=== PATIENT | female | born 1960 | race Caucasian/White ===

== ENCOUNTER → 2017-10-25 12:42 | Outpatient (CLI) | payer OTHER, SELFPAY ==
[2017-10-25 13:22] LABS: Alanine Aminotransferase 27 IU/L (9-52); Albumin 3.6 g/dL (3.5-5.0); Albumin Globulin Ratio 1.4 (1.0-2.8); Alkaline Phosphatase 69 U/L (38-126); Aspartate Aminotransferase 23 IU/L (14-36); BUN Creatinine Ratio 14.3 (6-22); Bilirubin Total 0.6 mg/dL (0.2-1.3); Blood Urea Nitrogen 10 mg/dL (7-17); Calcium 8.5 mg/dL (8.4-10.2); Carbon Dioxide 31 mmol/L (22-32); Chloride 104 mmol/L (98-107); Cholesterol 140 mg/dL (140-199); Estimated Glomerular Filt Rate > 60.0 mL/min (>60); Globulin 2.5 g/dL (1.7-4.1); Glucose 86 mg/dL (70-100); HDL Cholesterol 51 mg/dL (40-60); HEMOLYSIS 16 (0-50); LDL Cholesterol Calculated 71 mg/dL (<100); Potassium 4.1 mmol/L (3.4-5.1); Sodium 135 mmol/L (137-145); Total Protein 6.1 g/dL (6.3-8.2); Triglycerides 89 mg/dL (35-150)
[2017-10-25 13:44] LABS: Add Manual Diff / Slide Review NO; Basophils Percent Auto 0.4 % (0-2); Eosinophils Percent Auto 0.7 % (2-4); Hematocrit 40.2 % (36-46); Hemoglobin 13.5 g/dL (12.0-16.0); Lymphocytes Percent Auto 16.7 % (25-40); Mean Corpuscular HGB Conc 33.6 % (30-36); Mean Corpuscular Hemoglobin 29.6 PG (26-34); Mean Corpuscular Volume 88.2 fL (80-100); Monocytes Percent Auto 7.7 % (3-14); Neutrophils Absolute Auto 7100 /uL (3000-5900); Neutrophils Percent Auto 74.5 % (50-75); Platelet Count 326 X10^3/uL (150-400); Red Blood Cell Count 4.56 X10^6/uL (4.0-5.2); Red Cell Distribution Width 13.6 % (11.6-14.8); White Blood Cell Count 9.5 X10^3/uL (4.5-11.0)
[2017-10-25 14:36] LABS: Thyroid Stimulating Hormone 1.32 uIU/mL (0.47-4.68)
[2017-10-25 16:01] LABS: Vitamin D 25 Hydroxy (D3) 63.8 ng/mL (30.0-100.0)
== END ==
PROVIDERS: Family Provider Family Medicine; PCP Family Medicine; Visit Provider Family Medicine
DX: Z00.00 Encounter for general adult medical examination without abnormal findings (principal); I11.0 Hypertensive heart disease with heart failure; E55.9 Vitamin D deficiency, unspecified
CPT/HCPCS: 36415; 80053; 80061; 82306; 84443; 85025

== ENCOUNTER → 2017-11-08 07:44 | Outpatient (CLI) | payer OTHER, SELFPAY ==
--- NOTE | 2017-11-08 | DI.US.S_ITS ---
PROCEDURE: US PELVIC COMPLETE INDICATIONS: POSTMENOPAUSAL BLEEDING TECHNIQUE: Real-time scanning was performed of the pelvic organs, with image documentation. Additional endovaginal scanning was necessary due to incomplete visualization of the adnexal and endometrial structures by transabdominal scanning. COMPARISON: None. FINDINGS: Transabdominal scanning: Limited scanning through the kidneys shows no hydronephrosis. No pathologic free abdominal or pelvic fluid. Simple cyst involves the left kidney measuring 5.2 cm in greatest diameter. Endovaginal scanning: Uterus: Uterus is normal in size at 7.3 x 3.9 x 5.1 cm. The endometrium measures 7.8 mm in combined thickness. Ovaries: Right ovary is normal measuring 1.4 x 1.1 x 2.3 cm and the left ovary is not visualized on this exam. IMPRESSION: #1. Abnormally thickened endometrial complex in this postmenopausal female with history of bleeding. Endometrial carcinoma cannot be excluded. Endometrial biopsy recommended. #2. Left ovary could not be identified on this exam. Dictated by: Royce Hays [facility] Interpreted: Adriano Grullon MD on 11/08/2017 at 8:44 Approved by: Adriano Grullon M.D. on 11/08/2017 at 19:02
== END ==
PROVIDERS: PCP Family Medicine; Visit Provider Nurse Practitioner Family
DX: N95.0 Postmenopausal bleeding (principal)
CPT/HCPCS: 76856

== ENCOUNTER → 2017-11-15 13:06 | Outpatient (CLI) | payer OTHER, SELFPAY | PROVIDERS: PCP Family Medicine; Visit Provider Family Medicine | DX: M85.852 Other specified disorders of bone density and structure, left thigh (principal); Z78.0 Asymptomatic menopausal state; Z82.62 Family history of osteoporosis | CPT/HCPCS: 77080 ==

== ENCOUNTER → 2018-10-04 15:07 | Outpatient (CLI) | payer OTHER, SELFPAY ==
--- NOTE | 2018-10-04 15:12 | DI.RAD.S_ITS ---
PROCEDURE: XR SHOULDER LT MIN 2V INDICATIONS: LEFT SHOULDER PAIN X 6 MONTHS, CANNOT ABDUCT L ARM GREATER 90 degrees TECHNIQUE: 3 views of the shoulder were acquired. COMPARISON: None. FINDINGS: Bones: No fractures or dislocations. No suspicious bony lesions. Visualized ribs appear intact. Soft tissues: No suspicious soft tissue calcifications. IMPRESSION: No radiographic abnormalities. If clinical symptoms persist or clinical suspicion for internal derangement is high, MRI is suggested for further evaluation. Dictated by: Christophe Moeller M.D. on 10/04/2018 at 17:34 Approved by: Christophe Moeller M.D. on 10/04/2018 at 17:37
== END ==
PROVIDERS: Visit Provider Student in an Organized Health Care Education/Training Program
DX: M25.512 Pain in left shoulder (principal)
CPT/HCPCS: 73030

== ENCOUNTER → 2018-10-31 11:03 | Outpatient (CLI) | payer OTHER, SELFPAY ==
--- NOTE | 2018-10-31 | DI.MRI.S_ITS ---
PROCEDURE: MR SHOULDER LT W CON INDICATIONS: shoulder pain TECHNIQUE: After the administration of 12 mL of dilute intra-articular Gadolinium contrast, oblique coronal T1 and T2 spin echo with fat saturation, oblique sagittal T1 spin echo with and without fat saturation, oblique sagittal T2 fast spin echo with fat saturation, axial T1 spin echo with fat saturation through the shoulder. COMPARISON: [facility], CR, XR SHOULDER LT MIN 2V, 10/04/2018, 15:21. FINDINGS: Image quality: Diagnostic. Rotator cuff: No full-thickness or high-grade partial-thickness tear of the rotator cuff is evident. There is mild subscapularis tendinopathy without significant tear. Slight focal thickening and increased signal at the junction between the supraspinatus and infraspinatus tendons is present, suggesting focal tendinopathy without significant tear. The teres minor tendon is intact. There is no significant atrophy of the rotator cuff muscles. Bones and bursae: No acute fracture, dislocation, or suspicious osseous lesion is identified. No significant degenerative changes of the glenohumeral joint are present. There may be mild degenerative changes of the acromioclavicular joint. There is mild downsloping of the lateral acromion. There is adequate distention of the glenohumeral joint with the injected contrast. However, much of the contrast is noted to decompress along the subcoracoid recess and subscapularis muscle. This contrast material is seen within the anterior subacromial subdeltoid bursa. However, no definite full-thickness tear of the rotator cuff is appreciated. Capsule and soft tissues: There is a small to moderate-sized posterior labral tear identified that extends from the 12 o'clock position to the 4 o'clock position. No detached liver fragments a large para labral cysts are evident. The long head of the biceps tendon is normally positioned within the bicipital groove and appears to be otherwise intact. The superior, middle, and inferior glenohumeral ligaments are intact. IMPRESSION: 1. Mild tendinopathy of the rotator cuff without significant tearing. 2. Small moderate-sized posterior labral tear. 3. Mild degenerative changes of the acromioclavicular joint. Mild downsloping of the lateral acromion may be resulting in subacromial impingement and clinical correlation is recommended. 4. Fluid within the subacromial subdeltoid bursa is felt to be iatrogenic given and no obvious full-thickness rotator cuff tear is evident. Another alternative could be on the basis of adhesive capsulitis with contrast extravasating through the needle tract. Please correlate clinically. Dictated by: Kevin Martel M.D. on 10/31/2018 at 14:48 Approved by: Kevin Martel M.D. on 10/31/2018 at 15:04
--- NOTE | 2018-10-31 | DI.RAD.S_ITS ---
PROCEDURE: FL SHOULDER INJECTION MR/CT LT INDICATIONS: Shoulder pain. TECHNIQUE: The indications, alternatives, benefits, risks, and complications of the procedure were explained to the patient. Written informed consent was obtained and placed in the chart. The shoulder was examined fluoroscopically and a site for needle placement chosen for entry into the left glenohumeral joint from an anterior approach. The skin was prepped and draped in a sterile fashion, and 1% lidocaine infiltrated from skin down to joint capsule. A spinal needle was inserted into the glenohumeral joint, and a small amount of iodinated contrast media injected to confirm intra-articular placement of the needle tip. This was followed by approximately 15 mL dilute solution of a gadolinium containing MR contrast agent. The needle was removed and a dressing was applied. The patient was given postprocedural instructions and sent to the MR suite for MR imaging. FINDINGS: A single fluoroscopic spot image demonstrates intra-articular location of injected iodinated contrast. IMPRESSION: Successful fluoroscopically guided administration of dilute Gadolinium solution into the left shoulder joint for MR arthrogram. Dictated by: Adriano Grullon M.D. on 10/31/2018 at 13:22 Approved by: Adriano Grullon M.D. on 10/31/2018 at 13:24
== END ==
PROVIDERS: Visit Provider Student in an Organized Health Care Education/Training Program
DX: M25.511 Pain in right shoulder (principal); S43.431A Superior glenoid labrum lesion of right shoulder, initial encounter
CPT/HCPCS: 23350; 73222; 77002

== ENCOUNTER → 2018-12-03 13:28 | Outpatient (CLI) | payer OTHER, SELFPAY ==
--- NOTE | 2018-12-03 | DI.MG.S_ITS ---
BILATERAL DIGITAL SCREENING MAMMOGRAM 3D/2D WITH CAD: 12/03/2018 CLINICAL: Routine screening. Comparison is made to exams dated: 12/02/2016 mammogram, 09/18/2015 mammogram, 01/23/2014 mammogram, 04/29/2009 mammogram, and 04/05/2005 mammogram - [facility]. The tissue of both breasts is predominantly fatty. There is suboptimal visualization of the posterior breast tissue particullary on the left. The patient has limited range of motion of the left shoulder. A left lateral medial projection was obtain in place of the left MLO. The patient also has a tremor. No significant motion artifact. Current study was also evaluated with a Computer Aided Detection (CAD) system. No significant masses, calcifications, or other findings are seen in either breast. There has been no significant interval change. IMPRESSION: NEGATIVE Evaluation of the posterior left breast tissue is suboptimal due to limited range of motion of the left arm. There is no mammographic evidence of malignancy. A 1 year screening mammogram is recommended. This exam was interpreted at Station ID: [id number]. NOTE: For mammograms, a report in lay terms will be sent to the patient. Approximately 15% of breast malignancies will not be visualized mammographically. In the management of a palpable breast mass, a negative mammogram must not discourage biopsy of a clinically suspicious lesion. Electronically Signed By: Ernie Brandon M.D. slc/:12/03/2018 14:38:30 copy to: Jean Claude Avila letter sent: Normal Exam ACR BI-RADS Category 1: Negative [id number]
== END ==
PROVIDERS: PCP Student in an Organized Health Care Education/Training Program; Visit Provider Student in an Organized Health Care Education/Training Program
DX: Z12.31 Encounter for screening mammogram for malignant neoplasm of breast (principal)
CPT/HCPCS: 77063; 77067

== ENCOUNTER 2019-05-20 13:45 | Outpatient (RCR) | payer OTHER, SELFPAY ==
--- NOTE | 2018-12-20 16:46 | PT.OIE ---
Current Diagnoses Adhesive capsulitis of left shoulder (12/20/18) Impingement syndrome of left shoulder (12/20/18) Visit Care Team Role Provider Type Katiana Elaine MD Primary Care Provider Physician Specialty: Family Practice Address: [facility], [address], [place], [address] Email: [email or web address] Bimal Poon PA-C Attending Provider Non-Staff Specialty: Medical Address: [address] [place] [address], [address], [place], [address] Email: Physical Therapy Initial Evaluation PT-OP-A Visit Information Start: 12/20/18 13:28 Freq: Status: Active Protocol: Document 12/20/18 14:22 MB (Rec: 12/20/18 15:05 MB [id number]) Out-Patient Physical Therapy Visit Information Visit Information Visit Type Initial Evaluation Visit Note Initial assessment, pt with left shoulder pain, reports of frozen shoulder and possible adhesive capsulitis per dx note. 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 She is worried about being put in pain with movement. Visit Start Time 14:22 Visit Stop Time 15:15 Total Visit Minutes 53 Visit Number 03/27 Number of CLIENT ASSOCIATE Visits 0 PT-OP-B Current Condition Start: 12/20/18 13:28 Freq: Status: Active Protocol: Document 12/20/18 14:22 MB (Rec: 12/20/18 15:05 MB [id number]) Current Condition History of Current Condition Onset Date 10 months History of Current Condition Pt states that she went to rake, move pots and pull weeds in 02/27 and she went to bed at night and had increased left shoulder pain. 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 She has had gradually worsening ROM. Patient can only sleep in one position on her back or in her recliner, leaning to the right. With her [place]'s Disease, she needs 10-11 hours of sleep. 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 Left shoulder MRI 10/31/18: small mod-sized posterior labral tear, mild degenerative changes AC joint, down sloping lateral acromion, fluid within subacrominal subdeltoid bursa Prior Treatments and Tests Injection, 5 days of oral corticosteroids Future Testing and Treatments Planned Follow-up with orthopedist 01/18/19 Treatment Goals Patient/Caregiver Goals To decrease pain Prior Functional Status Baseline Function- ADL's Needs Assist Baseline Function- Other Pt needs asst to wash under her arms and with donning her bra. She was able to try it today but had pain. Personal Factors Other Personal Factors That May Effect HD with chorea, imbalance and Therapy/Recovery difficultly performing motor tasks occ PT-OP-C Subjective Start: 12/20/18 13:28 Freq: Status: Active Protocol: Document 12/20/18 14:22 MB (Rec: 12/20/18 15:05 MB [id number]) OP-PT Subjective Patient Comments Patient Comments 10 month onset of left shoulder pain and decreasing ROM. She reports frozen shoulder, fear of pain with starting movement with PT. She wonders if gentle manual work may be part of PT. She has trouble performing ADLs like showering. She is afraid of showering because of pain. She is only showering every 7-8 days but normal washes every 4 -5 days. She is right handed. Patient Reported Progress Worse PT-OP-K Range of Motion Start: 12/20/18 13:28 Freq: Status: Active Protocol: Document 12/20/18 14:22 MB (Rec: 12/20/18 15:28 MB [id number]) Cervical Spine Range of Motion Cervical Spine Active Testing Position Standing Flexion 40 Extension 40 Rotation Left 45 Rotation Right 70 Comments Unable to coordinate SB d/t chorea Shoulder Goniometric Range of Motion Shoulder ROM Limitations Comments R shoulder, elbow and wrist normal. Active IR behind back to T6. L shoulder flexion 55 deg, abduction 40 deg increased pain greater than 7/10. No tolerance to active IR in standing. Passive ER and IR to 0 in 30 deg abduction Elbow/Forearm Range of Motion Elbow/Forearm ROM Limitations Comments R elbow and wrist WNLs. Left elbow and hand are functional but not full-range tested d/t pt's fear of pain. PT-OP-M Strength Start: 12/20/18 13:28 Freq: Status: Active Protocol: Document 12/20/18 14:22 MB (Rec: 12/20/18 16:46 MB [id number]) Shoulder Strength Shoulder Manual Muscle Testing Left Comments Standing all deferred d/t pain with minimal shoulder motion Right Flexion 5 Normal Abduction (C5) 5 Normal External Rotation 4 Good Internal Rotation 4 Good Comments Standing Elbow/Forearm Strength Elbow and Forearm Manual Muscle Testing Left Comments Deferred d/t fear of pain Right Flexion (C6) 5 Normal Extension (C7) 5 Normal Pronation 5 Normal Supination 5 Normal Wrist Strength Wrist Manual Muscle Testing Left Comments Deferred d/t fear of pain Right Flexion (C7) 5 Normal Extension (C6) 5 Normal PT-OP-T Assessment and Plan Start: 12/20/18 13:28 Freq: Status: Active Protocol: Document 12/20/18 14:22 MB (Rec: 12/20/18 16:46 MB [id number]) Physical Therapy Assessment Rehab Potential Rehabilitation Potential Fair Evaluation Complexity Number of Personal Factors/Comorbidities 1-2 Number of Body Systems Impaired 1-2 Impairments Impairments Activity Tolerance,Balance, Coordination,Functional Activities,Functional Mobility ,Pain,Posture,ROM,Soft Tissue Mobility,Strength Goals 5 Sugar Presser Goal (LTG) Pt will perform progressive HEP with I by 02/20/19. LTG Duration 8 weeks 4 Impairment Pain Fci Goal (LTG) Pt will report a 70% improvement in left shoulder pain by 02/20/19. LTG Duration 8 weeks 3 Impairment Decreased ADL I Sugar Presser Goal (LTG) Pt will be able to don her bra with I by 02/20/19. LTG Duration 8 weeks 2 Impairment Decreased ROM Sugar Presser Goal (LTG) Pt will present with improved AROM left shoulder to at least 150 deg flexion and abduction and IR to T10 level by . LTG Duration 8 weeks 1 Impairment QuickDASH score reflecting 67. 5% impairment Fci Goal (LTG) Pt will present with QuickDASH score reflecting no more than 35% functional impairment by 02/20/19. LTG Duration 8 weeks Assessment Summary Assessment Pt is a 58 y/o female presenting with reports of left frozen shoulder progressing over 10 months. MRI indicates possible adhesive capsulitis among other findings. Pt presents with HD and chorea and this inhibits some ROM and postural assessment and may be a barrier to PT. Pt will benefit from PT for ROM, flexibility, strengthening and manual therapy. Anticipate slow recovery given fear of pain, decreased range, course of problem and other co- morbidities. Physical Therapy Plan Frequency and Duration Frequency of Treatment 2x/Week Duration of Treatment 8 weeks Plan of Care Start Date 12/20/18 Plan of Care End Date 02/20/19 Therapeutic Interventions Therapeutic Interventions Coordination Training,Home Exercise Program,Joint Mobilizations,Manual Therapy, Neuromuscular Re-education, Patient/Caregiver Education, Self-Care/Home Management,Soft Tissue Mobilization,Taping, Therapeutic Activities, Therapeutic Exercises Modalities Cold Pack/Ice Massage,Electric Stimulation,Hot Packs, Ultrasound Next Visit Focus/Plan Next Note Type Treatment Note Next Visit Plan Consider assessing hook lying position with neck and head support, scapular retraction, consider progression to PNF, cane AAROM and Felicerain
--- NOTE | 2018-12-24 15:18 | PT.OTN ---
Current Diagnoses Adhesive capsulitis of left shoulder (12/24/18) Impingement syndrome of left shoulder (12/24/18) Physical Therapy Treatment Note PT-OP-A Visit Information Start: 12/20/18 13:28 Freq: Status: Active Protocol: Document 12/24/18 14:31 MB (Rec: 12/24/18 15:12 MB [id number]) Out-Patient Physical Therapy Visit Information Visit Information Visit Type Treatment Note Visit Note Initiate Counterstrain this date Visit Start Time 14:31 Visit Stop Time 15:09 Total Visit Minutes 38 Visit Number 04/27 PT-OP-B Current Condition Start: 12/20/18 13:28 Freq: Status: Active Protocol: Document 12/20/18 14:22 MB (Rec: 12/20/18 15:05 MB [id number]) Current Condition History of Current Condition Onset Date 10 months History of Current Condition Pt states that she went to rake, move pots and pull weeds in 02/27 and she went to bed at night and had increased left shoulder pain. 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 She has had gradually worsening ROM. Patient can only sleep in one position on her back or in her recliner, leaning to the right. With her [place]'s Disease, she needs 10-11 hours of sleep. 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 Left shoulder MRI 10/31/18: small mod-sized posterior labral tear, mild degenerative changes AC joint, down sloping lateral acromion, fluid within subacrominal subdeltoid bursa Prior Treatments and Tests Injection, 5 days of oral corticosteroids Future Testing and Treatments Planned Follow-up with orthopedist 01/18/19 Treatment Goals Patient/Caregiver Goals To decrease pain Prior Functional Status Baseline Function- ADL's Needs Assist Baseline Function- Other Pt needs asst to wash under her arms and with donning her bra. She was able to try it today but had pain. Personal Factors Other Personal Factors That May Effect HD with chorea, imbalance and Therapy/Recovery difficultly performing motor tasks occ PT-OP-C Subjective Start: 12/20/18 13:28 Freq: Status: Active Protocol: Document 12/24/18 14:31 MB (Rec: 12/24/18 15:12 MB [id number]) OP-PT Subjective Patient Comments Patient Comments Pt states that she finished her steroids and is not as worried about pain. PT and pt talk about proper sleeping position with cervical and UE support. PT-OP-K Range of Motion Start: 12/20/18 13:28 Freq: Status: Active Protocol: Document 12/20/18 14:22 MB (Rec: 12/20/18 15:28 MB [id number]) Cervical Spine Range of Motion Cervical Spine Active Testing Position Standing Flexion 40 Extension 40 Rotation Left 45 Rotation Right 70 Comments Unable to coordinate SB d/t chorea Shoulder Goniometric Range of Motion Shoulder ROM Limitations Comments R shoulder, elbow and wrist normal. Active IR behind back to T6. L shoulder flexion 55 deg, abduction 40 deg increased pain greater than 7/10. No tolerance to active IR in standing. Passive ER and IR to 0 in 30 deg abduction Elbow/Forearm Range of Motion Elbow/Forearm ROM Limitations Comments R elbow and wrist WNLs. Left elbow and hand are functional but not full-range tested d/t pt's fear of pain. PT-OP-M Strength Start: 12/20/18 13:28 Freq: Status: Active Protocol: Document 12/20/18 14:22 MB (Rec: 12/20/18 16:46 MB [id number]) Shoulder Strength Shoulder Manual Muscle Testing Left Comments Standing all deferred d/t pain with minimal shoulder motion Right Flexion 5 Normal Abduction (C5) 5 Normal External Rotation 4 Good Internal Rotation 4 Good Comments Standing Elbow/Forearm Strength Elbow and Forearm Manual Muscle Testing Left Comments Deferred d/t fear of pain Right Flexion (C6) 5 Normal Extension (C7) 5 Normal Pronation 5 Normal Supination 5 Normal Wrist Strength Wrist Manual Muscle Testing Left Comments Deferred d/t fear of pain Right Flexion (C7) 5 Normal Extension (C6) 5 Normal PT-OP-Q Treatments Start: 12/20/18 13:28 Freq: Status: Active Protocol: Document 12/24/18 14:31 MB (Rec: 12/24/18 15:12 MB [id number]) Manual Therapy Treatment Other Other Manual Treatments Pt agrees to Counterstrain to assess and treat fascial tension: treated stacks thoracic LV spinal extension and ALL. Suboccipital release, grade II right first rib mobs PT-OP-T Assessment and Plan Start: 12/20/18 13:28 Freq: Status: Active Protocol: Document 12/24/18 14:31 MB (Rec: 12/24/18 15:12 MB [id number]) Physical Therapy Plan Frequency and Duration Frequency of Treatment 2x/Week Duration of Treatment 8 weeks Plan of Care Start Date 12/20/18 Plan of Care End Date 02/20/19 Next Visit Focus/Plan Next Note Type Treatment Note Next Visit Plan Consider assessing hook lying position with neck and head support, scapular retraction, consider progression to PNF, cane AAROM. Ongoing assessment of first rib.
--- NOTE | 2018-12-27 15:20 | PT.OTN ---
Current Diagnoses Adhesive capsulitis of left shoulder (12/27/18) Impingement syndrome of left shoulder (12/27/18) Physical Therapy Treatment Note PT-OP-A Visit Information Start: 12/20/18 13:28 Freq: Status: Active Protocol: Document 12/27/18 14:35 MB (Rec: 12/27/18 15:00 MB [id number]) Out-Patient Physical Therapy Visit Information Visit Information Visit Type Treatment Note Visit Note Initiate Counterstrain this date Visit Start Time 14:35 Visit Stop Time 15:15 Total Visit Minutes 40 Visit Number 3 PT-OP-B Current Condition Start: 12/20/18 13:28 Freq: Status: Active Protocol: Document 12/20/18 14:22 MB (Rec: 12/20/18 15:05 MB [id number]) Current Condition History of Current Condition Onset Date 10 months History of Current Condition Pt states that she went to rake, move pots and pull weeds in 02/27 and she went to bed at night and had increased left shoulder pain. 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 She has had gradually worsening ROM. Patient can only sleep in one position on her back or in her recliner, leaning to the right. With her [place]'s Disease, she needs 10-11 hours of sleep. 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 Left shoulder MRI 10/31/18: small mod-sized posterior labral tear, mild degenerative changes AC joint, down sloping lateral acromion, fluid within subacrominal subdeltoid bursa Prior Treatments and Tests Injection, 5 days of oral corticosteroids Future Testing and Treatments Planned Follow-up with orthopedist 01/18/19 Treatment Goals Patient/Caregiver Goals To decrease pain Prior Functional Status Baseline Function- ADL's Needs Assist Baseline Function- Other Pt needs asst to wash under her arms and with donning her bra. She was able to try it today but had pain. Personal Factors Other Personal Factors That May Effect HD with chorea, imbalance and Therapy/Recovery difficultly performing motor tasks occ PT-OP-C Subjective Start: 12/20/18 13:28 Freq: Status: Active Protocol: Document 12/27/18 14:35 MB (Rec: 12/27/18 14:57 MB [id number]) OP-PT Subjective Patient Comments Patient Comments Pt states that she was encouraged that she could relax during Counterstrain treatment. She falls asleep around 2 a.m. d/t circadian rhythm disorder from HD. PT-OP-K Range of Motion Start: 12/20/18 13:28 Freq: Status: Active Protocol: Document 12/20/18 14:22 MB (Rec: 12/20/18 15:28 MB [id number]) Cervical Spine Range of Motion Cervical Spine Active Testing Position Standing Flexion 40 Extension 40 Rotation Left 45 Rotation Right 70 Comments Unable to coordinate SB d/t chorea Shoulder Goniometric Range of Motion Shoulder ROM Limitations Comments R shoulder, elbow and wrist normal. Active IR behind back to T6. L shoulder flexion 55 deg, abduction 40 deg increased pain greater than 7/10. No tolerance to active IR in standing. Passive ER and IR to 0 in 30 deg abduction Elbow/Forearm Range of Motion Elbow/Forearm ROM Limitations Comments R elbow and wrist WNLs. Left elbow and hand are functional but not full-range tested d/t pt's fear of pain. PT-OP-M Strength Start: 12/20/18 13:28 Freq: Status: Active Protocol: Document 12/20/18 14:22 MB (Rec: 12/20/18 16:46 MB [id number]) Shoulder Strength Shoulder Manual Muscle Testing Left Comments Standing all deferred d/t pain with minimal shoulder motion Right Flexion 5 Normal Abduction (C5) 5 Normal External Rotation 4 Good Internal Rotation 4 Good Comments Standing Elbow/Forearm Strength Elbow and Forearm Manual Muscle Testing Left Comments Deferred d/t fear of pain Right Flexion (C6) 5 Normal Extension (C7) 5 Normal Pronation 5 Normal Supination 5 Normal Wrist Strength Wrist Manual Muscle Testing Left Comments Deferred d/t fear of pain Right Flexion (C7) 5 Normal Extension (C6) 5 Normal PT-OP-Q Treatments Start: 12/20/18 13:28 Freq: Status: Active Protocol: Document 12/27/18 14:35 MB (Rec: 12/27/18 14:57 MB [id number]) Therapeutic Exercises Supine Exercises Thoracic lift Comments Added to HEP, performed 5 reps AAROM cane flexion Comments Added to HEP, performed 5 reps Diaphragnatic breathing Comments Added to HEP, performed 5 reps Manual Therapy Treatment Other Other Manual Treatments Suboccipital release PT-OP-T Assessment and Plan Start: 12/20/18 13:28 Freq: Status: Active Protocol: Document 12/27/18 14:35 MB (Rec: 12/27/18 14:57 MB [id number]) Physical Therapy Assessment Rehab Potential Rehabilitation Potential Fair Evaluation Complexity Number of Personal Factors/Comorbidities 1-2 Number of Body Systems Impaired 1-2 Impairments Impairments Activity Tolerance,Balance, Coordination,Functional Activities,Functional Mobility ,Pain,Posture,ROM,Soft Tissue Mobility,Strength Goals 5 Nursing Home Goal (LTG) Pt will perform progressive HEP with I by 02/20/19. LTG Duration 8 weeks 4 Impairment Pain Nursing Home Goal (LTG) Pt will report a 70% improvement in left shoulder pain by 02/20/19. LTG Duration 8 weeks 3 Impairment Decreased ADL I Ship'S Officer Goal (LTG) Pt will be able to don her bra with I by 02/20/19. LTG Duration 8 weeks 2 Impairment Decreased ROM Ship'S Officer Goal (LTG) Pt will present with improved AROM left shoulder to at least 150 deg flexion and abduction and IR to T10 level by . LTG Duration 8 weeks 1 Impairment QuickDASH score reflecting 67. 5% impairment Ship'S Officer Goal (LTG) Pt will present with QuickDASH score reflecting no more than 35% functional impairment by 02/20/19. LTG Duration 8 weeks Assessment Summary Assessment Initiated supine HEP this date . Progress to scapular retraction in sitting and standing. Consider progressing AAROM with cane. Physical Therapy Plan Frequency and Duration Frequency of Treatment 2x/Week Duration of Treatment 8 weeks Plan of Care Start Date 12/20/18 Plan of Care End Date 02/20/19 Therapeutic Interventions Therapeutic Interventions Coordination Training,Home Exercise Program,Joint Mobilizations,Manual Therapy, Neuromuscular Re-education, Patient/Caregiver Education, Self-Care/Home Management,Soft Tissue Mobilization,Taping, Therapeutic Activities, Therapeutic Exercises Modalities Cold Pack/Ice Massage,Electric Stimulation,Hot Packs, Ultrasound Next Visit Focus/Plan Next Note Type Treatment Note Next Visit Plan Consider progression to PNF, cane AAROM. Ongoing assessment of first rib.
--- NOTE | 2018-12-31 15:17 | PT.OTN ---
Current Diagnoses Adhesive capsulitis of left shoulder (12/31/18) Impingement syndrome of left shoulder (12/31/18) Physical Therapy Treatment Note PT-OP-A Visit Information Start: 12/20/18 13:28 Freq: Status: Active Protocol: Document 12/31/18 14:31 MB (Rec: 12/31/18 15:17 MB [id number]) Out-Patient Physical Therapy Visit Information Visit Information Visit Type Treatment Note Visit Note Initiate Counterstrain this date Visit Start Time 14:31 Visit Stop Time 15:15 Total Visit Minutes 44 Visit Number 06/25 PT-OP-B Current Condition Start: 12/20/18 13:28 Freq: Status: Active Protocol: Document 12/20/18 14:22 MB (Rec: 12/20/18 15:05 MB [id number]) Current Condition History of Current Condition Onset Date 10 months History of Current Condition Pt states that she went to rake, move pots and pull weeds in 02/27 and she went to bed at night and had increased left shoulder pain. 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 She has had gradually worsening ROM. Patient can only sleep in one position on her back or in her recliner, leaning to the right. With her [place]'s Disease, she needs 10-11 hours of sleep. 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 Left shoulder MRI 10/31/18: small mod-sized posterior labral tear, mild degenerative changes AC joint, down sloping lateral acromion, fluid within subacrominal subdeltoid bursa Prior Treatments and Tests Injection, 5 days of oral corticosteroids Future Testing and Treatments Planned Follow-up with orthopedist 01/18/19 Treatment Goals Patient/Caregiver Goals To decrease pain Prior Functional Status Baseline Function- ADL's Needs Assist Baseline Function- Other Pt needs asst to wash under her arms and with donning her bra. She was able to try it today but had pain. Personal Factors Other Personal Factors That May Effect HD with chorea, imbalance and Therapy/Recovery difficultly performing motor tasks occ PT-OP-C Subjective Start: 12/20/18 13:28 Freq: Status: Active Protocol: Document 12/31/18 14:31 MB (Rec: 12/31/18 15:17 MB [id number]) OP-PT Subjective Patient Comments Patient Comments Pt states that she is pain- free with exercises and that she realized she is a stomach sleeper. PT-OP-K Range of Motion Start: 12/20/18 13:28 Freq: Status: Active Protocol: Document 12/20/18 14:22 MB (Rec: 12/20/18 15:28 MB [id number]) Cervical Spine Range of Motion Cervical Spine Active Testing Position Standing Flexion 40 Extension 40 Rotation Left 45 Rotation Right 70 Comments Unable to coordinate SB d/t chorea Shoulder Goniometric Range of Motion Shoulder ROM Limitations Comments R shoulder, elbow and wrist normal. Active IR behind back to T6. L shoulder flexion 55 deg, abduction 40 deg increased pain greater than 7/10. No tolerance to active IR in standing. Passive ER and IR to 0 in 30 deg abduction Elbow/Forearm Range of Motion Elbow/Forearm ROM Limitations Comments R elbow and wrist WNLs. Left elbow and hand are functional but not full-range tested d/t pt's fear of pain. PT-OP-M Strength Start: 12/20/18 13:28 Freq: Status: Active Protocol: Document 12/20/18 14:22 MB (Rec: 12/20/18 16:46 MB [id number]) Shoulder Strength Shoulder Manual Muscle Testing Left Comments Standing all deferred d/t pain with minimal shoulder motion Right Flexion 5 Normal Abduction (C5) 5 Normal External Rotation 4 Good Internal Rotation 4 Good Comments Standing Elbow/Forearm Strength Elbow and Forearm Manual Muscle Testing Left Comments Deferred d/t fear of pain Right Flexion (C6) 5 Normal Extension (C7) 5 Normal Pronation 5 Normal Supination 5 Normal Wrist Strength Wrist Manual Muscle Testing Left Comments Deferred d/t fear of pain Right Flexion (C7) 5 Normal Extension (C6) 5 Normal PT-OP-Q Treatments Start: 12/20/18 13:28 Freq: Status: Active Protocol: Document 12/31/18 14:31 MB (Rec: 12/31/18 15:17 MB [id number]) Therapeutic Exercises Supine Exercises AAROM cane abduction Comments Added to HEP, 6 slow reps with breaks, cues AAROM cane flexion Comments Performed 5 reps Diaphragnatic breathing Comments Performed reps throughout other exercises Manual Therapy Treatment Other Other Manual Treatments Right first rib isometric PT-OP-T Assessment and Plan Start: 12/20/18 13:28 Freq: Status: Active Protocol: Document 12/31/18 14:31 MB (Rec: 12/31/18 15:17 MB [id number]) Physical Therapy Assessment Rehab Potential Rehabilitation Potential Fair Evaluation Complexity Number of Personal Factors/Comorbidities 1-2 Number of Body Systems Impaired 1-2 Impairments Impairments Activity Tolerance,Balance, Coordination,Functional Activities,Functional Mobility ,Pain,Posture,ROM,Soft Tissue Mobility,Strength Goals 5 [facility] Goal (LTG) Pt will perform progressive HEP with I by 02/20/19. LTG Duration 8 weeks 4 Impairment Pain Plating Foreman Goal (LTG) Pt will report a 70% improvement in left shoulder pain by 02/20/19. LTG Duration 8 weeks 3 Impairment Decreased ADL I Plating Foreman Goal (LTG) Pt will be able to don her bra with I by 02/20/19. LTG Duration 8 weeks 2 Impairment Decreased ROM Plating Foreman Goal (LTG) Pt will present with improved AROM left shoulder to at least 150 deg flexion and abduction and IR to T10 level by . LTG Duration 8 weeks 1 Impairment QuickDASH score reflecting 67. 5% impairment Plating Foreman Goal (LTG) Pt will present with QuickDASH score reflecting no more than 35% functional impairment by 02/20/19. LTG Duration 8 weeks Assessment Summary Assessment Pt has trouble with shoulder abduction with cane, but does tolerate it. Abduction to about 30 deg AAROM this date. Physical Therapy Plan Frequency and Duration Frequency of Treatment 2x/Week Duration of Treatment 8 weeks Plan of Care Start Date 12/20/18 Plan of Care End Date 02/20/19 Therapeutic Interventions Therapeutic Interventions Coordination Training,Home Exercise Program,Joint Mobilizations,Manual Therapy, Neuromuscular Re-education, Patient/Caregiver Education, Self-Care/Home Management,Soft Tissue Mobilization,Taping, Therapeutic Activities, Therapeutic Exercises Modalities Cold Pack/Ice Massage,Electric Stimulation,Hot Packs, Ultrasound Next Visit Focus/Plan Next Note Type Treatment Note Next Visit Plan Consider progression to PNF, cane AAROM. Ongoing assessment of first rib, consider working on thoracic spine.
--- NOTE | 2019-01-03 15:45 | PT.OTN ---
Current Diagnoses Adhesive capsulitis of left shoulder (01/03/19) Impingement syndrome of left shoulder (01/03/19) Physical Therapy Treatment Note PT-OP-A Visit Information Start: 12/20/18 13:28 Freq: Status: Active Protocol: Document 01/03/19 14:30 MB (Rec: 01/03/19 15:44 MB [id number]) Out-Patient Physical Therapy Visit Information Visit Information Visit Type Treatment Note Visit Start Time 14:30 Visit Stop Time 15:30 Total Visit Minutes 60 Visit Number 07/25 PT-OP-B Current Condition Start: 12/20/18 13:28 Freq: Status: Active Protocol: Document 12/20/18 14:22 MB (Rec: 12/20/18 15:05 MB [id number]) Current Condition History of Current Condition Onset Date 10 months History of Current Condition Pt states that she went to rake, move pots and pull weeds in 02/27 and she went to bed at night and had increased left shoulder pain. 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 She has had gradually worsening ROM. Patient can only sleep in one position on her back or in her recliner, leaning to the right. With her [place]'s Disease, she needs 10-11 hours of sleep. 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 Left shoulder MRI 10/31/18: small mod-sized posterior labral tear, mild degenerative changes AC joint, down sloping lateral acromion, fluid within subacrominal subdeltoid bursa Prior Treatments and Tests Injection, 5 days of oral corticosteroids Future Testing and Treatments Planned Follow-up with orthopedist 01/18/19 Treatment Goals Patient/Caregiver Goals To decrease pain Prior Functional Status Baseline Function- ADL's Needs Assist Baseline Function- Other Pt needs asst to wash under her arms and with donning her bra. She was able to try it today but had pain. Personal Factors Other Personal Factors That May Effect HD with chorea, imbalance and Therapy/Recovery difficultly performing motor tasks occ PT-OP-C Subjective Start: 12/20/18 13:28 Freq: Status: Active Protocol: Document 01/03/19 14:30 MB (Rec: 01/03/19 15:44 MB [id number]) OP-PT Subjective Patient Comments Patient Comments Pt states that the pain is less with cane abduction. PT-OP-K Range of Motion Start: 12/20/18 13:28 Freq: Status: Active Protocol: Document 12/20/18 14:22 MB (Rec: 12/20/18 15:28 MB [id number]) Cervical Spine Range of Motion Cervical Spine Active Testing Position Standing Flexion 40 Extension 40 Rotation Left 45 Rotation Right 70 Comments Unable to coordinate SB d/t chorea Shoulder Goniometric Range of Motion Shoulder ROM Limitations Comments R shoulder, elbow and wrist normal. Active IR behind back to T6. L shoulder flexion 55 deg, abduction 40 deg increased pain greater than 7/10. No tolerance to active IR in standing. Passive ER and IR to 0 in 30 deg abduction Elbow/Forearm Range of Motion Elbow/Forearm ROM Limitations Comments R elbow and wrist WNLs. Left elbow and hand are functional but not full-range tested d/t pt's fear of pain. PT-OP-M Strength Start: 12/20/18 13:28 Freq: Status: Active Protocol: Document 12/20/18 14:22 MB (Rec: 12/20/18 16:46 MB [id number]) Shoulder Strength Shoulder Manual Muscle Testing Left Comments Standing all deferred d/t pain with minimal shoulder motion Right Flexion 5 Normal Abduction (C5) 5 Normal External Rotation 4 Good Internal Rotation 4 Good Comments Standing Elbow/Forearm Strength Elbow and Forearm Manual Muscle Testing Left Comments Deferred d/t fear of pain Right Flexion (C6) 5 Normal Extension (C7) 5 Normal Pronation 5 Normal Supination 5 Normal Wrist Strength Wrist Manual Muscle Testing Left Comments Deferred d/t fear of pain Right Flexion (C7) 5 Normal Extension (C6) 5 Normal PT-OP-Q Treatments Start: 12/20/18 13:28 Freq: Status: Active Protocol: Document 01/03/19 14:30 MB (Rec: 01/03/19 15:44 MB [id number]) Therapeutic Exercises Supine Exercises AAROM shoulder ER Comments Reviewed many times, added to HEP AAROM cane abduction Comments Added to HEP, 6 slow reps with breaks, cues Thoracic lift Comments Added to HEP, performed 5 reps AAROM cane flexion Comments Performed 5 reps Diaphragnatic breathing Comments Performed reps throughout other exercises PT-OP-T Assessment and Plan Start: 12/20/18 13:28 Freq: Status: Active Protocol: Document 01/03/19 14:30 MB (Rec: 01/03/19 15:44 MB [id number]) Physical Therapy Assessment Rehab Potential Rehabilitation Potential Fair Evaluation Complexity Number of Personal Factors/Comorbidities 1-2 Number of Body Systems Impaired 1-2 Impairments Impairments Activity Tolerance,Balance, Coordination,Functional Activities,Functional Mobility ,Pain,Posture,ROM,Soft Tissue Mobility,Strength Goals 5 Dry Goods Inspector Goal (LTG) Pt will perform progressive HEP with I by 02/20/19. LTG Duration 8 weeks 4 Impairment Pain Dry Goods Inspector Goal (LTG) Pt will report a 70% improvement in left shoulder pain by 02/20/19. LTG Duration 8 weeks 3 Impairment Decreased ADL I Dry Goods Inspector Goal (LTG) Pt will be able to don her bra with I by 02/20/19. LTG Duration 8 weeks 2 Impairment Decreased ROM Dry Goods Inspector Goal (LTG) Pt will present with improved AROM left shoulder to at least 150 deg flexion and abduction and IR to T10 level by . LTG Duration 8 weeks 1 Impairment QuickDASH score reflecting 67. 5% impairment Dry Goods Inspector Goal (LTG) Pt will present with QuickDASH score reflecting no more than 35% functional impairment by 02/20/19. LTG Duration 8 weeks Assessment Summary Assessment Progressed shoulder ER with cane this date. Increased time for exercise education and practice given pt's cognitive challenges and need for repetition and editing HEP handouts. PT gets pt's sister to review with her when she comes to pick pt up and she videos pt performing ER and abduction exercises. Her range is better. Physical Therapy Plan Frequency and Duration Frequency of Treatment 2x/Week Duration of Treatment 8 weeks Plan of Care Start Date 12/20/18 Plan of Care End Date 02/20/19 Therapeutic Interventions Therapeutic Interventions Coordination Training,Home Exercise Program,Joint Mobilizations,Manual Therapy, Neuromuscular Re-education, Patient/Caregiver Education, Self-Care/Home Management,Soft Tissue Mobilization,Taping, Therapeutic Activities, Therapeutic Exercises Modalities Cold Pack/Ice Massage,Electric Stimulation,Hot Packs, Ultrasound Next Visit Focus/Plan Next Note Type Treatment Note Next Visit Plan Consider progression to PNF, cane AAROM. Ongoing assessment of first rib, consider working on thoracic spine.
--- NOTE | 2019-01-07 10:34 | PT.OTN ---
Current Diagnoses Adhesive capsulitis of left shoulder (01/07/19) Impingement syndrome of left shoulder (01/07/19) Physical Therapy Treatment Note PT-OP-A Visit Information Start: 12/20/18 13:28 Freq: Status: Active Protocol: Document 01/07/19 09:48 MB (Rec: 01/07/19 10:34 MB [id number]) Out-Patient Physical Therapy Visit Information Visit Information Visit Type Treatment Note Visit Start Time 09:48 Visit Stop Time 10:30 Total Visit Minutes 43 Visit Number 08/25 PT-OP-B Current Condition Start: 12/20/18 13:28 Freq: Status: Active Protocol: Document 12/20/18 14:22 MB (Rec: 12/20/18 15:05 MB [id number]) Current Condition History of Current Condition Onset Date 10 months History of Current Condition Pt states that she went to rake, move pots and pull weeds in 02/27 and she went to bed at night and had increased left shoulder pain. 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 She has had gradually worsening ROM. Patient can only sleep in one position on her back or in her recliner, leaning to the right. With her [place]'s Disease, she needs 10-11 hours of sleep. 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 Left shoulder MRI 10/31/18: small mod-sized posterior labral tear, mild degenerative changes AC joint, down sloping lateral acromion, fluid within subacrominal subdeltoid bursa Prior Treatments and Tests Injection, 5 days of oral corticosteroids Future Testing and Treatments Planned Follow-up with orthopedist 01/18/19 Treatment Goals Patient/Caregiver Goals To decrease pain Prior Functional Status Baseline Function- ADL's Needs Assist Baseline Function- Other Pt needs asst to wash under her arms and with donning her bra. She was able to try it today but had pain. Personal Factors Other Personal Factors That May Effect HD with chorea, imbalance and Therapy/Recovery difficultly performing motor tasks occ PT-OP-C Subjective Start: 12/20/18 13:28 Freq: Status: Active Protocol: Document 01/07/19 09:48 MB (Rec: 01/07/19 10:34 MB [id number]) OP-PT Subjective Patient Comments Patient Comments Pt states that she is glad to be able to go over exercises today. She fell asleep on her left shoulder and it is pretty enough sore today. PT-OP-K Range of Motion Start: 12/20/18 13:28 Freq: Status: Active Protocol: Document 12/20/18 14:22 MB (Rec: 12/20/18 15:28 MB [id number]) Cervical Spine Range of Motion Cervical Spine Active Testing Position Standing Flexion 40 Extension 40 Rotation Left 45 Rotation Right 70 Comments Unable to coordinate SB d/t chorea Shoulder Goniometric Range of Motion Shoulder ROM Limitations Comments R shoulder, elbow and wrist normal. Active IR behind back to T6. L shoulder flexion 55 deg, abduction 40 deg increased pain greater than 7/10. No tolerance to active IR in standing. Passive ER and IR to 0 in 30 deg abduction Elbow/Forearm Range of Motion Elbow/Forearm ROM Limitations Comments R elbow and wrist WNLs. Left elbow and hand are functional but not full-range tested d/t pt's fear of pain. PT-OP-M Strength Start: 12/20/18 13:28 Freq: Status: Active Protocol: Document 12/20/18 14:22 MB (Rec: 12/20/18 16:46 MB [id number]) Shoulder Strength Shoulder Manual Muscle Testing Left Comments Standing all deferred d/t pain with minimal shoulder motion Right Flexion 5 Normal Abduction (C5) 5 Normal External Rotation 4 Good Internal Rotation 4 Good Comments Standing Elbow/Forearm Strength Elbow and Forearm Manual Muscle Testing Left Comments Deferred d/t fear of pain Right Flexion (C6) 5 Normal Extension (C7) 5 Normal Pronation 5 Normal Supination 5 Normal Wrist Strength Wrist Manual Muscle Testing Left Comments Deferred d/t fear of pain Right Flexion (C7) 5 Normal Extension (C6) 5 Normal PT-OP-Q Treatments Start: 12/20/18 13:28 Freq: Status: Active Protocol: Document 01/07/19 09:48 MB (Rec: 01/07/19 10:34 MB [id number]) Therapeutic Exercises Supine Exercises AAROM shoulder ER Comments Reviewed many times, added to HEP AAROM cane abduction Comments 10 slow reps with breaks, cues Diaphragnatic breathing Comments Performed reps throughout other exercises Neuro Re-Education Treatment Movement Re-Education Movement Re-education Activities PNF left shoulder with PT manual asst to improve movement patterns and scapulohumeral facilitation PT-OP-T Assessment and Plan Start: 12/20/18 13:28 Freq: Status: Active Protocol: Document 01/07/19 09:48 MB (Rec: 01/07/19 10:34 MB [id number]) Physical Therapy Assessment Rehab Potential Rehabilitation Potential Fair Evaluation Complexity Number of Personal Factors/Comorbidities 1-2 Number of Body Systems Impaired 1-2 Impairments Impairments Activity Tolerance,Balance, Coordination,Functional Activities,Functional Mobility ,Pain,Posture,ROM,Soft Tissue Mobility,Strength Goals 5 Alf Goal (LTG) Pt will perform progressive HEP with I by 02/20/19. LTG Duration 8 weeks 4 Impairment Pain Vat Tender Goal (LTG) Pt will report a 70% improvement in left shoulder pain by 02/20/19. LTG Duration 8 weeks 3 Impairment Decreased ADL I Vat Tender Goal (LTG) Pt will be able to don her bra with I by 02/20/19. LTG Duration 8 weeks 2 Impairment Decreased ROM Vat Tender Goal (LTG) Pt will present with improved AROM left shoulder to at least 150 deg flexion and abduction and IR to T10 level by . LTG Duration 8 weeks 1 Impairment QuickDASH score reflecting 67. 5% impairment Alf Goal (LTG) Pt will present with QuickDASH score reflecting no more than 35% functional impairment by 02/20/19. LTG Duration 8 weeks Assessment Summary Assessment Pt con't to require increased cueing and practice for exercises, likely related to HD per patient. Initiated PNF this date. Physical Therapy Plan Frequency and Duration Frequency of Treatment 2x/Week Duration of Treatment 8 weeks Plan of Care Start Date 12/20/18 Plan of Care End Date 02/20/19 Therapeutic Interventions Therapeutic Interventions Coordination Training,Home Exercise Program,Joint Mobilizations,Manual Therapy, Neuromuscular Re-education, Patient/Caregiver Education, Self-Care/Home Management,Soft Tissue Mobilization,Taping, Therapeutic Activities, Therapeutic Exercises Modalities Cold Pack/Ice Massage,Electric Stimulation,Hot Packs, Ultrasound Next Visit Focus/Plan Next Note Type Treatment Note Next Visit Plan Consider ongoing PNF, jeremy WRAY. Ongoing assessment of first rib, consider working on thoracic spine.
--- NOTE | 2019-01-09 15:25 | PT.OTN ---
Current Diagnoses Adhesive capsulitis of left shoulder (01/09/19) Impingement syndrome of left shoulder (01/09/19) Physical Therapy Treatment Note PT-OP-A Visit Information Start: 12/20/18 13:28 Freq: Status: Active Protocol: Document 01/09/19 14:33 MB (Rec: 01/09/19 15:20 MB [id number]) Out-Patient Physical Therapy Visit Information Visit Information Visit Type Treatment Note Visit Start Time 14:33 Visit Stop Time 15:15 Total Visit Minutes 42 Visit Number 09/24 PT-OP-B Current Condition Start: 12/20/18 13:28 Freq: Status: Active Protocol: Document 12/20/18 14:22 MB (Rec: 12/20/18 15:05 MB [id number]) Current Condition History of Current Condition Onset Date 10 months History of Current Condition Pt states that she went to rake, move pots and pull weeds in 02/27 and she went to bed at night and had increased left shoulder pain. 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 She has had gradually worsening ROM. Patient can only sleep in one position on her back or in her recliner, leaning to the right. With her [place]'s Disease, she needs 10-11 hours of sleep. 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 Left shoulder MRI 10/31/18: small mod-sized posterior labral tear, mild degenerative changes AC joint, down sloping lateral acromion, fluid within subacrominal subdeltoid bursa Prior Treatments and Tests Injection, 5 days of oral corticosteroids Future Testing and Treatments Planned Follow-up with orthopedist 01/18/19 Treatment Goals Patient/Caregiver Goals To decrease pain Prior Functional Status Baseline Function- ADL's Needs Assist Baseline Function- Other Pt needs asst to wash under her arms and with donning her bra. She was able to try it today but had pain. 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 She states that she got over the pain from having slept on it. PT-OP-K Range of Motion Start: 12/20/18 13:28 Freq: Status: Active Protocol: Document 12/20/18 14:22 MB (Rec: 12/20/18 15:28 MB [id number]) Cervical Spine Range of Motion Cervical Spine Active Testing Position Standing Flexion 40 Extension 40 Rotation Left 45 Rotation Right 70 Comments Unable to coordinate SB d/t chorea Shoulder Goniometric Range of Motion Shoulder ROM Limitations Comments R shoulder, elbow and wrist normal. Active IR behind back to T6. L shoulder flexion 55 deg, abduction 40 deg increased pain greater than 7/10. No tolerance to active IR in standing. Passive ER and IR to 0 in 30 deg abduction Elbow/Forearm Range of Motion Elbow/Forearm ROM Limitations Comments R elbow and wrist WNLs. Left elbow and hand are functional but not full-range tested d/t pt's fear of pain. PT-OP-M Strength Start: 12/20/18 13:28 Freq: Status: Active Protocol: Document 12/20/18 14:22 MB (Rec: 12/20/18 16:46 MB [id number]) Shoulder Strength Shoulder Manual Muscle Testing Left Comments Standing all deferred d/t pain with minimal shoulder motion Right Flexion 5 Normal Abduction (C5) 5 Normal External Rotation 4 Good Internal Rotation 4 Good Comments Standing Elbow/Forearm Strength Elbow and Forearm Manual Muscle Testing Left Comments Deferred d/t fear of pain Right Flexion (C6) 5 Normal Extension (C7) 5 Normal Pronation 5 Normal Supination 5 Normal Wrist Strength Wrist Manual Muscle Testing Left Comments Deferred d/t fear of pain Right Flexion (C7) 5 Normal Extension (C6) 5 Normal PT-OP-Q Treatments Start: 12/20/18 13:28 Freq: Status: Active Protocol: Document 01/09/19 14:33 MB (Rec: 01/09/19 15:25 MB [id number]) Therapeutic Exercises Supine Exercises Pect stretch pool noodle Comments Pect stretch over pool noodle, added to HEP AAROM shoulder ER Comments Reviewed many times AAROM cane abduction Comments 10 slow reps with breaks, cues AAROM cane flexion Comments Performed 5 reps, performed flat and over pool noodle PT-OP-T Assessment and Plan Start: 12/20/18 13:28 Freq: Status: Active Protocol: Document 01/09/19 14:33 MB (Rec: 01/09/19 15:20 MB [id number]) Physical Therapy Assessment Rehab Potential Rehabilitation Potential Fair Evaluation Complexity Number of Personal Factors/Comorbidities 1-2 Number of Body Systems Impaired 1-2 Impairments Impairments Activity Tolerance,Balance, Coordination,Functional Activities,Functional Mobility ,Pain,Posture,ROM,Soft Tissue Mobility,Strength Goals 5 Intermediate Goal (LTG) Pt will perform progressive HEP with I by 02/20/19. LTG Duration 8 weeks 4 Impairment Pain Soap Boiler Goal (LTG) Pt will report a 70% improvement in left shoulder pain by 02/20/19. LTG Duration 8 weeks 3 Impairment Decreased ADL I Soap Boiler Goal (LTG) Pt will be able to don her bra with I by 02/20/19. LTG Duration 8 weeks 2 Impairment Decreased ROM Intermediate Goal (LTG) Pt will present with improved AROM left shoulder to at least 150 deg flexion and abduction and IR to T10 level by . LTG Duration 8 weeks 1 Impairment QuickDASH score reflecting 67. 5% impairment Soap Boiler Goal (LTG) Pt will present with QuickDASH score reflecting no more than 35% functional impairment by 02/20/19. LTG Duration 8 weeks Assessment Summary Assessment Pt con't to require increased cueing and practice for exercises, likely related to HD per patient. Con't progression, PNF. Physical Therapy Plan Frequency and Duration Frequency of Treatment 2x/Week Duration of Treatment 8 weeks Plan of Care Start Date 12/20/18 Plan of Care End Date 02/20/19 Therapeutic Interventions Therapeutic Interventions Coordination Training,Home Exercise Program,Joint Mobilizations,Manual Therapy, Neuromuscular Re-education, Patient/Caregiver Education, Self-Care/Home Management,Soft Tissue Mobilization,Taping, Therapeutic Activities, Therapeutic Exercises Modalities Cold Pack/Ice Massage,Electric Stimulation,Hot Packs, Ultrasound Next Visit Focus/Plan Next Note Type Treatment Note Next Visit Plan Consider ongoing PNF, ongoing assessment of first rib, consider working on thoracic spine.
--- NOTE | 2019-01-14 14:30 | PT.OTN ---
Current Diagnoses Adhesive capsulitis of left shoulder (01/14/19) Impingement syndrome of left shoulder (01/14/19) Physical Therapy Treatment Note PT-OP-A Visit Information Start: 12/20/18 13:28 Freq: Status: Active Protocol: Document 01/14/19 13:49 MB (Rec: 01/14/19 14:00 MB [id number]) Out-Patient Physical Therapy Visit Information Visit Information Visit Type Treatment Note Visit Start Time 13:49 Visit Stop Time 14:30 Total Visit Minutes 41 Visit Number 10/25 PT-OP-B Current Condition Start: 12/20/18 13:28 Freq: Status: Active Protocol: Document 12/20/18 14:22 MB (Rec: 12/20/18 15:05 MB [id number]) Current Condition History of Current Condition Onset Date 10 months History of Current Condition Pt states that she went to rake, move pots and pull weeds in 02/27 and she went to bed at night and had increased left shoulder pain. 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 She has had gradually worsening ROM. Patient can only sleep in one position on her back or in her recliner, leaning to the right. With her [place]'s Disease, she needs 10-11 hours of sleep. 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 Left shoulder MRI 10/31/18: small mod-sized posterior labral tear, mild degenerative changes AC joint, down sloping lateral acromion, fluid within subacrominal subdeltoid bursa Prior Treatments and Tests Injection, 5 days of oral corticosteroids Future Testing and Treatments Planned Follow-up with orthopedist 01/18/19 Treatment Goals Patient/Caregiver Goals To decrease pain Prior Functional Status Baseline Function- ADL's Needs Assist Baseline Function- Other Pt needs asst to wash under her arms and with donning her bra. She was able to try it today but had pain. 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 Her friend helped her with donning her bra and jacket. Her pool jennifer is on the way. PT-OP-K Range of Motion Start: 12/20/18 13:28 Freq: Status: Active Protocol: Document 12/20/18 14:22 MB (Rec: 12/20/18 15:28 MB [id number]) Cervical Spine Range of Motion Cervical Spine Active Testing Position Standing Flexion 40 Extension 40 Rotation Left 45 Rotation Right 70 Comments Unable to coordinate SB d/t chorea Shoulder Goniometric Range of Motion Shoulder ROM Limitations Comments R shoulder, elbow and wrist normal. Active IR behind back to T6. L shoulder flexion 55 deg, abduction 40 deg increased pain greater than 7/10. No tolerance to active IR in standing. Passive ER and IR to 0 in 30 deg abduction Elbow/Forearm Range of Motion Elbow/Forearm ROM Limitations Comments R elbow and wrist WNLs. Left elbow and hand are functional but not full-range tested d/t pt's fear of pain. PT-OP-M Strength Start: 12/20/18 13:28 Freq: Status: Active Protocol: Document 12/20/18 14:22 MB (Rec: 12/20/18 16:46 MB [id number]) Shoulder Strength Shoulder Manual Muscle Testing Left Comments Standing all deferred d/t pain with minimal shoulder motion Right Flexion 5 Normal Abduction (C5) 5 Normal External Rotation 4 Good Internal Rotation 4 Good Comments Standing Elbow/Forearm Strength Elbow and Forearm Manual Muscle Testing Left Comments Deferred d/t fear of pain Right Flexion (C6) 5 Normal Extension (C7) 5 Normal Pronation 5 Normal Supination 5 Normal Wrist Strength Wrist Manual Muscle Testing Left Comments Deferred d/t fear of pain Right Flexion (C7) 5 Normal Extension (C6) 5 Normal PT-OP-Q Treatments Start: 12/20/18 13:28 Freq: Status: Active Protocol: Document 01/14/19 13:49 MB (Rec: 01/14/19 14:28 MB [id number]) Manual Therapy Treatment Manual Techniques Sidelying PNF and abduction MWM, STM Body Position Sidelying Comments Pt in right side lying. PT assists with PROM and then AAROM abduction, MWM with PT providing STM infra, subscap, serratus, lats PT-OP-T Assessment and Plan Start: 12/20/18 13:28 Freq: Status: Active Protocol: Document 01/14/19 13:49 MB (Rec: 01/14/19 14:00 MB [id number]) Physical Therapy Assessment Goals 5 Family Centered Specialist Goal (LTG) Pt will perform progressive HEP with I by 02/20/19. LTG Duration 8 weeks 4 Impairment Pain Chcf Goal (LTG) Pt will report a 70% improvement in left shoulder pain by 02/20/19. LTG Duration 8 weeks 3 Impairment Decreased ADL I Chcf Goal (LTG) Pt will be able to don her bra with I by 02/20/19. LTG Duration 8 weeks 2 Impairment Decreased ROM Chcf Goal (LTG) Pt will present with improved AROM left shoulder to at least 150 deg flexion and abduction and IR to T10 level by . LTG Duration 8 weeks 1 Impairment QuickDASH score reflecting 67. 5% impairment Chcf Goal (LTG) Pt will present with QuickDASH score reflecting no more than 35% functional impairment by 02/20/19. LTG Duration 8 weeks Assessment Summary Assessment Manual work left shoulder today tolerated well initially , monitor response. Physical Therapy Plan Frequency and Duration Frequency of Treatment 2x/Week Duration of Treatment 8 weeks Plan of Care Start Date 12/20/18 Plan of Care End Date 02/20/19 Therapeutic Interventions Therapeutic Interventions Coordination Training,Home Exercise Program,Joint Mobilizations,Manual Therapy, Neuromuscular Re-education, Patient/Caregiver Education, Self-Care/Home Management,Soft Tissue Mobilization,Taping, Therapeutic Activities, Therapeutic Exercises Modalities Cold Pack/Ice Massage,Electric Stimulation,Hot Packs, Ultrasound Next Visit Focus/Plan Next Note Type Treatment Note Next Visit Plan Consider ongoing PNF, ongoing assessment of first rib, consider working on thoracic spine.
--- NOTE | 2019-01-17 15:10 | PT.OTN ---
Current Diagnoses Adhesive capsulitis of left shoulder (01/17/19) Impingement syndrome of left shoulder (01/17/19) Physical Therapy Treatment Note PT-OP-A Visit Information Start: 12/20/18 13:28 Freq: Status: Active Protocol: Document 01/17/19 14:30 MB (Rec: 01/17/19 15:08 MB [id number]) Out-Patient Physical Therapy Visit Information Visit Information Visit Type Treatment Note Visit Start Time 14:30 Visit Stop Time 15:08 Total Visit Minutes 38 Visit Number 11/25 PT-OP-B Current Condition Start: 12/20/18 13:28 Freq: Status: Active Protocol: Document 12/20/18 14:22 MB (Rec: 12/20/18 15:05 MB [id number]) Current Condition History of Current Condition Onset Date 10 months History of Current Condition Pt states that she went to rake, move pots and pull weeds in 02/27 and she went to bed at night and had increased left shoulder pain. 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 She has had gradually worsening ROM. Patient can only sleep in one position on her back or in her recliner, leaning to the right. With her [place]'s Disease, she needs 10-11 hours of sleep. 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 Left shoulder MRI 10/31/18: small mod-sized posterior labral tear, mild degenerative changes AC joint, down sloping lateral acromion, fluid within subacrominal subdeltoid bursa Prior Treatments and Tests Injection, 5 days of oral corticosteroids Future Testing and Treatments Planned Follow-up with orthopedist 01/18/19 Treatment Goals Patient/Caregiver Goals To decrease pain Prior Functional Status Baseline Function- ADL's Needs Assist Baseline Function- Other Pt needs asst to wash under her arms and with donning her bra. She was able to try it today but had pain. Personal Factors Other Personal Factors That May Effect HD with chorea, imbalance and Therapy/Recovery difficultly performing motor tasks occ PT-OP-C Subjective Start: 12/20/18 13:28 Freq: Status: Active Protocol: Document 01/17/19 14:30 MB (Rec: 01/17/19 15:10 MB [id number]) OP-PT Subjective Patient Comments Patient Comments Pt is excited to be able to tolerate manual work this date and last treatment date. Reaching to the right across her body with left hand ( horizontal add) is better. PT-OP-K Range of Motion Start: 12/20/18 13:28 Freq: Status: Active Protocol: Document 12/20/18 14:22 MB (Rec: 12/20/18 15:28 MB [id number]) Cervical Spine Range of Motion Cervical Spine Active Testing Position Standing Flexion 40 Extension 40 Rotation Left 45 Rotation Right 70 Comments Unable to coordinate SB d/t chorea Shoulder Goniometric Range of Motion Shoulder ROM Limitations Comments R shoulder, elbow and wrist normal. Active IR behind back to T6. L shoulder flexion 55 deg, abduction 40 deg increased pain greater than 7/10. No tolerance to active IR in standing. Passive ER and IR to 0 in 30 deg abduction Elbow/Forearm Range of Motion Elbow/Forearm ROM Limitations Comments R elbow and wrist WNLs. Left elbow and hand are functional but not full-range tested d/t pt's fear of pain. PT-OP-M Strength Start: 12/20/18 13:28 Freq: Status: Active Protocol: Document 12/20/18 14:22 MB (Rec: 12/20/18 16:46 MB [id number]) Shoulder Strength Shoulder Manual Muscle Testing Left Comments Standing all deferred d/t pain with minimal shoulder motion Right Flexion 5 Normal Abduction (C5) 5 Normal External Rotation 4 Good Internal Rotation 4 Good Comments Standing Elbow/Forearm Strength Elbow and Forearm Manual Muscle Testing Left Comments Deferred d/t fear of pain Right Flexion (C6) 5 Normal Extension (C7) 5 Normal Pronation 5 Normal Supination 5 Normal Wrist Strength Wrist Manual Muscle Testing Left Comments Deferred d/t fear of pain Right Flexion (C7) 5 Normal Extension (C6) 5 Normal PT-OP-Q Treatments Start: 12/20/18 13:28 Freq: Status: Active Protocol: Document 01/17/19 14:30 MB (Rec: 01/17/19 15:08 MB [id number]) Manual Therapy Treatment Manual Techniques [place] Protocol left shoulder Comments Left shoulder [place] Protocol: pt with most difficulty with abduction movements PT-OP-T Assessment and Plan Start: 12/20/18 13:28 Freq: Status: Active Protocol: Document 01/17/19 14:30 MB (Rec: 01/17/19 15:08 MB [id number]) Physical Therapy Assessment Goals 5 Snf Goal (LTG) Pt will perform progressive HEP with I by 02/20/19. LTG Duration 8 weeks 4 Impairment Pain Snf Goal (LTG) Pt will report a 70% improvement in left shoulder pain by 02/20/19. LTG Duration 8 weeks 3 Impairment Decreased ADL I Snf Goal (LTG) Pt will be able to don her bra with I by 02/20/19. LTG Duration 8 weeks 2 Impairment Decreased ROM Mortgage Loan Computation Clerk Goal (LTG) Pt will present with improved AROM left shoulder to at least 150 deg flexion and abduction and IR to T10 level by . LTG Duration 8 weeks 1 Impairment QuickDASH score reflecting 67. 5% impairment Mortgage Loan Computation Clerk Goal (LTG) Pt will present with QuickDASH score reflecting no more than 35% functional impairment by 02/20/19. LTG Duration 8 weeks Assessment Summary Assessment [place] Protocol initiated this date. Monitor response. Physical Therapy Plan Frequency and Duration Frequency of Treatment 2x/Week Duration of Treatment 8 weeks Plan of Care Start Date 12/20/18 Plan of Care End Date 02/20/19 Therapeutic Interventions Therapeutic Interventions Coordination Training,Home Exercise Program,Joint Mobilizations,Manual Therapy, Neuromuscular Re-education, Patient/Caregiver Education, Self-Care/Home Management,Soft Tissue Mobilization,Taping, Therapeutic Activities, Therapeutic Exercises Modalities Cold Pack/Ice Massage,Electric Stimulation,Hot Packs, Ultrasound Next Visit Focus/Plan Next Note Type Treatment Note Next Visit Plan Consider ongoing PNF, ongoing assessment of first rib, consider working on thoracic spine.
--- NOTE | 2019-01-21 14:30 | PT.OTN ---
Current Diagnoses Adhesive capsulitis of left shoulder (01/21/19) Impingement syndrome of left shoulder (01/21/19) Physical Therapy Treatment Note PT-OP-A Visit Information Start: 12/20/18 13:28 Freq: Status: Active Protocol: Document 01/21/19 13:49 MB (Rec: 01/21/19 14:30 MB [id number]) Out-Patient Physical Therapy Visit Information Visit Information Visit Type Treatment Note Visit Start Time 13:49 Visit Stop Time 14:30 Total Visit Minutes 41 Visit Number 12/25 PT-OP-B Current Condition Start: 12/20/18 13:28 Freq: Status: Active Protocol: Document 12/20/18 14:22 MB (Rec: 12/20/18 15:05 MB [id number]) Current Condition History of Current Condition Onset Date 10 months History of Current Condition Pt states that she went to rake, move pots and pull weeds in 02/27 and she went to bed at night and had increased left shoulder pain. 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 She has had gradually worsening ROM. Patient can only sleep in one position on her back or in her recliner, leaning to the right. With her [place]'s Disease, she needs 10-11 hours of sleep. 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 Left shoulder MRI 10/31/18: small mod-sized posterior labral tear, mild degenerative changes AC joint, down sloping lateral acromion, fluid within subacrominal subdeltoid bursa Prior Treatments and Tests Injection, 5 days of oral corticosteroids Future Testing and Treatments Planned Follow-up with orthopedist 01/18/19 Treatment Goals Patient/Caregiver Goals To decrease pain Prior Functional Status Baseline Function- ADL's Needs Assist Baseline Function- Other Pt needs asst to wash under her arms and with donning her bra. She was able to try it today but had pain. Personal Factors Other Personal Factors That May Effect HD with chorea, imbalance and Therapy/Recovery difficultly performing motor tasks occ PT-OP-C Subjective Start: 12/20/18 13:28 Freq: Status: Active Protocol: Document 01/21/19 13:49 MB (Rec: 01/21/19 14:30 MB [id number]) OP-PT Subjective Patient Comments Patient Comments Pt states that she felt more movement in her left shoulder in the shower yesterday after [place] treatment last PT date. Her sister notices that she is moving better. PT-OP-K Range of Motion Start: 12/20/18 13:28 Freq: Status: Active Protocol: Document 12/20/18 14:22 MB (Rec: 12/20/18 15:28 MB [id number]) Cervical Spine Range of Motion Cervical Spine Active Testing Position Standing Flexion 40 Extension 40 Rotation Left 45 Rotation Right 70 Comments Unable to coordinate SB d/t chorea Shoulder Goniometric Range of Motion Shoulder ROM Limitations Comments R shoulder, elbow and wrist normal. Active IR behind back to T6. L shoulder flexion 55 deg, abduction 40 deg increased pain greater than 7/10. No tolerance to active IR in standing. Passive ER and IR to 0 in 30 deg abduction Elbow/Forearm Range of Motion Elbow/Forearm ROM Limitations Comments R elbow and wrist WNLs. Left elbow and hand are functional but not full-range tested d/t pt's fear of pain. PT-OP-M Strength Start: 12/20/18 13:28 Freq: Status: Active Protocol: Document 12/20/18 14:22 MB (Rec: 12/20/18 16:46 MB [id number]) Shoulder Strength Shoulder Manual Muscle Testing Left Comments Standing all deferred d/t pain with minimal shoulder motion Right Flexion 5 Normal Abduction (C5) 5 Normal External Rotation 4 Good Internal Rotation 4 Good Comments Standing Elbow/Forearm Strength Elbow and Forearm Manual Muscle Testing Left Comments Deferred d/t fear of pain Right Flexion (C6) 5 Normal Extension (C7) 5 Normal Pronation 5 Normal Supination 5 Normal Wrist Strength Wrist Manual Muscle Testing Left Comments Deferred d/t fear of pain Right Flexion (C7) 5 Normal Extension (C6) 5 Normal PT-OP-Q Treatments Start: 12/20/18 13:28 Freq: Status: Active Protocol: Document 01/21/19 13:49 MB (Rec: 01/21/19 14:30 MB [id number]) Therapeutic Exercises Supine Exercises AAROM shoulder ER Comments Performed over pool noodle AAROM cane abduction Comments Performed over pool noodle, pt has increased confusion over noodle AAROM cane flexion Comments Performed over pool noodle this date, asst to get on noodle Standing Exercises Racquet ball massage Comments Intrascapular muscles PT-OP-T Assessment and Plan Start: 12/20/18 13:28 Freq: Status: Active Protocol: Document 01/21/19 13:49 MB (Rec: 01/21/19 14:30 MB [id number]) Physical Therapy Assessment Goals 5 Chimney Builder Helper Goal (LTG) Pt will perform progressive HEP with I by 03/25/18. 01/21/19 Pt is performing HEP at home, some trouble remembering and so lots of practice with PT LTG Duration 8 weeks 4 Impairment Pain Chimney Builder Helper Goal (LTG) Pt will report a 70% improvement in left shoulder pain by 03/25/18. 01/21/19: Pt reports 10% improvement in overall left shoulder pain since starting PT. LTG Duration 8 weeks 3 Impairment Decreased ADL I Alf Goal (LTG) Pt will be able to don her bra with I by 03/25/18. 01/21/19: Pt occ needs help donning her bra but it has improved. LTG Duration 8 weeks 2 Impairment Decreased ROM Alf Goal (LTG) Pt will present with improved AROM left shoulder to at least 150 deg flexion and abduction and IR to T10 level by . 01/21/19: L shoulder AROM: abduction 64 deg; flexion: 85 deg; IR: L5. LTG Duration 8 weeks 1 Impairment QuickDASH score reflecting 67. 5% impairment Alf Goal (LTG) Pt will present with QuickDASH score reflecting no more than 25% functional impairment by 03/25/18. 01/21/19: QuickDASH scale score has improved to reflect 45% impairment LTG Duration 8 weeks Assessment Summary Assessment Pt is progressing towards all PT goals. [place] Protocol was helpful. She will benefit from ongoing PT to further progress range and function. HD affects pt's learning and this decreases speed of HEP progression. Pt is very participatory with PT. Physical Therapy Plan Frequency and Duration Frequency of Treatment 2x/Week Duration of Treatment 8 weeks Plan of Care Start Date 01/21/19 Plan of Care End Date 03/25/19 Therapeutic Interventions Therapeutic Interventions Coordination Training,Home Exercise Program,Joint Mobilizations,Manual Therapy, Neuromuscular Re-education, Patient/Caregiver Education, Self-Care/Home Management,Soft Tissue Mobilization,Taping, Therapeutic Activities, Therapeutic Exercises Modalities Cold Pack/Ice Massage,Electric Stimulation,Hot Packs, Ultrasound Next Visit Focus/Plan Next Note Type Treatment Note Next Visit Plan Consider ongoing PNF, ongoing assessment of first rib, consider working on thoracic spine. For HEP, progress strengthening, consider racquet ball massage.
--- NOTE | 2019-01-21 14:31 | PT.OPPOC ---
Current Diagnoses Adhesive capsulitis of left shoulder (01/21/19) Impingement syndrome of left shoulder (01/21/19) Visit Care Team Role Provider Type Katiana Elaine MD Primary Care Provider Physician Specialty: Family Practice Address: [facility] [address] [facility], [address], [place], [address] Email: [email or web address] Bimal Poon PA-C Attending Provider Non-Staff Specialty: Medical Address: [address] [place] [address], [address], [place], [address] Email: Plan Of Care PT-OP-T Assessment and Plan Start: 12/20/18 13:28 Freq: Status: Active Protocol: Document 01/21/19 13:49 MB (Rec: 01/21/19 14:30 MB [id number]) Physical Therapy Assessment Goals 5 Senior Care Goal (LTG) Pt will perform progressive HEP with I by 03/25/18. 01/21/19 Pt is performing HEP at home, some trouble remembering and so lots of practice with PT LTG Duration 8 weeks 4 Impairment Pain Senior Care Goal (LTG) Pt will report a 70% improvement in left shoulder pain by 03/25/18. 01/21/19: Pt reports 10% improvement in overall left shoulder pain since starting PT. LTG Duration 8 weeks 3 Impairment Decreased ADL I Senior Care Goal (LTG) Pt will be able to don her bra with I by 03/25/18. 01/21/19: Pt occ needs help donning her bra but it has improved. LTG Duration 8 weeks 2 Impairment Decreased ROM Tripper Goal (LTG) Pt will present with improved AROM left shoulder to at least 150 deg flexion and abduction and IR to T10 level by . 01/21/19: L shoulder AROM: abduction 64 deg; flexion: 85 deg; IR: L5. LTG Duration 8 weeks 1 Impairment QuickDASH score reflecting 67. 5% impairment Tripper Goal (LTG) Pt will present with QuickDASH score reflecting no more than 25% functional impairment by 03/25/18. 01/21/19: QuickDASH scale score has improved to reflect 45% impairment LTG Duration 8 weeks Assessment Summary Assessment Pt is progressing towards all PT goals. [place] Protocol was helpful. She will benefit from ongoing PT to further progress range and function. HD affects pt's learning and this decreases speed of HEP progression. Pt is very participatory with PT. Physical Therapy Plan Frequency and Duration Frequency of Treatment 2x/Week Duration of Treatment 8 weeks Plan of Care Start Date 01/21/19 Plan of Care End Date 03/25/19 Therapeutic Interventions Therapeutic Interventions Coordination Training,Home Exercise Program,Joint Mobilizations,Manual Therapy, Neuromuscular Re-education, Patient/Caregiver Education, Self-Care/Home Management,Soft Tissue Mobilization,Taping, Therapeutic Activities, Therapeutic Exercises Modalities Cold Pack/Ice Massage,Electric Stimulation,Hot Packs, Ultrasound Next Visit Focus/Plan Next Note Type Treatment Note Next Visit Plan Consider ongoing PNF, ongoing assessment of first rib, consider working on thoracic spine. For HEP, progress strengthening, consider racquet ball massage. Plan of Care Dates Plan of Care Start Date 01/21/19 Plan of Care End Date 03/25/19
--- NOTE | 2019-01-21 15:12 | PT.OPPOC ---
Current Diagnoses Adhesive capsulitis of left shoulder (01/21/19) Impingement syndrome of left shoulder (01/21/19) Visit Care Team Role Provider Type Katiana Elaine MD Primary Care Provider Physician Specialty: Family Practice Address: [facility] [address] [facility], [address], [place], [address] Email: [email or web address] Bimal Poon PA-C Attending Provider Non-Staff Specialty: Medical Address: [address] [place] [address], [address], [address] Email: Plan Of Care PT-OP-T Assessment and Plan Start: 12/20/18 13:28 Freq: Status: Active Protocol: Document 01/21/19 13:49 MB (Rec: 01/21/19 14:30 MB [id number]) Physical Therapy Assessment Goals 5 Nursing Home Goal (LTG) Pt will perform progressive HEP with I by 03/25/19. 01/21/19 Pt is performing HEP at home, some trouble remembering and so lots of practice with PT LTG Duration 8 weeks 4 Impairment Pain Nursing Home Goal (LTG) Pt will report a 70% improvement in left shoulder pain by 03/25/19. 01/21/19: Pt reports 10% improvement in overall left shoulder pain since starting PT. LTG Duration 8 weeks 3 Impairment Decreased ADL I Nursing Home Goal (LTG) Pt will be able to don her bra with I by 03/25/19. 01/21/19: Pt occ needs help donning her bra but it has improved. LTG Duration 8 weeks 2 Impairment Decreased ROM Police Cadet Goal (LTG) Pt will present with improved AROM left shoulder to at least 150 deg flexion and abduction and IR to T10 level by . 01/21/19: L shoulder AROM: abduction 64 deg; flexion: 85 deg; IR: L5. LTG Duration 8 weeks 1 Impairment QuickDASH score reflecting 67. 5% impairment Police Cadet Goal (LTG) Pt will present with QuickDASH score reflecting no more than 25% functional impairment by 03/25/19. 01/21/19: QuickDASH scale score has improved to reflect 45% impairment LTG Duration 8 weeks Assessment Summary Assessment Pt is progressing towards all PT goals. [place] Protocol was helpful. She will benefit from ongoing PT to further progress range and function. HD affects pt's learning and this decreases speed of HEP progression. Pt is very participatory with PT. Physical Therapy Plan Frequency and Duration Frequency of Treatment 2x/Week Duration of Treatment 8 weeks Plan of Care Start Date 01/21/19 Plan of Care End Date 03/25/19 Therapeutic Interventions Therapeutic Interventions Coordination Training,Home Exercise Program,Joint Mobilizations,Manual Therapy, Neuromuscular Re-education, Patient/Caregiver Education, Self-Care/Home Management,Soft Tissue Mobilization,Taping, Therapeutic Activities, Therapeutic Exercises Modalities Cold Pack/Ice Massage,Electric Stimulation,Hot Packs, Ultrasound Next Visit Focus/Plan Next Note Type Treatment Note Next Visit Plan Consider ongoing PNF, ongoing assessment of first rib, consider working on thoracic spine. For HEP, progress strengthening, consider racquet ball massage. Plan of Care Dates Plan of Care Start Date 01/21/19 Plan of Care End Date 03/25/19
--- NOTE | 2019-01-24 14:33 | PT.OTN ---
Current Diagnoses Adhesive capsulitis of left shoulder (01/24/19) Impingement syndrome of left shoulder (01/24/19) Physical Therapy Treatment Note PT-OP-A Visit Information Start: 12/20/18 13:28 Freq: Status: Active Protocol: Document 01/24/19 13:45 MB (Rec: 01/24/19 14:33 MB [id number]) Out-Patient Physical Therapy Visit Information Visit Information Visit Type Treatment Note Visit Start Time 13:45 Visit Stop Time 14:30 Total Visit Minutes 40 Visit Number 01/25 PT-OP-B Current Condition Start: 12/20/18 13:28 Freq: Status: Active Protocol: Document 12/20/18 14:22 MB (Rec: 12/20/18 15:05 MB [id number]) Current Condition History of Current Condition Onset Date 10 months History of Current Condition Pt states that she went to rake, move pots and pull weeds in 02/27 and she went to bed at night and had increased left shoulder pain. 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 She has had gradually worsening ROM. Patient can only sleep in one position on her back or in her recliner, leaning to the right. With her [place]'s Disease, she needs 10-11 hours of sleep. 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 Left shoulder MRI 10/31/18: small mod-sized posterior labral tear, mild degenerative changes AC joint, down sloping lateral acromion, fluid within subacrominal subdeltoid bursa Prior Treatments and Tests Injection, 5 days of oral corticosteroids Future Testing and Treatments Planned Follow-up with orthopedist 01/18/19 Treatment Goals Patient/Caregiver Goals To decrease pain Prior Functional Status Baseline Function- ADL's Needs Assist Baseline Function- Other Pt needs asst to wash under her arms and with donning her bra. She was able to try it today but had pain. Personal Factors Other Personal Factors That May Effect HD with chorea, imbalance and Therapy/Recovery difficultly performing motor tasks occ PT-OP-C Subjective Start: 12/20/18 13:28 Freq: Status: Active Protocol: Document 01/24/19 13:45 MB (Rec: 01/24/19 14:33 MB [id number]) OP-PT Subjective Patient Comments Patient Comments Pt states that she went back to the orthopedic doctor and he is happy with her progress. She was prescribed another course of oral prednisone to help with the breaking up of things while she is receiving PT. PT-OP-K Range of Motion Start: 12/20/18 13:28 Freq: Status: Active Protocol: Document 12/20/18 14:22 MB (Rec: 12/20/18 15:28 MB [id number]) Cervical Spine Range of Motion Cervical Spine Active Testing Position Standing Flexion 40 Extension 40 Rotation Left 45 Rotation Right 70 Comments Unable to coordinate SB d/t chorea Shoulder Goniometric Range of Motion Shoulder ROM Limitations Comments R shoulder, elbow and wrist normal. Active IR behind back to T6. L shoulder flexion 55 deg, abduction 40 deg increased pain greater than 7/10. No tolerance to active IR in standing. Passive ER and IR to 0 in 30 deg abduction Elbow/Forearm Range of Motion Elbow/Forearm ROM Limitations Comments R elbow and wrist WNLs. Left elbow and hand are functional but not full-range tested d/t pt's fear of pain. PT-OP-M Strength Start: 12/20/18 13:28 Freq: Status: Active Protocol: Document 12/20/18 14:22 MB (Rec: 12/20/18 16:46 MB [id number]) Shoulder Strength Shoulder Manual Muscle Testing Left Comments Standing all deferred d/t pain with minimal shoulder motion Right Flexion 5 Normal Abduction (C5) 5 Normal External Rotation 4 Good Internal Rotation 4 Good Comments Standing Elbow/Forearm Strength Elbow and Forearm Manual Muscle Testing Left Comments Deferred d/t fear of pain Right Flexion (C6) 5 Normal Extension (C7) 5 Normal Pronation 5 Normal Supination 5 Normal Wrist Strength Wrist Manual Muscle Testing Left Comments Deferred d/t fear of pain Right Flexion (C7) 5 Normal Extension (C6) 5 Normal PT-OP-Q Treatments Start: 12/20/18 13:28 Freq: Status: Active Protocol: Document 01/24/19 13:45 MB (Rec: 01/24/19 14:33 MB [id number]) Manual Therapy Treatment Manual Techniques Chilo Protocol left shoulder Comments Left shoulder Chilo Protocol: pt with most difficulty with abduction movements. AP mobs left shoulder ER in supine, grade III and resisted isometric PT-OP-T Assessment and Plan Start: 12/20/18 13:28 Freq: Status: Active Protocol: Document 01/24/19 13:45 MB (Rec: 01/24/19 14:33 MB [id number]) Physical Therapy Assessment Goals 5 Cut Out And Marking Machine Operator Goal (LTG) Pt will perform progressive HEP with I by 03/25/19. 01/21/19 Pt is performing HEP at home, some trouble remembering and so lots of practice with PT LTG Duration 8 weeks 4 Impairment Pain Shelter Goal (LTG) Pt will report a 70% improvement in left shoulder pain by 03/25/19. 01/21/19: Pt reports 10% improvement in overall left shoulder pain since starting PT. LTG Duration 8 weeks 3 Impairment Decreased ADL I Cut Out And Marking Machine Operator Goal (LTG) Pt will be able to don her bra with I by 03/25/19. 01/21/19: Pt occ needs help donning her bra but it has improved. LTG Duration 8 weeks 2 Impairment Decreased ROM Shelter Goal (LTG) Pt will present with improved AROM left shoulder to at least 150 deg flexion and abduction and IR to T10 level by . 01/21/19: L shoulder AROM: abduction 64 deg; flexion: 85 deg; IR: L5. LTG Duration 8 weeks 1 Impairment QuickDASH score reflecting 67. 5% impairment Shelter Goal (LTG) Pt will present with QuickDASH score reflecting no more than 25% functional impairment by 03/25/19. 01/21/19: QuickDASH scale score has improved to reflect 45% impairment LTG Duration 8 weeks Assessment Summary Assessment Pt states that she donned her own bra and shirt today before PT. Her functional motion is improving. Con't PT per POC. Physical Therapy Plan Frequency and Duration Frequency of Treatment 2x/Week Duration of Treatment 8 weeks Plan of Care Start Date 01/21/19 Plan of Care End Date 03/25/19 Therapeutic Interventions Therapeutic Interventions Coordination Training,Home Exercise Program,Joint Mobilizations,Manual Therapy, Neuromuscular Re-education, Patient/Caregiver Education, Self-Care/Home Management,Soft Tissue Mobilization,Taping, Therapeutic Activities, Therapeutic Exercises Modalities Cold Pack/Ice Massage,Electric Stimulation,Hot Packs, Ultrasound Next Visit Focus/Plan Next Note Type Treatment Note Next Visit Plan Consider ongoing PNF, ongoing assessment of first rib, consider working on thoracic spine. For HEP, progress strengthening, consider racquet ball massage.
--- NOTE | 2019-01-28 14:34 | PT.OTN ---
Current Diagnoses Adhesive capsulitis of left shoulder (01/28/19) Impingement syndrome of left shoulder (01/28/19) Physical Therapy Treatment Note PT-OP-A Visit Information Start: 12/20/18 13:28 Freq: Status: Active Protocol: Document 01/28/19 13:52 MB (Rec: 01/28/19 14:34 MB [id number]) Out-Patient Physical Therapy Visit Information Visit Information Visit Type Treatment Note Visit Start Time 13:52 Visit Stop Time 14:30 Total Visit Minutes 38 Visit Number 02/24 PT-OP-B Current Condition Start: 12/20/18 13:28 Freq: Status: Active Protocol: Document 12/20/18 14:22 MB (Rec: 12/20/18 15:05 MB [id number]) Current Condition History of Current Condition Onset Date 10 months History of Current Condition Pt states that she went to rake, move pots and pull weeds in 02/27 and she went to bed at night and had increased left shoulder pain. 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 She has had gradually worsening ROM. Patient can only sleep in one position on her back or in her recliner, leaning to the right. With her [place] Disease, she needs 10-11 hours of sleep. 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 Left shoulder MRI 10/31/18: small mod-sized posterior labral tear, mild degenerative changes AC joint, down sloping lateral acromion, fluid within subacrominal subdeltoid bursa Prior Treatments and Tests Injection, 5 days of oral corticosteroids Future Testing and Treatments Planned Follow-up with orthopedist 01/18/19 Treatment Goals Patient/Caregiver Goals To decrease pain Prior Functional Status Baseline Function- ADL's Needs Assist Baseline Function- Other Pt needs asst to wash under her arms and with donning her bra. She was able to try it today but had pain. Personal Factors Other Personal Factors That May Effect HD with chorea, imbalance and Therapy/Recovery difficultly performing motor tasks occ PT-OP-C Subjective Start: 12/20/18 13:28 Freq: Status: Active Protocol: Document 01/28/19 13:52 MB (Rec: 01/28/19 14:34 MB [id number]) OP-PT Subjective Patient Comments Patient Comments Pt was sore after treatment but did fine. She saw CARLOS Flores at last orthopedic appointment and this is who she will see in a month. She started steroid pack prescribed by orthopedist. She started this morning ( prednisone). PT-OP-K Range of Motion Start: 12/20/18 13:28 Freq: Status: Active Protocol: Document 12/20/18 14:22 MB (Rec: 12/20/18 15:28 MB [id number]) Cervical Spine Range of Motion Cervical Spine Active Testing Position Standing Flexion 40 Extension 40 Rotation Left 45 Rotation Right 70 Comments Unable to coordinate SB d/t chorea Shoulder Goniometric Range of Motion Shoulder ROM Limitations Comments R shoulder, elbow and wrist normal. Active IR behind back to T6. L shoulder flexion 55 deg, abduction 40 deg increased pain greater than 7/10. No tolerance to active IR in standing. Passive ER and IR to 0 in 30 deg abduction Elbow/Forearm Range of Motion Elbow/Forearm ROM Limitations Comments R elbow and wrist WNLs. Left elbow and hand are functional but not full-range tested d/t pt's fear of pain. PT-OP-M Strength Start: 12/20/18 13:28 Freq: Status: Active Protocol: Document 12/20/18 14:22 MB (Rec: 12/20/18 16:46 MB [id number]) Shoulder Strength Shoulder Manual Muscle Testing Left Comments Standing all deferred d/t pain with minimal shoulder motion Right Flexion 5 Normal Abduction (C5) 5 Normal External Rotation 4 Good Internal Rotation 4 Good Comments Standing Elbow/Forearm Strength Elbow and Forearm Manual Muscle Testing Left Comments Deferred d/t fear of pain Right Flexion (C6) 5 Normal Extension (C7) 5 Normal Pronation 5 Normal Supination 5 Normal Wrist Strength Wrist Manual Muscle Testing Left Comments Deferred d/t fear of pain Right Flexion (C7) 5 Normal Extension (C6) 5 Normal PT-OP-Q Treatments Start: 12/20/18 13:28 Freq: Status: Active Protocol: Document 01/28/19 13:52 MB (Rec: 01/28/19 14:34 MB [id number]) Therapeutic Exercises Sitting Exercises Shoulder flexion over therapy ball with side to side motion Comments Performed with pt sitting on mat, red ball, not added to HEP until get ball Standing Exercises Scapular retraction and chink tuck against wall Comments Performed against the wall PT-OP-T Assessment and Plan Start: 12/20/18 13:28 Freq: Status: Active Protocol: Document 01/28/19 13:52 MB (Rec: 01/28/19 14:34 MB [id number]) Physical Therapy Assessment Goals 5 Admittance Attendant Goal (LTG) Pt will perform progressive HEP with I by 03/25/19. 01/21/19 Pt is performing HEP at home, some trouble remembering and so lots of practice with PT LTG Duration 8 weeks 4 Impairment Pain Mcfp Goal (LTG) Pt will report a 70% improvement in left shoulder pain by 03/25/19. 01/21/19: Pt reports 10% improvement in overall left shoulder pain since starting PT. LTG Duration 8 weeks 3 Impairment Decreased ADL I Mcfp Goal (LTG) Pt will be able to don her bra with I by 03/25/19. 01/21/19: Pt occ needs help donning her bra but it has improved. LTG Duration 8 weeks 2 Impairment Decreased ROM Admittance Attendant Goal (LTG) Pt will present with improved AROM left shoulder to at least 150 deg flexion and abduction and IR to T10 level by . 01/21/19: L shoulder AROM: abduction 64 deg; flexion: 85 deg; IR: L5. LTG Duration 8 weeks 1 Impairment QuickDASH score reflecting 67. 5% impairment Mcfp Goal (LTG) Pt will present with QuickDASH score reflecting no more than 25% functional impairment by 03/25/19. 01/21/19: QuickDASH scale score has improved to reflect 45% impairment LTG Duration 8 weeks Assessment Summary Assessment Initiated stretching forward over therapy ball this date to improve left shoulder and thoracic mobility. She does not have a ball at home. Added flexion over the table, consider adding abduction. Increased time for exercises performance, training and ed d /t HD changes/cognition. Pt is very pleasant and agreeable, verbalizes understanding of written handouts. Physical Therapy Plan Frequency and Duration Frequency of Treatment 2x/Week Duration of Treatment 8 weeks Plan of Care Start Date 01/21/19 Plan of Care End Date 03/25/19 Therapeutic Interventions Therapeutic Interventions Coordination Training,Home Exercise Program,Joint Mobilizations,Manual Therapy, Neuromuscular Re-education, Patient/Caregiver Education, Self-Care/Home Management,Soft Tissue Mobilization,Taping, Therapeutic Activities, Therapeutic Exercises Modalities Cold Pack/Ice Massage,Electric Stimulation,Hot Packs, Ultrasound Next Visit Focus/Plan Next Note Type Treatment Note Next Visit Plan Consider ongoing PNF, ongoing assessment of first rib, consider working on thoracic spine. For HEP, progress strengthening, consider racquet ball massage.
--- NOTE | 2019-01-31 14:32 | PT.OTN ---
Current Diagnoses Adhesive capsulitis of left shoulder (01/31/19) Impingement syndrome of left shoulder (01/31/19) Physical Therapy Treatment Note PT-OP-A Visit Information Start: 12/20/18 13:28 Freq: Status: Active Protocol: Document 01/31/19 13:48 MB (Rec: 01/31/19 14:31 MB [id number]) Out-Patient Physical Therapy Visit Information Visit Information Visit Type Treatment Note Visit Start Time 13:48 Visit Stop Time 14:28 Total Visit Minutes 40 Visit Number 1315 PT-OP-B Current Condition Start: 12/20/18 13:28 Freq: Status: Active Protocol: Document 12/20/18 14:22 MB (Rec: 12/20/18 15:05 MB [id number]) Current Condition History of Current Condition Onset Date 10 months History of Current Condition Pt states that she went to rake, move pots and pull weeds in 02/27 and she went to bed at night and had increased left shoulder pain. 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 She has had gradually worsening ROM. Patient can only sleep in one position on her back or in her recliner, leaning to the right. With her [place]'s Disease, she needs 10-11 hours of sleep. 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 Left shoulder MRI 10/31/18: small mod-sized posterior labral tear, mild degenerative changes AC joint, down sloping lateral acromion, fluid within subacrominal subdeltoid bursa Prior Treatments and Tests Injection, 5 days of oral corticosteroids Future Testing and Treatments Planned Follow-up with orthopedist 01/18/19 Treatment Goals Patient/Caregiver Goals To decrease pain Prior Functional Status Baseline Function- ADL's Needs Assist Baseline Function- Other Pt needs asst to wash under her arms and with donning her bra. She was able to try it today but had pain. Personal Factors Other Personal Factors That May Effect HD with chorea, imbalance and Therapy/Recovery difficultly performing motor tasks occ PT-OP-C Subjective Start: 12/20/18 13:28 Freq: Status: Active Protocol: Document 01/31/19 13:48 MB (Rec: 01/31/19 14:31 MB [id number]) OP-PT Subjective Patient Comments Patient Comments Pt states that she had trouble sleeping last night. The holidays are rough after having lost an adult child and this time of year is troublesome for her. PT-OP-K Range of Motion Start: 12/20/18 13:28 Freq: Status: Active Protocol: Document 12/20/18 14:22 MB (Rec: 12/20/18 15:28 MB [id number]) Cervical Spine Range of Motion Cervical Spine Active Testing Position Standing Flexion 40 Extension 40 Rotation Left 45 Rotation Right 70 Comments Unable to coordinate SB d/t chorea Shoulder Goniometric Range of Motion Shoulder ROM Limitations Comments R shoulder, elbow and wrist normal. Active IR behind back to T6. L shoulder flexion 55 deg, abduction 40 deg increased pain greater than 7/10. No tolerance to active IR in standing. Passive ER and IR to 0 in 30 deg abduction Elbow/Forearm Range of Motion Elbow/Forearm ROM Limitations Comments R elbow and wrist WNLs. Left elbow and hand are functional but not full-range tested d/t pt's fear of pain. PT-OP-M Strength Start: 12/20/18 13:28 Freq: Status: Active Protocol: Document 12/20/18 14:22 MB (Rec: 12/20/18 16:46 MB [id number]) Shoulder Strength Shoulder Manual Muscle Testing Left Comments Standing all deferred d/t pain with minimal shoulder motion Right Flexion 5 Normal Abduction (C5) 5 Normal External Rotation 4 Good Internal Rotation 4 Good Comments Standing Elbow/Forearm Strength Elbow and Forearm Manual Muscle Testing Left Comments Deferred d/t fear of pain Right Flexion (C6) 5 Normal Extension (C7) 5 Normal Pronation 5 Normal Supination 5 Normal Wrist Strength Wrist Manual Muscle Testing Left Comments Deferred d/t fear of pain Right Flexion (C7) 5 Normal Extension (C6) 5 Normal PT-OP-Q Treatments Start: 12/20/18 13:28 Freq: Status: Active Protocol: Document 01/31/19 13:48 MB (Rec: 01/31/19 14:31 MB [id number]) Therapeutic Exercises Sitting Exercises Sitting shoulder flexion and abduction over table Comments Progressed over the table today and added to HEP Standing Exercises Towel IR stretch Comments Performed today and added to HEP Scapular retraction and chink tuck against wall Comments Performed this date Neuro Re-Education Treatment Balance Activities PNF pattern 2 and ER and IR left shoulder Comments PNF to promote scapulohumeral co-contraction, resisted isometrics in ER and IR PT-OP-T Assessment and Plan Start: 12/20/18 13:28 Freq: Status: Active Protocol: Document 01/31/19 13:48 MB (Rec: 01/31/19 14:31 MB [id number]) Physical Therapy Assessment Goals 5 Swatch Paster Goal (LTG) Pt will perform progressive HEP with I by 03/25/19. 01/21/19 Pt is performing HEP at home, some trouble remembering and so lots of practice with PT LTG Duration 8 weeks 4 Impairment Pain Swatch Paster Goal (LTG) Pt will report a 70% improvement in left shoulder pain by 03/25/19. 01/21/19: Pt reports 10% improvement in overall left shoulder pain since starting PT. LTG Duration 8 weeks 3 Impairment Decreased ADL I Senior Care Goal (LTG) Pt will be able to don her bra with I by 03/25/19. 01/21/19: Pt occ needs help donning her bra but it has improved. LTG Duration 8 weeks 2 Impairment Decreased ROM Swatch Paster Goal (LTG) Pt will present with improved AROM left shoulder to at least 150 deg flexion and abduction and IR to T10 level by . 01/21/19: L shoulder AROM: abduction 64 deg; flexion: 85 deg; IR: L5. LTG Duration 8 weeks 1 Impairment QuickDASH score reflecting 67. 5% impairment Swatch Paster Goal (LTG) Pt will present with QuickDASH score reflecting no more than 25% functional impairment by 03/25/19. 01/21/19: QuickDASH scale score has improved to reflect 45% impairment LTG Duration 8 weeks Assessment Summary Assessment Progressed shoulder ROM exercises over the table and IR in standing this date. Con' t increased practice and ed with exercises d/t some cognitive changes with HD. Con 't manual, ROM, start strengthening when able. Physical Therapy Plan Frequency and Duration Frequency of Treatment 2x/Week Duration of Treatment 8 weeks Plan of Care Start Date 01/21/19 Plan of Care End Date 03/25/19 Therapeutic Interventions Therapeutic Interventions Coordination Training,Home Exercise Program,Joint Mobilizations,Manual Therapy, Neuromuscular Re-education, Patient/Caregiver Education, Self-Care/Home Management,Soft Tissue Mobilization,Taping, Therapeutic Activities, Therapeutic Exercises Modalities Cold Pack/Ice Massage,Electric Stimulation,Hot Packs, Ultrasound Next Visit Focus/Plan Next Note Type Treatment Note Next Visit Plan Consider ongoing PNF, ongoing assessment of first rib, consider working on thoracic spine. For HEP, progress strengthening, consider racquet ball massage.
--- NOTE | 2019-02-04 14:31 | PT.OTN ---
Current Diagnoses Adhesive capsulitis of left shoulder (02/04/19) Impingement syndrome of left shoulder (02/04/19) Physical Therapy Treatment Note PT-OP-A Visit Information Start: 12/20/18 13:28 Freq: Status: Active Protocol: Document 02/04/19 13:45 MB (Rec: 02/04/19 14:30 MB [id number]) Out-Patient Physical Therapy Visit Information Visit Information Visit Type Treatment Note Visit Start Time 13:45 Visit Stop Time 14:25 Total Visit Minutes 40 Visit Number 14/15 PT-OP-B Current Condition Start: 12/20/18 13:28 Freq: Status: Active Protocol: Document 12/20/18 14:22 MB (Rec: 12/20/18 15:05 MB [id number]) Current Condition History of Current Condition Onset Date 10 months History of Current Condition Pt states that she went to rake, move pots and pull weeds in 02/27 and she went to bed at night and had increased left shoulder pain. 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 She has had gradually worsening ROM. Patient can only sleep in one position on her back or in her recliner, leaning to the right. 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 Left shoulder MRI 10/31/18: small mod-sized posterior labral tear, mild degenerative changes AC joint, down sloping lateral acromion, fluid within subacrominal subdeltoid bursa Prior Treatments and Tests Injection, 5 days of oral corticosteroids Future Testing and Treatments Planned Follow-up with orthopedist 01/18/19 Treatment Goals Patient/Caregiver Goals To decrease pain Prior Functional Status Baseline Function- ADL's Needs Assist Baseline Function- Other Pt needs asst to wash under her arms and with donning her bra. She was able to try it today but had pain. Personal Factors Other Personal Factors That May Effect HD with chorea, imbalance and Therapy/Recovery difficultly performing motor tasks occ PT-OP-C Subjective Start: 12/20/18 13:28 Freq: Status: Active Protocol: Document 02/04/19 13:45 MB (Rec: 02/04/19 14:30 MB [id number]) OP-PT Subjective Patient Comments Patient Comments Pt states that she is feeling more rested today. Folding a pile of heavy towels is going better. PT-OP-K Range of Motion Start: 12/20/18 13:28 Freq: Status: Active Protocol: Document 12/20/18 14:22 MB (Rec: 12/20/18 15:28 MB [id number]) Cervical Spine Range of Motion Cervical Spine Active Testing Position Standing Flexion 40 Extension 40 Rotation Left 45 Rotation Right 70 Comments Unable to coordinate SB d/t chorea Shoulder Goniometric Range of Motion Shoulder ROM Limitations Comments R shoulder, elbow and wrist normal. Active IR behind back to T6. L shoulder flexion 55 deg, abduction 40 deg increased pain greater than 7/10. No tolerance to active IR in standing. Passive ER and IR to 0 in 30 deg abduction Elbow/Forearm Range of Motion Elbow/Forearm ROM Limitations Comments R elbow and wrist WNLs. Left elbow and hand are functional but not full-range tested d/t pt's fear of pain. PT-OP-M Strength Start: 12/20/18 13:28 Freq: Status: Active Protocol: Document 12/20/18 14:22 MB (Rec: 12/20/18 16:46 MB [id number]) Shoulder Strength Shoulder Manual Muscle Testing Left Comments Standing all deferred d/t pain with minimal shoulder motion Right Flexion 5 Normal Abduction (C5) 5 Normal External Rotation 4 Good Internal Rotation 4 Good Comments Standing Elbow/Forearm Strength Elbow and Forearm Manual Muscle Testing Left Comments Deferred d/t fear of pain Right Flexion (C6) 5 Normal Extension (C7) 5 Normal Pronation 5 Normal Supination 5 Normal Wrist Strength Wrist Manual Muscle Testing Left Comments Deferred d/t fear of pain Right Flexion (C7) 5 Normal Extension (C6) 5 Normal PT-OP-Q Treatments Start: 12/20/18 13:28 Freq: Status: Active Protocol: Document 02/04/19 13:45 MB (Rec: 02/04/19 14:30 MB [id number]) Therapeutic Exercises Supine Exercises AAROM shoulder ER Comments Initiated this date over pool noodle AAROM cane abduction Comments Initiated this date over pool noodle AAROM cane flexion Comments Performed over pool noodle and pt to add ER and abdution with it to HEP Sitting Exercises Sitting shoulder flexion and abduction over table Comments Performed again this date Standing Exercises Towel IR stretch Comments Performed again this date Neuro Re-Education Treatment Balance Activities PNF pattern 2 and ER and IR left shoulder Comments PNF to promote scapulohumeral co-contraction, resisted isometrics in ER and IR PT-OP-T Assessment and Plan Start: 12/20/18 13:28 Freq: Status: Active Protocol: Document 02/04/19 13:45 MB (Rec: 02/04/19 14:30 MB [id number]) Physical Therapy Assessment Goals 5 [employer] Goal (LTG) Pt will perform progressive HEP with I by 03/25/19. 01/21/19 Pt is performing HEP at home, some trouble remembering and so lots of practice with PT LTG Duration 8 weeks 4 Impairment Pain [facility] Goal (LTG) Pt will report a 70% improvement in left shoulder pain by 03/25/19. 01/21/19: Pt reports 10% improvement in overall left shoulder pain since starting PT. LTG Duration 8 weeks 3 Impairment Decreased ADL I [employer] Goal (LTG) Pt will be able to don her bra with I by 03/25/19. 01/21/19: Pt occ needs help donning her bra but it has improved. LTG Duration 8 weeks 2 Impairment Decreased ROM [facility] Goal (LTG) Pt will present with improved AROM left shoulder to at least 150 deg flexion and abduction and IR to T10 level by . 01/21/19: L shoulder AROM: abduction 64 deg; flexion: 85 deg; IR: L5. LTG Duration 8 weeks 1 Impairment QuickDASH score reflecting 67. 5% impairment [employer] Goal (LTG) Pt will present with QuickDASH score reflecting no more than 25% functional impairment by 03/25/19. 01/21/19: QuickDASH scale score has improved to reflect 45% impairment LTG Duration 8 weeks Assessment Summary Assessment Consider adding wall push-ups and posterior capsule stretch in future treatments as pt may respond better to WB exercises given chorea. Con't increased practice and ed with exercises d/t some cognitive changes with HD. Con't manual, ROM, start strengthening when able. Physical Therapy Plan Frequency and Duration Frequency of Treatment 2x/Week Duration of Treatment 8 weeks Plan of Care Start Date 01/21/19 Plan of Care End Date 03/25/19 Therapeutic Interventions Therapeutic Interventions Coordination Training,Home Exercise Program,Joint Mobilizations,Manual Therapy, Neuromuscular Re-education, Patient/Caregiver Education, Self-Care/Home Management,Soft Tissue Mobilization,Taping, Therapeutic Activities, Therapeutic Exercises Modalities Cold Pack/Ice Massage,Electric Stimulation,Hot Packs, Ultrasound Next Visit Focus/Plan Next Note Type Treatment Note Next Visit Plan Consider ongoing PNF, ongoing assessment of first rib, consider working on thoracic spine. For HEP, progress strengthening, consider racquet ball massage.
--- NOTE | 2019-02-06 15:16 | PT.OTN ---
Current Diagnoses Adhesive capsulitis of left shoulder (02/06/19) Impingement syndrome of left shoulder (02/06/19) Physical Therapy Treatment Note PT-OP-A Visit Information Start: 12/20/18 13:28 Freq: Status: Active Protocol: Document 02/06/19 14:31 MB (Rec: 02/06/19 15:16 MB [id number]) Out-Patient Physical Therapy Visit Information Visit Information Visit Type Treatment Note Visit Note On second approval now Visit Start Time 14:31 Visit Stop Time 15:26 Total Visit Minutes 40 Visit Number 03/27 PT-OP-B Current Condition Start: 12/20/18 13:28 Freq: Status: Active Protocol: Document 12/20/18 14:22 MB (Rec: 12/20/18 15:05 MB [id number]) Current Condition History of Current Condition Onset Date 10 months History of Current Condition Pt states that she went to rake, move pots and pull weeds in 02/27 and she went to bed at night and had increased left shoulder pain. 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 She has had gradually worsening ROM. Patient can only sleep in one position on her back or in her recliner, leaning to the right. 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 Left shoulder MRI 10/31/18: small mod-sized posterior labral tear, mild degenerative changes AC joint, down sloping lateral acromion, fluid within subacrominal subdeltoid bursa Prior Treatments and Tests Injection, 5 days of oral corticosteroids Future Testing and Treatments Planned Follow-up with orthopedist 01/18/19 Treatment Goals Patient/Caregiver Goals To decrease pain Prior Functional Status Baseline Function- ADL's Needs Assist Baseline Function- Other Pt needs asst to wash under her arms and with donning her bra. She was able to try it today but had pain. Personal Factors Other Personal Factors That May Effect HD with chorea, imbalance and Therapy/Recovery difficultly performing motor tasks occ PT-OP-C Subjective Start: 12/20/18 13:28 Freq: Status: Active Protocol: Document 02/06/19 14:31 MB (Rec: 02/06/19 15:16 MB [id number]) OP-PT Subjective Patient Comments Patient Comments Pt states that she can feel her shoulder but it is not unbearable. PT-OP-K Range of Motion Start: 12/20/18 13:28 Freq: Status: Active Protocol: Document 12/20/18 14:22 MB (Rec: 12/20/18 15:28 MB [id number]) Cervical Spine Range of Motion Cervical Spine Active Testing Position Standing Flexion 40 Extension 40 Rotation Left 45 Rotation Right 70 Comments Unable to coordinate SB d/t chorea Shoulder Goniometric Range of Motion Shoulder ROM Limitations Comments R shoulder, elbow and wrist normal. Active IR behind back to T6. L shoulder flexion 55 deg, abduction 40 deg increased pain greater than 7/10. No tolerance to active IR in standing. Passive ER and IR to 0 in 30 deg abduction Elbow/Forearm Range of Motion Elbow/Forearm ROM Limitations Comments R elbow and wrist WNLs. Left elbow and hand are functional but not full-range tested d/t pt's fear of pain. PT-OP-M Strength Start: 12/20/18 13:28 Freq: Status: Active Protocol: Document 12/20/18 14:22 MB (Rec: 12/20/18 16:46 MB [id number]) Shoulder Strength Shoulder Manual Muscle Testing Left Comments Standing all deferred d/t pain with minimal shoulder motion Right Flexion 5 Normal Abduction (C5) 5 Normal External Rotation 4 Good Internal Rotation 4 Good Comments Standing Elbow/Forearm Strength Elbow and Forearm Manual Muscle Testing Left Comments Deferred d/t fear of pain Right Flexion (C6) 5 Normal Extension (C7) 5 Normal Pronation 5 Normal Supination 5 Normal Wrist Strength Wrist Manual Muscle Testing Left Comments Deferred d/t fear of pain Right Flexion (C7) 5 Normal Extension (C6) 5 Normal PT-OP-Q Treatments Start: 12/20/18 13:28 Freq: Status: Active Protocol: Document 02/06/19 14:31 MB (Rec: 02/06/19 15:16 MB [id number]) Neuro Re-Education Treatment Balance Activities PNF pattern 2 and ER and IR left shoulder Comments PNF to promote scapulohumeral co-contraction, resisted isometrics in ER and IR. Also performed flexion and extension this date, resisted isometric posterior capsule stretch and AP ER mobs with resisted isometric after PT-OP-T Assessment and Plan Start: 12/20/18 13:28 Freq: Status: Active Protocol: Document 02/06/19 14:31 MB (Rec: 02/06/19 15:16 MB [id number]) Physical Therapy Assessment Goals 5 [facility] Goal (LTG) Pt will perform progressive HEP with I by 03/25/19. 01/21/19 Pt is performing HEP at home, some trouble remembering and so lots of practice with PT LTG Duration 8 weeks 4 Impairment Pain [facility] Goal (LTG) Pt will report a 70% improvement in left shoulder pain by 03/25/19. 01/21/19: Pt reports 10% improvement in overall left shoulder pain since starting PT. LTG Duration 8 weeks 3 Impairment Decreased ADL I [facility] Goal (LTG) Pt will be able to don her bra with I by 03/25/19. 01/21/19: Pt occ needs help donning her bra but it has improved. LTG Duration 8 weeks 2 Impairment Decreased ROM [employer] As[employer]er Goal (LTG) Pt will present with improved AROM left shoulder to at least 150 deg flexion and abduction and IR to T10 level by . 01/21/19: L shoulder AROM: abduction 64 deg; flexion: 85 deg; IR: L5. LTG Duration 8 weeks 1 Impairment QuickDASH score reflecting 67. 5% impairment [facility] Goal (LTG) Pt will present with QuickDASH score reflecting no more than 25% functional impairment by 03/25/19. 01/21/19: QuickDASH scale score has improved to reflect 45% impairment LTG Duration 8 weeks Assessment Summary Assessment Wall push up caused increased left upper traps tension this date. Reassess in future dates with goal to increase strengthening. Pt has trouble with PNF tactile and VCs but she does improve with repetition as far as range and neuromuscular re-ed. Physical Therapy Plan Frequency and Duration Frequency of Treatment 2x/Week Duration of Treatment 8 weeks Plan of Care Start Date 01/21/19 Plan of Care End Date 03/25/19 Therapeutic Interventions Therapeutic Interventions Coordination Training,Home Exercise Program,Joint Mobilizations,Manual Therapy, Neuromuscular Re-education, Patient/Caregiver Education, Self-Care/Home Management,Soft Tissue Mobilization,Taping, Therapeutic Activities, Therapeutic Exercises Modalities Cold Pack/Ice Massage,Electric Stimulation,Hot Packs, Ultrasound Next Visit Focus/Plan Next Note Type Treatment Note Next Visit Plan Consider ongoing PNF, ongoing assessment of first rib, consider working on thoracic spine. For HEP, progress strengthening, consider racquet ball massage.
--- NOTE | 2019-02-11 14:31 | PT.OTN ---
Current Diagnoses Adhesive capsulitis of left shoulder (02/11/19) Impingement syndrome of left shoulder (02/11/19) Physical Therapy Treatment Note PT-OP-A Visit Information Start: 12/20/18 13:28 Freq: Status: Active Protocol: Document 02/11/19 13:47 MB (Rec: 02/11/19 14:30 MB [id number]) Out-Patient Physical Therapy Visit Information Visit Information Visit Type Treatment Note Visit Note On second approval now Visit Start Time 13:47 Visit Stop Time 14:27 Total Visit Minutes 40 Visit Number 04/27 PT-OP-B Current Condition Start: 12/20/18 13:28 Freq: Status: Active Protocol: Document 12/20/18 14:22 MB (Rec: 12/20/18 15:05 MB [id number]) Current Condition History of Current Condition Onset Date 10 months History of Current Condition Pt states that she went to rake, move pots and pull weeds in 02/27 and she went to bed at night and had increased left shoulder pain. 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 She has had gradually worsening ROM. Patient can only sleep in one position on her back or in her recliner, leaning to the right. 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 Left shoulder MRI 10/31/18: small mod-sized posterior labral tear, mild degenerative changes AC joint, down sloping lateral acromion, fluid within subacrominal subdeltoid bursa Prior Treatments and Tests Injection, 5 days of oral corticosteroids Future Testing and Treatments Planned Follow-up with orthopedist 01/18/19 Treatment Goals Patient/Caregiver Goals To decrease pain Prior Functional Status Baseline Function- ADL's Needs Assist Baseline Function- Other Pt needs asst to wash under her arms and with donning her bra. She was able to try it today but had pain. Personal Factors Other Personal Factors That May Effect HD with chorea, imbalance and Therapy/Recovery difficultly performing motor tasks occ PT-OP-C Subjective Start: 12/20/18 13:28 Freq: Status: Active Protocol: Document 02/11/19 13:47 MB (Rec: 02/11/19 14:31 MB [id number]) OP-PT Subjective Patient Comments Patient Comments Pt states that she is doing pretty good. PT-OP-K Range of Motion Start: 12/20/18 13:28 Freq: Status: Active Protocol: Document 12/20/18 14:22 MB (Rec: 12/20/18 15:28 MB [id number]) Cervical Spine Range of Motion Cervical Spine Active Testing Position Standing Flexion 40 Extension 40 Rotation Left 45 Rotation Right 70 Comments Unable to coordinate SB d/t chorea Shoulder Goniometric Range of Motion Shoulder ROM Limitations Comments R shoulder, elbow and wrist normal. Active IR behind back to T6. L shoulder flexion 55 deg, abduction 40 deg increased pain greater than 7/10. No tolerance to active IR in standing. Passive ER and IR to 0 in 30 deg abduction Elbow/Forearm Range of Motion Elbow/Forearm ROM Limitations Comments R elbow and wrist WNLs. Left elbow and hand are functional but not full-range tested d/t pt's fear of pain. PT-OP-M Strength Start: 12/20/18 13:28 Freq: Status: Active Protocol: Document 12/20/18 14:22 MB (Rec: 12/20/18 16:46 MB [id number]) Shoulder Strength Shoulder Manual Muscle Testing Left Comments Standing all deferred d/t pain with minimal shoulder motion Right Flexion 5 Normal Abduction (C5) 5 Normal External Rotation 4 Good Internal Rotation 4 Good Comments Standing Elbow/Forearm Strength Elbow and Forearm Manual Muscle Testing Left Comments Deferred d/t fear of pain Right Flexion (C6) 5 Normal Extension (C7) 5 Normal Pronation 5 Normal Supination 5 Normal Wrist Strength Wrist Manual Muscle Testing Left Comments Deferred d/t fear of pain Right Flexion (C7) 5 Normal Extension (C6) 5 Normal PT-OP-Q Treatments Start: 12/20/18 13:28 Freq: Status: Active Protocol: Document 02/11/19 13:47 MB (Rec: 02/11/19 14:30 MB [id number]) Therapeutic Exercises Standing Exercises ER isometric side steps Comments Used level 1 band, much practice Neuro Re-Education Treatment Balance Activities PNF pattern 2 and ER and IR left shoulder Comments PNF to promote scapulohumeral co-contraction, resisted isometrics in ER and IR. Also performed flexion and extension this date, resisted isometric posterior capsule stretch and AP ER mobs with resisted isometric after PT-OP-T Assessment and Plan Start: 12/20/18 13:28 Freq: Status: Active Protocol: Document 02/11/19 13:47 MB (Rec: 02/11/19 14:30 MB [id number]) Physical Therapy Assessment Goals 5 [facility] Goal (LTG) Pt will perform progressive HEP with I by 03/25/19. 01/21/19 Pt is performing HEP at home, some trouble remembering and so lots of practice with PT LTG Duration 8 weeks 4 Impairment Pain [facility] Goal (LTG) Pt will report a 70% improvement in left shoulder pain by 03/25/19. 01/21/19: Pt reports 10% improvement in overall left shoulder pain since starting PT. LTG Duration 8 weeks 3 Impairment Decreased ADL I [employer] Goal (LTG) Pt will be able to don her bra with I by 03/25/19. 01/21/19: Pt occ needs help donning her bra but it has improved. LTG Duration 8 weeks 2 Impairment Decreased ROM [employer] Goal (LTG) Pt will present with improved AROM left shoulder to at least 150 deg flexion and abduction and IR to T10 level by . 01/21/19: L shoulder AROM: abduction 64 deg; flexion: 85 deg; IR: L5. LTG Duration 8 weeks 1 Impairment QuickDASH score reflecting 67. 5% impairment [facility] Goal (LTG) Pt will present with QuickDASH score reflecting no more than 25% functional impairment by 03/25/19. 01/21/19: QuickDASH scale score has improved to reflect 45% impairment LTG Duration 8 weeks Assessment Summary Assessment Initiated strengthening this date and this required a lot of cues d/t chorea and cognitive presentation. Pt is very participatory and practices multiple times. Physical Therapy Plan Frequency and Duration Frequency of Treatment 2x/Week Duration of Treatment 8 weeks Plan of Care Start Date 01/21/19 Plan of Care End Date 03/25/19 Therapeutic Interventions Therapeutic Interventions Coordination Training,Home Exercise Program,Joint Mobilizations,Manual Therapy, Neuromuscular Re-education, Patient/Caregiver Education, Self-Care/Home Management,Soft Tissue Mobilization,Taping, Therapeutic Activities, Therapeutic Exercises Modalities Cold Pack/Ice Massage,Electric Stimulation,Hot Packs, Ultrasound Next Visit Focus/Plan Next Note Type Treatment Note Next Visit Plan Consider ongoing PNF, ongoing assessment of first rib, consider working on thoracic spine. For HEP, progress strengthening, consider racquet ball massage.
--- NOTE | 2019-02-14 14:28 | PT.OTN ---
Current Diagnoses Adhesive capsulitis of left shoulder (02/14/19) Impingement syndrome of left shoulder (02/14/19) Physical Therapy Treatment Note PT-OP-A Visit Information Start: 12/20/18 13:28 Freq: Status: Active Protocol: Document 02/14/19 13:46 MB (Rec: 02/14/19 13:59 MB [id number]) Out-Patient Physical Therapy Visit Information Visit Information Visit Type Treatment Note Visit Note On second approval now Visit Start Time 13:46 Visit Stop Time 14:26 Total Visit Minutes 40 Visit Number 3 PT-OP-B Current Condition Start: 12/20/18 13:28 Freq: Status: Active Protocol: Document 12/20/18 14:22 MB (Rec: 12/20/18 15:05 MB [id number]) Current Condition History of Current Condition Onset Date 10 months History of Current Condition Pt states that she went to rake, move pots and pull weeds in 02/27 and she went to bed at night and had increased left shoulder pain. 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 She has had gradually worsening ROM. Patient can only sleep in one position on her back or in her recliner, leaning to the right. 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 Left shoulder MRI 10/31/18: small mod-sized posterior labral tear, mild degenerative changes AC joint, down sloping lateral acromion, fluid within subacrominal subdeltoid bursa Prior Treatments and Tests Injection, 5 days of oral corticosteroids Future Testing and Treatments Planned Follow-up with orthopedist 01/18/19 Treatment Goals Patient/Caregiver Goals To decrease pain Prior Functional Status Baseline Function- ADL's Needs Assist Baseline Function- Other Pt needs asst to wash under her arms and with donning her bra. She was able to try it today but had pain. Personal Factors Other Personal Factors That May Effect HD with chorea, imbalance and Therapy/Recovery difficultly performing motor tasks occ PT-OP-C Subjective Start: 12/20/18 13:28 Freq: Status: Active Protocol: Document 02/14/19 13:46 MB (Rec: 02/14/19 14:01 MB [id number]) OP-PT Subjective Patient Comments Patient Comments Pt states that using her left arm is going better with kitchen and bath tasks. Washing under her left arm pit is going better. That has improved a lot over the last week. She can also reach under her right arm pit with her left hand. PT-OP-K Range of Motion Start: 12/20/18 13:28 Freq: Status: Active Protocol: Document 12/20/18 14:22 MB (Rec: 12/20/18 15:28 MB [id number]) Cervical Spine Range of Motion Cervical Spine Active Testing Position Standing Flexion 40 Extension 40 Rotation Left 45 Rotation Right 70 Comments Unable to coordinate SB d/t chorea Shoulder Goniometric Range of Motion Shoulder ROM Limitations Comments R shoulder, elbow and wrist normal. Active IR behind back to T6. L shoulder flexion 55 deg, abduction 40 deg increased pain greater than 7/10. No tolerance to active IR in standing. Passive ER and IR to 0 in 30 deg abduction Elbow/Forearm Range of Motion Elbow/Forearm ROM Limitations Comments R elbow and wrist WNLs. Left elbow and hand are functional but not full-range tested d/t pt's fear of pain. PT-OP-M Strength Start: 12/20/18 13:28 Freq: Status: Active Protocol: Document 12/20/18 14:22 MB (Rec: 12/20/18 16:46 MB [id number]) Shoulder Strength Shoulder Manual Muscle Testing Left Comments Standing all deferred d/t pain with minimal shoulder motion Right Flexion 5 Normal Abduction (C5) 5 Normal External Rotation 4 Good Internal Rotation 4 Good Comments Standing Elbow/Forearm Strength Elbow and Forearm Manual Muscle Testing Left Comments Deferred d/t fear of pain Right Flexion (C6) 5 Normal Extension (C7) 5 Normal Pronation 5 Normal Supination 5 Normal Wrist Strength Wrist Manual Muscle Testing Left Comments Deferred d/t fear of pain Right Flexion (C7) 5 Normal Extension (C6) 5 Normal PT-OP-Q Treatments Start: 12/20/18 13:28 Freq: Status: Active Protocol: Document 02/14/19 13:46 MB (Rec: 02/14/19 13:59 MB [id number]) Manual Therapy Treatment Other Other Manual Treatments AP mobs left shoulder ER, posterior capsule stretch with resisted isometric, 3 sets of both these. Also MWM left infraspinatus with PT holding trigger point and pt perform AAROM ER & IR Neuro Re-Education Treatment Balance Activities PNF pattern 2 and ER and IR left shoulder Comments PNF to promote scapulohumeral co-contraction, resisted isometrics in ER and IR, PNF pattern 2 PT-OP-T Assessment and Plan Start: 12/20/18 13:28 Freq: Status: Active Protocol: Document 02/14/19 13:46 MB (Rec: 02/14/19 13:59 MB [id number]) Physical Therapy Assessment Goals 5 Senior Care Goal (LTG) Pt will perform progressive HEP with I by 03/25/19. 01/21/19 Pt is performing HEP at home, some trouble remembering and so lots of practice with PT LTG Duration 8 weeks 4 Impairment Pain Senior Care Goal (LTG) Pt will report a 70% improvement in left shoulder pain by 03/25/19. 01/21/19: Pt reports 10% improvement in overall left shoulder pain since starting PT. LTG Duration 8 weeks 3 Impairment Decreased ADL I Dance Artist Goal (LTG) Pt will be able to don her bra with I by 03/25/19. 01/21/19: Pt occ needs help donning her bra but it has improved. LTG Duration 8 weeks 2 Impairment Decreased ROM Dance Artist Goal (LTG) Pt will present with improved AROM left shoulder to at least 150 deg flexion and abduction and IR to T10 level by . 01/21/19: L shoulder AROM: abduction 64 deg; flexion: 85 deg; IR: L5. LTG Duration 8 weeks 1 Impairment QuickDASH score reflecting 67. 5% impairment Dance Artist Goal (LTG) Pt will present with QuickDASH score reflecting no more than 25% functional impairment by 03/25/19. 01/21/19: QuickDASH scale score has improved to reflect 45% impairment LTG Duration 8 weeks Assessment Summary Assessment Manual work this date to improve left shoulder ROM. Consider progressing shoulder IR and scapular retraction next treatment date with band, isometrics with stepping. Physical Therapy Plan Frequency and Duration Frequency of Treatment 2x/Week Duration of Treatment 8 weeks Plan of Care Start Date 01/21/19 Plan of Care End Date 03/25/19 Therapeutic Interventions Therapeutic Interventions Coordination Training,Home Exercise Program,Joint Mobilizations,Manual Therapy, Neuromuscular Re-education, Patient/Caregiver Education, Self-Care/Home Management,Soft Tissue Mobilization,Taping, Therapeutic Activities, Therapeutic Exercises Modalities Cold Pack/Ice Massage,Electric Stimulation,Hot Packs, Ultrasound Next Visit Focus/Plan Next Note Type Treatment Note Next Visit Plan Consider ongoing PNF, ongoing assessment of first rib, consider working on thoracic spine. For HEP, progress strengthening, consider racquet ball massage.
--- NOTE | 2019-02-18 14:29 | PT.OTN ---
Current Diagnoses Adhesive capsulitis of left shoulder (02/18/19) Impingement syndrome of left shoulder (02/18/19) Physical Therapy Treatment Note PT-OP-A Visit Information Start: 12/20/18 13:28 Freq: Status: Active Protocol: Document 02/18/19 13:47 MB (Rec: 02/18/19 14:29 MB [id number]) Out-Patient Physical Therapy Visit Information Visit Information Visit Type Treatment Note Visit Note On second approval now Visit Start Time 13:47 Visit Stop Time 14:27 Total Visit Minutes 40 Visit Number 4 PT-OP-B Current Condition Start: 12/20/18 13:28 Freq: Status: Active Protocol: Document 12/20/18 14:22 MB (Rec: 12/20/18 15:05 MB [id number]) Current Condition History of Current Condition Onset Date 10 months History of Current Condition Pt states that she went to rake, move pots and pull weeds in 02/27 and she went to bed at night and had increased left shoulder pain. 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 She has had gradually worsening ROM. Patient can only sleep in one position on her back or in her recliner, leaning to the right. 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 Left shoulder MRI 10/31/18: small mod-sized posterior labral tear, mild degenerative changes AC joint, down sloping lateral acromion, fluid within subacrominal subdeltoid bursa Prior Treatments and Tests Injection, 5 days of oral corticosteroids Future Testing and Treatments Planned Follow-up with orthopedist 01/18/19 Treatment Goals Patient/Caregiver Goals To decrease pain Prior Functional Status Baseline Function- ADL's Needs Assist Baseline Function- Other Pt needs asst to wash under her arms and with donning her bra. She was able to try it today but had pain. Personal Factors Other Personal Factors That May Effect HD with chorea, imbalance and Therapy/Recovery difficultly performing motor tasks occ PT-OP-C Subjective Start: 12/20/18 13:28 Freq: Status: Active Protocol: Document 02/18/19 13:47 MB (Rec: 02/18/19 14:29 MB [id number]) OP-PT Subjective Patient Comments Patient Comments Pt states that she is doing a lot better with getting out and getting herself ready for leaving the house. PT-OP-K Range of Motion Start: 12/20/18 13:28 Freq: Status: Active Protocol: Document 12/20/18 14:22 MB (Rec: 12/20/18 15:28 MB [id number]) Cervical Spine Range of Motion Cervical Spine Active Testing Position Standing Flexion 40 Extension 40 Rotation Left 45 Rotation Right 70 Comments Unable to coordinate SB d/t chorea Shoulder Goniometric Range of Motion Shoulder ROM Limitations Comments R shoulder, elbow and wrist normal. Active IR behind back to T6. L shoulder flexion 55 deg, abduction 40 deg increased pain greater than 7/10. No tolerance to active IR in standing. Passive ER and IR to 0 in 30 deg abduction Elbow/Forearm Range of Motion Elbow/Forearm ROM Limitations Comments R elbow and wrist WNLs. Left elbow and hand are functional but not full-range tested d/t pt's fear of pain. PT-OP-M Strength Start: 12/20/18 13:28 Freq: Status: Active Protocol: Document 12/20/18 14:22 MB (Rec: 12/20/18 16:46 MB [id number]) Shoulder Strength Shoulder Manual Muscle Testing Left Comments Standing all deferred d/t pain with minimal shoulder motion Right Flexion 5 Normal Abduction (C5) 5 Normal External Rotation 4 Good Internal Rotation 4 Good Comments Standing Elbow/Forearm Strength Elbow and Forearm Manual Muscle Testing Left Comments Deferred d/t fear of pain Right Flexion (C6) 5 Normal Extension (C7) 5 Normal Pronation 5 Normal Supination 5 Normal Wrist Strength Wrist Manual Muscle Testing Left Comments Deferred d/t fear of pain Right Flexion (C7) 5 Normal Extension (C6) 5 Normal PT-OP-Q Treatments Start: 12/20/18 13:28 Freq: Status: Active Protocol: Document 02/18/19 13:47 MB (Rec: 02/18/19 14:29 MB [id number]) Therapeutic Exercises Supine Exercises AAROM shoulder ER Comments Performed today AAROM cane abduction Comments Performed today AAROM cane flexion Comments Performed today Standing Exercises Standing ER and scap retracion arms straight level 1 band Comments Added active motion for strengthening today, added to HEP, 5 reps x2 PT-OP-T Assessment and Plan Start: 12/20/18 13:28 Freq: Status: Active Protocol: Document 02/18/19 13:47 MB (Rec: 02/18/19 14:29 MB [id number]) Physical Therapy Assessment Goals 5 Senior Living Goal (LTG) Pt will perform progressive HEP with I by 03/25/19. 01/21/19 Pt is performing HEP at home, some trouble remembering and so lots of practice with PT LTG Duration 8 weeks 4 Impairment Pain Senior Living Goal (LTG) Pt will report a 70% improvement in left shoulder pain by 03/25/19. 01/21/19: Pt reports 10% improvement in overall left shoulder pain since starting PT. LTG Duration 8 weeks 3 Impairment Decreased ADL I Senior Living Goal (LTG) Pt will be able to don her bra with I by 03/25/19. 01/21/19: Pt occ needs help donning her bra but it has improved. LTG Duration 8 weeks 2 Impairment Decreased ROM Senior Living Goal (LTG) Pt will present with improved AROM left shoulder to at least 150 deg flexion and abduction and IR to T10 level by . 01/21/19: L shoulder AROM: abduction 64 deg; flexion: 85 deg; IR: L5. LTG Duration 8 weeks 1 Impairment QuickDASH score reflecting 67. 5% impairment Senior Living Goal (LTG) Pt will present with QuickDASH score reflecting no more than 25% functional impairment by 03/25/19. 01/21/19: QuickDASH scale score has improved to reflect 45% impairment LTG Duration 8 weeks Assessment Summary Assessment Progressed shoulder ER and scapular strengthening this date. Pt performs well, increased time and reps d/c cognitive changes. Physical Therapy Plan Frequency and Duration Frequency of Treatment 2x/Week Duration of Treatment 8 weeks Plan of Care Start Date 01/21/19 Plan of Care End Date 03/25/19 Therapeutic Interventions Therapeutic Interventions Coordination Training,Home Exercise Program,Joint Mobilizations,Manual Therapy, Neuromuscular Re-education, Patient/Caregiver Education, Self-Care/Home Management,Soft Tissue Mobilization,Taping, Therapeutic Activities, Therapeutic Exercises Modalities Cold Pack/Ice Massage,Electric Stimulation,Hot Packs, Ultrasound Next Visit Focus/Plan Next Note Type Treatment Note Next Visit Plan Consider ongoing PNF, ongoing assessment of first rib, consider working on thoracic spine. For HEP, progress strengthening, consider racquet ball massage.
--- NOTE | 2019-02-21 14:32 | PT.OTN ---
Current Diagnoses Adhesive capsulitis of left shoulder (02/21/19) Impingement syndrome of left shoulder (02/21/19) Physical Therapy Treatment Note PT-OP-A Visit Information Start: 12/20/18 13:28 Freq: Status: Active Protocol: Document 02/21/19 13:45 MB (Rec: 02/21/19 14:32 MB [id number]) Out-Patient Physical Therapy Visit Information Visit Information Visit Type Treatment Note Visit Note On second approval now Visit Start Time 13:45 Visit Stop Time 14:25 Total Visit Minutes 40 Visit Number 07/25 PT-OP-B Current Condition Start: 12/20/18 13:28 Freq: Status: Active Protocol: Document 12/20/18 14:22 MB (Rec: 12/20/18 15:05 MB [id number]) Current Condition History of Current Condition Onset Date 10 months History of Current Condition Pt states that she went to rake, move pots and pull weeds in 02/27 and she went to bed at night and had increased left shoulder pain. 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 She has had gradually worsening ROM. Patient can only sleep in one position on her back or in her recliner, leaning to the right. 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 Left shoulder MRI 10/31/18: small mod-sized posterior labral tear, mild degenerative changes AC joint, down sloping lateral acromion, fluid within subacrominal subdeltoid bursa Prior Treatments and Tests Injection, 5 days of oral corticosteroids Future Testing and Treatments Planned Follow-up with orthopedist 01/18/19 Treatment Goals Patient/Caregiver Goals To decrease pain Prior Functional Status Baseline Function- ADL's Needs Assist Baseline Function- Other Pt needs asst to wash under her arms and with donning her bra. She was able to try it today but had pain. Personal Factors Other Personal Factors That May Effect HD with chorea, imbalance and Therapy/Recovery difficultly performing motor tasks occ PT-OP-C Subjective Start: 12/20/18 13:28 Freq: Status: Active Protocol: Document 02/21/19 13:45 MB (Rec: 02/21/19 14:32 MB [id number]) OP-PT Subjective Patient Comments Patient Comments Pt states that she moved a ceramic pot in stages in her house. Pt is going to follow- up with surgeon tomorrow. PT-OP-K Range of Motion Start: 12/20/18 13:28 Freq: Status: Active Protocol: Document 12/20/18 14:22 MB (Rec: 12/20/18 15:28 MB [id number]) Cervical Spine Range of Motion Cervical Spine Active Testing Position Standing Flexion 40 Extension 40 Rotation Left 45 Rotation Right 70 Comments Unable to coordinate SB d/t chorea Shoulder Goniometric Range of Motion Shoulder ROM Limitations Comments R shoulder, elbow and wrist normal. Active IR behind back to T6. L shoulder flexion 55 deg, abduction 40 deg increased pain greater than 7/10. No tolerance to active IR in standing. Passive ER and IR to 0 in 30 deg abduction Elbow/Forearm Range of Motion Elbow/Forearm ROM Limitations Comments R elbow and wrist WNLs. Left elbow and hand are functional but not full-range tested d/t pt's fear of pain. PT-OP-M Strength Start: 12/20/18 13:28 Freq: Status: Active Protocol: Document 12/20/18 14:22 MB (Rec: 12/20/18 16:46 MB [id number]) Shoulder Strength Shoulder Manual Muscle Testing Left Comments Standing all deferred d/t pain with minimal shoulder motion Right Flexion 5 Normal Abduction (C5) 5 Normal External Rotation 4 Good Internal Rotation 4 Good Comments Standing Elbow/Forearm Strength Elbow and Forearm Manual Muscle Testing Left Comments Deferred d/t fear of pain Right Flexion (C6) 5 Normal Extension (C7) 5 Normal Pronation 5 Normal Supination 5 Normal Wrist Strength Wrist Manual Muscle Testing Left Comments Deferred d/t fear of pain Right Flexion (C7) 5 Normal Extension (C6) 5 Normal PT-OP-Q Treatments Start: 12/20/18 13:28 Freq: Status: Active Protocol: Document 02/21/19 13:45 MB (Rec: 02/21/19 14:32 MB [id number]) Manual Therapy Treatment Other Other Manual Treatments AP mobs left shoulder ER, posterior capsule stretch with resisted isometric, 3 sets of both these. Also MWM left infraspinatus with PT holding trigger point and pt perform AAROM ER & IR Neuro Re-Education Treatment Balance Activities PNF pattern 2 and ER and IR left shoulder Comments PNF to promote scapulohumeral co-contraction, resisted isometrics in ER and IR, PNF pattern 2 PT-OP-T Assessment and Plan Start: 12/20/18 13:28 Freq: Status: Active Protocol: Document 02/21/19 13:45 MB (Rec: 02/21/19 14:32 MB [id number]) Physical Therapy Assessment Goals 5 Snf Goal (LTG) Pt will perform progressive HEP with I by 03/25/19. 01/21/19 Pt is performing HEP at home, some trouble remembering and so lots of practice with PT LTG Duration 8 weeks 4 Impairment Pain Snf Goal (LTG) Pt will report a 70% improvement in left shoulder pain by 03/25/19. 01/21/19: Pt reports 10% improvement in overall left shoulder pain since starting PT. LTG Duration 8 weeks 3 Impairment Decreased ADL I Processor Helper Goal (LTG) Pt will be able to don her bra with I by 03/25/19. 01/21/19: Pt occ needs help donning her bra but it has improved. LTG Duration 8 weeks 2 Impairment Decreased ROM Processor Helper Goal (LTG) Pt will present with improved AROM left shoulder to at least 150 deg flexion and abduction and IR to T10 level by . 01/21/19: L shoulder AROM: abduction 64 deg; flexion: 85 deg; IR: L5. LTG Duration 8 weeks 1 Impairment QuickDASH score reflecting 67. 5% impairment Snf Goal (LTG) Pt will present with QuickDASH score reflecting no more than 25% functional impairment by 03/25/19. 01/21/19: QuickDASH scale score has improved to reflect 45% impairment LTG Duration 8 weeks Assessment Summary Assessment Performed manual and PNF work this date and pt's active and passive abduction and flexion are much better today. Physical Therapy Plan Frequency and Duration Frequency of Treatment 2x/Week Duration of Treatment 8 weeks Plan of Care Start Date 01/21/19 Plan of Care End Date 03/25/19 Therapeutic Interventions Therapeutic Interventions Coordination Training,Home Exercise Program,Joint Mobilizations,Manual Therapy, Neuromuscular Re-education, Patient/Caregiver Education, Self-Care/Home Management,Soft Tissue Mobilization,Taping, Therapeutic Activities, Therapeutic Exercises Modalities Cold Pack/Ice Massage,Electric Stimulation,Hot Packs, Ultrasound Next Visit Focus/Plan Next Note Type Treatment Note Next Visit Plan Consider ongoing PNF, ongoing assessment of first rib, consider working on thoracic spine. For HEP, progress strengthening, consider racquet ball massage.
--- NOTE | 2019-02-25 14:35 | PT.OTN ---
Current Diagnoses Adhesive capsulitis of left shoulder (02/25/19) Impingement syndrome of left shoulder (02/25/19) Physical Therapy Treatment Note PT-OP-A Visit Information Start: 12/20/18 13:28 Freq: Status: Active Protocol: Document 02/25/19 13:57 MB (Rec: 02/25/19 14:35 MB [id number]) Out-Patient Physical Therapy Visit Information Visit Information Visit Type Treatment Note Visit Note On second approval now Visit Start Time 13:57 Visit Stop Time 14:35 Total Visit Minutes 38 Visit Number 08/25 PT-OP-B Current Condition Start: 12/20/18 13:28 Freq: Status: Active Protocol: Document 12/20/18 14:22 MB (Rec: 12/20/18 15:05 MB [id number]) Current Condition History of Current Condition Onset Date 10 months History of Current Condition Pt states that she went to rake, move pots and pull weeds in 02/27 and she went to bed at night and had increased left shoulder pain. 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 She has had gradually worsening ROM. Patient can only sleep in one position on her back or in her recliner, leaning to the right. 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 Left shoulder MRI 10/31/18: small mod-sized posterior labral tear, mild degenerative changes AC joint, down sloping lateral acromion, fluid within subacrominal subdeltoid bursa Prior Treatments and Tests Injection, 5 days of oral corticosteroids Future Testing and Treatments Planned Follow-up with orthopedist 01/18/19 Treatment Goals Patient/Caregiver Goals To decrease pain Prior Functional Status Baseline Function- ADL's Needs Assist Baseline Function- Other Pt needs asst to wash under her arms and with donning her bra. She was able to try it today but had pain. Personal Factors Other Personal Factors That May Effect HD with chorea, imbalance and Therapy/Recovery difficultly performing motor tasks occ PT-OP-C Subjective Start: 12/20/18 13:28 Freq: Status: Active Protocol: Document 02/25/19 13:57 MB (Rec: 02/25/19 14:35 MB [id number]) OP-PT Subjective Patient Comments Patient Comments Pt states that orthopedist states that she is making excellent process and to con't with PT. PT-OP-K Range of Motion Start: 12/20/18 13:28 Freq: Status: Active Protocol: Document 12/20/18 14:22 MB (Rec: 12/20/18 15:28 MB [id number]) Cervical Spine Range of Motion Cervical Spine Active Testing Position Standing Flexion 40 Extension 40 Rotation Left 45 Rotation Right 70 Comments Unable to coordinate SB d/t chorea Shoulder Goniometric Range of Motion Shoulder ROM Limitations Comments R shoulder, elbow and wrist normal. Active IR behind back to T6. L shoulder flexion 55 deg, abduction 40 deg increased pain greater than 7/10. No tolerance to active IR in standing. Passive ER and IR to 0 in 30 deg abduction Elbow/Forearm Range of Motion Elbow/Forearm ROM Limitations Comments R elbow and wrist WNLs. Left elbow and hand are functional but not full-range tested d/t pt's fear of pain. PT-OP-M Strength Start: 12/20/18 13:28 Freq: Status: Active Protocol: Document 12/20/18 14:22 MB (Rec: 12/20/18 16:46 MB [id number]) Shoulder Strength Shoulder Manual Muscle Testing Left Comments Standing all deferred d/t pain with minimal shoulder motion Right Flexion 5 Normal Abduction (C5) 5 Normal External Rotation 4 Good Internal Rotation 4 Good Comments Standing Elbow/Forearm Strength Elbow and Forearm Manual Muscle Testing Left Comments Deferred d/t fear of pain Right Flexion (C6) 5 Normal Extension (C7) 5 Normal Pronation 5 Normal Supination 5 Normal Wrist Strength Wrist Manual Muscle Testing Left Comments Deferred d/t fear of pain Right Flexion (C7) 5 Normal Extension (C6) 5 Normal PT-OP-Q Treatments Start: 12/20/18 13:28 Freq: Status: Active Protocol: Document 02/25/19 13:57 MB (Rec: 02/25/19 14:35 MB [id number]) Manual Therapy Treatment Other Other Manual Treatments MWM left infraspinatus and pect with pt performing AAROM ER/IR and PT providing trigger point pressure, 1st rib isometric mob Neuro Re-Education Treatment Balance Activities PNF pattern 2 and ER and IR left shoulder Comments PNF to promote scapulohumeral co-contraction, resisted isometrics in ER and IR, PNF pattern 2 PT-OP-T Assessment and Plan Start: 12/20/18 13:28 Freq: Status: Active Protocol: Document 02/25/19 13:57 MB (Rec: 02/25/19 14:35 MB [id number]) Physical Therapy Assessment Goals 5 Mineral Technologist Goal (LTG) Pt will perform progressive HEP with I by 03/25/19. 01/21/19 Pt is performing HEP at home, some trouble remembering and so lots of practice with PT LTG Duration 8 weeks 4 Impairment Pain Residential Goal (LTG) Pt will report a 70% improvement in left shoulder pain by 03/25/19. 01/21/19: Pt reports 10% improvement in overall left shoulder pain since starting PT. LTG Duration 8 weeks 3 Impairment Decreased ADL I Mineral Technologist Goal (LTG) Pt will be able to don her bra with I by 03/25/19. 01/21/19: Pt occ needs help donning her bra but it has improved. LTG Duration 8 weeks 2 Impairment Decreased ROM Mineral Technologist Goal (LTG) Pt will present with improved AROM left shoulder to at least 150 deg flexion and abduction and IR to T10 level by . 01/21/19: L shoulder AROM: abduction 64 deg; flexion: 85 deg; IR: L5. LTG Duration 8 weeks 1 Impairment QuickDASH score reflecting 67. 5% impairment Residential Goal (LTG) Pt will present with QuickDASH score reflecting no more than 25% functional impairment by 03/25/19. 01/21/19: QuickDASH scale score has improved to reflect 45% impairment LTG Duration 8 weeks Assessment Summary Assessment Added posterior capsule stretch to HEP to perform at night before bed. Progressed manual work and pt's active left shoulder abduction is much improved. Physical Therapy Plan Frequency and Duration Frequency of Treatment 2x/Week Duration of Treatment 8 weeks Plan of Care Start Date 01/21/19 Plan of Care End Date 03/25/19 Therapeutic Interventions Therapeutic Interventions Coordination Training,Home Exercise Program,Joint Mobilizations,Manual Therapy, Neuromuscular Re-education, Patient/Caregiver Education, Self-Care/Home Management,Soft Tissue Mobilization,Taping, Therapeutic Activities, Therapeutic Exercises Modalities Cold Pack/Ice Massage,Electric Stimulation,Hot Packs, Ultrasound Next Visit Focus/Plan Next Note Type Treatment Note Next Visit Plan Consider ongoing PNF, ongoing assessment of first rib, consider working on thoracic spine. For HEP, progress strengthening, consider racquet ball massage.
--- NOTE | 2019-02-28 14:30 | PT.OTN ---
Current Diagnoses Adhesive capsulitis of left shoulder (02/28/19) Impingement syndrome of left shoulder (02/28/19) Physical Therapy Treatment Note PT-OP-A Visit Information Start: 12/20/18 13:28 Freq: Status: Active Protocol: Document 02/28/19 13:48 MB (Rec: 02/28/19 14:29 MB [id number]) Out-Patient Physical Therapy Visit Information Visit Information Visit Type Treatment Note Visit Note On second approval now Visit Start Time 13:48 Visit Stop Time 14:28 Total Visit Minutes 40 Visit Number 09/24 PT-OP-B Current Condition Start: 12/20/18 13:28 Freq: Status: Active Protocol: Document 12/20/18 14:22 MB (Rec: 12/20/18 15:05 MB [id number]) Current Condition History of Current Condition Onset Date 10 months History of Current Condition Pt states that she went to rake, move pots and pull weeds in 02/27 and she went to bed at night and had increased left shoulder pain. 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 She has had gradually worsening ROM. Patient can only sleep in one position on her back or in her recliner, leaning to the right. 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 Left shoulder MRI 10/31/18: small mod-sized posterior labral tear, mild degenerative changes AC joint, down sloping lateral acromion, fluid within subacrominal subdeltoid bursa Prior Treatments and Tests Injection, 5 days of oral corticosteroids Future Testing and Treatments Planned Follow-up with orthopedist 01/18/19 Treatment Goals Patient/Caregiver Goals To decrease pain Prior Functional Status Baseline Function- ADL's Needs Assist Baseline Function- Other Pt needs asst to wash under her arms and with donning her bra. She was able to try it today but had pain. Personal Factors Other Personal Factors That May Effect HD with chorea, imbalance and Therapy/Recovery difficultly performing motor tasks occ PT-OP-C Subjective Start: 12/20/18 13:28 Freq: Status: Active Protocol: Document 02/28/19 13:48 MB (Rec: 02/28/19 14:29 MB [id number]) OP-PT Subjective Patient Comments Patient Comments Pt states that she likes the new posterior capsule stretch. Showering is getting easier all the time. PT-OP-K Range of Motion Start: 12/20/18 13:28 Freq: Status: Active Protocol: Document 12/20/18 14:22 MB (Rec: 12/20/18 15:28 MB [id number]) Cervical Spine Range of Motion Cervical Spine Active Testing Position Standing Flexion 40 Extension 40 Rotation Left 45 Rotation Right 70 Comments Unable to coordinate SB d/t chorea Shoulder Goniometric Range of Motion Shoulder ROM Limitations Comments R shoulder, elbow and wrist normal. Active IR behind back to T6. L shoulder flexion 55 deg, abduction 40 deg increased pain greater than 7/10. No tolerance to active IR in standing. Passive ER and IR to 0 in 30 deg abduction Elbow/Forearm Range of Motion Elbow/Forearm ROM Limitations Comments R elbow and wrist WNLs. Left elbow and hand are functional but not full-range tested d/t pt's fear of pain. PT-OP-M Strength Start: 12/20/18 13:28 Freq: Status: Active Protocol: Document 12/20/18 14:22 MB (Rec: 12/20/18 16:46 MB [id number]) Shoulder Strength Shoulder Manual Muscle Testing Left Comments Standing all deferred d/t pain with minimal shoulder motion Right Flexion 5 Normal Abduction (C5) 5 Normal External Rotation 4 Good Internal Rotation 4 Good Comments Standing Elbow/Forearm Strength Elbow and Forearm Manual Muscle Testing Left Comments Deferred d/t fear of pain Right Flexion (C6) 5 Normal Extension (C7) 5 Normal Pronation 5 Normal Supination 5 Normal Wrist Strength Wrist Manual Muscle Testing Left Comments Deferred d/t fear of pain Right Flexion (C7) 5 Normal Extension (C6) 5 Normal PT-OP-Q Treatments Start: 12/20/18 13:28 Freq: Status: Active Protocol: Document 02/28/19 13:48 MB (Rec: 02/28/19 14:29 MB [id number]) Therapeutic Exercises Supine Exercises Posterior capsule stretch Comments Performed over pool noodle this date AROM PNF 2 over pool noodle Comments Performed with cues 10 reps and added to HEP Pool noodle exercises AROM this date: flexion, abduction, ER, pect stretch, abduction, thoracic lift Comments Pt has been performing some with cane at home, changed to AROM PT-OP-T Assessment and Plan Start: 12/20/18 13:28 Freq: Status: Active Protocol: Document 02/28/19 13:48 MB (Rec: 02/28/19 14:29 MB [id number]) Physical Therapy Assessment Goals 5 Care Home Goal (LTG) Pt will perform progressive HEP with I by 03/25/19. 01/21/19 Pt is performing HEP at home, some trouble remembering and so lots of practice with PT LTG Duration 8 weeks 4 Impairment Pain Vending Machine Collector Goal (LTG) Pt will report a 70% improvement in left shoulder pain by 03/25/19. 01/21/19: Pt reports 10% improvement in overall left shoulder pain since starting PT. LTG Duration 8 weeks 3 Impairment Decreased ADL I Vending Machine Collector Goal (LTG) Pt will be able to don her bra with I by 03/25/19. 01/21/19: Pt occ needs help donning her bra but it has improved. LTG Duration 8 weeks 2 Impairment Decreased ROM Care Home Goal (LTG) Pt will present with improved AROM left shoulder to at least 150 deg flexion and abduction and IR to T10 level by . 01/21/19: L shoulder AROM: abduction 64 deg; flexion: 85 deg; IR: L5. LTG Duration 8 weeks 1 Impairment QuickDASH score reflecting 67. 5% impairment Vending Machine Collector Goal (LTG) Pt will present with QuickDASH score reflecting no more than 25% functional impairment by 03/25/19. 01/21/19: QuickDASH scale score has improved to reflect 45% impairment LTG Duration 8 weeks Assessment Summary Assessment Transitioned some of AAROM exercises with cane over pool noodle to AROM exercises today . Muscle control is difficult with ROM deficits and chorea. Added PNF D2 AROM over pool noodle today. Consider adding resistance to this and shoulder ER over pool noodle in the future. Physical Therapy Plan Frequency and Duration Frequency of Treatment 2x/Week Duration of Treatment 8 weeks Plan of Care Start Date 01/21/19 Plan of Care End Date 03/25/19 Therapeutic Interventions Therapeutic Interventions Coordination Training,Home Exercise Program,Joint Mobilizations,Manual Therapy, Neuromuscular Re-education, Patient/Caregiver Education, Self-Care/Home Management,Soft Tissue Mobilization,Taping, Therapeutic Activities, Therapeutic Exercises Modalities Cold Pack/Ice Massage,Electric Stimulation,Hot Packs, Ultrasound Next Visit Focus/Plan Next Note Type Treatment Note Next Visit Plan Consider ongoing PNF, ongoing assessment of first rib, consider working on thoracic spine. For HEP, progress strengthening, consider racquet ball massage.
--- NOTE | 2019-03-04 14:28 | PT.OTN ---
Current Diagnoses Adhesive capsulitis of left shoulder (03/04/19) Impingement syndrome of left shoulder (03/04/19) Physical Therapy Treatment Note PT-OP-A Visit Information Start: 12/20/18 13:28 Freq: Status: Active Protocol: Document 03/04/19 13:42 MB (Rec: 03/04/19 14:28 MB [id number]) Out-Patient Physical Therapy Visit Information Visit Information Visit Type Treatment Note Visit Note On second approval now Visit Start Time 13:42 Visit Stop Time 14:22 Total Visit Minutes 40 Visit Number 10/25 PT-OP-B Current Condition Start: 12/20/18 13:28 Freq: Status: Active Protocol: Document 12/20/18 14:22 MB (Rec: 12/20/18 15:05 MB [id number]) Current Condition History of Current Condition Onset Date 10 months History of Current Condition Pt states that she went to rake, move pots and pull weeds in 02/27 and she went to bed at night and had increased left shoulder pain. 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 She has had gradually worsening ROM. Patient can only sleep in one position on her back or in her recliner, leaning to the right. 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 Left shoulder MRI 10/31/18: small mod-sized posterior labral tear, mild degenerative changes AC joint, down sloping lateral acromion, fluid within subacrominal subdeltoid bursa Prior Treatments and Tests Injection, 5 days of oral corticosteroids Future Testing and Treatments Planned Follow-up with orthopedist 01/18/19 Treatment Goals Patient/Caregiver Goals To decrease pain Prior Functional Status Baseline Function- ADL's Needs Assist Baseline Function- Other Pt needs asst to wash under her arms and with donning her bra. She was able to try it today but had pain. Personal Factors Other Personal Factors That May Effect HD with chorea, imbalance and Therapy/Recovery difficultly performing motor tasks occ PT-OP-C Subjective Start: 12/20/18 13:28 Freq: Status: Active Protocol: Document 03/04/19 13:42 MB (Rec: 03/04/19 14:28 MB [id number]) OP-PT Subjective Patient Comments Patient Comments Pt states that she has been a little sore with performing active ROM over pull noodle. PT-OP-K Range of Motion Start: 12/20/18 13:28 Freq: Status: Active Protocol: Document 12/20/18 14:22 MB (Rec: 12/20/18 15:28 MB [id number]) Cervical Spine Range of Motion Cervical Spine Active Testing Position Standing Flexion 40 Extension 40 Rotation Left 45 Rotation Right 70 Comments Unable to coordinate SB d/t chorea Shoulder Goniometric Range of Motion Shoulder ROM Limitations Comments R shoulder, elbow and wrist normal. Active IR behind back to T6. L shoulder flexion 55 deg, abduction 40 deg increased pain greater than 7/10. No tolerance to active IR in standing. Passive ER and IR to 0 in 30 deg abduction Elbow/Forearm Range of Motion Elbow/Forearm ROM Limitations Comments R elbow and wrist WNLs. Left elbow and hand are functional but not full-range tested d/t pt's fear of pain. PT-OP-M Strength Start: 12/20/18 13:28 Freq: Status: Active Protocol: Document 12/20/18 14:22 MB (Rec: 12/20/18 16:46 MB [id number]) Shoulder Strength Shoulder Manual Muscle Testing Left Comments Standing all deferred d/t pain with minimal shoulder motion Right Flexion 5 Normal Abduction (C5) 5 Normal External Rotation 4 Good Internal Rotation 4 Good Comments Standing Elbow/Forearm Strength Elbow and Forearm Manual Muscle Testing Left Comments Deferred d/t fear of pain Right Flexion (C6) 5 Normal Extension (C7) 5 Normal Pronation 5 Normal Supination 5 Normal Wrist Strength Wrist Manual Muscle Testing Left Comments Deferred d/t fear of pain Right Flexion (C7) 5 Normal Extension (C6) 5 Normal PT-OP-Q Treatments Start: 12/20/18 13:28 Freq: Status: Active Protocol: Document 03/04/19 13:42 MB (Rec: 03/04/19 14:28 MB [id number]) Therapeutic Exercises Supine Exercises Shoulder abduction and ER with hands under head Comments 10 reps and added to HEP, over pool noodle Posterior capsule stretch Comments Performed over pool noodle this date AROM PNF 2 over pool noodle Comments Performed with cues 10 reps Pool noodle exercises AROM this date: flexion, abduction, ER, pect stretch, abduction, thoracic lift Comments 5 reps all today AROM; used cane ER as well Neuro Re-Education Treatment Balance Activities PNF pattern 2 and ER and IR left shoulder Comments Neuro re-ed with manual asst, pt supine (not balance) PNF to promote scapulohumeral co- contraction, resisted isometrics in ER and IR, PNF pattern 2 PT-OP-T Assessment and Plan Start: 12/20/18 13:28 Freq: Status: Active Protocol: Document 03/04/19 13:42 MB (Rec: 03/04/19 14:28 MB [id number]) Physical Therapy Assessment Goals 5 Meter Setter Goal (LTG) Pt will perform progressive HEP with I by 03/25/19. 01/21/19 Pt is performing HEP at home, some trouble remembering and so lots of practice with PT LTG Duration 8 weeks 4 Impairment Pain Mcfp Goal (LTG) Pt will report a 70% improvement in left shoulder pain by 03/25/19. 01/21/19: Pt reports 10% improvement in overall left shoulder pain since starting PT. LTG Duration 8 weeks 3 Impairment Decreased ADL I Mcfp Goal (LTG) Pt will be able to don her bra with I by 03/25/19. 01/21/19: Pt occ needs help donning her bra but it has improved. LTG Duration 8 weeks 2 Impairment Decreased ROM Mcfp Goal (LTG) Pt will present with improved AROM left shoulder to at least 150 deg flexion and abduction and IR to T10 level by . 01/21/19: L shoulder AROM: abduction 64 deg; flexion: 85 deg; IR: L5. LTG Duration 8 weeks 1 Impairment QuickDASH score reflecting 67. 5% impairment Mcfp Goal (LTG) Pt will present with QuickDASH score reflecting no more than 25% functional impairment by 03/25/19. 01/21/19: QuickDASH scale score has improved to reflect 45% impairment LTG Duration 8 weeks Assessment Summary Assessment AROM standing left shoulder flexion to 120 deg, abduction to 75 deg, IR behind back L2 and shoulder ER improved this date. Con't to progress exercises. Shoulder ER with hands behind head over pool noodle this date and add to HEP. Physical Therapy Plan Frequency and Duration Frequency of Treatment 2x/Week Duration of Treatment 8 weeks Plan of Care Start Date 01/21/19 Plan of Care End Date 03/25/19 Therapeutic Interventions Therapeutic Interventions Coordination Training,Home Exercise Program,Joint Mobilizations,Manual Therapy, Neuromuscular Re-education, Patient/Caregiver Education, Self-Care/Home Management,Soft Tissue Mobilization,Taping, Therapeutic Activities, Therapeutic Exercises Modalities Cold Pack/Ice Massage,Electric Stimulation,Hot Packs, Ultrasound Next Visit Focus/Plan Next Note Type Treatment Note Next Visit Plan Consider ongoing PNF, ongoing assessment of first rib, consider working on thoracic spine. For HEP, progress strengthening, consider racquet ball massage.
--- NOTE | 2019-03-12 14:12 | PT.OTN ---
Current Diagnoses Adhesive capsulitis of left shoulder (03/12/19) Impingement syndrome of left shoulder (03/12/19) Physical Therapy Treatment Note PT-OP-A Visit Information Start: 12/20/18 13:28 Freq: Status: Active Protocol: Document 03/12/19 13:32 MB (Rec: 03/12/19 14:12 MB [id number]) Out-Patient Physical Therapy Visit Information Visit Information Visit Type Treatment Note Visit Note On second approval now Visit Start Time 13:32 Visit Stop Time 14:12 Total Visit Minutes 40 Visit Number 11/25 PT-OP-B Current Condition Start: 12/20/18 13:28 Freq: Status: Active Protocol: Document 12/20/18 14:22 MB (Rec: 12/20/18 15:05 MB [id number]) Current Condition History of Current Condition Onset Date 10 months History of Current Condition Pt states that she went to rake, move pots and pull weeds in 02/27 and she went to bed at night and had increased left shoulder pain. 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 She has had gradually worsening ROM. Patient can only sleep in one position on her back or in her recliner, leaning to the right. With her [place]'s Disease, she needs 10-11 hours of sleep. 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 Left shoulder MRI 10/31/18: small mod-sized posterior labral tear, mild degenerative changes AC joint, down sloping lateral acromion, fluid within subacrominal subdeltoid bursa Prior Treatments and Tests Injection, 5 days of oral corticosteroids Future Testing and Treatments Planned Follow-up with orthopedist 01/18/19 Treatment Goals Patient/Caregiver Goals To decrease pain Prior Functional Status Baseline Function- ADL's Needs Assist Baseline Function- Other Pt needs asst to wash under her arms and with donning her bra. She was able to try it today but had pain. Personal Factors Other Personal Factors That May Effect HD with chorea, imbalance and Therapy/Recovery difficultly performing motor tasks occ PT-OP-C Subjective Start: 12/20/18 13:28 Freq: Status: Active Protocol: Document 03/12/19 13:32 MB (Rec: 03/12/19 14:12 MB [id number]) OP-PT Subjective Patient Comments Patient Comments Pt states that she is doing okay. She would like to get back to walking but her whole posture and back are a problem . PT-OP-K Range of Motion Start: 12/20/18 13:28 Freq: Status: Active Protocol: Document 12/20/18 14:22 MB (Rec: 12/20/18 15:28 MB [id number]) Cervical Spine Range of Motion Cervical Spine Active Testing Position Standing Flexion 40 Extension 40 Rotation Left 45 Rotation Right 70 Comments Unable to coordinate SB d/t chorea Shoulder Goniometric Range of Motion Shoulder ROM Limitations Comments R shoulder, elbow and wrist normal. Active IR behind back to T6. L shoulder flexion 55 deg, abduction 40 deg increased pain greater than 7/10. No tolerance to active IR in standing. Passive ER and IR to 0 in 30 deg abduction Elbow/Forearm Range of Motion Elbow/Forearm ROM Limitations Comments R elbow and wrist WNLs. Left elbow and hand are functional but not full-range tested d/t pt's fear of pain. PT-OP-M Strength Start: 12/20/18 13:28 Freq: Status: Active Protocol: Document 12/20/18 14:22 MB (Rec: 12/20/18 16:46 MB [id number]) Shoulder Strength Shoulder Manual Muscle Testing Left Comments Standing all deferred d/t pain with minimal shoulder motion Right Flexion 5 Normal Abduction (C5) 5 Normal External Rotation 4 Good Internal Rotation 4 Good Comments Standing Elbow/Forearm Strength Elbow and Forearm Manual Muscle Testing Left Comments Deferred d/t fear of pain Right Flexion (C6) 5 Normal Extension (C7) 5 Normal Pronation 5 Normal Supination 5 Normal Wrist Strength Wrist Manual Muscle Testing Left Comments Deferred d/t fear of pain Right Flexion (C7) 5 Normal Extension (C6) 5 Normal PT-OP-Q Treatments Start: 12/20/18 13:28 Freq: Status: Active Protocol: Document 03/12/19 13:32 MB (Rec: 03/12/19 14:12 MB [id number]) Therapeutic Exercises Supine Exercises Abdominal drawing in, spine flat on pool noodle and progress to perform with all exercises Comments Performed this date, 3 reps and hold 10 sec; added with other exercises. Shoulder abduction and ER with hands under head Comments 5 reps performed today, on pool noodle and added abdominal drawing in/tilt Posterior capsule stretch Comments Performed over pool noodle with abdominal drawing in, 2 reps 30 sec AROM PNF 2 over pool noodle Comments Performed this date and added core-cues for hand turning Pool noodle exercises AROM this date: flexion, abduction, ER, pect stretch, abduction, thoracic lift Comments Performed flexion this date with abdominal drawing in-10 reps Pect stretch pool noodle Comments 30 sec hold with core engaged PT-OP-T Assessment and Plan Start: 12/20/18 13:28 Freq: Status: Active Protocol: Document 03/12/19 13:32 MB (Rec: 03/12/19 14:12 MB [id number]) Physical Therapy Assessment Goals 5 [facility] Goal (LTG) Pt will perform progressive HEP with I by 03/25/19. 01/21/19 Pt is performing HEP at home, some trouble remembering and so lots of practice with PT LTG Duration 8 weeks 4 Impairment Pain [facility] Goal (LTG) Pt will report a 70% improvement in left shoulder pain by 03/25/19. 01/21/19: Pt reports 10% improvement in overall left shoulder pain since starting PT. LTG Duration 8 weeks 3 Impairment Decreased ADL I [facility] Goal (LTG) Pt will be able to don her bra with I by 03/25/19. 01/21/19: Pt occ needs help donning her bra but it has improved. LTG Duration 8 weeks 2 Impairment Decreased ROM Clinician Oncology Goal (LTG) Pt will present with improved AROM left shoulder to at least 150 deg flexion and abduction and IR to T10 level by . 01/21/19: L shoulder AROM: abduction 64 deg; flexion: 85 deg; IR: L5. LTG Duration 8 weeks 1 Impairment QuickDASH score reflecting 67. 5% impairment Clinician Oncology Goal (LTG) Pt will present with QuickDASH score reflecting no more than 25% functional impairment by 03/25/19. 01/21/19: QuickDASH scale score has improved to reflect 45% impairment LTG Duration 8 weeks Assessment Summary Assessment Active left shoulder IR behind back this date improved with standing motion. Will con't to introduce core exercises to help support posture and shoulder. Initiating abdominal drawing in today made exercises more complex and pt to work on this. Physical Therapy Plan Frequency and Duration Frequency of Treatment 2x/Week Duration of Treatment 8 weeks Plan of Care Start Date 01/21/19 Plan of Care End Date 03/25/19 Therapeutic Interventions Therapeutic Interventions Coordination Training,Home Exercise Program,Joint Mobilizations,Manual Therapy, Neuromuscular Re-education, Patient/Caregiver Education, Self-Care/Home Management,Soft Tissue Mobilization,Taping, Therapeutic Activities, Therapeutic Exercises Modalities Cold Pack/Ice Massage,Electric Stimulation,Hot Packs, Ultrasound Next Visit Focus/Plan Next Note Type Treatment Note Next Visit Plan Progress core exercises to help support posture and shoulder. Consider ongoing PNF and add resistance with band, standing pect stretch and shoulder ER over table.
--- NOTE | 2019-03-14 14:30 | PT.OTN ---
Current Diagnoses Adhesive capsulitis of left shoulder (03/14/19) Impingement syndrome of left shoulder (03/14/19) Physical Therapy Treatment Note PT-OP-A Visit Information Start: 12/20/18 13:28 Freq: Status: Active Protocol: Document 03/14/19 13:49 MB (Rec: 03/14/19 14:29 MB [id number]) Out-Patient Physical Therapy Visit Information Visit Information Visit Type Treatment Note Visit Note On second approval now Visit Start Time 13:49 Visit Stop Time 14:29 Total Visit Minutes 40 Visit Number 12/25 PT-OP-B Current Condition Start: 12/20/18 13:28 Freq: Status: Active Protocol: Document 12/20/18 14:22 MB (Rec: 12/20/18 15:05 MB [id number]) Current Condition History of Current Condition Onset Date 10 months History of Current Condition Pt states that she went to rake, move pots and pull weeds in 02/27 and she went to bed at night and had increased left shoulder pain. 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 She has had gradually worsening ROM. Patient can only sleep in one position on her back or in her recliner, leaning to the right. With her [place]'s Disease, she needs 10-11 hours of sleep. 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 Left shoulder MRI 10/31/18: small mod-sized posterior labral tear, mild degenerative changes AC joint, down sloping lateral acromion, fluid within subacrominal subdeltoid bursa Prior Treatments and Tests Injection, 5 days of oral corticosteroids Future Testing and Treatments Planned Follow-up with orthopedist 01/18/19 Treatment Goals Patient/Caregiver Goals To decrease pain Prior Functional Status Baseline Function- ADL's Needs Assist Baseline Function- Other Pt needs asst to wash under her arms and with donning her bra. She was able to try it today but had pain. Personal Factors Other Personal Factors That May Effect HD with chorea, imbalance and Therapy/Recovery difficultly performing motor tasks occ PT-OP-C Subjective Start: 12/20/18 13:28 Freq: Status: Active Protocol: Document 03/14/19 13:49 MB (Rec: 03/14/19 14:29 MB [id number]) OP-PT Subjective Patient Comments Patient Comments Pt states that she is doing her core exercises. PT-OP-K Range of Motion Start: 12/20/18 13:28 Freq: Status: Active Protocol: Document 12/20/18 14:22 MB (Rec: 12/20/18 15:28 MB [id number]) Cervical Spine Range of Motion Cervical Spine Active Testing Position Standing Flexion 40 Extension 40 Rotation Left 45 Rotation Right 70 Comments Unable to coordinate SB d/t chorea Shoulder Goniometric Range of Motion Shoulder ROM Limitations Comments R shoulder, elbow and wrist normal. Active IR behind back to T6. L shoulder flexion 55 deg, abduction 40 deg increased pain greater than 7/10. No tolerance to active IR in standing. Passive ER and IR to 0 in 30 deg abduction Elbow/Forearm Range of Motion Elbow/Forearm ROM Limitations Comments R elbow and wrist WNLs. Left elbow and hand are functional but not full-range tested d/t pt's fear of pain. PT-OP-M Strength Start: 12/20/18 13:28 Freq: Status: Active Protocol: Document 12/20/18 14:22 MB (Rec: 12/20/18 16:46 MB [id number]) Shoulder Strength Shoulder Manual Muscle Testing Left Comments Standing all deferred d/t pain with minimal shoulder motion Right Flexion 5 Normal Abduction (C5) 5 Normal External Rotation 4 Good Internal Rotation 4 Good Comments Standing Elbow/Forearm Strength Elbow and Forearm Manual Muscle Testing Left Comments Deferred d/t fear of pain Right Flexion (C6) 5 Normal Extension (C7) 5 Normal Pronation 5 Normal Supination 5 Normal Wrist Strength Wrist Manual Muscle Testing Left Comments Deferred d/t fear of pain Right Flexion (C7) 5 Normal Extension (C6) 5 Normal PT-OP-Q Treatments Start: 12/20/18 13:28 Freq: Status: Active Protocol: Document 03/14/19 13:49 MB (Rec: 03/14/19 14:29 MB [id number]) Therapeutic Exercises Standing Exercises Wall crawl abduction in shower Comments Performed 3 times and added to HEP Balloon and ball toss with left overhead or both hands overhead Comments Performed 7 minutes Gentle thoracic moving over ball against wall in standing Comments Performed today with small kid 's ball Scapular retraction and chink tuck against wall Comments Performed today with abdominal drawing in PT-OP-T Assessment and Plan Start: 12/20/18 13:28 Freq: Status: Active Protocol: Document 03/14/19 13:49 MB (Rec: 03/14/19 14:29 MB [id number]) Physical Therapy Assessment Goals 5 Shelter Goal (LTG) Pt will perform progressive HEP with I by 03/25/19. 01/21/19 Pt is performing HEP at home, some trouble remembering and so lots of practice with PT LTG Duration 8 weeks 4 Impairment Pain Shelter Goal (LTG) Pt will report a 70% improvement in left shoulder pain by 03/25/19. 01/21/19: Pt reports 10% improvement in overall left shoulder pain since starting PT. LTG Duration 8 weeks 3 Impairment Decreased ADL I Shelter Goal (LTG) Pt will be able to don her bra with I by 03/25/19. 01/21/19: Pt occ needs help donning her bra but it has improved. LTG Duration 8 weeks 2 Impairment Decreased ROM Shelter Goal (LTG) Pt will present with improved AROM left shoulder to at least 150 deg flexion and abduction and IR to T10 level by . 01/21/19: L shoulder AROM: abduction 64 deg; flexion: 85 deg; IR: L5. LTG Duration 8 weeks 1 Impairment QuickDASH score reflecting 67. 5% impairment Origination Specialist Goal (LTG) Pt will present with QuickDASH score reflecting no more than 25% functional impairment by 03/25/19. 01/21/19: QuickDASH scale score has improved to reflect 45% impairment LTG Duration 8 weeks Assessment Summary Assessment Pt is able to perform active ball and balloon exercises today in corner and does not lose balance but does use stepping strategy. Progressed wall crawl. Anticipate pillow case slide forward, mini push- ups, shoulder ER over table, pect stretch. Physical Therapy Plan Frequency and Duration Frequency of Treatment 2x/Week Duration of Treatment 8 weeks Plan of Care Start Date 01/21/19 Plan of Care End Date 03/25/19 Therapeutic Interventions Therapeutic Interventions Coordination Training,Home Exercise Program,Joint Mobilizations,Manual Therapy, Neuromuscular Re-education, Patient/Caregiver Education, Self-Care/Home Management,Soft Tissue Mobilization,Taping, Therapeutic Activities, Therapeutic Exercises Modalities Cold Pack/Ice Massage,Electric Stimulation,Hot Packs, Ultrasound Next Visit Focus/Plan Next Note Type Treatment Note Next Visit Plan Progress core exercises to help support posture and shoulder. Consider ongoing PNF and add resistance with band, standing pect stretch and shoulder ER over table.
--- NOTE | 2019-03-18 14:30 | PT.OTN ---
Current Diagnoses Adhesive capsulitis of left shoulder (03/18/19) Impingement syndrome of left shoulder (03/18/19) Physical Therapy Treatment Note PT-OP-A Visit Information Start: 12/20/18 13:28 Freq: Status: Active Protocol: Document 03/18/19 13:46 MB (Rec: 03/18/19 14:29 MB [id number]) Out-Patient Physical Therapy Visit Information Visit Information Visit Type Treatment Note Visit Note On second approval now Visit Start Time 13:46 Visit Stop Time 14:26 Total Visit Minutes 40 Visit Number 01/25 PT-OP-B Current Condition Start: 12/20/18 13:28 Freq: Status: Active Protocol: Document 12/20/18 14:22 MB (Rec: 12/20/18 15:05 MB [id number]) Current Condition History of Current Condition Onset Date 10 months History of Current Condition Pt states that she went to rake, move pots and pull weeds in 02/27 and she went to bed at night and had increased left shoulder pain. 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 She has had gradually worsening ROM. Patient can only sleep in one position on her back or in her recliner, leaning to the right. With her [place]'s Disease, she needs 10-11 hours of sleep. 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 Left shoulder MRI 10/31/18: small mod-sized posterior labral tear, mild degenerative changes AC joint, down sloping lateral acromion, fluid within subacrominal subdeltoid bursa Prior Treatments and Tests Injection, 5 days of oral corticosteroids Future Testing and Treatments Planned Follow-up with orthopedist 01/18/19 Treatment Goals Patient/Caregiver Goals To decrease pain Prior Functional Status Baseline Function- ADL's Needs Assist Baseline Function- Other Pt needs asst to wash under her arms and with donning her bra. She was able to try it today but had pain. Personal Factors Other Personal Factors That May Effect HD with chorea, imbalance and Therapy/Recovery difficultly performing motor tasks occ PT-OP-C Subjective Start: 12/20/18 13:28 Freq: Status: Active Protocol: Document 03/18/19 13:46 MB (Rec: 03/18/19 14:29 MB [id number]) OP-PT Subjective Patient Comments Patient Comments Pt states that she was sore the day after therapy. PT-OP-K Range of Motion Start: 12/20/18 13:28 Freq: Status: Active Protocol: Document 12/20/18 14:22 MB (Rec: 12/20/18 15:28 MB [id number]) Cervical Spine Range of Motion Cervical Spine Active Testing Position Standing Flexion 40 Extension 40 Rotation Left 45 Rotation Right 70 Comments Unable to coordinate SB d/t chorea Shoulder Goniometric Range of Motion Shoulder ROM Limitations Comments R shoulder, elbow and wrist normal. Active IR behind back to T6. L shoulder flexion 55 deg, abduction 40 deg increased pain greater than 7/10. No tolerance to active IR in standing. Passive ER and IR to 0 in 30 deg abduction Elbow/Forearm Range of Motion Elbow/Forearm ROM Limitations Comments R elbow and wrist WNLs. Left elbow and hand are functional but not full-range tested d/t pt's fear of pain. PT-OP-M Strength Start: 12/20/18 13:28 Freq: Status: Active Protocol: Document 12/20/18 14:22 MB (Rec: 12/20/18 16:46 MB [id number]) Shoulder Strength Shoulder Manual Muscle Testing Left Comments Standing all deferred d/t pain with minimal shoulder motion Right Flexion 5 Normal Abduction (C5) 5 Normal External Rotation 4 Good Internal Rotation 4 Good Comments Standing Elbow/Forearm Strength Elbow and Forearm Manual Muscle Testing Left Comments Deferred d/t fear of pain Right Flexion (C6) 5 Normal Extension (C7) 5 Normal Pronation 5 Normal Supination 5 Normal Wrist Strength Wrist Manual Muscle Testing Left Comments Deferred d/t fear of pain Right Flexion (C7) 5 Normal Extension (C6) 5 Normal PT-OP-Q Treatments Start: 12/20/18 13:28 Freq: Status: Active Protocol: Document 03/18/19 13:46 MB (Rec: 03/18/19 14:29 MB [id number]) Cardio Equipment Upper Body Ergometer (UBE) Other 5' forward and back, slowly Therapeutic Exercises Standing Exercises Wall crawl abduction in shower Comments Performed today x1 rep Manual Therapy Treatment Joint Mobilizations Left shoulder ER AP mobs grade III-IV and resisted isometrics ER and IR Comments Performed today as well as resisted isometrics/ mobilization with resistance extension and flexion, all performed with pt supine PT-OP-T Assessment and Plan Start: 12/20/18 13:28 Freq: Status: Active Protocol: Document 03/18/19 13:46 MB (Rec: 03/18/19 14:29 MB [id number]) Physical Therapy Assessment Goals 5 Relay Associate Goal (LTG) Pt will perform progressive HEP with I by 03/25/19. 01/21/19 Pt is performing HEP at home, some trouble remembering and so lots of practice with PT LTG Duration 8 weeks 4 Impairment Pain Custodial Goal (LTG) Pt will report a 70% improvement in left shoulder pain by 03/25/19. 01/21/19: Pt reports 10% improvement in overall left shoulder pain since starting PT. LTG Duration 8 weeks 3 Impairment Decreased ADL I Custodial Goal (LTG) Pt will be able to don her bra with I by 03/25/19. 01/21/19: Pt occ needs help donning her bra but it has improved. LTG Duration 8 weeks 2 Impairment Decreased ROM Custodial Goal (LTG) Pt will present with improved AROM left shoulder to at least 150 deg flexion and abduction and IR to T10 level by . 01/21/19: L shoulder AROM: abduction 64 deg; flexion: 85 deg; IR: L5. LTG Duration 8 weeks 1 Impairment QuickDASH score reflecting 67. 5% impairment Relay Associate Goal (LTG) Pt will present with QuickDASH score reflecting no more than 25% functional impairment by 03/25/19. 01/21/19: QuickDASH scale score has improved to reflect 45% impairment LTG Duration 8 weeks Assessment Summary Assessment Progressed arm bike this date. Pt moves slowly. Ongoing manual mobs today to improve range. Progress note next treatment date. Pt presents with some mild vertigo when lying down today. This does not inhibit mobs in supine but may be a problem in the future. Physical Therapy Plan Frequency and Duration Frequency of Treatment 2x/Week Duration of Treatment 8 weeks Plan of Care Start Date 01/21/19 Plan of Care End Date 03/25/19 Therapeutic Interventions Therapeutic Interventions Coordination Training,Home Exercise Program,Joint Mobilizations,Manual Therapy, Neuromuscular Re-education, Patient/Caregiver Education, Self-Care/Home Management,Soft Tissue Mobilization,Taping, Therapeutic Activities, Therapeutic Exercises Modalities Cold Pack/Ice Massage,Electric Stimulation,Hot Packs, Ultrasound Next Visit Focus/Plan Next Note Type Progress Note Next Visit Plan Progress core exercises to help support posture and shoulder. Consider ongoing PNF and add resistance with band, standing pect stretch and shoulder ER over table.
--- NOTE | 2019-03-22 13:38 | PT.OTN ---
Current Diagnoses Adhesive capsulitis of left shoulder (03/22/19) Impingement syndrome of left shoulder (03/22/19) Physical Therapy Treatment Note PT-OP-A Visit Information Start: 12/20/18 13:28 Freq: Status: Active Protocol: Document 03/22/19 12:58 MB (Rec: 03/22/19 13:11 MB [id number]) Out-Patient Physical Therapy Visit Information Visit Information Visit Type Treatment Note Visit Note On second approval now Visit Start Time 12:58 Visit Stop Time 13:38 Total Visit Minutes 40 Visit Number 02/24 PT-OP-B Current Condition Start: 12/20/18 13:28 Freq: Status: Active Protocol: Document 12/20/18 14:22 MB (Rec: 12/20/18 15:05 MB [id number]) Current Condition History of Current Condition Onset Date 10 months History of Current Condition Pt states that she went to rake, move pots and pull weeds in 02/27 and she went to bed at night and had increased left shoulder pain. 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 She has had gradually worsening ROM. Patient can only sleep in one position on her back or in her recliner, leaning to the right. With her [place]'s Disease, she needs 10-11 hours of sleep. 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 Left shoulder MRI 10/31/18: small mod-sized posterior labral tear, mild degenerative changes AC joint, down sloping lateral acromion, fluid within subacrominal subdeltoid bursa Prior Treatments and Tests Injection, 5 days of oral corticosteroids Future Testing and Treatments Planned Follow-up with orthopedist 01/18/19 Treatment Goals Patient/Caregiver Goals To decrease pain Prior Functional Status Baseline Function- ADL's Needs Assist Baseline Function- Other Pt needs asst to wash under her arms and with donning her bra. She was able to try it today but had pain. Personal Factors Other Personal Factors That May Effect HD with chorea, imbalance and Therapy/Recovery difficultly performing motor tasks occ PT-OP-C Subjective Start: 12/20/18 13:28 Freq: Status: Active Protocol: Document 03/22/19 12:58 MB (Rec: 03/22/19 13:11 MB [id number]) OP-PT Subjective Patient Comments Patient Comments Pt reports that she is doing okay. She is thinking about her core doing the day. She is performing abdominal drawing in a lot. PT-OP-K Range of Motion Start: 12/20/18 13:28 Freq: Status: Active Protocol: Document 12/20/18 14:22 MB (Rec: 12/20/18 15:28 MB [id number]) Cervical Spine Range of Motion Cervical Spine Active Testing Position Standing Flexion 40 Extension 40 Rotation Left 45 Rotation Right 70 Comments Unable to coordinate SB d/t chorea Shoulder Goniometric Range of Motion Shoulder ROM Limitations Comments R shoulder, elbow and wrist normal. Active IR behind back to T6. L shoulder flexion 55 deg, abduction 40 deg increased pain greater than 7/10. No tolerance to active IR in standing. Passive ER and IR to 0 in 30 deg abduction Elbow/Forearm Range of Motion Elbow/Forearm ROM Limitations Comments R elbow and wrist WNLs. Left elbow and hand are functional but not full-range tested d/t pt's fear of pain. PT-OP-M Strength Start: 12/20/18 13:28 Freq: Status: Active Protocol: Document 12/20/18 14:22 MB (Rec: 12/20/18 16:46 MB [id number]) Shoulder Strength Shoulder Manual Muscle Testing Left Comments Standing all deferred d/t pain with minimal shoulder motion Right Flexion 5 Normal Abduction (C5) 5 Normal External Rotation 4 Good Internal Rotation 4 Good Comments Standing Elbow/Forearm Strength Elbow and Forearm Manual Muscle Testing Left Comments Deferred d/t fear of pain Right Flexion (C6) 5 Normal Extension (C7) 5 Normal Pronation 5 Normal Supination 5 Normal Wrist Strength Wrist Manual Muscle Testing Left Comments Deferred d/t fear of pain Right Flexion (C7) 5 Normal Extension (C6) 5 Normal PT-OP-Q Treatments Start: 12/20/18 13:28 Freq: Status: Active Protocol: Document 03/22/19 12:58 MB (Rec: 03/22/19 13:11 MB [id number]) Cardio Equipment Upper Body Ergometer (UBE) Duration (Minutes) 5 Other 2.5' forward and back, slowly Therapeutic Exercises Supine Exercises Shoulder ER hands behind head on pool noodle Comments New today over pool noodle Posterior capsule stretch over pool noodle Comments Performed today over pool noodle Pool noodle exercises AROM this date: flexion, abduction, ER, pect stretch, abduction, thoracic lift Comments Performed with abdominal drawing in this date, re-ed ER with cane Standing Exercises Protraction and retraction with pool noodle fencing Comments Left hand today, chorea affects some protracion/ retraction Balloon and ball toss with left overhead or both hands overhead Comments Performed today ball only, left hand toss and overhead PT-OP-T Assessment and Plan Start: 12/20/18 13:28 Freq: Status: Active Protocol: Document 03/22/19 12:58 MB (Rec: 03/22/19 13:11 MB [id number]) Physical Therapy Assessment Goals 5 Pad Extractor Tender Goal (LTG) Pt will perform progressive HEP with I by 03/25/19. 01/21/19 Pt is performing HEP at home, some trouble remembering and so lots of practice with PT LTG Duration 8 weeks 4 Impairment Pain Pad Extractor Tender Goal (LTG) Pt will report a 70% improvement in left shoulder pain by 03/25/19. 01/21/19: Pt reports 10% improvement in overall left shoulder pain since starting PT. LTG Duration 8 weeks 3 Impairment Decreased ADL I Usp Goal (LTG) Pt will be able to don her bra with I by 03/25/19. 01/21/19: Pt occ needs help donning her bra but it has improved. LTG Duration 8 weeks 2 Impairment Decreased ROM Pad Extractor Tender Goal (LTG) Pt will present with improved AROM left shoulder to at least 150 deg flexion and abduction and IR to T10 level by . 01/21/19: L shoulder AROM: abduction 64 deg; flexion: 85 deg; IR: L5. LTG Duration 8 weeks 1 Impairment QuickDASH score reflecting 67. 5% impairment Pad Extractor Tender Goal (LTG) Pt will present with QuickDASH score reflecting no more than 25% functional impairment by 03/25/19. 01/21/19: QuickDASH scale score has improved to reflect 45% impairment LTG Duration 8 weeks Assessment Summary Assessment Progressed exercises this date including protraction actively with fencing. Con't to progress. Physical Therapy Plan Frequency and Duration Frequency of Treatment 2x/Week Duration of Treatment 8 weeks Plan of Care Start Date 01/21/19 Plan of Care End Date 03/25/19 Therapeutic Interventions Therapeutic Interventions Coordination Training,Home Exercise Program,Joint Mobilizations,Manual Therapy, Neuromuscular Re-education, Patient/Caregiver Education, Self-Care/Home Management,Soft Tissue Mobilization,Taping, Therapeutic Activities, Therapeutic Exercises Modalities Cold Pack/Ice Massage,Electric Stimulation,Hot Packs, Ultrasound Next Visit Focus/Plan Next Note Type Progress Note Next Visit Plan Progress core exercises to help support posture and shoulder. Consider ongoing PNF and add resistance with band, standing pect stretch and shoulder ER over table.
--- NOTE | 2019-03-25 14:32 | PT.OTN ---
Current Diagnoses Adhesive capsulitis of left shoulder (03/25/19) Impingement syndrome of left shoulder (03/25/19) Physical Therapy Treatment Note PT-OP-A Visit Information Start: 12/20/18 13:28 Freq: Status: Active Protocol: Document 03/25/19 13:48 MB (Rec: 03/25/19 14:32 MB [id number]) Out-Patient Physical Therapy Visit Information Visit Information Visit Type Treatment Note Visit Note On second approval now Visit Start Time 13:48 Visit Stop Time 14:28 Total Visit Minutes 40 Visit Number 13 PT-OP-B Current Condition Start: 12/20/18 13:28 Freq: Status: Active Protocol: Document 12/20/18 14:22 MB (Rec: 12/20/18 15:05 MB [id number]) Current Condition History of Current Condition Onset Date 10 months History of Current Condition Pt states that she went to rake, move pots and pull weeds in 02/27 and she went to bed at night and had increased left shoulder pain. 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 She has had gradually worsening ROM. Patient can only sleep in one position on her back or in her recliner, leaning to the right. With her [place]'s Disease, she needs 10-11 hours of sleep. 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 Left shoulder MRI 10/31/18: small mod-sized posterior labral tear, mild degenerative changes AC joint, down sloping lateral acromion, fluid within subacrominal subdeltoid bursa Prior Treatments and Tests Injection, 5 days of oral corticosteroids Future Testing and Treatments Planned Follow-up with orthopedist 01/18/19 Treatment Goals Patient/Caregiver Goals To decrease pain Prior Functional Status Baseline Function- ADL's Needs Assist Baseline Function- Other Pt needs asst to wash under her arms and with donning her bra. She was able to try it today but had pain. Personal Factors Other Personal Factors That May Effect HD with chorea, imbalance and Therapy/Recovery difficultly performing motor tasks occ PT-OP-C Subjective Start: 12/20/18 13:28 Freq: Status: Active Protocol: Document 03/25/19 13:48 MB (Rec: 03/25/19 14:32 MB [id number]) OP-PT Subjective Patient Comments Patient Comments Pt states that she feels she is making progress with therapy. Dressing and bathing are going much better. She was able to get out to scientologist and Bible study. She can put her coat on without help and don her bra. She does not have pain with these. PT-OP-K Range of Motion Start: 12/20/18 13:28 Freq: Status: Active Protocol: Document 12/20/18 14:22 MB (Rec: 12/20/18 15:28 MB [id number]) Cervical Spine Range of Motion Cervical Spine Active Testing Position Standing Flexion 40 Extension 40 Rotation Left 45 Rotation Right 70 Comments Unable to coordinate SB d/t chorea Shoulder Goniometric Range of Motion Shoulder ROM Limitations Comments R shoulder, elbow and wrist normal. Active IR behind back to T6. L shoulder flexion 55 deg, abduction 40 deg increased pain greater than 7/10. No tolerance to active IR in standing. Passive ER and IR to 0 in 30 deg abduction Elbow/Forearm Range of Motion Elbow/Forearm ROM Limitations Comments R elbow and wrist WNLs. Left elbow and hand are functional but not full-range tested d/t pt's fear of pain. PT-OP-M Strength Start: 12/20/18 13:28 Freq: Status: Active Protocol: Document 12/20/18 14:22 MB (Rec: 12/20/18 16:46 MB [id number]) Shoulder Strength Shoulder Manual Muscle Testing Left Comments Standing all deferred d/t pain with minimal shoulder motion Right Flexion 5 Normal Abduction (C5) 5 Normal External Rotation 4 Good Internal Rotation 4 Good Comments Standing Elbow/Forearm Strength Elbow and Forearm Manual Muscle Testing Left Comments Deferred d/t fear of pain Right Flexion (C6) 5 Normal Extension (C7) 5 Normal Pronation 5 Normal Supination 5 Normal Wrist Strength Wrist Manual Muscle Testing Left Comments Deferred d/t fear of pain Right Flexion (C7) 5 Normal Extension (C6) 5 Normal PT-OP-Q Treatments Start: 12/20/18 13:28 Freq: Status: Active Protocol: Document 03/25/19 13:48 MB (Rec: 03/25/19 14:32 MB [id number]) Therapeutic Exercises Sitting Exercises Sitting shoulder flexion and abduction over table Comments Performed today Other Exercises Reassessment review of HEP Comments PT and pt review all handouts of exercises, talk about revisions PT-OP-T Assessment and Plan Start: 12/20/18 13:28 Freq: Status: Active Protocol: Document 03/25/19 13:48 MB (Rec: 03/25/19 14:32 MB [id number]) Physical Therapy Assessment Goals 6 Penitentiary Goal (LTG) Pt will be able to transfer heavy pots to prepare for gardening by 05/24/2019. LTG Duration 8 weeks 5 Penitentiary Goal (LTG) Pt will perform progressive HEP with I to increase left shoulder ROM and strength by . 03/25/2019: Pt is performing HEP at home, some trouble remembering and lots of repetition with PT for training LTG Duration 8 weeks 4 Impairment Pain Plant Puller Goal (LTG) Pt will report a 70% improvement in left shoulder pain to improve functional use by 05/24/2019. 03/25/2019: Pt reports 25% improvement in overall left shoulder pain since starting PT. LTG Duration 8 weeks 3 Impairment Decreased ADL I Penitentiary Goal (LTG) Pt will be able to don her bra with I by 03/25/19. 03/25/2019: Pt is able to don her bra I LTG Duration 8 weeks 2 Impairment Decreased ROM Plant Puller Goal (LTG) Pt will present with improved AROM left shoulder to at least 150 deg flexion and abduction and IR to T8 level to increase functional movement by 05/24/2019. 05/24/2019: L shoulder AROM: abduction 95 deg; flexion 110 deg; IR T10 deg. LTG Duration 8 weeks 1 Impairment QuickDASH score reflecting 67. 5% impairment Penitentiary Goal (LTG) Pt will present with QuickDASH score reflecting no more than 25% functional impairment by 05/24/2019. 03/25/2019: QuickDASH scale score has improved to reflect 35% impairment LTG Duration 8 weeks Assessment Summary Assessment Pt has progressed towards all PT goals since starting PT. These include ROM, decreased pain, QuickDASH functional score, performance of HEP. She is able to don her bra. She would like to be able to poultry picking machine tender pots to prepare for gardening in the spring. She reports occ dizziness with getting up that might affect getting down and up from exercises and so PT will assess this as needed. Pt will benefit from ongoing PT to improve ROM, strength, function and to decrease pain. Physical Therapy Plan Frequency and Duration Frequency of Treatment 2x/Week Duration of Treatment 8 weeks Plan of Care Start Date 03/25/19 Plan of Care End Date 05/24/19 Therapeutic Interventions Therapeutic Interventions Balance Training,Canalithic Repositioning,Coordination Training,Home Exercise Program ,Joint Mobilizations,Manual Therapy,Neuromuscular Re- education,Patient/Caregiver Education,Self-Care/Home Management,Soft Tissue Mobilization,Taping, Therapeutic Activities, Therapeutic Exercises Modalities Cold Pack/Ice Massage,Electric Stimulation,Hot Packs, Ultrasound Other Therapeutic Interventions Cold laser as appropriate Next Visit Focus/Plan Next Note Type Treatment Note Next Visit Plan Progress core exercises to help support posture and shoulder. Consider ongoing PNF and add resistance with band, standing pect stretch and shoulder ER over table.
--- NOTE | 2019-03-25 14:33 | PT.OPPOC ---
Physical, Occupational & Speech Therapy At [facility] Current Diagnoses Adhesive capsulitis of left shoulder (03/25/19) Impingement syndrome of left shoulder (03/25/19) Visit Care Team Role Provider Type Katiana Elaine MD Primary Care Provider Physician Specialty: Family Practice Address: [address] [place] [address], [address], [place], [address] Email: [email or web address] Poon PA-C Attending Provider Non-Staff Specialty: Medical Address: [address] [place] [address], [address], [place], [address] Email: Plan Of Care PT-OP-T Assessment and Plan Start: 12/20/18 13:28 Freq: Status: Active Protocol: Document 03/25/19 13:48 MB (Rec: 03/25/19 14:32 MB [id number]) Physical Therapy Assessment Goals 6 Coupon And Bond Collection Clerk Goal (LTG) Pt will be able to transfer heavy pots to prepare for gardening by 05/24/2019. LTG Duration 8 weeks 5 Coupon And Bond Collection Clerk Goal (LTG) Pt will perform progressive HEP with I to increase left shoulder ROM and strength by . 03/25/2019: Pt is performing HEP at home, some trouble remembering and lots of repetition with PT for training LTG Duration 8 weeks 4 Impairment Pain Custodial Goal (LTG) Pt will report a 70% improvement in left shoulder pain to improve functional use by 05/24/2019. 03/25/2019: Pt reports 25% improvement in overall left shoulder pain since starting PT. LTG Duration 8 weeks 3 Impairment Decreased ADL I Custodial Goal (LTG) Pt will be able to don her bra with I by 03/25/19. 03/25/2019: Pt is able to don her bra I LTG Duration 8 weeks 2 Impairment Decreased ROM Custodial Goal (LTG) Pt will present with improved AROM left shoulder to at least 150 deg flexion and abduction and IR to T8 level to increase functional movement by 05/24/2019. 05/24/2019: L shoulder AROM: abduction 95 deg; flexion 110 deg; IR T10 deg. LTG Duration 8 weeks 1 Impairment QuickDASH score reflecting 67. 5% impairment Coupon And Bond Collection Clerk Goal (LTG) Pt will present with QuickDASH score reflecting no more than 25% functional impairment by 05/24/2019. 03/25/2019: QuickDASH scale score has improved to reflect 35% impairment LTG Duration 8 weeks Assessment Summary Assessment Pt has progressed towards all PT goals since starting PT. These include ROM, decreased pain, QuickDASH functional score, performance of HEP. She is able to don her bra. She would like to be able to grape picker pots to prepare for gardening in the spring. She reports occ dizziness with getting up that might affect getting down and up from exercises and so PT will assess this as needed. Pt will benefit from ongoing PT to improve ROM, strength, function and to decrease pain. Physical Therapy Plan Frequency and Duration Frequency of Treatment 2x/Week Duration of Treatment 8 weeks Plan of Care Start Date 03/25/19 Plan of Care End Date 05/24/19 Therapeutic Interventions Therapeutic Interventions Balance Training,Canalithic Repositioning,Coordination Training,Home Exercise Program ,Joint Mobilizations,Manual Therapy,Neuromuscular Re- education,Patient/Caregiver Education,Self-Care/Home Management,Soft Tissue Mobilization,Taping, Therapeutic Activities, Therapeutic Exercises Modalities Cold Pack/Ice Massage,Electric Stimulation,Hot Packs, Ultrasound Other Therapeutic Interventions Cold laser as appropriate Next Visit Focus/Plan Next Note Type Treatment Note Next Visit Plan Progress core exercises to help support posture and shoulder. Consider ongoing PNF and add resistance with band, standing pect stretch and shoulder ER over table. Plan of Care Dates Plan of Care Start Date 03/25/19 Plan of Care End Date 05/24/19 Electronically Signed by: Larissa Villalba, PT 03/25/19 [id number] Please Sign and Return: I have reviewed this Plan of Care and certify that the skilled therapy services above are required to meet the patient?s needs. Physician Signature Date Printed Name and Credentials Clinical Instructor Signature Printed Name and Credentials
--- NOTE | 2019-03-29 09:35 | PT-OP ANOTE ---
Cancellation in setting of implement weather
--- NOTE | 2019-04-01 14:30 | PT.OTN ---
Current Diagnoses Adhesive capsulitis of left shoulder (04/01/19) Impingement syndrome of left shoulder (04/01/19) Physical Therapy Treatment Note PT-OP-A Visit Information Start: 12/20/18 13:28 Freq: Status: Active Protocol: Document 04/01/19 13:44 MB (Rec: 04/01/19 14:29 MB [id number]) Out-Patient Physical Therapy Visit Information Visit Information Visit Type Treatment Note Visit Note On second approval now Visit Start Time 13:44 Visit Stop Time 14:24 Total Visit Minutes 40 Visit Number 14/15 PT-OP-B Current Condition Start: 12/20/18 13:28 Freq: Status: Active Protocol: Document 12/20/18 14:22 MB (Rec: 12/20/18 15:05 MB [id number]) Current Condition History of Current Condition Onset Date 10 months History of Current Condition Pt states that she went to rake, move pots and pull weeds in 02/27 and she went to bed at night and had increased left shoulder pain. 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 She has had gradually worsening ROM. Patient can only sleep in one position on her back or in her recliner, leaning to the right. With her [place]'s Disease, she needs 10-11 hours of sleep. 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 Left shoulder MRI 10/31/18: small mod-sized posterior labral tear, mild degenerative changes AC joint, down sloping lateral acromion, fluid within subacrominal subdeltoid bursa Prior Treatments and Tests Injection, 5 days of oral corticosteroids Future Testing and Treatments Planned Follow-up with orthopedist 01/18/19 Treatment Goals Patient/Caregiver Goals To decrease pain Prior Functional Status Baseline Function- ADL's Needs Assist Baseline Function- Other Pt needs asst to wash under her arms and with donning her bra. She was able to try it today but had pain. Personal Factors Other Personal Factors That May Effect HD with chorea, imbalance and Therapy/Recovery difficultly performing motor tasks occ PT-OP-C Subjective Start: 12/20/18 13:28 Freq: Status: Active Protocol: Document 04/01/19 13:44 MB (Rec: 04/01/19 14:29 MB [id number]) OP-PT Subjective Patient Comments Patient Comments Pt con't to state that she had dizziness that is better managed with using nasal spray and allergy pill. PT-OP-K Range of Motion Start: 12/20/18 13:28 Freq: Status: Active Protocol: Document 12/20/18 14:22 MB (Rec: 12/20/18 15:28 MB [id number]) Cervical Spine Range of Motion Cervical Spine Active Testing Position Standing Flexion 40 Extension 40 Rotation Left 45 Rotation Right 70 Comments Unable to coordinate SB d/t chorea Shoulder Goniometric Range of Motion Shoulder ROM Limitations Comments R shoulder, elbow and wrist normal. Active IR behind back to T6. L shoulder flexion 55 deg, abduction 40 deg increased pain greater than 7/10. No tolerance to active IR in standing. Passive ER and IR to 0 in 30 deg abduction Elbow/Forearm Range of Motion Elbow/Forearm ROM Limitations Comments R elbow and wrist WNLs. Left elbow and hand are functional but not full-range tested d/t pt's fear of pain. PT-OP-M Strength Start: 12/20/18 13:28 Freq: Status: Active Protocol: Document 12/20/18 14:22 MB (Rec: 12/20/18 16:46 MB [id number]) Shoulder Strength Shoulder Manual Muscle Testing Left Comments Standing all deferred d/t pain with minimal shoulder motion Right Flexion 5 Normal Abduction (C5) 5 Normal External Rotation 4 Good Internal Rotation 4 Good Comments Standing Elbow/Forearm Strength Elbow and Forearm Manual Muscle Testing Left Comments Deferred d/t fear of pain Right Flexion (C6) 5 Normal Extension (C7) 5 Normal Pronation 5 Normal Supination 5 Normal Wrist Strength Wrist Manual Muscle Testing Left Comments Deferred d/t fear of pain Right Flexion (C7) 5 Normal Extension (C6) 5 Normal PT-OP-Q Treatments Start: 12/20/18 13:28 Freq: Status: Active Protocol: Document 04/01/19 13:44 MB (Rec: 04/01/19 14:29 MB [id number]) Cardio Equipment Upper Body Ergometer (UBE) Duration (Minutes) 6 Other 3' forward and 3' backwards Therapeutic Activity Therapeutic Activity Bed mobility and positional vertigo testing Comments Cues and asst for bed mobility : mod A rolling to the right and left for horizontal testing and min A for Mildred- Hallpike, pt requires mod A to move from supine to sitting. BP cuff does not read to check orthostatics PT-OP-T Assessment and Plan Start: 12/20/18 13:28 Freq: Status: Active Protocol: Document 04/01/19 13:44 MB (Rec: 04/01/19 14:29 MB [id number]) Physical Therapy Assessment Goals 6 Foreclosure Specialist Goal (LTG) Pt will be able to transfer heavy pots to prepare for gardening by 05/24/2019. LTG Duration 8 weeks 5 Foreclosure Specialist Goal (LTG) Pt will perform progressive HEP with I to increase left shoulder ROM and strength by . 03/25/2019: Pt is performing HEP at home, some trouble remembering and lots of repetition with PT for training LTG Duration 8 weeks 4 Impairment Pain Foreclosure Specialist Goal (LTG) Pt will report a 70% improvement in left shoulder pain to improve functional use by 05/24/2019. 03/25/2019: Pt reports 25% improvement in overall left shoulder pain since starting PT. LTG Duration 8 weeks 3 Impairment Decreased ADL I Foreclosure Specialist Goal (LTG) Pt will be able to don her bra with I by 03/25/19. 03/25/2019: Pt is able to don her bra I LTG Duration 8 weeks 2 Impairment Decreased ROM Foreclosure Specialist Goal (LTG) Pt will present with improved AROM left shoulder to at least 150 deg flexion and abduction and IR to T8 level to increase functional movement by 05/24/2019. 05/24/2019: L shoulder AROM: abduction 95 deg; flexion 110 deg; IR T10 deg. LTG Duration 8 weeks 1 Impairment QuickDASH score reflecting 67. 5% impairment Foreclosure Specialist Goal (LTG) Pt will present with QuickDASH score reflecting no more than 25% functional impairment by 05/24/2019. 03/25/2019: QuickDASH scale score has improved to reflect 35% impairment LTG Duration 8 weeks Assessment Summary Assessment Pt presents with instantaneous left ageotropic nystagums with left log roll and mild dizziness with right log roll test but not bad enough symptoms to treat today. PT cannot get reading on BP cuff. PT will con't to monitor dizziness reports and re-check for BPPV if needed. Will con' t PT for shoulder next treatment date. Other than arm bike today, pt performs AROM left shoulder in standing. Physical Therapy Plan Frequency and Duration Frequency of Treatment 2x/Week Duration of Treatment 8 weeks Plan of Care Start Date 03/25/19 Plan of Care End Date 05/24/19 Therapeutic Interventions Therapeutic Interventions Balance Training,Canalithic Repositioning,Coordination Training,Home Exercise Program ,Joint Mobilizations,Manual Therapy,Neuromuscular Re- education,Patient/Caregiver Education,Self-Care/Home Management,Soft Tissue Mobilization,Taping, Therapeutic Activities, Therapeutic Exercises Modalities Cold Pack/Ice Massage,Electric Stimulation,Hot Packs, Ultrasound Other Therapeutic Interventions Cold laser as appropriate Next Visit Focus/Plan Next Note Type Treatment Note Next Visit Plan Progress core exercises to help support posture and shoulder. Consider ongoing PNF and add resistance with band, standing pect stretch and shoulder ER over table.
--- NOTE | 2019-04-04 14:31 | PT.OTN ---
Current Diagnoses Benign paroxysmal vertigo, unspecified ear (04/04/19) Adhesive capsulitis of left shoulder (04/04/19) Impingement syndrome of left shoulder (04/04/19) Physical Therapy Treatment Note PT-OP-A Visit Information Start: 12/20/18 13:28 Freq: Status: Active Protocol: Document 04/04/19 13:45 MB (Rec: 04/04/19 14:31 MB [id number]) Out-Patient Physical Therapy Visit Information Visit Information Visit Type Treatment Note Visit Note On second approval now Visit Start Time 13:45 Visit Stop Time 14:25 Total Visit Minutes 40 Visit Number Per chart, one more visit on this auth PT-OP-B Current Condition Start: 12/20/18 13:28 Freq: Status: Active Protocol: Document 12/20/18 14:22 MB (Rec: 12/20/18 15:05 MB [id number]) Current Condition History of Current Condition Onset Date 10 months History of Current Condition Pt states that she went to rake, move pots and pull weeds in 02/27 and she went to bed at night and had increased left shoulder pain. 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 She has had gradually worsening ROM. Patient can only sleep in one position on her back or in her recliner, leaning to the right. With her [place]'s Disease, she needs 10-11 hours of sleep. 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 Left shoulder MRI 10/31/18: small mod-sized posterior labral tear, mild degenerative changes AC joint, down sloping lateral acromion, fluid within subacrominal subdeltoid bursa Prior Treatments and Tests Injection, 5 days of oral corticosteroids Future Testing and Treatments Planned Follow-up with orthopedist 01/18/19 Treatment Goals Patient/Caregiver Goals To decrease pain Prior Functional Status Baseline Function- ADL's Needs Assist Baseline Function- Other Pt needs asst to wash under her arms and with donning her bra. She was able to try it today but had pain. 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 She cannot describe dizziness well. PT-OP-K Range of Motion Start: 12/20/18 13:28 Freq: Status: Active Protocol: Document 12/20/18 14:22 MB (Rec: 12/20/18 15:28 MB [id number]) Cervical Spine Range of Motion Cervical Spine Active Testing Position Standing Flexion 40 Extension 40 Rotation Left 45 Rotation Right 70 Comments Unable to coordinate SB d/t chorea Shoulder Goniometric Range of Motion Shoulder ROM Limitations Comments R shoulder, elbow and wrist normal. Active IR behind back to T6. L shoulder flexion 55 deg, abduction 40 deg increased pain greater than 7/10. No tolerance to active IR in standing. Passive ER and IR to 0 in 30 deg abduction Elbow/Forearm Range of Motion Elbow/Forearm ROM Limitations Comments R elbow and wrist WNLs. Left elbow and hand are functional but not full-range tested d/t pt's fear of pain. PT-OP-M Strength Start: 12/20/18 13:28 Freq: Status: Active Protocol: Document 12/20/18 14:22 MB (Rec: 12/20/18 16:46 MB [id number]) Shoulder Strength Shoulder Manual Muscle Testing Left Comments Standing all deferred d/t pain with minimal shoulder motion Right Flexion 5 Normal Abduction (C5) 5 Normal External Rotation 4 Good Internal Rotation 4 Good Comments Standing Elbow/Forearm Strength Elbow and Forearm Manual Muscle Testing Left Comments Deferred d/t fear of pain Right Flexion (C6) 5 Normal Extension (C7) 5 Normal Pronation 5 Normal Supination 5 Normal Wrist Strength Wrist Manual Muscle Testing Left Comments Deferred d/t fear of pain Right Flexion (C7) 5 Normal Extension (C6) 5 Normal PT-OP-Q Treatments Start: 12/20/18 13:28 Freq: Status: Active Protocol: Document 04/04/19 13:45 MB (Rec: 04/04/19 14:31 MB [id number]) Cardio Equipment Upper Body Ergometer (UBE) Duration (Minutes) 6 Other 3' forward and 3' backwards Therapeutic Exercises Standing Exercises Pect stretch in doorway and scapular retraction Reps/Minutes 30', lots of practice, cues Comments MWM with pt sliding hands up and down the doorway while stretching PT-OP-T Assessment and Plan Start: 12/20/18 13:28 Freq: Status: Active Protocol: Document 04/04/19 13:45 MB (Rec: 04/04/19 14:31 MB [id number]) Physical Therapy Assessment Goals 6 Mcfp Goal (LTG) Pt will be able to transfer heavy pots to prepare for gardening by 05/24/2019. LTG Duration 8 weeks 5 Mcfp Goal (LTG) Pt will perform progressive HEP with I to increase left shoulder ROM and strength by . 03/25/2019: Pt is performing HEP at home, some trouble remembering and lots of repetition with PT for training LTG Duration 8 weeks 4 Impairment Pain Chemical Sales Representative Goal (LTG) Pt will report a 70% improvement in left shoulder pain to improve functional use by 05/24/2019. 03/25/2019: Pt reports 25% improvement in overall left shoulder pain since starting PT. LTG Duration 8 weeks 3 Impairment Decreased ADL I Mcfp Goal (LTG) Pt will be able to don her bra with I by 03/25/19. 03/25/2019: Pt is able to don her bra I LTG Duration 8 weeks 2 Impairment Decreased ROM Mcfp Goal (LTG) Pt will present with improved AROM left shoulder to at least 150 deg flexion and abduction and IR to T8 level to increase functional movement by 05/24/2019. 05/24/2019: L shoulder AROM: abduction 95 deg; flexion 110 deg; IR T10 deg. LTG Duration 8 weeks 1 Impairment QuickDASH score reflecting 67. 5% impairment Chemical Sales Representative Goal (LTG) Pt will present with QuickDASH score reflecting no more than 25% functional impairment by 05/24/2019. 03/25/2019: QuickDASH scale score has improved to reflect 35% impairment LTG Duration 8 weeks Assessment Summary Assessment Progressed postural and flexibility exercises this date with pect stretch in the doorway. Pt is very conscientous about getting exercises performed properly and requires a lot of practice d/t chorea and some cognitive challenges with PD. Con't with UE flexibility, strengthening, neuromuscular re-ed to improve functional I. Physical Therapy Plan Frequency and Duration Frequency of Treatment 2x/Week Duration of Treatment 8 weeks Plan of Care Start Date 03/25/19 Plan of Care End Date 05/24/19 Therapeutic Interventions Therapeutic Interventions Balance Training,Canalithic Repositioning,Coordination Training,Home Exercise Program ,Joint Mobilizations,Manual Therapy,Neuromuscular Re- education,Patient/Caregiver Education,Self-Care/Home Management,Soft Tissue Mobilization,Taping, Therapeutic Activities, Therapeutic Exercises Modalities Cold Pack/Ice Massage,Electric Stimulation,Hot Packs, Ultrasound Other Therapeutic Interventions Cold laser as appropriate Next Visit Focus/Plan Next Note Type Treatment Note Next Visit Plan Progress core exercises to help support posture and shoulder. Consider ongoing PNF and add resistance with band
--- NOTE | 2019-04-12 14:28 | PT.OTN ---
Current Diagnoses Benign paroxysmal vertigo, unspecified ear (04/12/19) Adhesive capsulitis of left shoulder (04/12/19) Impingement syndrome of left shoulder (04/12/19) Physical Therapy Treatment Note PT-OP-A Visit Information Start: 12/20/18 13:28 Freq: Status: Active Protocol: Document 04/12/19 13:47 MB (Rec: 04/12/19 14:28 MB [id number]) Out-Patient Physical Therapy Visit Information Visit Information Visit Type Treatment Note Visit Start Time 13:47 Visit Stop Time 14:28 Total Visit Minutes 41 Visit Number 03/27 PT-OP-B Current Condition Start: 12/20/18 13:28 Freq: Status: Active Protocol: Document 12/20/18 14:22 MB (Rec: 12/20/18 15:05 MB [id number]) Current Condition History of Current Condition Onset Date 10 months History of Current Condition Pt states that she went to rake, move pots and pull weeds in 02/27 and she went to bed at night and had increased left shoulder pain. 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 She has had gradually worsening ROM. Patient can only sleep in one position on her back or in her recliner, leaning to the right. With her [place]'s Disease, she needs 10-11 hours of sleep. 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 Left shoulder MRI 10/31/18: small mod-sized posterior labral tear, mild degenerative changes AC joint, down sloping lateral acromion, fluid within subacrominal subdeltoid bursa Prior Treatments and Tests Injection, 5 days of oral corticosteroids Future Testing and Treatments Planned Follow-up with orthopedist 01/18/19 Treatment Goals Patient/Caregiver Goals To decrease pain Prior Functional Status Baseline Function- ADL's Needs Assist Baseline Function- Other Pt needs asst to wash under her arms and with donning her bra. She was able to try it today but had pain. Personal Factors Other Personal Factors That May Effect HD with chorea, imbalance and Therapy/Recovery difficultly performing motor tasks occ PT-OP-C Subjective Start: 12/20/18 13:28 Freq: Status: Active Protocol: Document 04/12/19 13:47 MB (Rec: 04/12/19 14:28 MB [id number]) OP-PT Subjective Patient Comments Patient Comments Pt states that she can definitely feel the door stretch. She is feeling like sleeping is more normal. She is tossing and turning. She is not as restricted to a sleep position. She can take heavy towels out of the laundry. Pt states that shower is getting a little easier and this includes reaching up. PT-OP-K Range of Motion Start: 12/20/18 13:28 Freq: Status: Active Protocol: Document 12/20/18 14:22 MB (Rec: 12/20/18 15:28 MB [id number]) Cervical Spine Range of Motion Cervical Spine Active Testing Position Standing Flexion 40 Extension 40 Rotation Left 45 Rotation Right 70 Comments Unable to coordinate SB d/t chorea Shoulder Goniometric Range of Motion Shoulder ROM Limitations Comments R shoulder, elbow and wrist normal. Active IR behind back to T6. L shoulder flexion 55 deg, abduction 40 deg increased pain greater than 7/10. No tolerance to active IR in standing. Passive ER and IR to 0 in 30 deg abduction Elbow/Forearm Range of Motion Elbow/Forearm ROM Limitations Comments R elbow and wrist WNLs. Left elbow and hand are functional but not full-range tested d/t pt's fear of pain. PT-OP-M Strength Start: 12/20/18 13:28 Freq: Status: Active Protocol: Document 12/20/18 14:22 MB (Rec: 12/20/18 16:46 MB [id number]) Shoulder Strength Shoulder Manual Muscle Testing Left Comments Standing all deferred d/t pain with minimal shoulder motion Right Flexion 5 Normal Abduction (C5) 5 Normal External Rotation 4 Good Internal Rotation 4 Good Comments Standing Elbow/Forearm Strength Elbow and Forearm Manual Muscle Testing Left Comments Deferred d/t fear of pain Right Flexion (C6) 5 Normal Extension (C7) 5 Normal Pronation 5 Normal Supination 5 Normal Wrist Strength Wrist Manual Muscle Testing Left Comments Deferred d/t fear of pain Right Flexion (C7) 5 Normal Extension (C6) 5 Normal PT-OP-Q Treatments Start: 12/20/18 13:28 Freq: Status: Active Protocol: Document 04/12/19 13:47 MB (Rec: 04/12/19 14:28 MB [id number]) Cardio Equipment Upper Body Ergometer (UBE) Duration (Minutes) 8 Other 4' forward and 4' backwards Manual Therapy Treatment Soft Tissue Mobilization Prone mobilization, thoracic, ribs, scapula and GH join Comments PA thoracic mobs grade II-III, B scapular mobs, rib mobs greatest on the left; grade III PA GH mobs. Joint Mobilizations Left shoulder ER AP mobs grade III-IV and resisted isometrics ER and IR Comments Performed today after prone mobs PT-OP-T Assessment and Plan Start: 12/20/18 13:28 Freq: Status: Active Protocol: Document 04/12/19 13:47 MB (Rec: 04/12/19 14:28 MB [id number]) Physical Therapy Assessment Goals 6 Senior Living Goal (LTG) Pt will be able to transfer heavy pots to prepare for gardening by 05/24/2019. LTG Duration 8 weeks 5 Senior Living Goal (LTG) Pt will perform progressive HEP with I to increase left shoulder ROM and strength by . 03/25/2019: Pt is performing HEP at home, some trouble remembering and lots of repetition with PT for training LTG Duration 8 weeks 4 Impairment Pain Senior Living Goal (LTG) Pt will report a 70% improvement in left shoulder pain to improve functional use by 05/24/2019. 03/25/2019: Pt reports 25% improvement in overall left shoulder pain since starting PT. LTG Duration 8 weeks 3 Impairment Decreased ADL I Senior Living Goal (LTG) Pt will be able to don her bra with I by 03/25/19. 03/25/2019: Pt is able to don her bra I LTG Duration 8 weeks 2 Impairment Decreased ROM Senior Living Goal (LTG) Pt will present with improved AROM left shoulder to at least 150 deg flexion and abduction and IR to T8 level to increase functional movement by 05/24/2019. 05/24/2019: L shoulder AROM: abduction 95 deg; flexion 110 deg; IR T10 deg. LTG Duration 8 weeks 1 Impairment QuickDASH score reflecting 67. 5% impairment Senior Living Goal (LTG) Pt will present with QuickDASH score reflecting no more than 25% functional impairment by 05/24/2019. 03/25/2019: QuickDASH scale score has improved to reflect 35% impairment LTG Duration 8 weeks Assessment Summary Assessment AROM left shoulder today with pt standing: flexion 125 deg; abduction 100 deg; left IR behind back to bra line and is 2 below right thumb with right IR. Con't manual work and progressive exercises, strengthening. Physical Therapy Plan Frequency and Duration Frequency of Treatment 2x/Week Duration of Treatment 8 weeks Plan of Care Start Date 03/25/19 Plan of Care End Date 05/24/19 Therapeutic Interventions Therapeutic Interventions Balance Training,Canalithic Repositioning,Coordination Training,Home Exercise Program ,Joint Mobilizations,Manual Therapy,Neuromuscular Re- education,Patient/Caregiver Education,Self-Care/Home Management,Soft Tissue Mobilization,Taping, Therapeutic Activities, Therapeutic Exercises Modalities Cold Pack/Ice Massage,Electric Stimulation,Hot Packs, Ultrasound Other Therapeutic Interventions Cold laser as appropriate Next Visit Focus/Plan Next Note Type Treatment Note Next Visit Plan Progress core exercises to help support posture and shoulder. Consider ongoing PNF and add resistance with band
--- NOTE | 2019-04-15 14:32 | PT.OTN ---
Current Diagnoses Benign paroxysmal vertigo, unspecified ear (04/15/19) Adhesive capsulitis of left shoulder (04/15/19) Impingement syndrome of left shoulder (04/15/19) Physical Therapy Treatment Note PT-OP-A Visit Information Start: 12/20/18 13:28 Freq: Status: Active Protocol: Document 04/15/19 13:47 MB (Rec: 04/15/19 14:31 MB [id number]) Out-Patient Physical Therapy Visit Information Visit Information Visit Type Treatment Note Visit Start Time 13:47 Visit Stop Time 14:29 Total Visit Minutes 42 Visit Number 04/27 PT-OP-B Current Condition Start: 12/20/18 13:28 Freq: Status: Active Protocol: Document 12/20/18 14:22 MB (Rec: 12/20/18 15:05 MB [id number]) Current Condition History of Current Condition Onset Date 10 months History of Current Condition Pt states that she went to rake, move pots and pull weeds in 02/27 and she went to bed at night and had increased left shoulder pain. 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 She has had gradually worsening ROM. Patient can only sleep in one position on her back or in her recliner, leaning to the right. With her [place]'s Disease, she needs 10-11 hours of sleep. 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 Left shoulder MRI 10/31/18: small mod-sized posterior labral tear, mild degenerative changes AC joint, down sloping lateral acromion, fluid within subacrominal subdeltoid bursa Prior Treatments and Tests Injection, 5 days of oral corticosteroids Future Testing and Treatments Planned Follow-up with orthopedist 01/18/19 Treatment Goals Patient/Caregiver Goals To decrease pain Prior Functional Status Baseline Function- ADL's Needs Assist Baseline Function- Other Pt needs asst to wash under her arms and with donning her bra. She was able to try it today but had pain. Personal Factors Other Personal Factors That May Effect HD with chorea, imbalance and Therapy/Recovery difficultly performing motor tasks occ PT-OP-C Subjective Start: 12/20/18 13:28 Freq: Status: Active Protocol: Document 04/15/19 13:47 MB (Rec: 04/15/19 14:31 MB [id number]) OP-PT Subjective Patient Comments Patient Comments Pt states that her left arm was a little sore after using the arm bike and mobilizations last treatment date. She states that her range con't to get better. PT-OP-K Range of Motion Start: 12/20/18 13:28 Freq: Status: Active Protocol: Document 12/20/18 14:22 MB (Rec: 12/20/18 15:28 MB [id number]) Cervical Spine Range of Motion Cervical Spine Active Testing Position Standing Flexion 40 Extension 40 Rotation Left 45 Rotation Right 70 Comments Unable to coordinate SB d/t chorea Shoulder Goniometric Range of Motion Shoulder ROM Limitations Comments R shoulder, elbow and wrist normal. Active IR behind back to T6. L shoulder flexion 55 deg, abduction 40 deg increased pain greater than 7/10. No tolerance to active IR in standing. Passive ER and IR to 0 in 30 deg abduction Elbow/Forearm Range of Motion Elbow/Forearm ROM Limitations Comments R elbow and wrist WNLs. Left elbow and hand are functional but not full-range tested d/t pt's fear of pain. PT-OP-M Strength Start: 12/20/18 13:28 Freq: Status: Active Protocol: Document 12/20/18 14:22 MB (Rec: 12/20/18 16:46 MB [id number]) Shoulder Strength Shoulder Manual Muscle Testing Left Comments Standing all deferred d/t pain with minimal shoulder motion Right Flexion 5 Normal Abduction (C5) 5 Normal External Rotation 4 Good Internal Rotation 4 Good Comments Standing Elbow/Forearm Strength Elbow and Forearm Manual Muscle Testing Left Comments Deferred d/t fear of pain Right Flexion (C6) 5 Normal Extension (C7) 5 Normal Pronation 5 Normal Supination 5 Normal Wrist Strength Wrist Manual Muscle Testing Left Comments Deferred d/t fear of pain Right Flexion (C7) 5 Normal Extension (C6) 5 Normal PT-OP-Q Treatments Start: 12/20/18 13:28 Freq: Status: Active Protocol: Document 04/15/19 13:47 MB (Rec: 04/15/19 14:31 MB [id number]) Cardio Equipment Upper Body Ergometer (UBE) Duration (Minutes) 8 Other 4' forward and 4' backwards Therapeutic Exercises Supine Exercises Pool noodle shoulder ER and PNF2 with level 1 band Comments Initiated today, extensive practice PT-OP-T Assessment and Plan Start: 12/20/18 13:28 Freq: Status: Active Protocol: Document 04/15/19 13:47 MB (Rec: 04/15/19 14:31 MB [id number]) Physical Therapy Assessment Goals 6 [facility] Goal (LTG) Pt will be able to transfer heavy pots to prepare for gardening by 05/24/2019. LTG Duration 8 weeks 5 [facility] Goal (LTG) Pt will perform progressive HEP with I to increase left shoulder ROM and strength by . 03/25/2019: Pt is performing HEP at home, some trouble remembering and lots of repetition with PT for training LTG Duration 8 weeks 4 Impairment Pain [facility] Goal (LTG) Pt will report a 70% improvement in left shoulder pain to improve functional use by 05/24/2019. 03/25/2019: Pt reports 25% improvement in overall left shoulder pain since starting PT. LTG Duration 8 weeks 3 Impairment Decreased ADL I [employer] Supervisor Goal (LTG) Pt will be able to don her bra with I by 03/25/19. 03/25/2019: Pt is able to don her bra I LTG Duration 8 weeks 2 Impairment Decreased ROM [employer] Supervisor Goal (LTG) Pt will present with improved AROM left shoulder to at least 150 deg flexion and abduction and IR to T8 level to increase functional movement by 05/24/2019. 05/24/2019: L shoulder AROM: abduction 95 deg; flexion 110 deg; IR T10 deg. LTG Duration 8 weeks 1 Impairment QuickDASH score reflecting 67. 5% impairment [employer] Supervisor Goal (LTG) Pt will present with QuickDASH score reflecting no more than 25% functional impairment by 05/24/2019. 03/25/2019: QuickDASH scale score has improved to reflect 35% impairment LTG Duration 8 weeks Assessment Summary Assessment Extensive time educating new exercises today for strengthening. Con't progression. Physical Therapy Plan Frequency and Duration Frequency of Treatment 2x/Week Duration of Treatment 8 weeks Plan of Care Start Date 03/25/19 Plan of Care End Date 05/24/19 Therapeutic Interventions Therapeutic Interventions Balance Training,Canalithic Repositioning,Coordination Training,Home Exercise Program ,Joint Mobilizations,Manual Therapy,Neuromuscular Re- education,Patient/Caregiver Education,Self-Care/Home Management,Soft Tissue Mobilization,Taping, Therapeutic Activities, Therapeutic Exercises Modalities Cold Pack/Ice Massage,Electric Stimulation,Hot Packs, Ultrasound Other Therapeutic Interventions Cold laser as appropriate Next Visit Focus/Plan Next Note Type Treatment Note Next Visit Plan Progress core and other strengthening exercises. Pt would like to get back to brisk walking with arm swing and may like to have PT observe this to assess balance .
--- NOTE | 2019-04-22 14:32 | PT.OTN ---
Current Diagnoses Benign paroxysmal vertigo, unspecified ear (04/22/19) Adhesive capsulitis of left shoulder (04/22/19) Impingement syndrome of left shoulder (04/22/19) Physical Therapy Treatment Note PT-OP-A Visit Information Start: 12/20/18 13:28 Freq: Status: Active Protocol: Document 04/22/19 13:48 MB (Rec: 04/22/19 14:32 MB [id number]) Out-Patient Physical Therapy Visit Information Visit Information Visit Type Treatment Note Visit Start Time 13:48 Visit Stop Time 14:29 Total Visit Minutes 41 Visit Number 05/25 PT-OP-B Current Condition Start: 12/20/18 13:28 Freq: Status: Active Protocol: Document 12/20/18 14:22 MB (Rec: 12/20/18 15:05 MB [id number]) Current Condition History of Current Condition Onset Date 10 months History of Current Condition Pt states that she went to rake, move pots and pull weeds in 02/27 and she went to bed at night and had increased left shoulder pain. 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 She has had gradually worsening ROM. Patient can only sleep in one position on her back or in her recliner, leaning to the right. With her [place]'s Disease, she needs 10-11 hours of sleep. 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 Left shoulder MRI 10/31/18: small mod-sized posterior labral tear, mild degenerative changes AC joint, down sloping lateral acromion, fluid within subacrominal subdeltoid bursa Prior Treatments and Tests Injection, 5 days of oral corticosteroids Future Testing and Treatments Planned Follow-up with orthopedist 01/18/19 Treatment Goals Patient/Caregiver Goals To decrease pain Prior Functional Status Baseline Function- ADL's Needs Assist Baseline Function- Other Pt needs asst to wash under her arms and with donning her bra. She was able to try it today but had pain. Personal Factors Other Personal Factors That May Effect HD with chorea, imbalance and Therapy/Recovery difficultly performing motor tasks occ PT-OP-C Subjective Start: 12/20/18 13:28 Freq: Status: Active Protocol: Document 04/22/19 13:48 MB (Rec: 04/22/19 14:32 MB [id number]) OP-PT Subjective Patient Comments Patient Comments Pt states that her left arm is getting better little by little. PT-OP-K Range of Motion Start: 12/20/18 13:28 Freq: Status: Active Protocol: Document 12/20/18 14:22 MB (Rec: 12/20/18 15:28 MB [id number]) Cervical Spine Range of Motion Cervical Spine Active Testing Position Standing Flexion 40 Extension 40 Rotation Left 45 Rotation Right 70 Comments Unable to coordinate SB d/t chorea Shoulder Goniometric Range of Motion Shoulder ROM Limitations Comments R shoulder, elbow and wrist normal. Active IR behind back to T6. L shoulder flexion 55 deg, abduction 40 deg increased pain greater than 7/10. No tolerance to active IR in standing. Passive ER and IR to 0 in 30 deg abduction Elbow/Forearm Range of Motion Elbow/Forearm ROM Limitations Comments R elbow and wrist WNLs. Left elbow and hand are functional but not full-range tested d/t pt's fear of pain. PT-OP-M Strength Start: 12/20/18 13:28 Freq: Status: Active Protocol: Document 12/20/18 14:22 MB (Rec: 12/20/18 16:46 MB [id number]) Shoulder Strength Shoulder Manual Muscle Testing Left Comments Standing all deferred d/t pain with minimal shoulder motion Right Flexion 5 Normal Abduction (C5) 5 Normal External Rotation 4 Good Internal Rotation 4 Good Comments Standing Elbow/Forearm Strength Elbow and Forearm Manual Muscle Testing Left Comments Deferred d/t fear of pain Right Flexion (C6) 5 Normal Extension (C7) 5 Normal Pronation 5 Normal Supination 5 Normal Wrist Strength Wrist Manual Muscle Testing Left Comments Deferred d/t fear of pain Right Flexion (C7) 5 Normal Extension (C6) 5 Normal PT-OP-Q Treatments Start: 12/20/18 13:28 Freq: Status: Active Protocol: Document 04/22/19 13:48 MB (Rec: 04/22/19 14:32 MB [id number]) Cardio Equipment Upper Body Ergometer (UBE) Duration (Minutes) 6 Other 3' forward and 3' back Manual Therapy Treatment Joint Mobilizations [place] Protocol Comments Left shoulder [place] mobs-- scapular, GH grade III-IV; AP mobs and reciprocal inhibition , pt matching PT pressure for moving into IR and ER PT-OP-T Assessment and Plan Start: 12/20/18 13:28 Freq: Status: Active Protocol: Document 04/22/19 13:48 MB (Rec: 04/22/19 14:32 MB [id number]) Physical Therapy Assessment Goals 6 Guillotine Operator Goal (LTG) Pt will be able to transfer heavy pots to prepare for gardening by 05/24/2019. LTG Duration 8 weeks 5 Guillotine Operator Goal (LTG) Pt will perform progressive HEP with I to increase left shoulder ROM and strength by . 03/25/2019: Pt is performing HEP at home, some trouble remembering and lots of repetition with PT for training LTG Duration 8 weeks 4 Impairment Pain Guillotine Operator Goal (LTG) Pt will report a 70% improvement in left shoulder pain to improve functional use by 05/24/2019. 03/25/2019: Pt reports 25% improvement in overall left shoulder pain since starting PT. LTG Duration 8 weeks 3 Impairment Decreased ADL I Guillotine Operator Goal (LTG) Pt will be able to don her bra with I by 03/25/19. 03/25/2019: Pt is able to don her bra I LTG Duration 8 weeks 2 Impairment Decreased ROM Guillotine Operator Goal (LTG) Pt will present with improved AROM left shoulder to at least 150 deg flexion and abduction and IR to T8 level to increase functional movement by 05/24/2019. 05/24/2019: L shoulder AROM: abduction 95 deg; flexion 110 deg; IR T10 deg. LTG Duration 8 weeks 1 Impairment QuickDASH score reflecting 67. 5% impairment Guillotine Operator Goal (LTG) Pt will present with QuickDASH score reflecting no more than 25% functional impairment by 05/24/2019. 03/25/2019: QuickDASH scale score has improved to reflect 35% impairment LTG Duration 8 weeks Assessment Summary Assessment Pt con't to present with improved abduction and flexion and IR after manual work. Con 't progression. Physical Therapy Plan Frequency and Duration Frequency of Treatment 2x/Week Duration of Treatment 8 weeks Plan of Care Start Date 03/25/19 Plan of Care End Date 05/24/19 Therapeutic Interventions Therapeutic Interventions Balance Training,Canalithic Repositioning,Coordination Training,Home Exercise Program ,Joint Mobilizations,Manual Therapy,Neuromuscular Re- education,Patient/Caregiver Education,Self-Care/Home Management,Soft Tissue Mobilization,Taping, Therapeutic Activities, Therapeutic Exercises Modalities Cold Pack/Ice Massage,Electric Stimulation,Hot Packs, Ultrasound Other Therapeutic Interventions Cold laser as appropriate Next Visit Focus/Plan Next Note Type Treatment Note Next Visit Plan Progress core and other strengthening exercises. Pt would like to get back to brisk walking with arm swing and may like to have PT observe this to assess balance .
--- NOTE | 2019-04-30 14:30 | PT.OTN ---
Current Diagnoses Benign paroxysmal vertigo, unspecified ear (04/30/19) Adhesive capsulitis of left shoulder (04/30/19) Impingement syndrome of left shoulder (04/30/19) Physical Therapy Treatment Note PT-OP-A Visit Information Start: 12/20/18 13:28 Freq: Status: Active Protocol: Document 04/30/19 13:46 MB (Rec: 04/30/19 14:30 MB [id number]) Out-Patient Physical Therapy Visit Information Visit Information Visit Type Treatment Note Visit Start Time 13:46 Visit Stop Time 14:26 Total Visit Minutes 40 Visit Number 06/25 PT-OP-B Current Condition Start: 12/20/18 13:28 Freq: Status: Active Protocol: Document 12/20/18 14:22 MB (Rec: 12/20/18 15:05 MB [id number]) Current Condition History of Current Condition Onset Date 10 months History of Current Condition Pt states that she went to rake, move pots and pull weeds in 02/27 and she went to bed at night and had increased left shoulder pain. 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 She has had gradually worsening ROM. Patient can only sleep in one position on her back or in her recliner, leaning to the right. With her [place]'s Disease, she needs 10-11 hours of sleep. 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 Left shoulder MRI 10/31/18: small mod-sized posterior labral tear, mild degenerative changes AC joint, down sloping lateral acromion, fluid within subacrominal subdeltoid bursa Prior Treatments and Tests Injection, 5 days of oral corticosteroids Future Testing and Treatments Planned Follow-up with orthopedist 01/18/19 Treatment Goals Patient/Caregiver Goals To decrease pain Prior Functional Status Baseline Function- ADL's Needs Assist Baseline Function- Other Pt needs asst to wash under her arms and with donning her bra. She was able to try it today but had pain. Personal Factors Other Personal Factors That May Effect HD with chorea, imbalance and Therapy/Recovery difficultly performing motor tasks occ PT-OP-C Subjective Start: 12/20/18 13:28 Freq: Status: Active Protocol: Document 04/30/19 13:46 MB (Rec: 04/30/19 14:30 MB [id number]) OP-PT Subjective Patient Comments Patient Comments Pt states that she was sore after [place] protocol. It didn't occur until the next day after treatment. It was tolerable. She returns to ortho PA tomorrow. PT-OP-K Range of Motion Start: 12/20/18 13:28 Freq: Status: Active Protocol: Document 12/20/18 14:22 MB (Rec: 12/20/18 15:28 MB [id number]) Cervical Spine Range of Motion Cervical Spine Active Testing Position Standing Flexion 40 Extension 40 Rotation Left 45 Rotation Right 70 Comments Unable to coordinate SB d/t chorea Shoulder Goniometric Range of Motion Shoulder ROM Limitations Comments R shoulder, elbow and wrist normal. Active IR behind back to T6. L shoulder flexion 55 deg, abduction 40 deg increased pain greater than 7/10. No tolerance to active IR in standing. Passive ER and IR to 0 in 30 deg abduction Elbow/Forearm Range of Motion Elbow/Forearm ROM Limitations Comments R elbow and wrist WNLs. Left elbow and hand are functional but not full-range tested d/t pt's fear of pain. PT-OP-M Strength Start: 12/20/18 13:28 Freq: Status: Active Protocol: Document 12/20/18 14:22 MB (Rec: 12/20/18 16:46 MB [id number]) Shoulder Strength Shoulder Manual Muscle Testing Left Comments Standing all deferred d/t pain with minimal shoulder motion Right Flexion 5 Normal Abduction (C5) 5 Normal External Rotation 4 Good Internal Rotation 4 Good Comments Standing Elbow/Forearm Strength Elbow and Forearm Manual Muscle Testing Left Comments Deferred d/t fear of pain Right Flexion (C6) 5 Normal Extension (C7) 5 Normal Pronation 5 Normal Supination 5 Normal Wrist Strength Wrist Manual Muscle Testing Left Comments Deferred d/t fear of pain Right Flexion (C7) 5 Normal Extension (C6) 5 Normal PT-OP-Q Treatments Start: 12/20/18 13:28 Freq: Status: Active Protocol: Document 04/30/19 13:46 MB (Rec: 04/30/19 14:30 MB [id number]) Cardio Equipment Upper Body Ergometer (UBE) Duration (Minutes) 10 Other 5' forward and 5' backwards Therapeutic Exercises Standing Exercises Pect stretch in doorway and scapular retraction Comments Pt demonstrates today. Protraction and retraction with pool noodle fencing Comments 10 reps today and pt performing protraction and retraction Balloon and ball toss with left overhead or both hands overhead Comments Pt mostly hitting with left hand today, forward flexion overhead Standing ER and scap retracion arms straight level 1 band Comments ER this date: d/cd d/t pt has trouble wtih HD chorea in standing PT-OP-T Assessment and Plan Start: 12/20/18 13:28 Freq: Status: Active Protocol: Document 04/30/19 13:46 MB (Rec: 04/30/19 14:30 MB [id number]) Physical Therapy Assessment Goals 6 Evp Strategy Goal (LTG) Pt will be able to transfer heavy pots to prepare for gardening by 05/24/2019. LTG Duration 8 weeks 5 Correction Goal (LTG) Pt will perform progressive HEP with I to increase left shoulder ROM and strength by . 03/25/2019: Pt is performing HEP at home, some trouble remembering and lots of repetition with PT for training LTG Duration 8 weeks 4 Impairment Pain Evp Strategy Goal (LTG) Pt will report a 70% improvement in left shoulder pain to improve functional use by 05/24/2019. 03/25/2019: Pt reports 25% improvement in overall left shoulder pain since starting PT. LTG Duration 8 weeks 3 Impairment Decreased ADL I Correction Goal (LTG) Pt will be able to don her bra with I by 03/25/19. 03/25/2019: Pt is able to don her bra I LTG Duration 8 weeks 2 Impairment Decreased ROM Evp Strategy Goal (LTG) Pt will present with improved AROM left shoulder to at least 150 deg flexion and abduction and IR to T8 level to increase functional movement by 05/24/2019. 05/24/2019: L shoulder AROM: abduction 95 deg; flexion 110 deg; IR T10 deg. LTG Duration 8 weeks 1 Impairment QuickDASH score reflecting 67. 5% impairment Evp Strategy Goal (LTG) Pt will present with QuickDASH score reflecting no more than 25% functional impairment by 05/24/2019. 03/25/2019: QuickDASH scale score has improved to reflect 35% impairment LTG Duration 8 weeks Assessment Summary Assessment Pt to bring in her HEP handouts to revise next treatment date. Also encouraged pt to wear good shoes to practice walking with arm swing. Physical Therapy Plan Frequency and Duration Frequency of Treatment 2x/Week Duration of Treatment 8 weeks Plan of Care Start Date 03/25/19 Plan of Care End Date 05/24/19 Therapeutic Interventions Therapeutic Interventions Balance Training,Canalithic Repositioning,Coordination Training,Home Exercise Program ,Joint Mobilizations,Manual Therapy,Neuromuscular Re- education,Patient/Caregiver Education,Self-Care/Home Management,Soft Tissue Mobilization,Taping, Therapeutic Activities, Therapeutic Exercises Modalities Cold Pack/Ice Massage,Electric Stimulation,Hot Packs, Ultrasound Other Therapeutic Interventions Cold laser as appropriate Next Visit Focus/Plan Next Note Type Treatment Note Next Visit Plan Progress core and other strengthening exercises. Pt would like to get back to brisk walking with arm swing and may like to have PT observe this to assess balance .
--- NOTE | 2019-05-06 14:35 | PT.OTN ---
Current Diagnoses Benign paroxysmal vertigo, unspecified ear (05/06/19) Adhesive capsulitis of left shoulder (05/06/19) Impingement syndrome of left shoulder (05/06/19) Physical Therapy Treatment Note PT-OP-A Visit Information Start: 12/20/18 13:28 Freq: Status: Active Protocol: Document 05/06/19 13:48 MB (Rec: 05/06/19 14:35 MB [id number]) Out-Patient Physical Therapy Visit Information Visit Information Visit Type Treatment Note Visit Start Time 13:48 Visit Stop Time 14:30 Total Visit Minutes 42 Visit Number 07/25 PT-OP-B Current Condition Start: 12/20/18 13:28 Freq: Status: Active Protocol: Document 12/20/18 14:22 MB (Rec: 12/20/18 15:05 MB [id number]) Current Condition History of Current Condition Onset Date 10 months History of Current Condition Pt states that she went to rake, move pots and pull weeds in 02/27 and she went to bed at night and had increased left shoulder pain. 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 She has had gradually worsening ROM. Patient can only sleep in one position on her back or in her recliner, leaning to the right. 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 Left shoulder MRI 10/31/18: small mod-sized posterior labral tear, mild degenerative changes AC joint, down sloping lateral acromion, fluid within subacrominal subdeltoid bursa Prior Treatments and Tests Injection, 5 days of oral corticosteroids Future Testing and Treatments Planned Follow-up with orthopedist 01/18/19 Treatment Goals Patient/Caregiver Goals To decrease pain Prior Functional Status Baseline Function- ADL's Needs Assist Baseline Function- Other Pt needs asst to wash under her arms and with donning her bra. She was able to try it today but had pain. Personal Factors Other Personal Factors That May Effect HD with chorea, imbalance and Therapy/Recovery difficultly performing motor tasks occ PT-OP-C Subjective Start: 12/20/18 13:28 Freq: Status: Active Protocol: Document 05/06/19 13:48 MB (Rec: 05/06/19 14:35 MB [id number]) OP-PT Subjective Patient Comments Patient Comments Pt returned to [facility] and she does not have any more appointments with him d/t he states that she is doing really well. Pt brings in HEP handouts but is concerned if PT removes some of her stretches. PT-OP-K Range of Motion Start: 12/20/18 13:28 Freq: Status: Active Protocol: Document 12/20/18 14:22 MB (Rec: 12/20/18 15:28 MB [id number]) Cervical Spine Range of Motion Cervical Spine Active Testing Position Standing Flexion 40 Extension 40 Rotation Left 45 Rotation Right 70 Comments Unable to coordinate SB d/t chorea Shoulder Goniometric Range of Motion Shoulder ROM Limitations Comments R shoulder, elbow and wrist normal. Active IR behind back to T6. L shoulder flexion 55 deg, abduction 40 deg increased pain greater than 7/10. No tolerance to active IR in standing. Passive ER and IR to 0 in 30 deg abduction Elbow/Forearm Range of Motion Elbow/Forearm ROM Limitations Comments R elbow and wrist WNLs. Left elbow and hand are functional but not full-range tested d/t pt's fear of pain. PT-OP-M Strength Start: 12/20/18 13:28 Freq: Status: Active Protocol: Document 12/20/18 14:22 MB (Rec: 12/20/18 16:46 MB [id number]) Shoulder Strength Shoulder Manual Muscle Testing Left Comments Standing all deferred d/t pain with minimal shoulder motion Right Flexion 5 Normal Abduction (C5) 5 Normal External Rotation 4 Good Internal Rotation 4 Good Comments Standing Elbow/Forearm Strength Elbow and Forearm Manual Muscle Testing Left Comments Deferred d/t fear of pain Right Flexion (C6) 5 Normal Extension (C7) 5 Normal Pronation 5 Normal Supination 5 Normal Wrist Strength Wrist Manual Muscle Testing Left Comments Deferred d/t fear of pain Right Flexion (C7) 5 Normal Extension (C6) 5 Normal PT-OP-Q Treatments Start: 12/20/18 13:28 Freq: Status: Active Protocol: Document 05/06/19 13:48 MB (Rec: 05/06/19 14:35 MB [id number]) Cardio Equipment Upper Body Ergometer (UBE) Duration (Minutes) 10 Other 5' forward and 5' backwards Therapeutic Exercises Sitting Exercises Sit to stand with forward hands, abduction and then thoracic extension and then hands in front to sit Comments 3 sets of 5 reps with tactile, verbal and demo cues Gait Training Gait Activity Outside walking with cues for arm swing, core engagement Comments Performed today for 10' with superv and cues for arm swing, pt has less left arm swing and has no LOB PT-OP-T Assessment and Plan Start: 12/20/18 13:28 Freq: Status: Active Protocol: Document 05/06/19 13:48 MB (Rec: 05/06/19 14:35 MB [id number]) Physical Therapy Assessment Goals 6 Group Home Goal (LTG) Pt will be able to transfer heavy pots to prepare for gardening by 05/24/2019. LTG Duration 8 weeks 5 Group Home Goal (LTG) Pt will perform progressive HEP with I to increase left shoulder ROM and strength by . 03/25/2019: Pt is performing HEP at home, some trouble remembering and lots of repetition with PT for training LTG Duration 8 weeks 4 Impairment Pain Film Laboratory Technician Goal (LTG) Pt will report a 70% improvement in left shoulder pain to improve functional use by 05/24/2019. 03/25/2019: Pt reports 25% improvement in overall left shoulder pain since starting PT. LTG Duration 8 weeks 3 Impairment Decreased ADL I Group Home Goal (LTG) Pt will be able to don her bra with I by 03/25/19. 03/25/2019: Pt is able to don her bra I LTG Duration 8 weeks 2 Impairment Decreased ROM Group Home Goal (LTG) Pt will present with improved AROM left shoulder to at least 150 deg flexion and abduction and IR to T8 level to increase functional movement by 05/24/2019. 05/24/2019: L shoulder AROM: abduction 95 deg; flexion 110 deg; IR T10 deg. LTG Duration 8 weeks 1 Impairment QuickDASH score reflecting 67. 5% impairment Film Laboratory Technician Goal (LTG) Pt will present with QuickDASH score reflecting no more than 25% functional impairment by 05/24/2019. 03/25/2019: QuickDASH scale score has improved to reflect 35% impairment LTG Duration 8 weeks Assessment Summary Assessment Edited her HEP handouts, took out ER isometric with band and PNF without band--she is doing PNF with band and ER with band. Initiated gait with arm swing today. Physical Therapy Plan Frequency and Duration Frequency of Treatment 2x/Week Duration of Treatment 8 weeks Plan of Care Start Date 03/25/19 Plan of Care End Date 05/24/19 Therapeutic Interventions Therapeutic Interventions Balance Training,Canalithic Repositioning,Coordination Training,Home Exercise Program ,Joint Mobilizations,Manual Therapy,Neuromuscular Re- education,Patient/Caregiver Education,Self-Care/Home Management,Soft Tissue Mobilization,Taping, Therapeutic Activities, Therapeutic Exercises Modalities Cold Pack/Ice Massage,Electric Stimulation,Hot Packs, Ultrasound Other Therapeutic Interventions Cold laser as appropriate Next Visit Focus/Plan Next Note Type Treatment Note Next Visit Plan Progress core and other strengthening exercises. Pt would like to get back to brisk walking with arm swing and may like to have PT observe this to assess balance .
--- NOTE | 2019-05-13 14:34 | PT.OTN ---
Current Diagnoses Benign paroxysmal vertigo, unspecified ear (05/13/19) Adhesive capsulitis of left shoulder (05/13/19) Impingement syndrome of left shoulder (05/13/19) Physical Therapy Treatment Note PT-OP-A Visit Information Start: 12/20/18 13:28 Freq: Status: Active Protocol: Document 05/13/19 13:45 MB (Rec: 05/13/19 14:33 MB [id number]) Out-Patient Physical Therapy Visit Information Visit Information Visit Type Treatment Note Visit Start Time 13:45 Visit Stop Time 14:30 Total Visit Minutes 45 Visit Number 08/25 PT-OP-B Current Condition Start: 12/20/18 13:28 Freq: Status: Active Protocol: Document 12/20/18 14:22 MB (Rec: 12/20/18 15:05 MB [id number]) Current Condition History of Current Condition Onset Date 10 months History of Current Condition Pt states that she went to rake, move pots and pull weeds in 02/27 and she went to bed at night and had increased left shoulder pain. 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 She has had gradually worsening ROM. Patient can only sleep in one position on her back or in her recliner, leaning to the right. 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 Left shoulder MRI 10/31/18: small mod-sized posterior labral tear, mild degenerative changes AC joint, down sloping lateral acromion, fluid within subacrominal subdeltoid bursa Prior Treatments and Tests Injection, 5 days of oral corticosteroids Future Testing and Treatments Planned Follow-up with orthopedist 01/18/19 Treatment Goals Patient/Caregiver Goals To decrease pain Prior Functional Status Baseline Function- ADL's Needs Assist Baseline Function- Other Pt needs asst to wash under her arms and with donning her bra. She was able to try it today but had pain. Personal Factors Other Personal Factors That May Effect HD with chorea, imbalance and Therapy/Recovery difficultly performing motor tasks occ PT-OP-C Subjective Start: 12/20/18 13:28 Freq: Status: Active Protocol: Document 05/13/19 13:45 MB (Rec: 05/13/19 14:33 MB [id number]) OP-PT Subjective Patient Comments Patient Comments Pt states that she did two 15 minute walks and they went well. PT-OP-K Range of Motion Start: 12/20/18 13:28 Freq: Status: Active Protocol: Document 12/20/18 14:22 MB (Rec: 12/20/18 15:28 MB [id number]) Cervical Spine Range of Motion Cervical Spine Active Testing Position Standing Flexion 40 Extension 40 Rotation Left 45 Rotation Right 70 Comments Unable to coordinate SB d/t chorea Shoulder Goniometric Range of Motion Shoulder ROM Limitations Comments R shoulder, elbow and wrist normal. Active IR behind back to T6. L shoulder flexion 55 deg, abduction 40 deg increased pain greater than 7/10. No tolerance to active IR in standing. Passive ER and IR to 0 in 30 deg abduction Elbow/Forearm Range of Motion Elbow/Forearm ROM Limitations Comments R elbow and wrist WNLs. Left elbow and hand are functional but not full-range tested d/t pt's fear of pain. PT-OP-M Strength Start: 12/20/18 13:28 Freq: Status: Active Protocol: Document 12/20/18 14:22 MB (Rec: 12/20/18 16:46 MB [id number]) Shoulder Strength Shoulder Manual Muscle Testing Left Comments Standing all deferred d/t pain with minimal shoulder motion Right Flexion 5 Normal Abduction (C5) 5 Normal External Rotation 4 Good Internal Rotation 4 Good Comments Standing Elbow/Forearm Strength Elbow and Forearm Manual Muscle Testing Left Comments Deferred d/t fear of pain Right Flexion (C6) 5 Normal Extension (C7) 5 Normal Pronation 5 Normal Supination 5 Normal Wrist Strength Wrist Manual Muscle Testing Left Comments Deferred d/t fear of pain Right Flexion (C7) 5 Normal Extension (C6) 5 Normal PT-OP-Q Treatments Start: 12/20/18 13:28 Freq: Status: Active Protocol: Document 05/13/19 13:45 MB (Rec: 05/13/19 14:33 MB [id number]) Cardio Equipment Other Cardio Equipment Other Cardio Equipment Standing upright portable arm bike--3' forward and 3' backward and pt to consider getting unit for home Therapeutic Exercises Supine Exercises Pool noodle abdominal drawing in and heel slide Comments Many reps for practice Standing Exercises Standing forward flexion and abduction against wall Comments Performed 2 reps Posterior capsule stretch Comments Looks better in supine Manual Therapy Treatment Joint Mobilizations Left shoulder ER AP mobs grade III-IV and resisted isometrics ER and IR Comments AP ER mobs this date in supine PT-OP-T Assessment and Plan Start: 12/20/18 13:28 Freq: Status: Active Protocol: Document 05/13/19 13:45 MB (Rec: 05/13/19 14:33 MB [id number]) Physical Therapy Assessment Goals 6 Breastfeeding Program Coordinator Goal (LTG) Pt will be able to transfer heavy pots to prepare for gardening by 05/24/2019. LTG Duration 8 weeks 5 Breastfeeding Program Coordinator Goal (LTG) Pt will perform progressive HEP with I to increase left shoulder ROM and strength by . 03/25/2019: Pt is performing HEP at home, some trouble remembering and lots of repetition with PT for training LTG Duration 8 weeks 4 Impairment Pain Breastfeeding Program Coordinator Goal (LTG) Pt will report a 70% improvement in left shoulder pain to improve functional use by 05/24/2019. 03/25/2019: Pt reports 25% improvement in overall left shoulder pain since starting PT. LTG Duration 8 weeks 3 Impairment Decreased ADL I Breastfeeding Program Coordinator Goal (LTG) Pt will be able to don her bra with I by 03/25/19. 03/25/2019: Pt is able to don her bra I LTG Duration 8 weeks 2 Impairment Decreased ROM Senior Living Goal (LTG) Pt will present with improved AROM left shoulder to at least 150 deg flexion and abduction and IR to T8 level to increase functional movement by 05/24/2019. 05/24/2019: L shoulder AROM: abduction 95 deg; flexion 110 deg; IR T10 deg. LTG Duration 8 weeks 1 Impairment QuickDASH score reflecting 67. 5% impairment Breastfeeding Program Coordinator Goal (LTG) Pt will present with QuickDASH score reflecting no more than 25% functional impairment by 05/24/2019. 03/25/2019: QuickDASH scale score has improved to reflect 35% impairment LTG Duration 8 weeks Assessment Summary Assessment Progressed core and balance work with standing and lying over pool noodle today. Physical Therapy Plan Frequency and Duration Frequency of Treatment 2x/Week Duration of Treatment 8 weeks Plan of Care Start Date 03/25/19 Plan of Care End Date 05/24/19 Therapeutic Interventions Therapeutic Interventions Balance Training,Canalithic Repositioning,Coordination Training,Home Exercise Program ,Joint Mobilizations,Manual Therapy,Neuromuscular Re- education,Patient/Caregiver Education,Self-Care/Home Management,Soft Tissue Mobilization,Taping, Therapeutic Activities, Therapeutic Exercises Modalities Cold Pack/Ice Massage,Electric Stimulation,Hot Packs, Ultrasound Other Therapeutic Interventions Cold laser as appropriate Next Visit Focus/Plan Next Note Type Treatment Note Next Visit Plan Con't progression as appropriate
--- NOTE | 2019-05-20 14:29 | PT.OTN ---
Current Diagnoses Benign paroxysmal vertigo, unspecified ear (05/20/19) Adhesive capsulitis of left shoulder (05/20/19) Impingement syndrome of left shoulder (05/20/19) Physical Therapy Treatment Note PT-OP-A Visit Information Start: 12/20/18 13:28 Freq: Status: Active Protocol: Document 05/20/19 13:44 MB (Rec: 05/20/19 14:29 MB [id number]) Out-Patient Physical Therapy Visit Information Visit Information Visit Type Treatment Note Visit Start Time 13:44 Visit Stop Time 14:25 Total Visit Minutes 41 Visit Number 09/24 PT-OP-B Current Condition Start: 12/20/18 13:28 Freq: Status: Active Protocol: Document 12/20/18 14:22 MB (Rec: 12/20/18 15:05 MB [id number]) Current Condition History of Current Condition Onset Date 10 months History of Current Condition Pt states that she went to rake, move pots and pull weeds in 02/27 and she went to bed at night and had increased left shoulder pain. 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 She has had gradually worsening ROM. Patient can only sleep in one position on her back or in her recliner, leaning to the right. 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 Left shoulder MRI 10/31/18: small mod-sized posterior labral tear, mild degenerative changes AC joint, down sloping lateral acromion, fluid within subacrominal subdeltoid bursa Prior Treatments and Tests Injection, 5 days of oral corticosteroids Future Testing and Treatments Planned Follow-up with orthopedist 01/18/19 Treatment Goals Patient/Caregiver Goals To decrease pain Prior Functional Status Baseline Function- ADL's Needs Assist Baseline Function- Other Pt needs asst to wash under her arms and with donning her bra. She was able to try it today but had pain. 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 PT-OP-K Range of Motion Start: 12/20/18 13:28 Freq: Status: Active Protocol: Document 12/20/18 14:22 MB (Rec: 12/20/18 15:28 MB [id number]) Cervical Spine Range of Motion Cervical Spine Active Testing Position Standing Flexion 40 Extension 40 Rotation Left 45 Rotation Right 70 Comments Unable to coordinate SB d/t chorea Shoulder Goniometric Range of Motion Shoulder ROM Limitations Comments R shoulder, elbow and wrist normal. Active IR behind back to T6. L shoulder flexion 55 deg, abduction 40 deg increased pain greater than 7/10. No tolerance to active IR in standing. Passive ER and IR to 0 in 30 deg abduction Elbow/Forearm Range of Motion Elbow/Forearm ROM Limitations Comments R elbow and wrist WNLs. Left elbow and hand are functional but not full-range tested d/t pt's fear of pain. PT-OP-M Strength Start: 12/20/18 13:28 Freq: Status: Active Protocol: Document 12/20/18 14:22 MB (Rec: 12/20/18 16:46 MB [id number]) Shoulder Strength Shoulder Manual Muscle Testing Left Comments Standing all deferred d/t pain with minimal shoulder motion Right Flexion 5 Normal Abduction (C5) 5 Normal External Rotation 4 Good Internal Rotation 4 Good Comments Standing Elbow/Forearm Strength Elbow and Forearm Manual Muscle Testing Left Comments Deferred d/t fear of pain Right Flexion (C6) 5 Normal Extension (C7) 5 Normal Pronation 5 Normal Supination 5 Normal Wrist Strength Wrist Manual Muscle Testing Left Comments Deferred d/t fear of pain Right Flexion (C7) 5 Normal Extension (C6) 5 Normal PT-OP-Q Treatments Start: 12/20/18 13:28 Freq: Status: Active Protocol: Document 05/20/19 13:44 MB (Rec: 05/20/19 14:29 MB [id number]) Cardio Equipment Upper Body Ergometer (UBE) Duration (Minutes) 10 Other 5' forward and 5' backwards Manual Therapy Treatment Other Other Manual Treatments [place] protocol to improve left shoulder glenohumeral and scapular movement. Also performed grade III-IV AP mobs with left shoulder in ER PT-OP-T Assessment and Plan Start: 12/20/18 13:28 Freq: Status: Active Protocol: Document 05/20/19 13:44 MB (Rec: 05/20/19 14:29 MB [id number]) Physical Therapy Assessment Goals 6 Fdc Goal (LTG) Pt will be able to transfer heavy pots to prepare for gardening by 05/24/2019. LTG Duration 8 weeks 5 Foreclosure Field Inspector Goal (LTG) Pt will perform progressive HEP with I to increase left shoulder ROM and strength by . 03/25/2019: Pt is performing HEP at home, some trouble remembering and lots of repetition with PT for training LTG Duration 8 weeks 4 Impairment Pain Fdc Goal (LTG) Pt will report a 70% improvement in left shoulder pain to improve functional use by 05/24/2019. 03/25/2019: Pt reports 25% improvement in overall left shoulder pain since starting PT. LTG Duration 8 weeks 3 Impairment Decreased ADL I Foreclosure Field Inspector Goal (LTG) Pt will be able to don her bra with I by 03/25/19. 03/25/2019: Pt is able to don her bra I LTG Duration 8 weeks 2 Impairment Decreased ROM Foreclosure Field Inspector Goal (LTG) Pt will present with improved AROM left shoulder to at least 150 deg flexion and abduction and IR to T8 level to increase functional movement by 05/24/2019. 05/24/2019: L shoulder AROM: abduction 95 deg; flexion 110 deg; IR T10 deg. LTG Duration 8 weeks 1 Impairment QuickDASH score reflecting 67. 5% impairment Foreclosure Field Inspector Goal (LTG) Pt will present with QuickDASH score reflecting no more than 25% functional impairment by 05/24/2019. 03/25/2019: QuickDASH scale score has improved to reflect 35% impairment LTG Duration 8 weeks Assessment Summary Assessment Pt presents with improved active left shoulder ER and abduction and flexion after mobs. Con't manual and strengthening work. Physical Therapy Plan Frequency and Duration Frequency of Treatment 2x/Week Duration of Treatment 8 weeks Plan of Care Start Date 03/25/19 Plan of Care End Date 05/24/19 Therapeutic Interventions Therapeutic Interventions Balance Training,Canalithic Repositioning,Coordination Training,Home Exercise Program ,Joint Mobilizations,Manual Therapy,Neuromuscular Re- education,Patient/Caregiver Education,Self-Care/Home Management,Soft Tissue Mobilization,Taping, Therapeutic Activities, Therapeutic Exercises Modalities Cold Pack/Ice Massage,Electric Stimulation,Hot Packs, Ultrasound Other Therapeutic Interventions Cold laser as appropriate Next Visit Focus/Plan Next Note Type Treatment Note Next Visit Plan Con't progression as appropriate
--- NOTE | 2019-05-29 10:16 | PT-IP ANOTE ---
PT left pt a message and spoke with sister, Anatoly. Given COVID-19 precautions, cancelled all of pt's appointments in May and will currently keep 06/19/2019 appointment.
--- NOTE | 2019-06-22 10:58 | PT-IP ANOTE ---
1056: PT calls pt and she is unavailable. PT calls her first of kin, Anatoly, who answers phone. She has been unable to visit pt d/t COVID. They ordered arm bike for pt but have been unable to deliver it to her. She is unable to state how pt is doing.
--- NOTE | 2019-07-06 15:01 | PT-IP ANOTE ---
PT leaves message for pt who is unavailable. PT calls and speaks with sister, Anatoly. PT communicates that we do not know yet when clinic will reopen, that clinic hours will be limited to begin with, that therapists and patients will wear masks and that the gym situation will allow for 6 feet between patients. PT does communicate that PT has been providing manual care to patient and so pt and PT will be in nearer proximity. PT communicates that pt can decide if she wants to con't with PT when the clinic opens pending her current functional status and I with HEP. Anatoly to speak with pt to determine if she wants to con't with PT. Anatoly will contact PT by email or communicate with front office when they call for appointment scheduling.
--- NOTE | 2019-07-19 09:25 | PT.OPDS ---
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 Bimal Poon PA-C Attending Provider Non-Staff Specialty: Medical Address: [address] [place] [address], [id number] Email: Visit Number Visit Number 09/24 Discharge Summary PT-OP-B Current Condition Start: 12/20/18 13:28 Freq: Status: Active Protocol: Document 12/20/18 14:22 MB (Rec: 12/20/18 15:05 MB [id number]) Current Condition History of Current Condition Onset Date 10 months History of Current Condition Pt states that she went to rake, move pots and pull weeds in 02/27 and she went to bed at night and had increased left shoulder pain. 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 She has had gradually worsening ROM. Patient can only sleep in one position on her back or in her recliner, leaning to the right. 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 Left shoulder MRI 10/31/18: small mod-sized posterior labral tear, mild degenerative changes AC joint, down sloping lateral acromion, fluid within subacrominal subdeltoid bursa Prior Treatments and Tests Injection, 5 days of oral corticosteroids Future Testing and Treatments Planned Follow-up with orthopedist 01/18/19 Treatment Goals Patient/Caregiver Goals To decrease pain Prior Functional Status Baseline Function- ADL's Needs Assist Baseline Function- Other Pt needs asst to wash under her arms and with donning her bra. She was able to try it today but had pain. 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 PT-OP-K Range of Motion Start: 12/20/18 13:28 Freq: Status: Active Protocol: Document 12/20/18 14:22 MB (Rec: 12/20/18 15:28 MB [id number]) Cervical Spine Range of Motion Cervical Spine Active Testing Position Standing Flexion 40 Extension 40 Rotation Left 45 Rotation Right 70 Comments Unable to coordinate SB d/t chorea Shoulder Goniometric Range of Motion Shoulder ROM Limitations Comments R shoulder, elbow and wrist normal. Active IR behind back to T6. L shoulder flexion 55 deg, abduction 40 deg increased pain greater than 7/10. No tolerance to active IR in standing. Passive ER and IR to 0 in 30 deg abduction Elbow/Forearm Range of Motion Elbow/Forearm ROM Limitations Comments R elbow and wrist WNLs. Left elbow and hand are functional but not full-range tested d/t pt's fear of pain. PT-OP-M Strength Start: 12/20/18 13:28 Freq: Status: Active Protocol: Document 12/20/18 14:22 MB (Rec: 12/20/18 16:46 MB [id number]) Shoulder Strength Shoulder Manual Muscle Testing Left Comments Standing all deferred d/t pain with minimal shoulder motion Right Flexion 5 Normal Abduction (C5) 5 Normal External Rotation 4 Good Internal Rotation 4 Good Comments Standing Elbow/Forearm Strength Elbow and Forearm Manual Muscle Testing Left Comments Deferred d/t fear of pain Right Flexion (C6) 5 Normal Extension (C7) 5 Normal Pronation 5 Normal Supination 5 Normal Wrist Strength Wrist Manual Muscle Testing Left Comments Deferred d/t fear of pain Right Flexion (C7) 5 Normal Extension (C6) 5 Normal PT-OP-T Assessment and Plan Start: 12/20/18 13:28 Freq: Status: Active Protocol: Document 07/19/19 09:25 MB (Rec: 07/19/19 09:25 MB [id number]) Physical Therapy Plan Discharge Physical Therapy Discharge Reasons Patient Request Discharge Comments Pt's sister emails PT and states that pt would like to d /c PT and will con't with HEP.
== END 2019-07-22 09:53 ==
LOC: PHYS 13:45
PROVIDERS: PCP Student in an Organized Health Care Education/Training Program; Visit Provider Physician Assistant Surgical
DX: M75.42 Impingement syndrome of left shoulder (principal); M75.02 Adhesive capsulitis of left shoulder; H81.10 Benign paroxysmal vertigo, unspecified ear
CPT/HCPCS: 97110; 97112; 97116; 97140; 97162; 97530

== ENCOUNTER → 2019-12-10 15:37 | Outpatient (CLI) | payer OTHER, SELFPAY ==
--- NOTE | 2019-12-10 15:39 | DI.MG.S_ITS ---
BILATERAL DIGITAL SCREENING MAMMOGRAM 3D/2D WITH CAD: 12/10/2019 CLINICAL: Routine screening. Comparison is made to exams dated: 12/03/2018 mammogram, 12/02/2016 mammogram, 09/18/2015 mammogram, 01/23/2014 mammogram, and 04/29/2009 mammogram - [facility]. The tissue of both breasts is predominantly fatty. Current study was also evaluated with a Computer Aided Detection (CAD) system. No significant masses, calcifications, or other findings are seen in either breast. There has been no significant interval change. IMPRESSION: NEGATIVE There is no mammographic evidence of malignancy. A 1 year screening mammogram is recommended. This exam was interpreted at Station ID: [id number]. NOTE: For mammograms, a report in lay terms will be sent to the patient. Approximately 15% of breast malignancies will not be visualized mammographically. In the management of a palpable breast mass, a negative mammogram must not discourage biopsy of a clinically suspicious lesion. Electronically Signed By: Ernie martin/anthony:12/10/2019 17:56:47 letter sent: Normal Exam ACR BI-RADS Category 1: Negative [id number]
== END ==
PROVIDERS: PCP Student in an Organized Health Care Education/Training Program; Referring Provider Student in an Organized Health Care Education/Training Program; Visit Provider Student in an Organized Health Care Education/Training Program
DX: Z12.31 Encounter for screening mammogram for malignant neoplasm of breast (principal)
CPT/HCPCS: 77063; 77067

== ENCOUNTER → 2020-04-10 14:54 | Outpatient (CLI) | payer OTHER, SELFPAY | PROVIDERS: PCP Student in an Organized Health Care Education/Training Program; Referring Provider Student in an Organized Health Care Education/Training Program; Visit Provider Student in an Organized Health Care Education/Training Program | DX: M85.852 Other specified disorders of bone density and structure, left thigh (principal); Z78.0 Asymptomatic menopausal state; Z82.62 Family history of osteoporosis | CPT/HCPCS: 77080 ==

== ENCOUNTER → 2020-06-05 08:01 | Outpatient (CLI) | payer MEDICARE, SELFPAY ==
[2020-06-05] MEDS: COVID-19 VACC #1, MRNA(MOD) 100 MCG/0.5 ML VIAL IM (08:08)
== END ==
PROVIDERS: Family Provider Student in an Organized Health Care Education/Training Program; PCP Student in an Organized Health Care Education/Training Program; Visit Provider Internal Medicine
DX: Z23 Encounter for immunization (principal)
CPT/HCPCS: 0011A; 91301

== ENCOUNTER → 2020-07-03 08:04 | Outpatient (CLI) | payer MEDICARE, SELFPAY ==
[2020-07-03] MEDS: COVID-19 VACC #2, MRNA(MOD) 100 MCG/0.5 ML VIAL IM (08:10)
== END ==
PROVIDERS: Family Provider Student in an Organized Health Care Education/Training Program; PCP Student in an Organized Health Care Education/Training Program; Visit Provider Internal Medicine
DX: Z23 Encounter for immunization (principal)
CPT/HCPCS: 0012A; 91301

== ENCOUNTER 2020-08-25 13:00 | Outpatient (RCR) | payer OTHER, SELFPAY ==
--- NOTE | 2020-07-05 16:59 | PT.OIE ---
Current Diagnoses Overactive bladder (07/01/20) Urge incontinence (07/01/20) Other abnormalities of gait and mobility (07/01/20) Other symptoms and signs involving the musculoskeletal system (07/01/20) Past Medical History (Last Updated 06/24/20 @ 15:01 by Naeem Bustillo MD) Depression [place] disease Lower urinary tract symptoms (LUTS) Neurological disease Osteoporosis Skin cancer Past Surgical History (Last Reviewed 06/24/20 @ 15:00 by Naeem Bustillo MD) Hx of breast reduction, elective Visit Care Team Role Provider Type Katiana Elaine MD Family Provider Physician Primary Care Provider Specialty: Family Practice Address: [address] [place] [address], [id number] Email: [email or web address] Jane Patel MD Attending Provider Non-Staff Referring Provider Specialty: Neurology Address: [address] [place] [address], [id number] Email: Physical Therapy Initial Evaluation PT-OP-A Visit Information Start: 07/01/20 10:26 Freq: Status: Active Protocol: Document 07/01/20 11:23 [facility] (Rec: 07/01/20 11:47 [facility] [id number]) Out-Patient Physical Therapy Visit Information Visit Information Visit Type Initial Evaluation Visit Start Time 11:20 Visit Stop Time 12:00 Total Visit Minutes 40 Visit Number 1 Evaluation Information Evaluation Date 07/01/20 PT-OP-B Current Condition Start: 07/01/20 10:26 Freq: Status: Active Protocol: Document 07/01/20 11:15 [facility] (Rec: 07/01/20 11:47 [facility] [id number]) Current Condition History of Current Condition Onset Date worse in the past 5 years Current Complaints urgency and frequency, deconditioned and poor balance History of Current Condition Jose Ramon is a 59 year od female with [place]'s disease. She has c/o urgency and overactive bladder, urgency is more frequent during the day. She gets up 3-4 times per nightto void. She can void 2- 4 times per hour. This has gotten progressively worse in the past 5 years. No leaking unless she is sneezing or coughing. She has had a few episodes when she has been out in her garden and she hasn't made it back into the bathroom . She has a history of falls with her [place]'s disease she had right knee and ankle pain for a long time. Pt reports most of the time she has regular bowel movements. 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 Subjective Start: 07/01/20 10:26 Freq: Status: Active Protocol: Document 07/01/20 11:15 [facility] (Rec: 07/05/20 16:45 [facility] [email or web address]) Patient Questionnaires Pelvic Pain and Urgency/Frequency Patient Symptom Scale Pelvic Pain Score 13 PT-OP-I Pelvic Floor Start: 07/01/20 10:26 Freq: Status: Active Protocol: Document 07/01/20 11:15 [facility] (Rec: 07/05/20 16:45 [facility] [email or web address]) Pelvic Floor Assessment Urine Pelvic Floor Surgery No Urinary Symptoms Urge Sensation Other Urinary Symptoms nocturia Leakage Size Medium Leakage Cause Cough,Sneeze Leaks Per Day 2 Urine Pad Type Depends Contraction Ability Voluntary Contraction Weak PT-OP-J Posture/Palpation/Skin Start: 07/01/20 10:26 Freq: Status: Active Protocol: Document 07/01/20 11:15 [facility] (Rec: 07/05/20 16:32 [facility] [email or web address]) Posture Evaluation Comments Posture Comments pt finds it difficult to maintain a upright posture both sitting and standing. 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 Pt has trunk control to be able to sit at the edge of the bed PT-OP-Q Treatments Start: 07/01/20 10:26 Freq: Status: Active Protocol: Document 07/01/20 11:15 [facility] (Rec: 07/02/20 17:25 [facility] [id number]) Self-Care/Home Management Treatment Education Patient Education Home Exercise Program Other Education pt was educated on urge deference technique and bladder retraining, she was given a bladder diary to keep track of her fluid intake and voids for the week. PT-OP-T Assessment and Plan Start: 07/01/20 10:26 Freq: Status: Active Protocol: Document 07/01/20 11:15 [facility] (Rec: 07/05/20 16:40 [facility] [email or web address]) Physical Therapy Assessment Rehab Potential Rehabilitation Potential Good Evaluation Complexity Number of Personal Factors/Comorbidities 1-2 Number of Body Systems Impaired 1-2 Clinical Presentation at Evaluation Stable Impairments Impairments Activity Tolerance,Balance, Coordination,Functional Activities,Functional Mobility ,Pain,Posture,ROM,Soft Tissue Mobility,Strength Other Impairments urinary urgency and frequency Goals Nocturia Impairment Nocturia 3-4 voids at night Detention Goal (LTG) Jose Ramon is able to decrease her voids overnight to 1-2 allowing her improved sleep during the night LTG Duration 8 weeks Decreased core strength Impairment Decreased core strength Biological Lab Technician Goal (LTG) Trever is able to increase the strength of her lower abdominals and pelvic floor for improved support of her bladder. She is able to sustain a pelvic floor cotnraction x 10 seconds in supine LTG Duration 8 weeks Urinary frequency and urgency Impairment urinary frequency and urgency voiding up to 4 times a hour Short Term Goal (STG) jose ramon is educated on bladder retraining and urge deference technique for increasing the time between her voids STG Duration 2 weeks Detention Goal (LTG) Jose Ramon is able to increase her time between voids to every 2 hours allowing her time to work in her garden without sudden urges. LTG Duration 8 weeks 5 LTG Duration 8 weeks 3 Impairment Decreased ADL I Assessment Summary Assessment Jose Ramon is a 59 year old female referred to Physical Therapy with urge incontinence and overactive bladder. Jose Ramon has [place]'s disease and reports her bladder symptoms have been increasing in the past 5 years . Her chief complaints of symptoms include urgency and frequency of urination, balance issues, and feeling deconditioned. She reports it is difficult for her to be away from her house, work out in her garden, or be away from a known restroom. Jose Ramon reports she voids 4-6 times per hour and at least 3 times at night. She often empties her bladder frequenty before she experiencies the urge to pass urine. Jose Ramon presents with decreased core strength and postural control. She has difficulty finding her pelvic floor with evaluation today and maybe a good candidate for EMG biofeedback. She was given a bladder diary to begin tracking her fluid intake and voids per day. I educated her today or urge deference technique and bladder retraining as well as toileting strategies for improved voiding. Jose Ramon tolerated treatment well today and her sister was present for her greatment. Physical Therapy Plan Frequency and Duration Frequency of Treatment 1x/Week Duration of Treatment 8 Plan of Care Start Date 07/01/20 Plan of Care End Date 08/26/20 Therapeutic Interventions Therapeutic Interventions Balance Training,Canalithic Repositioning,Coordination Training,Home Exercise Program ,Joint Mobilizations,Manual Therapy,Neuromuscular Re- education,Patient/Caregiver Education,Self-Care/Home Management,Soft Tissue Mobilization,Therapeutic Activities,Therapeutic Exercises Modalities Biofeedback Next Visit Focus/Plan Next Note Type Treatment Note Next Visit Plan Begin trial of EMG biofeedback next visit for neuro re- education of the pelvic floor, review bladder diary, review urge deference technique, ILU abdominal massage and MFR over the suprapubic fascia.
--- NOTE | 2020-07-05 16:59 | PT.OPPOC ---
Physical, Occupational & Speech Therapy At [facility] Current Diagnoses Overactive bladder (07/01/20) Urge incontinence (07/01/20) Other abnormalities of gait and mobility (07/01/20) Other symptoms and signs involving the musculoskeletal system (07/01/20) Visit Care Team Role Provider Type Katiana Elaine MD Family Provider Physician Primary Care Provider Specialty: Family Practice Address: [address] [place] [address], [facility] [place], [address] Email: [email or web address] Jane Patel MD Attending Provider Non-Staff Referring Provider Specialty: Neurology Address: [address] [place] [address], [id number] Email: Plan Of Care PT-OP-T Assessment and Plan Start: 07/01/20 10:26 Freq: Status: Active Protocol: Document 07/01/20 11:15 [facility] (Rec: 07/05/20 16:40 [facility] [email or web address]) Physical Therapy Assessment Rehab Potential Rehabilitation Potential Good Evaluation Complexity Number of Personal Factors/Comorbidities 1-2 Number of Body Systems Impaired 1-2 Clinical Presentation at Evaluation Stable Impairments Impairments Activity Tolerance,Balance, Coordination,Functional Activities,Functional Mobility ,Pain,Posture,ROM,Soft Tissue Mobility,Strength Other Impairments urinary urgency and frequency Goals Nocturia Impairment Nocturia 3-4 voids at night Penitentiary Goal (LTG) Katrina is able to decrease her voids overnight to 1-2 allowing her improved sleep during the night LTG Duration 8 weeks Decreased core strength Impairment Decreased core strength Osteologist Goal (LTG) Trever is able to increase the strength of her lower abdominals and pelvic floor for improved support of her bladder. She is able to sustain a pelvic floor contraction x 10 seconds in supine LTG Duration 8 weeks Urinary frequency and urgency Impairment urinary frequency and urgency voiding up to 4 times a hour Short Term Goal (STG) Katrina is educated on bladder retraining and urge deference technique for increasing the time between her voids STG Duration 2 weeks Penitentiary Goal (LTG) Katrina is able to increase her time between voids to every 2 hours allowing her time to work in her garden without sudden urges. LTG Duration 8 weeks 5 LTG Duration 8 weeks 3 Impairment Decreased ADL I Assessment Summary Assessment Katrina is a 59 year old female referred to Physical Therapy with urge incontinence and overactive bladder. Katrina has [place]'s disease and reports her bladder symptoms have been increasing in the past 5 years . Her chief complaints of symptoms include urgency and frequency of urination, balance issues, and feeling deconditioned. She reports it is difficult for her to be away from her house, work out in her garden, or be away from a known restroom. Katrina reports she voids 4-6 times per hour and at least 3 times at night. She often empties her bladder frequently before she experiences the urge to pass urine. Katrina presents with decreased core strength and postural control. She has difficulty finding her pelvic floor with evaluation today and maybe a good candidate for EMG biofeedback. She was given a bladder diary to begin tracking her fluid intake and voids per day. I educated her today or urge deference technique and bladder retraining as well as toileting strategies for improved voiding. Katrina tolerated treatment well today and her sister was present for her treatment. Physical Therapy Plan Frequency and Duration Frequency of Treatment 1x/Week Duration of Treatment 8 Plan of Care Start Date 07/01/20 Plan of Care End Date 08/26/20 Therapeutic Interventions Therapeutic Interventions Balance Training,Canalithic Repositioning,Coordination Training,Home Exercise Program ,Joint Mobilizations,Manual Therapy,Neuromuscular Re- education,Patient/Caregiver Education,Self-Care/Home Management,Soft Tissue Mobilization,Therapeutic Activities,Therapeutic Exercises Modalities Biofeedback Next Visit Focus/Plan Next Note Type Treatment Note Next Visit Plan Begin trial of EMG biofeedback next visit for neuro re- education of the pelvic floor, review bladder diary, review urge deference technique, ILU abdominal massage and MFR over the suprapubic fascia. Plan of Care Dates Plan of Care Start Date 07/01/20 Plan of Care End Date 08/26/20 Electronically Signed by: Chantal Porras, PT 07/05/20 [id number] Please Sign and Return: I have reviewed this Plan of Care and certify that the skilled therapy services above are required to meet the patient?s needs. Physician Signature Date Printed Name and Credentials Clinical Instructor Signature Printed Name and Credentials
--- NOTE | 2020-07-08 13:43 | PT.OTN ---
Current Diagnoses Overactive bladder (07/08/20) Urge incontinence (07/08/20) Other abnormalities of gait and mobility (07/08/20) Other symptoms and signs involving the musculoskeletal system (07/08/20) Physical Therapy Treatment Note PT-OP-A Visit Information Start: 07/01/20 10:26 Freq: Status: Active Protocol: Document 07/08/20 12:47 [facility] (Rec: 07/08/20 12:58 [facility] [id number]) Out-Patient Physical Therapy Visit Information Visit Information Visit Type Treatment Note Visit Start Time 12:45 Visit Stop Time 13:30 Total Visit Minutes 45 Visit Number 2 PT-OP-B Current Condition Start: 07/01/20 10:26 Freq: Status: Active Protocol: Document 07/01/20 11:15 [facility] (Rec: 07/01/20 11:47 [facility] [id number]) Current Condition History of Current Condition Onset Date worse in the past 5 years Current Complaints urgency and frequency, deconditioned and poor balance History of Current Condition 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 She has c/o urgency and overactive bladder, urgency is more frequent during the day. She gets up 3-4 times per nightto void. She can void 2- 4 times per hour. This has gotten progressively worse in the past 5 years. No leaking unless she is sneezing or coughing. She has had a few episodes when she has been out in her garden and she hasn't made it back into the bathroom . 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 Pt reports most of the time she has regular bowel movements. 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 She feels the is drinking 8 ounces 4-5 times per day of water Patient Reported Progress Improving PT-OP-I Pelvic Floor Start: 07/01/20 10:26 Freq: Status: Active Protocol: Document 07/01/20 11:15 [facility] (Rec: 07/05/20 16:45 [facility] [email or web address]) Pelvic Floor Assessment Urine Pelvic Floor Surgery No Urinary Symptoms Urge Sensation Other Urinary Symptoms nocturia Leakage Size Medium Leakage Cause Cough,Sneeze Leaks Per Day 2 Urine Pad Type Depends Contraction Ability Voluntary Contraction Weak PT-OP-J Posture/Palpation/Skin Start: 07/01/20 10:26 Freq: Status: Active Protocol: Document 07/01/20 11:15 [facility] (Rec: 07/05/20 16:32 [facility] [email or web address]) Posture Evaluation Comments Posture Comments pt finds it difficult to maintain a upright posture both sitting and standing. 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 Pt has trunk control to be able to sit at the edge of the bed PT-OP-Q Treatments Start: 07/01/20 10:26 Freq: Status: Active Protocol: Document 07/08/20 13:10 [facility] (Rec: 07/08/20 13:15 [facility] [id number]) Therapeutic Exercises Supine Exercises elvic floor long holds Supine Exercise Name pelvic floor long holds Reps/Minutes 10 seconds on 10 seconds off Comments 7.7 uv and max 21.2 Diaphragnatic breathing Comments x 10 reps Self-Care/Home Management Treatment Education Patient Education Home Exercise Program Other Education urge technique and bladder retraining reviewed PT-OP-T Assessment and Plan Start: 07/01/20 10:26 Freq: Status: Active Protocol: Document 07/08/20 12:47 [facility] (Rec: 07/08/20 12:58 [facility] [id number]) Physical Therapy Assessment Assessment Summary Assessment Trever was able to do Biofeedback today, resting tone at 2.0 and did not increase with ther ex which was exciting. She has a good contraction intensity but does have limited endurance of her pelvic floor. I gave her a HEP for 10 sec x 10 reps relaxing 10 seconds inbetween. Good tolerance today for ther ex. Physical Therapy Plan Frequency and Duration Frequency of Treatment 1x/Week Duration of Treatment 8 Plan of Care Start Date 07/01/20 Plan of Care End Date 08/26/20 Next Visit Focus/Plan Next Note Type Treatment Note Next Visit Plan she had her second moderna vaccine and had a few days where she she does take between 4-8 ounces in the am, 8-10 ounces with lunch, 8-10 ounces with dinner, 8-10 ounces the urge technique has been helpful and she was able to get a squatty potty. She has been using less toilet paper during the day. COntinue with PLan of care and progress pelvic floor strengthening as tolerated.
--- NOTE | 2020-07-14 13:53 | PT.OTN ---
Current Diagnoses Overactive bladder (07/14/20) Urge incontinence (07/14/20) Other abnormalities of gait and mobility (07/14/20) Other symptoms and signs involving the musculoskeletal system (07/14/20) Physical Therapy Treatment Note PT-OP-A Visit Information Start: 07/01/20 10:26 Freq: Status: Active Protocol: Document 07/14/20 13:00 [facility] (Rec: 07/14/20 13:50 [facility] [email or web address]) Out-Patient Physical Therapy Visit Information Visit Information Visit Type Treatment Note Visit Start Time 13:00 Visit Stop Time 13:45 Total Visit Minutes 45 Visit Number 3 PT-OP-B Current Condition Start: 07/01/20 10:26 Freq: Status: Active Protocol: Document 07/01/20 11:15 [facility] (Rec: 07/01/20 11:47 [facility] [id number]) Current Condition History of Current Condition Onset Date worse in the past 5 years Current Complaints urgency and frequency, deconditioned and poor balance History of Current Condition Katrina is a 59 year od female with [place]'s disease. She has c/o urgency and overactive bladder, urgency is more frequent during the day. She gets up 3-4 times per nightto void. She can void 2- 4 times per hour. This has gotten progressively worse in the past 5 years. No leaking unless she is sneezing or coughing. She has had a few episodes when she has been out in her garden and she hasn't made it back into the bathroom . She has a history of falls with her Ladd[place]'s disease she had right knee and ankle pain for a long time. Pt reports most of the time she has regular bowel movements. 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 Pt reports she wants to get back to walking in her neighborhood. She notes it helps keep her bowel movements regular. Waking up approx 2 xms per night and she is averaging 10. 5-12 hours of sleep Patient Reported Progress Improving PT-OP-I Pelvic Floor Start: 07/01/20 10:26 Freq: Status: Active Protocol: Document 07/01/20 11:15 [facility] (Rec: 07/05/20 16:45 [facility] [email or web address]) Pelvic Floor Assessment Urine Pelvic Floor Surgery No Urinary Symptoms Urge Sensation Other Urinary Symptoms nocturia Leakage Size Medium Leakage Cause Cough,Sneeze Leaks Per Day 2 Urine Pad Type Depends Contraction Ability Voluntary Contraction Weak PT-OP-J Posture/Palpation/Skin Start: 07/01/20 10:26 Freq: Status: Active Protocol: Document 07/01/20 11:15 [facility] (Rec: 07/05/20 16:32 [facility] [email or web address]) Posture Evaluation Comments Posture Comments pt finds it difficult to maintain a upright posture both sitting and standing. 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 Pt has trunk control to be able to sit at the edge of the bed PT-OP-Q Treatments Start: 07/01/20 10:26 Freq: Status: Active Protocol: Document 07/14/20 12:59 [facility] (Rec: 07/14/20 13:45 [facility] [id number]) Therapeutic Exercises Supine Exercises elvic floor long holds Supine Exercise Name pelvic floor long holds Comments 11.0 average max 24.8 Other Exercises pelvic floor quick contractions Reps/Minutes 10 reps holding 2 seconds relax x 2 seconds Manual Therapy Treatment Soft Tissue Mobilization ILU self massage for improved bowel movements Body Location abdomen Mobilization Type Myofascial Release Intensity/Depth Moderate Body Position Hooklying Self-Care/Home Management Treatment Education Patient Education Home Exercise Program Other Education urge technique and bladder retraining reviewed, bladder diary was reviewed with the patient PT-OP-T Assessment and Plan Start: 07/01/20 10:26 Freq: Status: Active Protocol: Document 07/14/20 13:00 [facility] (Rec: 07/14/20 13:50 [facility] [email or web address]) Physical Therapy Assessment Assessment Summary Assessment Katrina was educated in ILU self massage today to help assist bowel movements. Today she notes it has been three days since her last bowel movement. Both her endurance and max contraction increased from last week. Pt has had a average of 2 voids per night per her voiding diary this past week Physical Therapy Plan Frequency and Duration Frequency of Treatment 1x/Week Duration of Treatment 8 Plan of Care Start Date 07/01/20 Plan of Care End Date 08/26/20 Therapeutic Interventions Therapeutic Interventions Balance Training,Canalithic Repositioning,Coordination Training,Home Exercise Program ,Joint Mobilizations,Manual Therapy,Neuromuscular Re- education,Patient/Caregiver Education,Self-Care/Home Management,Soft Tissue Mobilization,Therapeutic Activities,Therapeutic Exercises Modalities Biofeedback Next Visit Focus/Plan Next Note Type Treatment Note Next Visit Plan continue working on endurance contractions of the pelvic floor, begin to add in hep strengthening exercses as well . Pt to schedule her PT for gait and balance.
--- NOTE | 2020-07-22 09:59 | PT.OTN ---
Current Diagnoses Overactive bladder (07/21/20) Urge incontinence (07/21/20) Other abnormalities of gait and mobility (07/21/20) Other symptoms and signs involving the musculoskeletal system (07/21/20) Physical Therapy Treatment Note PT-OP-A Visit Information Start: 07/01/20 10:26 Freq: Status: Active Protocol: Document 07/21/20 12:57 [facility] (Rec: 07/21/20 13:05 [facility] [id number]) Out-Patient Physical Therapy Visit Information Visit Information Visit Type Treatment Note Visit Start Time 13:00 Visit Stop Time 13:45 Total Visit Minutes 45 Visit Number 4 PT-OP-B Current Condition Start: 07/01/20 10:26 Freq: Status: Active Protocol: Document 07/01/20 11:15 AM[facility] (Rec: 07/01/20 11:47 [facility] [id number]) Current Condition History of Current Condition Onset Date worse in the past 5 years Current Complaints urgency and frequency, deconditioned and poor balance History of Current Condition 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 She has c/o urgency and overactive bladder, urgency is more frequent during the day. She gets up 3-4 times per nightto void. She can void 2- 4 times per hour. This has gotten progressively worse in the past 5 years. No leaking unless she is sneezing or coughing. She has had a few episodes when she has been out in her garden and she hasn't made it back into the bathroom . She has a history of falls with her [place]'s disease she had right knee and ankle pain for a long time. Pt reports most of the time she has regular bowel movements. 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 She had three seperate days when she had bowel movements. She feels she is doing better overall Patient Reported Progress Improving PT-OP-I Pelvic Floor Start: 07/01/20 10:26 Freq: Status: Active Protocol: Document 07/01/20 11:15 AM[facility] (Rec: 07/05/20 16:45 [facility] [email or web address]) Pelvic Floor Assessment Urine Pelvic Floor Surgery No Urinary Symptoms Urge Sensation Other Urinary Symptoms nocturia Leakage Size Medium Leakage Cause Cough,Sneeze Leaks Per Day 2 Urine Pad Type Depends Contraction Ability Voluntary Contraction Weak PT-OP-J Posture/Palpation/Skin Start: 07/01/20 10:26 Freq: Status: Active Protocol: Document 07/01/20 11:15 AM[facility] (Rec: 07/05/20 16:32 [facility] [email or web address]) Posture Evaluation Comments Posture Comments pt finds it difficult to maintain a upright posture both sitting and standing. Pt leans to the right with sitting and due to her demond's disease her posture is constantly changing Palpation Assessment Location suprapubic fascia Palpation Location suprapubic fascia Palpation Findings Soft Tissue Tightness,Spasm, Muscle Guarding Palpation Details Tightness and spasm of the soft tissue surrounding the bladder in the suprapubic fascia PT-OP-M Strength Start: 07/05/20 16:40 Freq: Status: Active Protocol: Document 07/01/20 11:15 [facility] (Rec: 07/05/20 16:45 [facility] [id number]) Trunk Strength Trunk Manual Muscle Testing Testing Position Supine Flexion 3 Fair Core Stabilization poor core activation and ability to facilitate a contraction of the transverse abdominal muscles. Pt has trunk control to be able to sit at the edge of the bed PT-OP-Q Treatments Start: 07/01/20 10:26 Freq: Status: Active Protocol: Document 07/21/20 12:57 [facility] (Rec: 07/21/20 13:05 [facility] [id number]) Therapeutic Exercises Supine Exercises lower trunk rotation Reps/Minutes x 10 reps elvic floor long holds Supine Exercise Name pelvic floor long holds Comments 11.0 average max 24.8 Diaphragnatic breathing Reps/Minutes inhale x 4 exhale x 6 Comments x 10 reps Other Exercises cobra stretch to stretch the suprapubic fascia Comments hold 30 sec x 2 reps Manual Therapy Treatment Soft Tissue Mobilization visceral mobilizations over the suprapubic fascia and iliocecal valve Body Position Hooklying Comments good tolerance ILU self massage for improved bowel movements Body Location abdomen Mobilization Type Myofascial Release Intensity/Depth Moderate Body Position Hooklying Self-Care/Home Management Treatment Education Other Education discussed ways to improve bowel movements, pt to begin PT for balance and gait training as when she is walking for exercise she reports improvements with her bowel movements PT-OP-T Assessment and Plan Start: 07/01/20 10:26 Freq: Status: Active Protocol: Document 07/21/20 13:00 AM[facility] (Rec: 07/22/20 09:59 [facility] [email or web address]) Physical Therapy Assessment Assessment Summary Assessment katrina continues to make good progress with urge deference technique. She is still only having approx 3 bowel movements a week so working on improving this frequency should also help with her urgency. SHe will add in 1-2 prunes per day and I added in some rotation exercises today to also help with movement of the colon. She will resume walkingoutside once she has been assed for balance and gait with PT Physical Therapy Plan Frequency and Duration Frequency of Treatment 1x/Week Duration of Treatment 8 Plan of Care Start Date 07/01/20 Plan of Care End Date 08/26/20 Therapeutic Interventions Therapeutic Interventions Balance Training,Canalithic Repositioning,Coordination Training,Home Exercise Program ,Joint Mobilizations,Manual Therapy,Neuromuscular Re- education,Patient/Caregiver Education,Self-Care/Home Management,Soft Tissue Mobilization,Therapeutic Activities,Therapeutic Exercises Modalities Biofeedback Next Visit Focus/Plan Next Note Type Treatment Note Next Visit Plan continue working on endurance contractions of the pelvic floor, begin to add in hip strengthening exercses as well . Pt to schedule her PT for gait and balance.
--- NOTE | 2020-07-29 13:59 | PT.OTN ---
Current Diagnoses Overactive bladder (07/29/20) Urge incontinence (07/29/20) Other abnormalities of gait and mobility (07/29/20) Other symptoms and signs involving the musculoskeletal system (07/29/20) Physical Therapy Treatment Note PT-OP-A Visit Information Start: 07/01/20 10:26 Freq: Status: Active Protocol: Document 07/29/20 13:35 AM[facility] (Rec: 07/29/20 13:59 AM[facility] [id number]) Out-Patient Physical Therapy Visit Information Visit Information Visit Type Treatment Note Visit Start Time 13:00 Visit Stop Time 13:45 Total Visit Minutes 45 Visit Number 5 PT-OP-B Current Condition Start: 07/01/20 10:26 Freq: Status: Active Protocol: Document 07/01/20 11:15 [facility] (Rec: 07/01/20 11:47 [facility] [id number]) Current Condition History of Current Condition Onset Date worse in the past 5 years Current Complaints urgency and frequency, deconditioned and poor balance History of Current Condition Katrina is a 59 year od female with [place]'s disease. She has c/o urgency and overactive bladder, urgency is more frequent during the day. She gets up 3-4 times per nightto void. She can void 2- 4 times per hour. This has gotten progressively worse in the past 5 years. No leaking unless she is sneezing or coughing. She has had a few episodes when she has been out in her garden and she hasn't made it back into the bathroom . 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 Pt reports most of the time she has regular bowel movements. 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 Bowel movements are improving as well. She notes the stool is better formed. Patient Reported Progress Improving PT-OP-I Pelvic Floor Start: 07/01/20 10:26 Freq: Status: Active Protocol: Document 07/01/20 11:15 [facility] (Rec: 07/05/20 16:45 [facility] [id number]) Pelvic Floor Assessment Urine Pelvic Floor Surgery No Urinary Symptoms Urge Sensation Other Urinary Symptoms nocturia Leakage Size Medium Leakage Cause Cough,Sneeze Leaks Per Day 2 Urine Pad Type Depends Contraction Ability Voluntary Contraction Weak PT-OP-J Posture/Palpation/Skin Start: 07/01/20 10:26 Freq: Status: Active Protocol: Document 07/01/20 11:15 AMH (Rec: 07/05/20 16:32 [facility] [email or web address]) Posture Evaluation Comments Posture Comments pt finds it difficult to maintain a upright posture both sitting and standing. Pt leans to the right with sitting and due to her demond's disease her posture is constantly changing Palpation Assessment Location suprapubic fascia Palpation Location suprapubic fascia Palpation Findings Soft Tissue Tightness,Spasm, Muscle Guarding Palpation Details Tightness and spasm of the soft tissue surrounding the bladder in the suprapubic fascia PT-OP-M Strength Start: 07/05/20 16:40 Freq: Status: Active Protocol: Document 07/01/20 11:15 AM[facility] (Rec: 07/05/20 16:45 [facility] [id number]) Trunk Strength Trunk Manual Muscle Testing Testing Position Supine Flexion 3 Fair Core Stabilization poor core activation and ability to facilitate a contraction of the transverse abdominal muscles. Pt has trunk control to be able to sit at the edge of the bed PT-OP-Q Treatments Start: 07/01/20 10:26 Freq: Status: Active Protocol: Document 07/29/20 13:35 [facility] (Rec: 07/29/20 13:59 [facility] [id number]) Therapeutic Exercises Supine Exercises lower trunk rotation Reps/Minutes x 10 reps Other Exercises cobra stretch to stretch the suprapubic fascia Comments hold 30 sec x 2 reps pelvic floor quick contractions Reps/Minutes 10 reps holding 2 seconds relax x 2 seconds Comments 34.6 max 12 average. Reassessment review of HEP Comments PT and pt review all handouts of exercises, talk about revisions Manual Therapy Treatment Soft Tissue Mobilization ILU self massage for improved bowel movements Body Location abdomen Mobilization Type Myofascial Release Intensity/Depth Moderate Body Position Hooklying PT-OP-T Assessment and Plan Start: 07/01/20 10:26 Freq: Status: Active Protocol: Document 07/29/20 13:35 [facility] (Rec: 07/29/20 13:59 [facility] [id number]) Physical Therapy Assessment Assessment Summary Assessment bowel movement frequency improved this week as did the shape of her stool into closer of a s shape instead of small pellets. Masx contraction of the pelvic floor is also improving Physical Therapy Plan Frequency and Duration Frequency of Treatment 1x/Week Duration of Treatment 8 Plan of Care Start Date 07/01/20 Plan of Care End Date 08/26/20 Therapeutic Interventions Therapeutic Interventions Balance Training,Canalithic Repositioning,Coordination Training,Home Exercise Program ,Joint Mobilizations,Manual Therapy,Neuromuscular Re- education,Patient/Caregiver Education,Self-Care/Home Management,Soft Tissue Mobilization,Therapeutic Activities,Therapeutic Exercises Modalities Biofeedback Next Visit Focus/Plan Next Note Type Treatment Note Next Visit Plan continue working on endurance contractions of the pelvic floor and MFR for improved bowel movements
--- NOTE | 2020-08-06 17:19 | PT.OTN ---
Current Diagnoses Overactive bladder (08/06/20) Urge incontinence (08/06/20) Other abnormalities of gait and mobility (08/06/20) Other symptoms and signs involving the musculoskeletal system (08/06/20) Physical Therapy Treatment Note PT-OP-A Visit Information Start: 07/01/20 10:26 Freq: Status: Active Protocol: Document 08/06/20 13:35 [facility] (Rec: 08/06/20 13:50 [facility] [id number]) Out-Patient Physical Therapy Visit Information Visit Information Visit Type Treatment Note Visit Start Time 13:45 Visit Stop Time 14:30 Total Visit Minutes 45 Visit Number 6 PT-OP-B Current Condition Start: 07/01/20 10:26 Freq: Status: Active Protocol: Document 07/01/20 11:15 AM[facility] (Rec: 07/01/20 11:47 [facility] [id number]) Current Condition History of Current Condition Onset Date worse in the past 5 years Current Complaints urgency and frequency, deconditioned and poor balance History of Current Condition 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 She has c/o urgency and overactive bladder, urgency is more frequent during the day. She gets up 3-4 times per nightto void. She can void 2- 4 times per hour. This has gotten progressively worse in the past 5 years. No leaking unless she is sneezing or coughing. She has had a few episodes when she has been out in her garden and she hasn't made it back into the bathroom . 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 Pt reports most of the time she has regular bowel movements. 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 She can tell she more urgency with her bowels full. PT-OP-I Pelvic Floor Start: 07/01/20 10:26 Freq: Status: Active Protocol: Document 07/01/20 11:15 [facility] (Rec: 07/05/20 16:45 [facility] [id number]) Pelvic Floor Assessment Urine Pelvic Floor Surgery No Urinary Symptoms Urge Sensation Other Urinary Symptoms nocturia Leakage Size Medium Leakage Cause Cough,Sneeze Leaks Per Day 2 Urine Pad Type Depends Contraction Ability Voluntary Contraction Weak PT-OP-J Posture/Palpation/Skin Start: 07/01/20 10:26 Freq: Status: Active Protocol: Document 07/01/20 11:15 [facility] (Rec: 07/05/20 16:32 [facility] [email or web address]) Posture Evaluation Comments Posture Comments pt finds it difficult to maintain a upright posture both sitting and standing. Pt leans to the right with sitting and due to her demond's disease her posture is constantly changing Palpation Assessment Location suprapubic fascia Palpation Location suprapubic fascia Palpation Findings Soft Tissue Tightness,Spasm, Muscle Guarding Palpation Details Tightness and spasm of the soft tissue surrounding the bladder in the suprapubic fascia PT-OP-M Strength Start: 07/05/20 16:40 Freq: Status: Active Protocol: Document 07/01/20 11:15 [facility] (Rec: 07/05/20 16:45 [facility] [id number]) Trunk Strength Trunk Manual Muscle Testing Testing Position Supine Flexion 3 Fair Core Stabilization poor core activation and ability to facilitate a contraction of the transverse abdominal muscles. Pt has trunk control to be able to sit at the edge of the bed PT-OP-Q Treatments Start: 07/01/20 10:26 Freq: Status: Active Protocol: Document 08/06/20 13:35 [facility] (Rec: 08/06/20 13:50 [facility] [id number]) Therapeutic Exercises Supine Exercises lower trunk rotation Reps/Minutes x 10 reps elvic floor long holds Supine Exercise Name pelvic floor long holds Comments 17.3 average and max of 36.0 Other Exercises pelvic floor quick contractions Reps/Minutes 10 reps holding 2 seconds relax x 2 seconds Comments 34.6 max 12 average. Manual Therapy Treatment Soft Tissue Mobilization visceral mobilizations over the suprapubic fascia and iliocecal valve Body Position Hooklying Comments good tolerance ILU self massage for improved bowel movements Body Location abdomen Mobilization Type Myofascial Release Intensity/Depth Moderate Body Position Hooklying PT-OP-T Assessment and Plan Start: 07/01/20 10:26 Freq: Status: Active Protocol: Document 08/06/20 13:35 [facility] (Rec: 08/06/20 14:27 [facility] [id number]) Physical Therapy Assessment Assessment Summary Assessment strength of the pelvic floor continues to increase and today she had a average of 16. 5 with max of 36uv. Katrina is stil having difficulty with
--- NOTE | 2020-08-11 17:13 | PT.OTN ---
Current Diagnoses Overactive bladder (08/11/20) Urge incontinence (08/11/20) Other abnormalities of gait and mobility (08/11/20) Other symptoms and signs involving the musculoskeletal system (08/11/20) Physical Therapy Treatment Note PT-OP-A Visit Information Start: 07/01/20 10:26 Freq: Status: Active Protocol: Document 08/11/20 17:10 [facility] (Rec: 08/11/20 17:13 [facility] [email or web address]) Out-Patient Physical Therapy Visit Information Visit Information Visit Type Treatment Note Visit Start Time 13:45 Visit Stop Time 14:30 Total Visit Minutes 45 Visit Number 7 PT-OP-B Current Condition Start: 07/01/20 10:26 Freq: Status: Active Protocol: Document 07/01/20 11:15 [facility] (Rec: 07/01/20 11:47 [facility] [id number]) Current Condition History of Current Condition Onset Date worse in the past 5 years Current Complaints urgency and frequency, deconditioned and poor balance History of Current Condition Katrina is a 59 year od female with [place]'s disease. She has c/o urgency and overactive bladder, urgency is more frequent during the day. She gets up 3-4 times per nightto void. She can void 2- 4 times per hour. This has gotten progressively worse in the past 5 years. No leaking unless she is sneezing or coughing. She has had a few episodes when she has been out in her garden and she hasn't made it back into the bathroom . She has a history of falls with her [place]'s disease she had right knee and ankle pain for a long time. Pt reports most of the time she has regular bowel movements. 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 She has had three bowel movements since PT-OP-I Pelvic Floor Start: 07/01/20 10:26 Freq: Status: Active Protocol: Document 07/01/20 11:15 [facility] (Rec: 07/05/20 16:45 [facility] [email or web address]) Pelvic Floor Assessment Urine Pelvic Floor Surgery No Urinary Symptoms Urge Sensation Other Urinary Symptoms nocturia Leakage Size Medium Leakage Cause Cough,Sneeze Leaks Per Day 2 Urine Pad Type Depends Contraction Ability Voluntary Contraction Weak PT-OP-J Posture/Palpation/Skin Start: 07/01/20 10:26 Freq: Status: Active Protocol: Document 07/01/20 11:15 [facility] (Rec: 07/05/20 16:32 [facility] [email or web address]) Posture Evaluation Comments Posture Comments pt finds it difficult to maintain a upright posture both sitting and standing. 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 Pt has trunk control to be able to sit at the edge of the bed PT-OP-Q Treatments Start: 07/01/20 10:26 Freq: Status: Active Protocol: Document 08/11/20 17:10 [facility] (Rec: 08/11/20 17:13 [facility] [email or web address]) Therapeutic Exercises Supine Exercises lower trunk rotation Reps/Minutes x 10 reps elvic floor long holds Supine Exercise Name pelvic floor long holds Comments 17.3 average and max of 36.0 Diaphragnatic breathing Reps/Minutes x 5 min Comments inhale x 4 exhale x 6 Manual Therapy Treatment Soft Tissue Mobilization visceral mobilizations over the suprapubic fascia and iliocecal valve Body Position Hooklying Comments good tolerance ILU self massage for improved bowel movements Body Location abdomen Mobilization Type Myofascial Release Intensity/Depth Moderate Body Position Hooklying PT-OP-T Assessment and Plan Start: 07/01/20 10:26 Freq: Status: Active Protocol: Document 08/11/20 17:10 [facility] (Rec: 08/11/20 17:13 [facility] [email or web address]) Physical Therapy Assessment Assessment Summary Assessment pt having more control and slowly improving frequency of bowel movements. We talked today about trying to do her exercise and walking in her house in the am and trying to empty her bowels 30 min after she eats breakfast Physical Therapy Plan Frequency and Duration Frequency of Treatment 1x/Week Duration of Treatment 8 Plan of Care Start Date 07/01/20 Plan of Care End Date 08/26/20 Next Visit Focus/Plan Next Note Type Treatment Note Next Visit Plan continue working on endurance contractions of the pelvic floor and MFR for improved bowel movements
--- NOTE | 2020-08-18 17:41 | PT.OTN ---
Current Diagnoses Overactive bladder (08/18/20) Urge incontinence (08/18/20) Other abnormalities of gait and mobility (08/18/20) Other symptoms and signs involving the musculoskeletal system (08/18/20) Physical Therapy Treatment Note PT-OP-A Visit Information Start: 07/01/20 10:26 Freq: Status: Active Protocol: Document 08/18/20 13:50 [facility] (Rec: 08/18/20 13:58 [facility] [id number]) Out-Patient Physical Therapy Visit Information Visit Information Visit Type Treatment Note Visit Start Time 13:45 Visit Stop Time 14:30 Total Visit Minutes 45 Visit Number 8 PT-OP-B Current Condition Start: 07/01/20 10:26 Freq: Status: Active Protocol: Document 07/01/20 11:15 [facility] (Rec: 07/01/20 11:47 [facility] [id number]) Current Condition History of Current Condition Onset Date worse in the past 5 years Current Complaints urgency and frequency, deconditioned and poor balance History of Current Condition Jose 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 She has c/o urgency and overactive bladder, urgency is more frequent during the day. She gets up 3-4 times per nightto void. She can void 2- 4 times per hour. This has gotten progressively worse in the past 5 years. No leaking unless she is sneezing or coughing. She has had a few episodes when she has been out in her garden and she hasn't made it back into the bathroom . 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 Pt reports most of the time she has regular bowel movements. 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 She has been walking around her house more PT-OP-I Pelvic Floor Start: 07/01/20 10:26 Freq: Status: Active Protocol: Document 07/01/20 11:15 [facility] (Rec: 07/05/20 16:45 [facility] [email or web address]) Pelvic Floor Assessment Urine Pelvic Floor Surgery No Urinary Symptoms Urge Sensation Other Urinary Symptoms nocturia Leakage Size Medium Leakage Cause Cough,Sneeze Leaks Per Day 2 Urine Pad Type Depends Contraction Ability Voluntary Contraction Weak PT-OP-J Posture/Palpation/Skin Start: 07/01/20 10:26 Freq: Status: Active Protocol: Document 07/01/20 11:15 [facility] (Rec: 07/05/20 16:32 [facility] [email or web address]) Posture Evaluation Comments Posture Comments pt finds it difficult to maintain a upright posture both sitting and standing. 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 Pt has trunk control to be able to sit at the edge of the bed PT-OP-Q Treatments Start: 07/01/20 10:26 Freq: Status: Active Protocol: Document 08/18/20 17:39 [facility] (Rec: 08/18/20 17:41 [facility] [email or web address]) Therapeutic Exercises Supine Exercises iliopsoas stretch Reps/Minutes 2 reps at 1 min hold pelvic tilt with abdominal contraction Reps/Minutes x 10 reps lower trunk rotation Reps/Minutes x 10 reps Diaphragnatic breathing Reps/Minutes x 5 min Comments inhale x 4 exhale x 6 Manual Therapy Treatment Soft Tissue Mobilization visceral mobilizations over the suprapubic fascia and iliocecal valve Body Position Hooklying Comments good tolerance ILU self massage for improved bowel movements Body Location abdomen Mobilization Type Myofascial Release Intensity/Depth Moderate Body Position Hooklying PT-OP-T Assessment and Plan Start: 07/01/20 10:26 Freq: Status: Active Protocol: Document 08/18/20 13:50 [facility] (Rec: 08/18/20 13:58 [facility] [id number]) Physical Therapy Assessment Goals Nocturia Impairment Nocturia 3-4 voids at night Test Data Developer Goal (LTG) Jose Ramon is able to decrease her voids overnight to 1-2 allowing her improved sleep during the night 08/18/20 pt reports she is sleeping better through the night she wakes up 2 xms per night now. LTG Duration 8 weeks Decreased core strength Impairment Decreased core strength [facility] Goal (LTG) Trever is able to increase the strength of her lower abdominals and pelvic floor for improved support of her bladder. She is able to sustain a pelvic floor cotnraction x 10 seconds in supine LTG Duration 8 weeks Urinary frequency and urgency Impairment urinary frequency and urgency voiding up to 4 times a hour Short Term Goal (STG) jose ramon is educated on bladder retraining and urge deference technique for increasing the time between her voids STG Duration 2 weeks Test Data Developer Goal (LTG) Jose Ramon is able to increase her time between voids to every 2 hours allowing her time to work in her garden without sudden urges. LTG Duration 8 weeks Assessment Summary Assessment I added in core stabilization exercises which Jose Ramon was able to do, we also talked about trying to add steamed veggies to her diet to continue to promote daily bowel movements. She is feeling more comfortable walking around her house for exercise and has been doing this more regularly Physical Therapy Plan Frequency and Duration Frequency of Treatment 1x/Week Duration of Treatment 8 Plan of Care Start Date 07/01/20 Plan of Care End Date 08/26/20 Therapeutic Interventions Therapeutic Interventions Balance Training,Canalithic Repositioning,Coordination Training,Home Exercise Program ,Joint Mobilizations,Manual Therapy,Neuromuscular Re- education,Patient/Caregiver Education,Self-Care/Home Management,Soft Tissue Mobilization,Therapeutic Activities,Therapeutic Exercises Modalities Biofeedback Next Visit Focus/Plan Next Note Type Treatment Note Next Visit Plan continue working on endurance contractions of the pelvic floor and MFR for improved bowel movements
--- NOTE | 2020-08-25 13:59 | PT.OTN ---
Current Diagnoses Overactive bladder (08/25/20) Urge incontinence (08/25/20) Other abnormalities of gait and mobility (08/25/20) Other symptoms and signs involving the musculoskeletal system (08/25/20) Physical Therapy Treatment Note PT-OP-A Visit Information Start: 07/01/20 10:26 Freq: Status: Active Protocol: Document 08/25/20 13:04 [facility] (Rec: 08/25/20 13:08 [facility] [id number]) Out-Patient Physical Therapy Visit Information Visit Information Visit Type Treatment Note Visit Start Time 13:00 Visit Stop Time 13:45 Total Visit Minutes 45 Visit Number 9 PT-OP-B Current Condition Start: 07/01/20 10:26 Freq: Status: Active Protocol: Document 07/01/20 11:15 [facility] (Rec: 07/01/20 11:47 [facility] [id number]) Current Condition History of Current Condition Onset Date worse in the past 5 years Current Complaints urgency and frequency, deconditioned and poor balance History of Current Condition Jose 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 She has c/o urgency and overactive bladder, urgency is more frequent during the day. She gets up 3-4 times per nightto void. She can void 2- 4 times per hour. This has gotten progressively worse in the past 5 years. No leaking unless she is sneezing or coughing. She has had a few episodes when she has been out in her garden and she hasn't made it back into the bathroom . She has a history of falls with her [place]'s disease she had right knee and ankle pain for a long time. Pt reports most of the time she has regular bowel movements. 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 Less painful to pass stool. She hasn't had any bladder leaks. She is able to be more relaxed now with not feeling like she has to use the bathroom all the time. PT-OP-I Pelvic Floor Start: 07/01/20 10:26 Freq: Status: Active Protocol: Document 07/01/20 11:15 [facility] (Rec: 07/05/20 16:45 [facility] [email or web address]) Pelvic Floor Assessment Urine Pelvic Floor Surgery No Urinary Symptoms Urge Sensation Other Urinary Symptoms nocturia Leakage Size Medium Leakage Cause Cough,Sneeze Leaks Per Day 2 Urine Pad Type Depends Contraction Ability Voluntary Contraction Weak PT-OP-J Posture/Palpation/Skin Start: 07/01/20 10:26 Freq: Status: Active Protocol: Document 07/01/20 11:15 [facility] (Rec: 07/05/20 16:32 [facility] [email or web address]) Posture Evaluation Comments Posture Comments pt finds it difficult to maintain a upright posture both sitting and standing. Pt leans to the right with sitting and due to her demond's disease her posture is constantly changing Palpation Assessment Location suprapubic fascia Palpation Location suprapubic fascia Palpation Findings Soft Tissue Tightness,Spasm, Muscle Guarding Palpation Details Tightness and spasm of the soft tissue surrounding the bladder in the suprapubic fascia PT-OP-M Strength Start: 07/05/20 16:40 Freq: Status: Active Protocol: Document 07/01/20 11:15 [facility] (Rec: 07/05/20 16:45 [facility] [email or web address]) Trunk Strength Trunk Manual Muscle Testing Testing Position Supine Flexion 3 Fair Core Stabilization poor core activation and ability to facilitate a contraction of the transverse abdominal muscles. Pt has trunk control to be able to sit at the edge of the bed PT-OP-Q Treatments Start: 07/01/20 10:26 Freq: Status: Active Protocol: Document 08/25/20 13:00 [facility] (Rec: 08/25/20 13:59 [facility] [email or web address]) Therapeutic Exercises Supine Exercises pelvic tilt with abdominal contraction Reps/Minutes x 10 reps lower trunk rotation Reps/Minutes x 10 reps elvic floor long holds Supine Exercise Name pelvic floor long holds Comments 17.3 average and max of 36.0 Manual Therapy Treatment Soft Tissue Mobilization visceral mobilizations over the suprapubic fascia and iliocecal valve Body Position Hooklying Comments good tolerance ILU self massage for improved bowel movements Body Location abdomen Mobilization Type Myofascial Release Intensity/Depth Moderate Body Position Hooklying PT-OP-T Assessment and Plan Start: 07/01/20 10:26 Freq: Status: Active Protocol: Document 08/25/20 13:00 [facility] (Rec: 08/25/20 13:59 [facility] [email or web address]) Physical Therapy Assessment Goals Nocturia Impairment Nocturia 3-4 voids at night Columnist/Commentator Goal (LTG) Jose Ramon is able to decrease her voids overnight to 1-2 allowing her improved sleep during the night 08/18/20 pt reports she is sleeping better through the night she wakes up 2 xms per night now. LTG Duration 8 weeks Decreased core strength Impairment Decreased core strength Nursing Home Goal (LTG) Trever is able to increase the strength of her lower abdominals and pelvic floor for improved support of her bladder. She is able to sustain a pelvic floor cotnraction x 10 seconds in supine LTG Duration 8 weeks Urinary frequency and urgency Impairment urinary frequency and urgency voiding up to 4 times a hour Short Term Goal (STG) jose ramon is educated on bladder retraining and urge deference technique for increasing the time between her voids GOAL MET STG Duration 2 weeks Nursing Home Goal (LTG) Jose Ramon is able to increase her time between voids to every 2 hours allowing her time to work in her garden without sudden urges. Excellent progress LTG Duration 8 weeks Assessment Summary Assessment Trever has made great overall progress, she is doing much better overall and tiffanie be discharged to a [facility]. She is now only waking 2 times at night to void and has significantly less urgency during the day. She does start PT next week for balance and gait with we are hoping will help her become more active to assist in more regular bowel movements Physical Therapy Plan Discharge Physical Therapy Discharge Reasons Goals Met
== END 2020-08-25 14:37 | disposition home or self-care (01) ==
LOC: PHYS 13:00
PROVIDERS: Family Provider Student in an Organized Health Care Education/Training Program; PCP Student in an Organized Health Care Education/Training Program; Referring Provider Psychiatry & Neurology Neurology; Visit Provider Psychiatry & Neurology Neurology
DX: N39.41 Urge incontinence (principal); R29.898 Other symptoms and signs involving the musculoskeletal system; R26.89 Other abnormalities of gait and mobility; N32.81 Overactive bladder
CPT/HCPCS: 97110; 97140; 97161; 97535

== ENCOUNTER 2020-10-19 13:00 | Outpatient (RCR) | payer OTHER, SELFPAY ==
--- NOTE | 2020-08-31 14:40 | PT.OIE ---
Current Diagnoses Unspecified abnormalities of gait and mobility (08/31/20) Past Medical History (Last Updated 06/24/20 @ 15:01 by Naeem Bustillo MD) Depression [place] disease Lower urinary tract symptoms (LUTS) Neurological disease Osteoporosis Skin cancer Past Surgical History (Last Reviewed 06/24/20 @ 15:00 by Naeem Bustillo MD) Hx of breast reduction, elective Visit Care Team Role Provider Type Katiana Elaine MD Attending Provider Physician Family Provider Primary Care Provider Referring Provider Specialty: Family Practice Address: [address] [place] [address], [facility] [place] [place], [facility] Email: [email or web address] Physical Therapy Initial Evaluation PT-OP-A Visit Information Start: 08/27/20 13:41 Freq: Status: Active Protocol: Document 08/31/20 13:06 MB (Rec: 08/31/20 13:39 MB [id number]) Out-Patient Physical Therapy Visit Information Visit Information Visit Type Initial Evaluation Visit Note [employer] [place], $40 copay 12/29 before modifier Visit Start Time 13:06 Visit Stop Time 13:55 Total Visit Minutes 49 Visit Number 1 Evaluation Information Evaluation Date 08/31/20 Precautions Precautions Fall risk, HD, some cognitive challenges PT-OP-B Current Condition Start: 08/27/20 13:41 Freq: Status: Active Protocol: Document 08/31/20 13:06 MB (Rec: 08/31/20 13:39 MB [id number]) Current Condition History of Current Condition Onset Date fall Current Complaints Falls and knee buckling History of Current Condition Pt recently finished PT for pelvic floor. She completed PT for left shoulder adhesive capsulitis last year, 04/2019, before [facility]. Since COV, she was in the house more and less active. She stopped going to the grocery store, Bible study and for walks. She had a fall in the 2019 when she trying to trim a shrub. She went to stand up and her knees buckled . She went to catch herself and the safety strips on the steps slid off. She landed on her right side and hit her right leg and mouth. She michael her jaw. She called her sister and TERI. The bumps and bruises stayed for 3 months. 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 She lives at home alone and her sister and TERI check on her, provide support and take her to appointments. She has had some medication changes that have been helpful for depression. She needed extra sleep when she was healing d/t pain. Her sleeping schedule got way off and she was sleeping during the day. Her sister now calls her at 0930 and she is up during the day. She is sleeping from 11- midnight and sleeps until 0930 . Pt did have some more falls in the house over the carpet. She did not hit her head. She slugged her elbow into the furniture. She is wearing socks in the house or shoes sometimes. She reports a stride issue. She reports three falls. She has two of her father's old walkers. She reports that her back and core feel weak. Prior Treatments and Tests PT in the past Treatment Goals Patient/Caregiver Goals To strengthen LEs and to go walking again and core exercises PT-OP-C Subjective Start: 08/27/20 13:41 Freq: Status: Active Protocol: Document 08/31/20 13:06 MB (Rec: 08/31/20 13:39 MB [id number]) OP-PT Subjective Patient Comments Patient Comments See history of current condition PT-OP-D Balance Start: 08/27/20 13:41 Freq: Status: Active Protocol: Document 08/31/20 13:06 MB (Rec: 08/31/20 14:38 MB [id number]) OP-PT Balance Assessment Sitting Balance Static Sitting Balance Ability Good Standing Balance Static Standing Balance Ability Good Dynamic Standing Balance Ability Fair Balance Tests Romberg Romberg EO and EC at least 30 sec and no LOB Tandem Tandem Standing Unable to get into position without LOB Teague Fall Scale Copyright Permission PT-OP-H Neuro Start: 08/27/20 13:41 Freq: Status: Active Protocol: Document 08/31/20 13:06 MB (Rec: 08/31/20 14:38 MB [id number]) Coordination Evaluation Comments Coordination Comments Pt with HD and with constant chorea in trunk and UEs PT-OP-J Posture/Palpation/Skin Start: 08/27/20 13:41 Freq: Status: Active Protocol: Document 08/31/20 13:06 MB (Rec: 08/31/20 14:38 MB [id number]) Posture Evaluation Comments Posture Comments Forward head, rounded shoulders PT-OP-K Range of Motion Start: 08/27/20 13:41 Freq: Status: Active Protocol: Document 08/31/20 13:06 MB (Rec: 08/31/20 14:38 MB [id number]) Shoulder Goniometric Range of Motion Shoulder ROM Limitations Comments AROM left shoulder flexion and abduction 5 deg less than the right PT-OP-M Strength Start: 08/27/20 13:41 Freq: Status: Active Protocol: Document 08/31/20 13:06 MB (Rec: 08/31/20 14:38 MB [id number]) Hip Strength Hip Manual Muscle Testing Left Flexion (L2) 4 Good Abduction 3 Fair Right Flexion (L2) 4 Good Abduction 3+ Fair+ Knee Strength Knee Manual Muscle Testing Left Flexion (S2) 3 Fair Extension (L3) 4 Good Right Flexion (S2) 3+ Fair+ Extension (L3) 5 Normal Ankle/Foot Strength Ankle and Foot Manual Muscle Testing Bilateral Dorsiflexion (L4) 5 Normal Toe Strength Toe Manual Muscle Testing Left Great Toe Extension 5 Normal Right Great Toe Extension 5 Normal PT-OP-Q Treatments Start: 08/27/20 13:41 Freq: Status: Active Protocol: Document 08/31/20 13:06 MB (Rec: 08/31/20 14:38 MB [id number]) Therapeutic Exercises Sitting Exercises Sit to stands without UE support Comments 7 reps without UE support and occ flops down Standing Exercises Use of UBE on rolling table Standing Exercise Name Ed in set-up of her bike at home Side bilateral Comments Used mobile unit in gym and pt close to wall behind her, height 42 Self-Care/Home Management Treatment Education Other Education Ed to pt and sister: benefits of rollator for outside so that pt can walk in the yard safely without falls, ed in setting up her UBE at home PT-OP-T Assessment and Plan Start: 08/27/20 13:41 Freq: Status: Active Protocol: Document 08/31/20 13:06 MB (Rec: 08/31/20 14:38 MB [id number]) Physical Therapy Assessment Rehab Potential Rehabilitation Potential Fair Evaluation Complexity Number of Personal Factors/Comorbidities 1-2 Number of Body Systems Impaired 3 Clinical Presentation at Evaluation Evolving Impairments Impairments Activity Tolerance,Balance, Coordination,Functional Activities,Functional Mobility ,Gait,Pain,Posture,ROM, Strength Other Impairments Personal factors include pt lives at home alone, is not a morning person and has cognitive changes d/t HD. Body systems affected include neurological, cognitive, musculoskeletal and genitourinary. Her clinical presentation is evolving in setting HD. Other Concerns Fall Risk Yes Goals 5 Baseball Sewer Hand Goal (LTG) Pt will perform progressive HEP with I to improve balance and strength by 10/31/20. LTG Duration 8 weeks 4 Halfway Goal (LTG) Pt will gait train at least 1200 feet in 6 minutes to decrease fall risk by 10/31/20. LTG Duration 8 weeks 3 Halfway Goal (LTG) Pt will perform 10 reps of controlled sit to stands without UE support in 30 sec to improve safety with transfers by 10/31/20. LTG Duration 8 weeks 2 Halfway Goal (LTG) Pt will perform WNLs on a standardized balance test to decrease fall risk by 10/31/20. LTG Duration 8 weeks 1 Baseball Sewer Hand Goal (LTG) Pt will deny falls for 2 months to decrease risk of injury by 10/31/20. LTG Duration 8 weeks Assessment Summary Assessment Pt is a 60 y/o female presenting with recent history of falls in setting of decreased activity over COVID months as well as HD. Pt presents with chorea, left greater than right LE weakness , imbalance and poor gait. She reports her back feels tired and that she would also like to work on core along with LE strengthening, balance and gait. She has not yet set-up UBE in her house as encouraged by this PT last year and her sister and TERI will set it up as soon as they find a stand that works well. Reviewed height to set-up today. Pt will benefit from PT for LE and core strengthening, balance and gait. Barriers include progressive disease, cognitive changes and history of daytime fatigue. Pt is very pleasant and compliant with PT and her family is very supportive and these are very helpful for success with OPPT. Physical Therapy Plan Frequency and Duration Frequency of Treatment 2x/Week Duration of Treatment 8 weeks Plan of Care Start Date 08/31/20 Plan of Care End Date 11/02/20 Therapeutic Interventions Therapeutic Interventions Balance Training,Canalithic Repositioning,Coordination Training,Gait Training,Home Exercise Program,Manual Therapy,Neuromuscular Re- education,Patient/Caregiver Education,Self-Care/Home Management,Soft Tissue Mobilization,Therapeutic Activities,Therapeutic Exercises Modalities Cold Pack/Ice Massage,Hot Packs Next Visit Focus/Plan Next Note Type Treatment Note Next Visit Plan Pelvic realignment exercises, core progression and then over pool noodle, sit to stands, hip abduction and bridging with band in hook lying, sitting LAQ and ankle eversion and DF strengthening, wall squat, balance exercise, formal balance assessment testing
--- NOTE | 2020-08-31 14:40 | PT.OPPOC ---
Physical, Occupational & Speech Therapy At [facility] Current Diagnoses Unspecified abnormalities of gait and mobility (08/31/20) Visit Care Team Role Provider Type Katiana Elaine MD Attending Provider Physician Family Provider Primary Care Provider Referring Provider Specialty: Family Practice Address: [address] [place] [address] [place], [address] Email: [email or web address] Plan Of Care PT-OP-T Assessment and Plan Start: 08/27/20 13:41 Freq: Status: Active Protocol: Document 08/31/20 13:06 MB (Rec: 08/31/20 14:38 MB [id number]) Physical Therapy Assessment Rehab Potential Rehabilitation Potential Fair Evaluation Complexity Number of Personal Factors/Comorbidities 1-2 Number of Body Systems Impaired 3 Clinical Presentation at Evaluation Evolving Impairments Impairments Activity Tolerance,Balance, Coordination,Functional Activities,Functional Mobility ,Gait,Pain,Posture,ROM, Strength Other Impairments Personal factors include pt lives at home alone, is not a morning person and has cognitive changes d/t HD. Body systems affected include neurological, cognitive, musculoskeletal and genitourinary. Her clinical presentation is evolving in setting HD. Other Concerns Fall Risk Yes Goals 5 Mcfp Goal (LTG) Pt will perform progressive HEP with I to improve balance and strength by 10/31/20. LTG Duration 8 weeks 4 Sizing Machine And Drier Operator Goal (LTG) Pt will gait train at least 1200 feet in 6 minutes to decrease fall risk by 10/31/20. LTG Duration 8 weeks 3 Sizing Machine And Drier Operator Goal (LTG) Pt will perform 10 reps of controlled sit to stands without UE support in 30 sec to improve safety with transfers by 10/31/20. LTG Duration 8 weeks 2 Mcfp Goal (LTG) Pt will perform WNLs on a standardized balance test to decrease fall risk by 10/31/20. LTG Duration 8 weeks 1 Sizing Machine And Drier Operator Goal (LTG) Pt will deny falls for 2 months to decrease risk of injury by 10/31/20. LTG Duration 8 weeks Assessment Summary Assessment Pt is a 60 y/o female presenting with recent history of falls in setting of decreased activity over COVID months as well as HD. Pt presents with chorea, left greater than right LE weakness , imbalance and poor gait. She reports her back feels tired and that she would also like to work on core along with LE strengthening, balance and gait. She has not yet set-up UBE in her house as encouraged by this PT last year and her sister and TERI will set it up as soon as they find a stand that works well. Reviewed height to set-up today. Pt will benefit from PT for LE and core strengthening, balance and gait. Barriers include progressive disease, cognitive changes and history of daytime fatigue. Pt is very pleasant and compliant with PT and her family is very supportive and these are very helpful for success with OPPT. Physical Therapy Plan Frequency and Duration Frequency of Treatment 2x/Week Duration of Treatment 8 weeks Plan of Care Start Date 08/31/20 Plan of Care End Date 11/02/20 Therapeutic Interventions Therapeutic Interventions Balance Training,Canalithic Repositioning,Coordination Training,Gait Training,Home Exercise Program,Manual Therapy,Neuromuscular Re- education,Patient/Caregiver Education,Self-Care/Home Management,Soft Tissue Mobilization,Therapeutic Activities,Therapeutic Exercises Modalities Cold Pack/Ice Massage,Hot Packs Next Visit Focus/Plan Next Note Type Treatment Note Next Visit Plan Pelvic realignment exercises, core progression and then over pool noodle, sit to stands, hip abduction and bridging with band in hook lying, sitting LAQ and ankle eversion and DF strengthening, wall squat, balance exercise, formal balance assessment testing Plan of Care Dates Plan of Care Start Date 08/31/20 Plan of Care End Date 11/02/20 Electronically Signed by: Larissa Villlaba PT 08/31/20 [id number] Please Sign and Return: I have reviewed this Plan of Care and certify that the skilled therapy services above are required to meet the patient?s needs. Physician Signature Date Printed Name and Credentials Clinical Instructor Signature Printed Name and Credentials
--- NOTE | 2020-09-02 14:32 | PT.OTN ---
Current Diagnoses Unspecified abnormalities of gait and mobility (09/02/20) Physical Therapy Treatment Note PT-OP-A Visit Information Start: 08/27/20 13:41 Freq: Status: Active Protocol: Document 09/02/20 13:48 MB (Rec: 09/02/20 14:32 MB [id number]) Out-Patient Physical Therapy Visit Information Visit Information Visit Type Treatment Note Visit Note [employer] [place], $40 copay 01/29 before modifier Visit Start Time 13:48 Visit Stop Time 14:30 Total Visit Minutes 42 Visit Number 2 Precautions Precautions Fall risk, HD, some cognitive challenges PT-OP-B Current Condition Start: 08/27/20 13:41 Freq: Status: Active Protocol: Document 08/31/20 13:06 MB (Rec: 08/31/20 13:39 MB [id number]) Current Condition History of Current Condition Onset Date fall Current Complaints Falls and knee buckling History of Current Condition Pt recently finished PT for pelvic floor. She completed PT for left shoulder adhesive capsulitis last year, 04/2019, before [facility]. Since [facility], she was in the house more and less active. She stopped going to the grocery store, [employer] study and for walks. She had a fall in the 2019 when she trying to trim a shrub. She went to stand up and her knees buckled . She went to catch herself and the safety strips on the steps slid off. She landed on her right side and hit her right leg and mouth. She michael her jaw. She called her sister and TERI. The bumps and bruises stayed for 3 months. 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 She lives at home alone and her sister and TERI check on her, provide support and take her to appointments. She has had some medication changes that have been helpful for depression. She needed extra sleep when she was healing d/t pain. Her sleeping schedule got way off and she was sleeping during the day. Her sister now calls her at 0930 and she is up during the day. She is sleeping from 11- midnight and sleeps until 0930 . Pt did have some more falls in the house over the carpet. She did not hit her head. She slugged her elbow into the furniture. She is wearing socks in the house or shoes sometimes. She reports a stride issue. She reports three falls. She has two of her father's old walkers. She reports that her back and core feel weak. Prior Treatments and Tests PT in the past Treatment Goals Patient/Caregiver Goals To strengthen LEs and to go walking again and core exercises PT-OP-C Subjective Start: 08/27/20 13:41 Freq: Status: Active Protocol: Document 09/02/20 13:48 MB (Rec: 09/02/20 14:32 MB [id number]) OP-PT Subjective Patient Comments Patient Comments Pt asks about what kind of rolling walker she should get for off terrain. PT-OP-D Balance Start: 08/27/20 13:41 Freq: Status: Active Protocol: Document 08/31/20 13:06 MB (Rec: 08/31/20 14:38 MB [id number]) OP-PT Balance Assessment Sitting Balance Static Sitting Balance Ability Good Standing Balance Static Standing Balance Ability Good Dynamic Standing Balance Ability Fair Balance Tests Romberg Romberg EO and EC at least 30 sec and no LOB Tandem Tandem Standing Unable to get into position without LOB Teague Fall Scale Copyright Permission PT-OP-H Neuro Start: 08/27/20 13:41 Freq: Status: Active Protocol: Document 08/31/20 13:06 MB (Rec: 08/31/20 14:38 MB [id number]) Coordination Evaluation Comments Coordination Comments Pt with HD and with constant chorea in trunk and UEs PT-OP-J Posture/Palpation/Skin Start: 08/27/20 13:41 Freq: Status: Active Protocol: Document 08/31/20 13:06 MB (Rec: 08/31/20 14:38 MB [id number]) Posture Evaluation Comments Posture Comments Forward head, rounded shoulders PT-OP-K Range of Motion Start: 08/27/20 13:41 Freq: Status: Active Protocol: Document 08/31/20 13:06 MB (Rec: 08/31/20 14:38 MB [id number]) Shoulder Goniometric Range of Motion Shoulder ROM Limitations Comments AROM left shoulder flexion and abduction 5 deg less than the right PT-OP-M Strength Start: 08/27/20 13:41 Freq: Status: Active Protocol: Document 08/31/20 13:06 MB (Rec: 08/31/20 14:38 MB [id number]) Hip Strength Hip Manual Muscle Testing Left Flexion (L2) 4 Good Abduction 3 Fair Right Flexion (L2) 4 Good Abduction 3+ Fair+ Knee Strength Knee Manual Muscle Testing Left Flexion (S2) 3 Fair Extension (L3) 4 Good Right Flexion (S2) 3+ Fair+ Extension (L3) 5 Normal Ankle/Foot Strength Ankle and Foot Manual Muscle Testing Bilateral Dorsiflexion (L4) 5 Normal Toe Strength Toe Manual Muscle Testing Left Great Toe Extension 5 Normal Right Great Toe Extension 5 Normal PT-OP-Q Treatments Start: 08/27/20 13:41 Freq: Status: Active Protocol: Document 09/02/20 13:48 MB (Rec: 09/02/20 14:32 MB [id number]) Cardio Equipment Recumbent Stepper (Sci-Fit) Duration (Minutes) 10 Resistance 3 Seat Position 8 Therapeutic Exercises Supine Exercises Pelvic realignment exercises Supine Exercise Name Theory, ed and practice, reviewed handout Side bilateral Comments 5 reps, 3 sec hold all exercises PT-OP-T Assessment and Plan Start: 08/27/20 13:41 Freq: Status: Active Protocol: Document 09/02/20 13:48 MB (Rec: 09/02/20 14:32 MB [id number]) Physical Therapy Assessment Rehab Potential Rehabilitation Potential Fair Evaluation Complexity Number of Personal Factors/Comorbidities 1-2 Number of Body Systems Impaired 3 Clinical Presentation at Evaluation Evolving Impairments Impairments Activity Tolerance,Balance, Coordination,Functional Activities,Functional Mobility ,Gait,Pain,Posture,ROM, Strength Other Impairments Personal factors include pt lives at home alone, is not a morning person and has cognitive changes d/t HD. Body systems affected include neurological, cognitive, musculoskeletal and genitourinary. Her clinical presentation is evolving in setting HD. Other Concerns Fall Risk Yes Goals 5 Senior Care Goal (LTG) Pt will perform progressive HEP with I to improve balance and strength by 10/31/20. LTG Duration 8 weeks 4 Senior Care Goal (LTG) Pt will gait train at least 1200 feet in 6 minutes to decrease fall risk by 10/31/20. LTG Duration 8 weeks 3 Clinical Phlebotomist Goal (LTG) Pt will perform 10 reps of controlled sit to stands without UE support in 30 sec to improve safety with transfers by 10/31/20. LTG Duration 8 weeks 2 Clinical Phlebotomist Goal (LTG) Pt will perform WNLs on a standardized balance test to decrease fall risk by 10/31/20. LTG Duration 8 weeks 1 Senior Care Goal (LTG) Pt will deny falls for 2 months to decrease risk of injury by 10/31/20. LTG Duration 8 weeks Assessment Summary Assessment Initiated education about rollator, work on recumbent stepper and pelvic realignment exercises today. Education and exercises take increased time and review d/t decreased cognition and PT provides handouts and encouragement. Pt is very receptive to education. Physical Therapy Plan Frequency and Duration Frequency of Treatment 2x/Week Duration of Treatment 8 weeks Plan of Care Start Date 08/31/20 Plan of Care End Date 11/02/20 Therapeutic Interventions Therapeutic Interventions Balance Training,Canalithic Repositioning,Coordination Training,Gait Training,Home Exercise Program,Manual Therapy,Neuromuscular Re- education,Patient/Caregiver Education,Self-Care/Home Management,Soft Tissue Mobilization,Therapeutic Activities,Therapeutic Exercises Modalities Cold Pack/Ice Massage,Hot Packs Next Visit Focus/Plan Next Note Type Treatment Note Next Visit Plan Core progression and then over pool noodle, sit to stands, hip abduction and bridging with band in hook lying, sitting LAQ and ankle eversion and DF strengthening, wall squat, balance exercise, formal balance assessment testing
--- NOTE | 2020-09-08 13:45 | PT.OTN ---
Current Diagnoses Unspecified abnormalities of gait and mobility (09/08/20) Physical Therapy Treatment Note PT-OP-A Visit Information Start: 08/27/20 13:41 Freq: Status: Active Protocol: Document 09/08/20 13:01 MB (Rec: 09/08/20 13:45 MB [id number]) Out-Patient Physical Therapy Visit Information Visit Information Visit Type Treatment Note Visit Note [employer] [place], $40 copay 02/28 before modifier Visit Start Time 13:01 Visit Stop Time 13:41 Total Visit Minutes 40 Visit Number 3 Precautions Precautions Fall risk, HD, some cognitive challenges PT-OP-B Current Condition Start: 08/27/20 13:41 Freq: Status: Active Protocol: Document 08/31/20 13:06 MB (Rec: 08/31/20 13:39 MB [id number]) Current Condition History of Current Condition Onset Date fall Current Complaints Falls and knee buckling History of Current Condition Pt recently finished PT for pelvic floor. She completed PT for left shoulder adhesive capsulitis last year, 04/2019, [facility]. [place] [facility] [place] was in the house more and less active. She stopped going to the grocery store, [employer] study and for walks. She had a fall in the 2019 when she trying to trim a shrub. She went to stand up and her knees buckled . She went to catch herself and the safety strips on the steps slid off. She landed on her right side and hit her right leg and mouth. She michael her jaw. She called her sister and TERI. The bumps and bruises stayed for 3 months. 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 She lives at home alone and her sister and TERI check on her, provide support and take her to appointments. She has had some medication changes that have been helpful for depression. She needed extra sleep when she was healing d/t pain. Her sleeping schedule got way off and she was sleeping during the day. Her sister now calls her at 0930 and she is up during the day. She is sleeping from 11- midnight and sleeps until 0930 . Pt did have some more falls in the house over the carpet. She did not hit her head. She slugged her elbow into the furniture. She is wearing socks in the house or shoes sometimes. She reports a stride issue. She reports three falls. She has two of her father's old walkers. She reports that her back and core feel weak. Prior Treatments and Tests PT in the past Treatment Goals Patient/Caregiver Goals To strengthen LEs and to go walking again and core exercises PT-OP-C Subjective Start: 08/27/20 13:41 Freq: Status: Active Protocol: Document 09/08/20 13:01 MB (Rec: 09/08/20 13:45 MB [id number]) OP-PT Subjective Patient Comments Patient Comments Pt states that she had a hard time in the heat but did get to go to a friend's with AC. Pt states that the pelvic realignment exercises confused her and she would like something simple. PT-OP-D Balance Start: 08/27/20 13:41 Freq: Status: Active Protocol: Document 08/31/20 13:06 MB (Rec: 08/31/20 14:38 MB [id number]) OP-PT Balance Assessment Sitting Balance Static Sitting Balance Ability Good Standing Balance Static Standing Balance Ability Good Dynamic Standing Balance Ability Fair Balance Tests Romberg Romberg EO and EC at least 30 sec and no LOB Tandem Tandem Standing Unable to get into position without LOB Teague Fall Scale Copyright Permission PT-OP-H Neuro Start: 08/27/20 13:41 Freq: Status: Active Protocol: Document 08/31/20 13:06 MB (Rec: 08/31/20 14:38 MB [id number]) Coordination Evaluation Comments Coordination Comments Pt with HD and with constant chorea in trunk and UEs PT-OP-J Posture/Palpation/Skin Start: 08/27/20 13:41 Freq: Status: Active Protocol: Document 08/31/20 13:06 MB (Rec: 08/31/20 14:38 MB [id number]) Posture Evaluation Comments Posture Comments Forward head, rounded shoulders PT-OP-K Range of Motion Start: 08/27/20 13:41 Freq: Status: Active Protocol: Document 08/31/20 13:06 MB (Rec: 08/31/20 14:38 MB [id number]) Shoulder Goniometric Range of Motion Shoulder ROM Limitations Comments AROM left shoulder flexion and abduction 5 deg less than the right PT-OP-M Strength Start: 08/27/20 13:41 Freq: Status: Active Protocol: Document 08/31/20 13:06 MB (Rec: 08/31/20 14:38 MB [id number]) Hip Strength Hip Manual Muscle Testing Left Flexion (L2) 4 Good Abduction 3 Fair Right Flexion (L2) 4 Good Abduction 3+ Fair+ Knee Strength Knee Manual Muscle Testing Left Flexion (S2) 3 Fair Extension (L3) 4 Good Right Flexion (S2) 3+ Fair+ Extension (L3) 5 Normal Ankle/Foot Strength Ankle and Foot Manual Muscle Testing Bilateral Dorsiflexion (L4) 5 Normal Toe Strength Toe Manual Muscle Testing Left Great Toe Extension 5 Normal Right Great Toe Extension 5 Normal PT-OP-Q Treatments Start: 08/27/20 13:41 Freq: Status: Active Protocol: Document 09/08/20 13:01 MB (Rec: 09/08/20 13:45 MB [id number]) Cardio Equipment Recumbent Stepper (Sci-Fit) Duration (Minutes) 10 Resistance 3 Seat Position 8 Other UE and LE support Therapeutic Exercises Sitting Exercises LAQ with AP Side bilateral Reps/Minutes Level 1 band around ankles Comments 5 reps alternating with APs Clam exercise with band around knees Side bilateral Equipment Used Level 1 band around knees Comments 10 reps slowly, glutes squeezed first Sit to stands without UE support Comments 10 reps without UE support, added to HEP PT-OP-T Assessment and Plan Start: 08/27/20 13:41 Freq: Status: Active Protocol: Document 09/08/20 13:01 MB (Rec: 09/08/20 13:45 MB [id number]) Physical Therapy Assessment Rehab Potential Rehabilitation Potential Fair Evaluation Complexity Number of Personal Factors/Comorbidities 1-2 Number of Body Systems Impaired 3 Clinical Presentation at Evaluation Evolving Impairments Impairments Activity Tolerance,Balance, Coordination,Functional Activities,Functional Mobility ,Gait,Pain,Posture,ROM, Strength Other Impairments Personal factors include pt lives at home alone, is not a morning person and has cognitive changes d/t HD. Body systems affected include neurological, cognitive, musculoskeletal and genitourinary. Her clinical presentation is evolving in setting HD. Other Concerns Fall Risk Yes Goals 5 Chcf Goal (LTG) Pt will perform progressive HEP with I to improve balance and strength by 10/31/20. LTG Duration 8 weeks 4 Chcf Goal (LTG) Pt will gait train at least 1200 feet in 6 minutes to decrease fall risk by 10/31/20. LTG Duration 8 weeks 3 Chcf Goal (LTG) Pt will perform 10 reps of controlled sit to stands without UE support in 30 sec to improve safety with transfers by 10/31/20. LTG Duration 8 weeks 2 Kosher Dietary Service Supervisor Goal (LTG) Pt will perform WNLs on a standardized balance test to decrease fall risk by 10/31/20. LTG Duration 8 weeks 1 Kosher Dietary Service Supervisor Goal (LTG) Pt will deny falls for 2 months to decrease risk of injury by 10/31/20. LTG Duration 8 weeks Assessment Summary Assessment Pelvic realignment exercises were confusing for patient and so d/cd them today. Initiated sit to stands and hip strengthening in sitting for HEP to help with strength and balance. Lots of time and repetition to review exercises and only doing a few in order to not overwhelm pt. Physical Therapy Plan Frequency and Duration Frequency of Treatment 2x/Week Duration of Treatment 8 weeks Plan of Care Start Date 08/31/20 Plan of Care End Date 11/02/20 Therapeutic Interventions Therapeutic Interventions Balance Training,Canalithic Repositioning,Coordination Training,Gait Training,Home Exercise Program,Manual Therapy,Neuromuscular Re- education,Patient/Caregiver Education,Self-Care/Home Management,Soft Tissue Mobilization,Therapeutic Activities,Therapeutic Exercises Modalities Cold Pack/Ice Massage,Hot Packs Next Visit Focus/Plan Next Note Type Treatment Note Next Visit Plan Core progression and then over pool noodle, hip abduction and bridging with band in hook lying, wall squat, balance exercise, formal balance assessment testing
--- NOTE | 2020-09-10 13:39 | PT.OTN ---
Current Diagnoses Unspecified abnormalities of gait and mobility (09/10/20) Physical Therapy Treatment Note PT-OP-A Visit Information Start: 08/27/20 13:41 Freq: Status: Active Protocol: Document 09/10/20 12:57 MB (Rec: 09/10/20 13:37 MB [id number]) Out-Patient Physical Therapy Visit Information Visit Information Visit Type Treatment Note Visit Note [employer] [place], [place] cop[place] before modifier Visit Start Time 12:57 Visit Stop Time 13:38 Total Visit Minutes 41 Visit Number 4 Precautions Precautions Fall risk, HD, some cognitive challenges PT-OP-B Current Condition Start: 08/27/20 13:41 Freq: Status: Active Protocol: Document 08/31/20 13:06 MB (Rec: 08/31/20 13:39 MB [id number]) Current Condition History of Current Condition Onset Date fall Current Complaints Falls and knee buckling History of Current Condition Pt recently finished PT for pelvic floor. She completed PT for left shoulder adhesive capsulitis last year, 04/2019, before [facility]. [place] [facility] [place] was in the house more and less active. She stopped going to the grocery store, [employer] study and for walks. She had a fall in the 2019 when she trying to trim a shrub. She went to stand up and her knees buckled . She went to catch herself and the safety strips on the steps slid off. She landed on her right side and hit her right leg and mouth. She michael her jaw. She called her sister and TERI. The bumps and bruises stayed for 3 months. 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 She lives at home alone and her sister and TERI check on her, provide support and take her to appointments. She has had some medication changes that have been helpful for depression. She needed extra sleep when she was healing d/t pain. Her sleeping schedule got way off and she was sleeping during the day. Her sister now calls her at 0930 and she is up during the day. She is sleeping from 11- midnight and sleeps until 0930 . Pt did have some more falls in the house over the carpet. She did not hit her head. She slugged her elbow into the furniture. She is wearing socks in the house or shoes sometimes. She reports a stride issue. She reports three falls. She has two of her father's old walkers. She reports that her back and core feel weak. Prior Treatments and Tests PT in the past Treatment Goals Patient/Caregiver Goals To strengthen LEs and to go walking again and core exercises PT-OP-C Subjective Start: 08/27/20 13:41 Freq: Status: Active Protocol: Document 09/10/20 12:57 MB (Rec: 09/10/20 13:37 MB [id number]) OP-PT Subjective Patient Comments Patient Comments Pt states that she had a miraculous day yesterday. She was able to out into the garden with her good friend and work harder. PT-OP-D Balance Start: 08/27/20 13:41 Freq: Status: Active Protocol: Document 08/31/20 13:06 MB (Rec: 08/31/20 14:38 MB [id number]) OP-PT Balance Assessment Sitting Balance Static Sitting Balance Ability Good Standing Balance Static Standing Balance Ability Good Dynamic Standing Balance Ability Fair Balance Tests Romberg Romberg EO and EC at least 30 sec and no LOB Tandem Tandem Standing Unable to get into position without LOB Teague Fall Scale Copyright Permission PT-OP-H Neuro Start: 08/27/20 13:41 Freq: Status: Active Protocol: Document 08/31/20 13:06 MB (Rec: 08/31/20 14:38 MB [id number]) Coordination Evaluation Comments Coordination Comments Pt with HD and with constant chorea in trunk and UEs PT-OP-J Posture/Palpation/Skin Start: 08/27/20 13:41 Freq: Status: Active Protocol: Document 08/31/20 13:06 MB (Rec: 08/31/20 14:38 MB [id number]) Posture Evaluation Comments Posture Comments Forward head, rounded shoulders PT-OP-K Range of Motion Start: 08/27/20 13:41 Freq: Status: Active Protocol: Document 08/31/20 13:06 MB (Rec: 08/31/20 14:38 MB [id number]) Shoulder Goniometric Range of Motion Shoulder ROM Limitations Comments AROM left shoulder flexion and abduction 5 deg less than the right PT-OP-M Strength Start: 08/27/20 13:41 Freq: Status: Active Protocol: Document 08/31/20 13:06 MB (Rec: 08/31/20 14:38 MB [id number]) Hip Strength Hip Manual Muscle Testing Left Flexion (L2) 4 Good Abduction 3 Fair Right Flexion (L2) 4 Good Abduction 3+ Fair+ Knee Strength Knee Manual Muscle Testing Left Flexion (S2) 3 Fair Extension (L3) 4 Good Right Flexion (S2) 3+ Fair+ Extension (L3) 5 Normal Ankle/Foot Strength Ankle and Foot Manual Muscle Testing Bilateral Dorsiflexion (L4) 5 Normal Toe Strength Toe Manual Muscle Testing Left Great Toe Extension 5 Normal Right Great Toe Extension 5 Normal PT-OP-Q Treatments Start: 08/27/20 13:41 Freq: Status: Active Protocol: Document 09/10/20 12:57 MB (Rec: 09/10/20 13:37 MB [id number]) Cardio Equipment Recumbent Bicycle Duration (Minutes) 10 Resistance 9 Seat Position Closest setting Therapeutic Exercises Supine Exercises Core progression Supine Exercise Name Abdominal drawing in, lumbar rotation, HS, mini march, knee fall out Side bilateral Comments 10 reps all exercises PT-OP-T Assessment and Plan Start: 08/27/20 13:41 Freq: Status: Active Protocol: Document 09/10/20 12:57 MB (Rec: 09/10/20 13:37 MB [id number]) Physical Therapy Assessment Rehab Potential Rehabilitation Potential Fair Evaluation Complexity Number of Personal Factors/Comorbidities 1-2 Number of Body Systems Impaired 3 Clinical Presentation at Evaluation Evolving Impairments Impairments Activity Tolerance,Balance, Coordination,Functional Activities,Functional Mobility ,Gait,Pain,Posture,ROM, Strength Other Impairments Personal factors include pt lives at home alone, is not a morning person and has cognitive changes d/t HD. Body systems affected include neurological, cognitive, musculoskeletal and genitourinary. Her clinical presentation is evolving in setting HD. Other Concerns Fall Risk Yes Goals 5 Employment Law Attorney Goal (LTG) Pt will perform progressive HEP with I to improve balance and strength by 10/31/20. LTG Duration 8 weeks 4 Longterm Goal (LTG) Pt will gait train at least 1200 feet in 6 minutes to decrease fall risk by 10/31/20. LTG Duration 8 weeks 3 Longterm Goal (LTG) Pt will perform 10 reps of controlled sit to stands without UE support in 30 sec to improve safety with transfers by 10/31/20. LTG Duration 8 weeks 2 Employment Law Attorney Goal (LTG) Pt will perform WNLs on a standardized balance test to decrease fall risk by 10/31/20. LTG Duration 8 weeks 1 Employment Law Attorney Goal (LTG) Pt will deny falls for 2 months to decrease risk of injury by 10/31/20. LTG Duration 8 weeks Assessment Summary Assessment Progressed core exercises today and pt tolerates well. PT provides encouragement and pt practices. D/cd idea of working over pool noodle as pt states that staying on it is difficult d/t chorea. Physical Therapy Plan Frequency and Duration Frequency of Treatment 2x/Week Duration of Treatment 8 weeks Plan of Care Start Date 08/31/20 Plan of Care End Date 11/02/20 Therapeutic Interventions Therapeutic Interventions Balance Training,Canalithic Repositioning,Coordination Training,Gait Training,Home Exercise Program,Manual Therapy,Neuromuscular Re- education,Patient/Caregiver Education,Self-Care/Home Management,Soft Tissue Mobilization,Therapeutic Activities,Therapeutic Exercises Modalities Cold Pack/Ice Massage,Hot Packs Next Visit Focus/Plan Next Note Type Treatment Note Next Visit Plan Hip abduction and bridging with band in hook lying, wall squat, balance exercise, formal balance assessment testing
--- NOTE | 2020-09-18 09:04 | PT.OTN ---
Current Diagnoses Unspecified abnormalities of gait and mobility (09/18/20) Physical Therapy Treatment Note PT-OP-A Visit Information Start: 08/27/20 13:41 Freq: Status: Active Protocol: Document 09/18/20 08:15 MB (Rec: 09/18/20 09:03 MB [id number]) Out-Patient Physical Therapy Visit Information Visit Information Visit Type Treatment Note Visit Note [employer] [place], [place] copay before modifier Visit Start Time 08:15 Visit Stop Time 08:57 Total Visit Minutes 42 Visit Number 5 Precautions Precautions Fall risk, HD, some cognitive challenges PT-OP-B Current Condition Start: 08/27/20 13:41 Freq: Status: Active Protocol: Document 08/31/20 13:06 MB (Rec: 08/31/20 13:39 MB [id number]) Current Condition History of Current Condition Onset Date fall Current Complaints Falls and knee buckling History of Current Condition Pt recently finished PT for pelvic floor. She completed PT for left shoulder adhesive capsulitis last year, 04/2019, before [facility]. [place] [facility] [place] [facility] [place] was in the house more and less active. She stopped going to the grocery store, [employer] study and for walks. She had a fall in the 2019 when she trying to trim a shrub. She went to stand up and her knees buckled . She went to catch herself and the safety strips on the steps slid off. She landed on her right side and hit her right leg and mouth. She michael her jaw. She called her sister and TERI. The bumps and bruises stayed for 3 months. 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 She lives at home alone and her sister and TERI check on her, provide support and take her to appointments. She has had some medication changes that have been helpful for depression. She needed extra sleep when she was healing d/t pain. Her sleeping schedule got way off and she was sleeping during the day. Her sister now calls her at 0930 and she is up during the day. She is sleeping from 11- midnight and sleeps until 0930 . Pt did have some more falls in the house over the carpet. She did not hit her head. She slugged her elbow into the furniture. She is wearing socks in the house or shoes sometimes. She reports a stride issue. She reports three falls. She has two of her father's old walkers. She reports that her back and core feel weak. Prior Treatments and Tests PT in the past Treatment Goals Patient/Caregiver Goals To strengthen LEs and to go walking again and core exercises PT-OP-C Subjective Start: 08/27/20 13:41 Freq: Status: Active Protocol: Document 09/18/20 08:15 MB (Rec: 09/18/20 09:03 MB [id number]) OP-PT Subjective Patient Comments Patient Comments Pt brings in her orange theraband and asks if it needs to be longer. PT-OP-D Balance Start: 08/27/20 13:41 Freq: Status: Active Protocol: Document 08/31/20 13:06 MB (Rec: 08/31/20 14:38 MB [id number]) OP-PT Balance Assessment Sitting Balance Static Sitting Balance Ability Good Standing Balance Static Standing Balance Ability Good Dynamic Standing Balance Ability Fair Balance Tests Romberg Romberg EO and EC at least 30 sec and no LOB Tandem Tandem Standing Unable to get into position without LOB Teague Fall Scale Copyright Permission PT-OP-H Neuro Start: 08/27/20 13:41 Freq: Status: Active Protocol: Document 08/31/20 13:06 MB (Rec: 08/31/20 14:38 MB [id number]) Coordination Evaluation Comments Coordination Comments Pt with HD and with constant chorea in trunk and UEs PT-OP-J Posture/Palpation/Skin Start: 08/27/20 13:41 Freq: Status: Active Protocol: Document 08/31/20 13:06 MB (Rec: 08/31/20 14:38 MB [id number]) Posture Evaluation Comments Posture Comments Forward head, rounded shoulders PT-OP-K Range of Motion Start: 08/27/20 13:41 Freq: Status: Active Protocol: Document 08/31/20 13:06 MB (Rec: 08/31/20 14:38 MB [id number]) Shoulder Goniometric Range of Motion Shoulder ROM Limitations Comments AROM left shoulder flexion and abduction 5 deg less than the right PT-OP-M Strength Start: 08/27/20 13:41 Freq: Status: Active Protocol: Document 08/31/20 13:06 MB (Rec: 08/31/20 14:38 MB [id number]) Hip Strength Hip Manual Muscle Testing Left Flexion (L2) 4 Good Abduction 3 Fair Right Flexion (L2) 4 Good Abduction 3+ Fair+ Knee Strength Knee Manual Muscle Testing Left Flexion (S2) 3 Fair Extension (L3) 4 Good Right Flexion (S2) 3+ Fair+ Extension (L3) 5 Normal Ankle/Foot Strength Ankle and Foot Manual Muscle Testing Bilateral Dorsiflexion (L4) 5 Normal Toe Strength Toe Manual Muscle Testing Left Great Toe Extension 5 Normal Right Great Toe Extension 5 Normal PT-OP-Q Treatments Start: 08/27/20 13:41 Freq: Status: Active Protocol: Document 09/18/20 08:15 MB (Rec: 09/18/20 09:03 MB [id number]) Cardio Equipment Recumbent Stepper (Sci-Fit) Duration (Minutes) 10 Resistance 4 Seat Position 6 Other UE and LE support Therapeutic Exercises Sitting Exercises LAQ with AP Side bilateral Reps/Minutes Stonewall band around ankles Comments 10 reps alternating with APs Clam exercise with band around knees Side bilateral Equipment Used Stonewall band around knees Comments 10 reps slowly, glutes squeezed first Sit to stands without UE support Comments 15 reps without UE support Standing Exercises Standing wall slide Standing Exercise Name Stonewall band around knees Comments 5 reps slowly, core engaged, count slowly into flexion and extension PT-OP-T Assessment and Plan Start: 08/27/20 13:41 Freq: Status: Active Protocol: Document 09/18/20 08:15 MB (Rec: 09/18/20 09:03 MB [id number]) Physical Therapy Assessment Rehab Potential Rehabilitation Potential Fair Evaluation Complexity Number of Personal Factors/Comorbidities 1-2 Number of Body Systems Impaired 3 Clinical Presentation at Evaluation Evolving Impairments Impairments Activity Tolerance,Balance, Coordination,Functional Activities,Functional Mobility ,Gait,Pain,Posture,ROM, Strength Other Impairments Personal factors include pt lives at home alone, is not a morning person and has cognitive changes d/t HD. Body systems affected include neurological, cognitive, musculoskeletal and genitourinary. Her clinical presentation is evolving in setting HD. Other Concerns Fall Risk Yes Goals 5 Tie Up Worker Goal (LTG) Pt will perform progressive HEP with I to improve balance and strength by 10/31/20. LTG Duration 8 weeks 4 Fpc Goal (LTG) Pt will gait train at least 1200 feet in 6 minutes to decrease fall risk by 10/31/20. LTG Duration 8 weeks 3 Tie Up Worker Goal (LTG) Pt will perform 10 reps of controlled sit to stands without UE support in 30 sec to improve safety with transfers by 10/31/20. LTG Duration 8 weeks 2 Tie Up Worker Goal (LTG) Pt will perform WNLs on a standardized balance test to decrease fall risk by 10/31/20. LTG Duration 8 weeks 1 Tie Up Worker Goal (LTG) Pt will deny falls for 2 months to decrease risk of injury by 10/31/20. LTG Duration 8 weeks Assessment Summary Assessment Reviewed band exercises today as pt was concerned about band width. She performs well with cues and increased time. She might like to add wall slides to exercises in the future. Physical Therapy Plan Frequency and Duration Frequency of Treatment 2x/Week Duration of Treatment 8 weeks Plan of Care Start Date 08/31/20 Plan of Care End Date 11/02/20 Therapeutic Interventions Therapeutic Interventions Balance Training,Canalithic Repositioning,Coordination Training,Gait Training,Home Exercise Program,Manual Therapy,Neuromuscular Re- education,Patient/Caregiver Education,Self-Care/Home Management,Soft Tissue Mobilization,Therapeutic Activities,Therapeutic Exercises Modalities Cold Pack/Ice Massage,Hot Packs Next Visit Focus/Plan Next Note Type Treatment Note Next Visit Plan Hip abduction and bridging with band in hook lying, wall squat, balance exercise, formal balance assessment testing
--- NOTE | 2020-09-25 09:00 | PT.OTN ---
Current Diagnoses Unspecified abnormalities of gait and mobility (09/25/20) Physical Therapy Treatment Note PT-OP-A Visit Information Start: 08/27/20 13:41 Freq: Status: Active Protocol: Document 09/25/20 08:18 MB (Rec: 09/25/20 09:00 MB [id number]) Out-Patient Physical Therapy Visit Information Visit Information Visit Type Treatment Note Visit Note [employer] [place], $40 copay before modifier Visit Start Time 08:18 Visit Stop Time 09:00 Total Visit Minutes 42 Visit Number 6 Precautions Precautions Fall risk, HD, some cognitive challenges PT-OP-B Current Condition Start: 08/27/20 13:41 Freq: Status: Active Protocol: Document 08/31/20 13:06 MB (Rec: 08/31/20 13:39 MB [id number]) Current Condition History of Current Condition Onset Date fall Current Complaints Falls and knee buckling History of Current Condition Pt recently finished PT for pelvic floor. She completed PT for left shoulder adhesive capsulitis last year, 04/2019, before [facility]. Since [facility], she was in the house more and less active. She stopped going to the grocery store, [employer] study and for walks. She had a fall in the 2019 when she trying to trim a shrub. She went to stand up and her knees buckled . She went to catch herself and the safety strips on the steps slid off. She landed on her right side and hit her right leg and mouth. She michael her jaw. She called her sister and TERI. The bumps and bruises stayed for 3 months. 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 She lives at home alone and her sister and TERI check on her, provide support and take her to appointments. She has had some medication changes that have been helpful for depression. She needed extra sleep when she was healing d/t pain. Her sleeping schedule got way off and she was sleeping during the day. Her sister now calls her at 0930 and she is up during the day. She is sleeping from 11- midnight and sleeps until 0930 . Pt did have some more falls in the house over the carpet. She did not hit her head. She slugged her elbow into the furniture. She is wearing socks in the house or shoes sometimes. She reports a stride issue. She reports three falls. She has two of her father's old walkers. She reports that her back and core feel weak. Prior Treatments and Tests PT in the past Treatment Goals Patient/Caregiver Goals To strengthen LEs and to go walking again and core exercises PT-OP-C Subjective Start: 08/27/20 13:41 Freq: Status: Active Protocol: Document 09/25/20 08:18 MB (Rec: 09/25/20 09:00 MB [id number]) OP-PT Subjective Patient Comments Patient Comments Pt states that she slept a lot yesterday. She is having a hard time with her son right now and this is causing some distress. PT-OP-D Balance Start: 08/27/20 13:41 Freq: Status: Active Protocol: Document 08/31/20 13:06 MB (Rec: 08/31/20 14:38 MB [id number]) OP-PT Balance Assessment Sitting Balance Static Sitting Balance Ability Good Standing Balance Static Standing Balance Ability Good Dynamic Standing Balance Ability Fair Balance Tests Romberg Romberg EO and EC at least 30 sec and no LOB Tandem Tandem Standing Unable to get into position without LOB Teague Fall Scale Copyright Permission PT-OP-H Neuro Start: 08/27/20 13:41 Freq: Status: Active Protocol: Document 08/31/20 13:06 MB (Rec: 08/31/20 14:38 MB [id number]) Coordination Evaluation Comments Coordination Comments Pt with HD and with constant chorea in trunk and UEs PT-OP-J Posture/Palpation/Skin Start: 08/27/20 13:41 Freq: Status: Active Protocol: Document 08/31/20 13:06 MB (Rec: 08/31/20 14:38 MB [id number]) Posture Evaluation Comments Posture Comments Forward head, rounded shoulders PT-OP-K Range of Motion Start: 08/27/20 13:41 Freq: Status: Active Protocol: Document 08/31/20 13:06 MB (Rec: 08/31/20 14:38 MB [id number]) Shoulder Goniometric Range of Motion Shoulder ROM Limitations Comments AROM left shoulder flexion and abduction 5 deg less than the right PT-OP-M Strength Start: 08/27/20 13:41 Freq: Status: Active Protocol: Document 08/31/20 13:06 MB (Rec: 08/31/20 14:38 MB [id number]) Hip Strength Hip Manual Muscle Testing Left Flexion (L2) 4 Good Abduction 3 Fair Right Flexion (L2) 4 Good Abduction 3+ Fair+ Knee Strength Knee Manual Muscle Testing Left Flexion (S2) 3 Fair Extension (L3) 4 Good Right Flexion (S2) 3+ Fair+ Extension (L3) 5 Normal Ankle/Foot Strength Ankle and Foot Manual Muscle Testing Bilateral Dorsiflexion (L4) 5 Normal Toe Strength Toe Manual Muscle Testing Left Great Toe Extension 5 Normal Right Great Toe Extension 5 Normal PT-OP-Q Treatments Start: 08/27/20 13:41 Freq: Status: Active Protocol: Document 09/25/20 08:18 MB (Rec: 09/25/20 09:00 MB [id number]) Cardio Equipment Recumbent Stepper (Sci-Fit) Duration (Minutes) 11 Resistance 4 Seat Position 6 Other UE and LE support Therapeutic Exercises Supine Exercises Core progression Comments Verbally reviewed today Sitting Exercises LAQ with AP Comments Verbally reviewed today Clam exercise with band around knees Comments Verbally reviewed today Sit to stands without UE support Comments Pt performs sit to stand well today without UE support throughout treatment Standing Exercises Standing wall slide Standing Exercise Name [place] band around knees Comments 10 reps slowly, core engaged, count slowly into flexion and extension PT-OP-T Assessment and Plan Start: 08/27/20 13:41 Freq: Status: Active Protocol: Document 09/25/20 08:18 MB (Rec: 09/25/20 09:00 MB [id number]) Physical Therapy Assessment Rehab Potential Rehabilitation Potential Fair Evaluation Complexity Number of Personal Factors/Comorbidities 1-2 Number of Body Systems Impaired 3 Clinical Presentation at Evaluation Evolving Impairments Impairments Activity Tolerance,Balance, Coordination,Functional Activities,Functional Mobility ,Gait,Pain,Posture,ROM, Strength Other Impairments Personal factors include pt lives at home alone, is not a morning person and has cognitive changes d/t HD. Body systems affected include neurological, cognitive, musculoskeletal and genitourinary. Her clinical presentation is evolving in setting HD. Other Concerns Fall Risk Yes Goals 5 Shelter Goal (LTG) Pt will perform progressive HEP with I to improve balance and strength by 10/31/20. LTG Duration 8 weeks 4 [employer] Goal (LTG) Pt will gait train at least 1200 feet in 6 minutes to decrease fall risk by 10/31/20. LTG Duration 8 weeks 3 Shelter Goal (LTG) Pt will perform 10 reps of controlled sit to stands without UE support in 30 sec to improve safety with transfers by 10/31/20. LTG Duration 8 weeks 2 Shelter Goal (LTG) Pt will perform WNLs on a standardized balance test to decrease fall risk by 10/31/20. LTG Duration 8 weeks 1 [employer] Goal (LTG) Pt will deny falls for 2 months to decrease risk of injury by 10/31/20. LTG Duration 8 weeks Assessment Summary Assessment Added wall squat to HEP today and pt to perform 3x/wk. Pt with increased concern about son and this has impacted sleep. Provided encouragement today. Physical Therapy Plan Frequency and Duration Frequency of Treatment 2x/Week Duration of Treatment 8 weeks Plan of Care Start Date 08/31/20 Plan of Care End Date 11/02/20 Therapeutic Interventions Therapeutic Interventions Balance Training,Canalithic Repositioning,Coordination Training,Gait Training,Home Exercise Program,Manual Therapy,Neuromuscular Re- education,Patient/Caregiver Education,Self-Care/Home Management,Soft Tissue Mobilization,Therapeutic Activities,Therapeutic Exercises Modalities Cold Pack/Ice Massage,Hot Packs Next Visit Focus/Plan Next Note Type Treatment Note Next Visit Plan Hip abduction and bridging with band in hook lying, balance exercise, formal balance assessment testing
--- NOTE | 2020-10-01 11:23 | PT.OTN ---
Current Diagnoses Unspecified abnormalities of gait and mobility (10/01/20) Physical Therapy Treatment Note PT-OP-A Visit Information Start: 08/27/20 13:41 Freq: Status: Active Protocol: Document 10/01/20 10:31 MB (Rec: 10/01/20 11:23 MB [id number]) Out-Patient Physical Therapy Visit Information Visit Information Visit Type Treatment Note Visit Note [employer] [place], $[place] copay before modifier Visit Start Time 10:31 Visit Stop Time 11:15 Total Visit Minutes 44 Visit Number 7 Precautions Precautions Fall risk, HD, some cognitive challenges PT-OP-B Current Condition Start: 08/27/20 13:41 Freq: Status: Active Protocol: Document 08/31/20 13:06 MB (Rec: 08/31/20 13:39 MB [id number]) Current Condition History of Current Condition Onset Date fall Current Complaints Falls and knee buckling History of Current Condition Pt recently finished PT for pelvic floor. She completed PT for left shoulder adhesive capsulitis last year, 04/2019, before [facility]. Since [facility], she was in the house more and less active. She stopped going to the grocery store, [employer] study and for walks. She had a fall in the 2019 when she trying to trim a shrub. She went to stand up and her knees buckled . She went to catch herself and the safety strips on the steps slid off. She landed on her right side and hit her right leg and mouth. She michael her jaw. She called her sister and TERI. The bumps and bruises stayed for 3 months. 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 She lives at home alone and her sister and TERI check on her, provide support and take her to appointments. She has had some medication changes that have been helpful for depression. She needed extra sleep when she was healing d/t pain. Her sleeping schedule got way off and she was sleeping during the day. Her sister now calls her at 0930 and she is up during the day. She is sleeping from 11- midnight and sleeps until 0930 . Pt did have some more falls in the house over the carpet. She did not hit her head. She slugged her elbow into the furniture. She is wearing socks in the house or shoes sometimes. She reports a stride issue. She reports three falls. She has two of her father's old walkers. She reports that her back and core feel weak. Prior Treatments and Tests PT in the past Treatment Goals Patient/Caregiver Goals To strengthen LEs and to go walking again and core exercises PT-OP-C Subjective Start: 08/27/20 13:41 Freq: Status: Active Protocol: Document 10/01/20 10:31 MB (Rec: 10/01/20 11:23 MB [id number]) OP-PT Subjective Patient Comments Patient Comments Pt states that her son is visiting. PT-OP-D Balance Start: 08/27/20 13:41 Freq: Status: Active Protocol: Document 08/31/20 13:06 MB (Rec: 08/31/20 14:38 MB [id number]) OP-PT Balance Assessment Sitting Balance Static Sitting Balance Ability Good Standing Balance Static Standing Balance Ability Good Dynamic Standing Balance Ability Fair Balance Tests Romberg Romberg EO and EC at least 30 sec and no LOB Tandem Tandem Standing Unable to get into position without LOB Teague Fall Scale Copyright Permission PT-OP-H Neuro Start: 08/27/20 13:41 Freq: Status: Active Protocol: Document 08/31/20 13:06 MB (Rec: 08/31/20 14:38 MB [id number]) Coordination Evaluation Comments Coordination Comments Pt with HD and with constant chorea in trunk and UEs PT-OP-J Posture/Palpation/Skin Start: 08/27/20 13:41 Freq: Status: Active Protocol: Document 08/31/20 13:06 MB (Rec: 08/31/20 14:38 MB [id number]) Posture Evaluation Comments Posture Comments Forward head, rounded shoulders PT-OP-K Range of Motion Start: 08/27/20 13:41 Freq: Status: Active Protocol: Document 08/31/20 13:06 MB (Rec: 08/31/20 14:38 MB [id number]) Shoulder Goniometric Range of Motion Shoulder ROM Limitations Comments AROM left shoulder flexion and abduction 5 deg less than the right PT-OP-M Strength Start: 08/27/20 13:41 Freq: Status: Active Protocol: Document 08/31/20 13:06 MB (Rec: 08/31/20 14:38 MB [id number]) Hip Strength Hip Manual Muscle Testing Left Flexion (L2) 4 Good Abduction 3 Fair Right Flexion (L2) 4 Good Abduction 3+ Fair+ Knee Strength Knee Manual Muscle Testing Left Flexion (S2) 3 Fair Extension (L3) 4 Good Right Flexion (S2) 3+ Fair+ Extension (L3) 5 Normal Ankle/Foot Strength Ankle and Foot Manual Muscle Testing Bilateral Dorsiflexion (L4) 5 Normal Toe Strength Toe Manual Muscle Testing Left Great Toe Extension 5 Normal Right Great Toe Extension 5 Normal PT-OP-Q Treatments Start: 08/27/20 13:41 Freq: Status: Active Protocol: Document 10/01/20 10:31 MB (Rec: 10/01/20 11:23 MB [id number]) Cardio Equipment Recumbent Stepper (Sci-Fit) Duration (Minutes) 12 Resistance 4 Seat Position 5 Other UEs and LEs Gait Training Gait Activity Outdoor walking Comments Sidewalk, grass on incline and 4 steps with 1-2 rails ascend and descend. Most noticeable difference is that pt is distracted outside and stops tasks and has decreased carryover with PT cues not to step onto pavement (cars coming around the corner near steps). CGA to superv assist for ascend and descend steps with 1 rail on the right both directions or both rails--she performs reciprocal gait well. CGA with walking on incline grass, squeezing between bushes and pole for challenge, chorea movements large in arms, mask off so that she can scan the ground, slow gait Neuro Re-Education Treatment Balance Activities FGA Comments Pt has chorea at all times that is more pronounced with concentrated tasks like tandem , preparing for gait speed, direction and eyes opened and closed. Overall, FGA testing reveals a neurological impairment with the chorea without ataxia or stumbling. Backwards walking and walking with eyes closed are most worrisome to pt--work on backwards walking in future PT sessions. Score is 13/30 PT-OP-T Assessment and Plan Start: 08/27/20 13:41 Freq: Status: Active Protocol: Document 10/01/20 10:31 MB (Rec: 10/01/20 11:23 MB [id number]) Physical Therapy Assessment Rehab Potential Rehabilitation Potential Fair Evaluation Complexity Number of Personal Factors/Comorbidities 1-2 Number of Body Systems Impaired 3 Clinical Presentation at Evaluation Evolving Impairments Impairments Activity Tolerance,Balance, Coordination,Functional Activities,Functional Mobility ,Gait,Pain,Posture,ROM, Strength Other Impairments Personal factors include pt lives at home alone, is not a morning person and has cognitive changes d/t HD. Body systems affected include neurological, cognitive, musculoskeletal and genitourinary. Her clinical presentation is evolving in setting HD. Other Concerns Fall Risk Yes Goals 5 Halfway Goal (LTG) Pt will perform progressive HEP with I to improve balance and strength by 10/31/20. LTG Duration 8 weeks 4 Halfway Goal (LTG) Pt will gait train at least 1200 feet in 6 minutes to decrease fall risk by 10/31/20. LTG Duration 8 weeks 3 [employer]illofacial Prosthetics Dentist Goal (LTG) Pt will perform 10 reps of controlled sit to stands without UE support in 30 sec to improve safety with transfers by 10/31/20. LTG Duration 8 weeks 2 Halfway Goal (LTG) Pt will perform WNLs on a standardized balance test to decrease fall risk by 10/31/20. LTG Duration 8 weeks 1 Maxillofacial Prosthetics Dentist Goal (LTG) Pt will deny falls for 2 months to decrease risk of injury by 10/31/20. LTG Duration 8 weeks Assessment Summary Assessment Progressed formal balance testing today. See comments and con't to work on outdoor walking, speed, backwards walking in the clinic with wall beside for tactile support. Physical Therapy Plan Frequency and Duration Frequency of Treatment 2x/Week Duration of Treatment 8 weeks Plan of Care Start Date 08/31/20 Plan of Care End Date 11/02/20 Therapeutic Interventions Therapeutic Interventions Balance Training,Canalithic Repositioning,Coordination Training,Gait Training,Home Exercise Program,Manual Therapy,Neuromuscular Re- education,Patient/Caregiver Education,Self-Care/Home Management,Soft Tissue Mobilization,Therapeutic Activities,Therapeutic Exercises Modalities Cold Pack/Ice Massage,Hot Packs Next Visit Focus/Plan Next Note Type Treatment Note Next Visit Plan Hip abduction and bridging with band in hook lying, balance progression
--- NOTE | 2020-10-07 09:48 | PT.OTN ---
Current Diagnoses Unspecified abnormalities of gait and mobility (10/07/20) Physical Therapy Treatment Note PT-OP-A Visit Information Start: 08/27/20 13:41 Freq: Status: Active Protocol: Document 10/07/20 09:02 MB (Rec: 10/07/20 09:28 MB [id number]) Out-Patient Physical Therapy Visit Information Visit Information Visit Type Treatment Note Visit Note [employer] [place], $40 copay before modifier Visit Start Time 09:02 Visit Stop Time 09:45 Total Visit Minutes 43 Visit Number 8 Precautions Precautions Fall risk, HD, some cognitive challenges PT-OP-B Current Condition Start: 08/27/20 13:41 Freq: Status: Active Protocol: Document 08/31/20 13:06 MB (Rec: 08/31/20 13:39 MB [id number]) Current Condition History of Current Condition Onset Date fall Current Complaints Falls and knee buckling History of Current Condition Pt recently finished PT for pelvic floor. She completed PT for left shoulder adhesive capsulitis last year, 04/2019, before [facility]. Since [facility], she was in the house more and less active. She stopped going to the grocery store, [employer] study and for walks. She had a fall in the 2019 when she trying to trim a shrub. She went to stand up and her knees buckled . She went to catch herself and the safety strips on the steps slid off. She landed on her right side and hit her right leg and mouth. She michael her jaw. She called her sister and TERI. The bumps and bruises stayed for 3 months. 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 She lives at home alone and her sister and TERI check on her, provide support and take her to appointments. She has had some medication changes that have been helpful for depression. She needed extra sleep when she was healing d/t pain. Her sleeping schedule got way off and she was sleeping during the day. Her sister now calls her at 0930 and she is up during the day. She is sleeping from 11- midnight and sleeps until 0930 . Pt did have some more falls in the house over the carpet. She did not hit her head. She slugged her elbow into the furniture. She is wearing socks in the house or shoes sometimes. She reports a stride issue. She reports three falls. She has two of her father's old walkers. She reports that her back and core feel weak. Prior Treatments and Tests PT in the past Treatment Goals Patient/Caregiver Goals To strengthen LEs and to go walking again and core exercises PT-OP-C Subjective Start: 08/27/20 13:41 Freq: Status: Active Protocol: Document 10/07/20 09:02 MB (Rec: 10/07/20 09:28 MB [id number]) OP-PT Subjective Patient Comments Patient Comments Pt states that the wall slide exercise really gets her chorea going. Pt and PT agree to d/c this one. PT-OP-D Balance Start: 08/27/20 13:41 Freq: Status: Active Protocol: Document 08/31/20 13:06 MB (Rec: 08/31/20 14:38 MB [id number]) OP-PT Balance Assessment Sitting Balance Static Sitting Balance Ability Good Standing Balance Static Standing Balance Ability Good Dynamic Standing Balance Ability Fair Balance Tests Romberg Romberg EO and EC at least 30 sec and no LOB Tandem Tandem Standing Unable to get into position without LOB Teague Fall Scale Copyright Permission PT-OP-H Neuro Start: 08/27/20 13:41 Freq: Status: Active Protocol: Document 08/31/20 13:06 MB (Rec: 08/31/20 14:38 MB [id number]) Coordination Evaluation Comments Coordination Comments Pt with HD and with constant chorea in trunk and UEs PT-OP-J Posture/Palpation/Skin Start: 08/27/20 13:41 Freq: Status: Active Protocol: Document 08/31/20 13:06 MB (Rec: 08/31/20 14:38 MB [id number]) Posture Evaluation Comments Posture Comments Forward head, rounded shoulders PT-OP-K Range of Motion Start: 08/27/20 13:41 Freq: Status: Active Protocol: Document 08/31/20 13:06 MB (Rec: 08/31/20 14:38 MB [id number]) Shoulder Goniometric Range of Motion Shoulder ROM Limitations Comments AROM left shoulder flexion and abduction 5 deg less than the right PT-OP-M Strength Start: 08/27/20 13:41 Freq: Status: Active Protocol: Document 08/31/20 13:06 MB (Rec: 08/31/20 14:38 MB [id number]) Hip Strength Hip Manual Muscle Testing Left Flexion (L2) 4 Good Abduction 3 Fair Right Flexion (L2) 4 Good Abduction 3+ Fair+ Knee Strength Knee Manual Muscle Testing Left Flexion (S2) 3 Fair Extension (L3) 4 Good Right Flexion (S2) 3+ Fair+ Extension (L3) 5 Normal Ankle/Foot Strength Ankle and Foot Manual Muscle Testing Bilateral Dorsiflexion (L4) 5 Normal Toe Strength Toe Manual Muscle Testing Left Great Toe Extension 5 Normal Right Great Toe Extension 5 Normal PT-OP-Q Treatments Start: 08/27/20 13:41 Freq: Status: Active Protocol: Document 10/07/20 09:02 MB (Rec: 10/07/20 09:28 MB [id number]) Cardio Equipment Recumbent Stepper (Sci-Fit) Duration (Minutes) 10 Resistance 4 Other UEs and LEs Therapeutic Exercises Standing Exercises Standing wall slide Comments Pt states that exercise increases chorea, will d/c Gait Training Gait Activity Inside steps Comments Several reps of steps ascend descend both shorter and standard steps with holding rail with right and then then left, always picking one side as she has one rail at home and steps are split with one set with rail on one side and one set with rail on the other side--cues to not reach for both rails in clinic and to control descent of last step as she tends to step quickly away, controlling balance-- superv and cues Neuro Re-Education Treatment Balance Activities Outdoor balance tasks Comments CGA to superv for walking on incline on grass outside clinic--pt walking around objects, up and down steps x2 with 1 rail and then two steps without a rail x2, picking up cones x2 and putting down cones x1 PT-OP-T Assessment and Plan Start: 08/27/20 13:41 Freq: Status: Active Protocol: Document 10/07/20 09:02 MB (Rec: 10/07/20 09:28 MB [id number]) Physical Therapy Assessment Rehab Potential Rehabilitation Potential Fair Evaluation Complexity Number of Personal Factors/Comorbidities 1-2 Number of Body Systems Impaired 3 Clinical Presentation at Evaluation Evolving Impairments Impairments Activity Tolerance,Balance, Coordination,Functional Activities,Functional Mobility ,Gait,Pain,Posture,ROM, Strength Other Impairments Personal factors include pt lives at home alone, is not a morning person and has cognitive changes d/t HD. Body systems affected include neurological, cognitive, musculoskeletal and genitourinary. Her clinical presentation is evolving in setting HD. Other Concerns Fall Risk Yes Goals 5 Tan Room Supervisor Goal (LTG) Pt will perform progressive HEP with I to improve balance and strength by 10/31/20. LTG Duration 8 weeks 4 Residential Goal (LTG) Pt will gait train at least 1200 feet in 6 minutes to decrease fall risk by 10/31/20. LTG Duration 8 weeks 3 Tan Room Supervisor Goal (LTG) Pt will perform 10 reps of controlled sit to stands without UE support in 30 sec to improve safety with transfers by 10/31/20. LTG Duration 8 weeks 2 Residential Goal (LTG) Pt will perform WNLs on a standardized balance test to decrease fall risk by 10/31/20. LTG Duration 8 weeks 1 Residential Goal (LTG) Pt will deny falls for 2 months to decrease risk of injury by 10/31/20. LTG Duration 8 weeks Assessment Summary Assessment Pt reports compliance with all exercises and that the wall slide really gets her chorea going and so d/cd today. Progressed gait training on the stairs in the clinic and balance exercises outside. Physical Therapy Plan Frequency and Duration Frequency of Treatment 2x/Week Duration of Treatment 8 weeks Plan of Care Start Date 08/31/20 Plan of Care End Date 11/02/20 Therapeutic Interventions Therapeutic Interventions Balance Training,Canalithic Repositioning,Coordination Training,Gait Training,Home Exercise Program,Manual Therapy,Neuromuscular Re- education,Patient/Caregiver Education,Self-Care/Home Management,Soft Tissue Mobilization,Therapeutic Activities,Therapeutic Exercises Modalities Cold Pack/Ice Massage,Hot Packs Next Visit Focus/Plan Next Note Type Treatment Note Next Visit Plan Hip abduction and bridging with band in hook lying, balance progression and outdoor walking mocking gardening tasks like pulling rope and practicing stepping over it
--- NOTE | 2020-10-09 15:31 | PT.OTN ---
Current Diagnoses Unspecified abnormalities of gait and mobility (10/09/20) Physical Therapy Treatment Note PT-OP-A Visit Information Start: 08/27/20 13:41 Freq: Status: Active Protocol: Document 10/09/20 13:45 MB (Rec: 10/09/20 14:29 MB [id number]) Out-Patient Physical Therapy Visit Information Visit Information Visit Type Treatment Note Visit Note [employer] [place], $40 copay before modifier Visit Start Time 13:45 Visit Stop Time 14:26 Total Visit Minutes 41 Visit Number 9 Precautions Precautions Fall risk, HD, some cognitive challenges PT-OP-B Current Condition Start: 08/27/20 13:41 Freq: Status: Active Protocol: Document 08/31/20 13:06 MB (Rec: 08/31/20 13:39 MB [id number]) Current Condition History of Current Condition Onset Date fall Current Complaints Falls and knee buckling History of Current Condition Pt recently finished PT for pelvic floor. She completed PT for left shoulder adhesive capsulitis last year, 04/2019, before [facility]. Since [facility], she was in the house more and less active. She stopped going to the grocery store, [employer] study and for walks. She had a fall in the 2019 when she trying to trim a shrub. She went to stand up and her knees buckled . She went to catch herself and the safety strips on the steps slid off. She landed on her right side and hit her right leg and mouth. She michael her jaw. She called her sister and TERI. The bumps and bruises stayed for 3 months. 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 She lives at home alone and her sister and TERI check on her, provide support and take her to appointments. She has had some medication changes that have been helpful for depression. She needed extra sleep when she was healing d/t pain. Her sleeping schedule got way off and she was sleeping during the day. Her sister now calls her at 0930 and she is up during the day. She is sleeping from 11- midnight and sleeps until 0930 . Pt did have some more falls in the house over the carpet. She did not hit her head. She slugged her elbow into the furniture. She is wearing socks in the house or shoes sometimes. She reports a stride issue. She reports three falls. She has two of her father's old walkers. She reports that her back and core feel weak. Prior Treatments and Tests PT in the past Treatment Goals Patient/Caregiver Goals To strengthen LEs and to go walking again and core exercises PT-OP-C Subjective Start: 08/27/20 13:41 Freq: Status: Active Protocol: Document 10/09/20 13:45 MB (Rec: 10/09/20 14:29 MB [id number]) OP-PT Subjective Patient Comments Patient Comments Pt states that she is doing okay. PT-OP-D Balance Start: 08/27/20 13:41 Freq: Status: Active Protocol: Document 08/31/20 13:06 MB (Rec: 08/31/20 14:38 MB [id number]) OP-PT Balance Assessment Sitting Balance Static Sitting Balance Ability Good Standing Balance Static Standing Balance Ability Good Dynamic Standing Balance Ability Fair Balance Tests Romberg Romberg EO and EC at least 30 sec and no LOB Tandem Tandem Standing Unable to get into position without LOB Teague Fall Scale Copyright Permission PT-OP-H Neuro Start: 08/27/20 13:41 Freq: Status: Active Protocol: Document 08/31/20 13:06 MB (Rec: 08/31/20 14:38 MB [id number]) Coordination Evaluation Comments Coordination Comments Pt with HD and with constant chorea in trunk and UEs PT-OP-J Posture/Palpation/Skin Start: 08/27/20 13:41 Freq: Status: Active Protocol: Document 08/31/20 13:06 MB (Rec: 08/31/20 14:38 MB [id number]) Posture Evaluation Comments Posture Comments Forward head, rounded shoulders PT-OP-K Range of Motion Start: 08/27/20 13:41 Freq: Status: Active Protocol: Document 08/31/20 13:06 MB (Rec: 08/31/20 14:38 MB [id number]) Shoulder Goniometric Range of Motion Shoulder ROM Limitations Comments AROM left shoulder flexion and abduction 5 deg less than the right PT-OP-M Strength Start: 08/27/20 13:41 Freq: Status: Active Protocol: Document 08/31/20 13:06 MB (Rec: 08/31/20 14:38 MB [id number]) Hip Strength Hip Manual Muscle Testing Left Flexion (L2) 4 Good Abduction 3 Fair Right Flexion (L2) 4 Good Abduction 3+ Fair+ Knee Strength Knee Manual Muscle Testing Left Flexion (S2) 3 Fair Extension (L3) 4 Good Right Flexion (S2) 3+ Fair+ Extension (L3) 5 Normal Ankle/Foot Strength Ankle and Foot Manual Muscle Testing Bilateral Dorsiflexion (L4) 5 Normal Toe Strength Toe Manual Muscle Testing Left Great Toe Extension 5 Normal Right Great Toe Extension 5 Normal PT-OP-Q Treatments Start: 08/27/20 13:41 Freq: Status: Active Protocol: Document 10/09/20 13:45 MB (Rec: 10/09/20 14:29 MB [id number]) Cardio Equipment Recumbent Stepper (Sci-Fit) Duration (Minutes) 10 Resistance 4 Other UEs and LEs Gait Training Gait Activity 6MWT Comments See goals for distance and comments today: right arm chorea is most noticeable and pt has trouble keeping up wing, especially when PT talks with her or asks questions. She slows greatly with starting to answer questions Outdoor walking Comments Performed today with getting to grassy area and back into gym, superv with holding step, slower gait Neuro Re-Education Treatment Balance Activities Outdoor balance tasks Comments Pt carrying upside down shallow box with cones stacked in it from inside clinic to outside to practice carrying, lifting, watering with hose ( jump rope), placing things down on uneven sloped grassy hill. Chorea makes carrying cones challenging and they fall off x3. Pt improves posture, performing abdominal drawing in and then she does better carrying cones. She requires superv assist only for putting shallow step on ground, setting up cones on their sides, piking up rope and watering. PT stands up cones as she reagan and pt is able to step through cones with hose without knocking them down. Pt carries step back with cones lying on sides and places on counter inside PT-OP-T Assessment and Plan Start: 08/27/20 13:41 Freq: Status: Active Protocol: Document 10/09/20 13:45 MB (Rec: 10/09/20 14:29 MB [id number]) Physical Therapy Assessment Rehab Potential Rehabilitation Potential Fair Evaluation Complexity Number of Personal Factors/Comorbidities 1-2 Number of Body Systems Impaired 3 Clinical Presentation at Evaluation Evolving Impairments Impairments Activity Tolerance,Balance, Coordination,Functional Activities,Functional Mobility ,Gait,Pain,Posture,ROM, Strength Other Impairments Personal factors include pt lives at home alone, is not a morning person and has cognitive changes d/t HD. Body systems affected include neurological, cognitive, musculoskeletal and genitourinary. Her clinical presentation is evolving in setting HD. Other Concerns Fall Risk Yes Goals 5 Market Research Specialist Goal (LTG) Pt will perform progressive HEP with I to improve balance and strength by 10/31/20. LTG Duration 8 weeks 4 Market Research Specialist Goal (LTG) Pt will gait train at least 1200 feet in 6 minutes to decrease fall risk by 10/31/20. 10/09/20: Pt gait trains 979 feet in 6 minutes with cues to speed up and pt slowing down with PT talking with her LTG Duration 8 weeks 3 Jail Goal (LTG) Pt will perform 10 reps of controlled sit to stands without UE support in 30 sec to improve safety with transfers by 10/31/20. LTG Duration 8 weeks 2 Market Research Specialist Goal (LTG) Pt will perform WNLs on a standardized balance test to decrease fall risk by 10/31/20. LTG Duration 8 weeks 1 Jail Goal (LTG) Pt will deny falls for 2 months to decrease risk of injury by 10/31/20. LTG Duration 8 weeks Assessment Summary Assessment Pt con't to progress with balance activities outside. Progress gait in future treatments. Physical Therapy Plan Frequency and Duration Frequency of Treatment 2x/Week Duration of Treatment 8 weeks Plan of Care Start Date 08/31/20 Plan of Care End Date 11/02/20 Therapeutic Interventions Therapeutic Interventions Balance Training,Canalithic Repositioning,Coordination Training,Gait Training,Home Exercise Program,Manual Therapy,Neuromuscular Re- education,Patient/Caregiver Education,Self-Care/Home Management,Soft Tissue Mobilization,Therapeutic Activities,Therapeutic Exercises Modalities Cold Pack/Ice Massage,Hot Packs Next Visit Focus/Plan Next Note Type Treatment Note Next Visit Plan 6MWT and gait outside working on keeping up speed Hip abduction and bridging with band in hook lying, balance progression and outdoor walking mocking gardening tasks like pulling rope and practicing stepping over it
--- NOTE | 2020-10-15 14:13 | PT.OTN ---
Current Diagnoses Unspecified abnormalities of gait and mobility (10/15/20) Physical Therapy Treatment Note PT-OP-A Visit Information Start: 08/27/20 13:41 Freq: Status: Active Protocol: Document 10/15/20 13:30 MB (Rec: 10/15/20 14:12 MB [id number]) Out-Patient Physical Therapy Visit Information Visit Information Visit Type Progress Note Visit Note [employer] [place], $[place] copay, before modifier Visit Start Time 13:30 Visit Stop Time 14:10 Total Visit Minutes 40 Visit Number 10 Precautions Precautions Fall risk, HD, some cognitive challenges PT-OP-B Current Condition Start: 08/27/20 13:41 Freq: Status: Active Protocol: Document 08/31/20 13:06 MB (Rec: 08/31/20 13:39 MB [id number]) Current Condition History of Current Condition Onset Date fall Current Complaints Falls and knee buckling History of Current Condition Pt recently finished PT for pelvic floor. She completed PT for left shoulder adhesive capsulitis last year, 04/2019, before [facility]. Since [facility], she was in the house more and less active. She stopped going to the grocery store, [employer] study and for walks. She had a fall in the 2019 when she trying to trim a shrub. She went to stand up and her knees buckled . She went to catch herself and the safety strips on the steps slid off. She landed on her right side and hit her right leg and mouth. She michael her jaw. She called her sister and TERI. The bumps and bruises stayed for 3 months. 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 She lives at home alone and her sister and TERI check on her, provide support and take her to appointments. She has had some medication changes that have been helpful for depression. She needed extra sleep when she was healing d/t pain. Her sleeping schedule got way off and she was sleeping during the day. Her sister now calls her at 0930 and she is up during the day. She is sleeping from 11- midnight and sleeps until 0930 . Pt did have some more falls in the house over the carpet. She did not hit her head. She slugged her elbow into the furniture. She is wearing socks in the house or shoes sometimes. She reports a stride issue. She reports three falls. She has two of her father's old walkers. She reports that her back and core feel weak. Prior Treatments and Tests PT in the past Treatment Goals Patient/Caregiver Goals To strengthen LEs and to go walking again and core exercises PT-OP-C Subjective Start: 08/27/20 13:41 Freq: Status: Active Protocol: Document 10/15/20 13:30 MB (Rec: 10/15/20 14:13 MB [id number]) OP-PT Subjective Patient Comments Patient Comments Pt reports that she is feeling more confident. Patient Reported Progress Improving PT-OP-D Balance Start: 08/27/20 13:41 Freq: Status: Active Protocol: Document 08/31/20 13:06 MB (Rec: 08/31/20 14:38 MB [id number]) OP-PT Balance Assessment Sitting Balance Static Sitting Balance Ability Good Standing Balance Static Standing Balance Ability Good Dynamic Standing Balance Ability Fair Balance Tests Romberg Romberg EO and EC at least 30 sec and no LOB Tandem Tandem Standing Unable to get into position without LOB Teague Fall Scale Copyright Permission PT-OP-H Neuro Start: 08/27/20 13:41 Freq: Status: Active Protocol: Document 08/31/20 13:06 MB (Rec: 08/31/20 14:38 MB [id number]) Coordination Evaluation Comments Coordination Comments Pt with HD and with constant chorea in trunk and UEs PT-OP-J Posture/Palpation/Skin Start: 08/27/20 13:41 Freq: Status: Active Protocol: Document 08/31/20 13:06 MB (Rec: 08/31/20 14:38 MB [id number]) Posture Evaluation Comments Posture Comments Forward head, rounded shoulders PT-OP-K Range of Motion Start: 08/27/20 13:41 Freq: Status: Active Protocol: Document 08/31/20 13:06 MB (Rec: 08/31/20 14:38 MB [id number]) Shoulder Goniometric Range of Motion Shoulder ROM Limitations Comments AROM left shoulder flexion and abduction 5 deg less than the right PT-OP-M Strength Start: 08/27/20 13:41 Freq: Status: Active Protocol: Document 08/31/20 13:06 MB (Rec: 08/31/20 14:38 MB [id number]) Hip Strength Hip Manual Muscle Testing Left Flexion (L2) 4 Good Abduction 3 Fair Right Flexion (L2) 4 Good Abduction 3+ Fair+ Knee Strength Knee Manual Muscle Testing Left Flexion (S2) 3 Fair Extension (L3) 4 Good Right Flexion (S2) 3+ Fair+ Extension (L3) 5 Normal Ankle/Foot Strength Ankle and Foot Manual Muscle Testing Bilateral Dorsiflexion (L4) 5 Normal Toe Strength Toe Manual Muscle Testing Left Great Toe Extension 5 Normal Right Great Toe Extension 5 Normal PT-OP-Q Treatments Start: 08/27/20 13:41 Freq: Status: Active Protocol: Document 10/15/20 13:30 MB (Rec: 10/15/20 14:12 MB [id number]) Cardio Equipment Recumbent Stepper (Sci-Fit) Duration (Minutes) 10 Resistance 4 Other UEs and LEs Therapeutic Exercises Sitting Exercises Sit to stands without UE support Comments Pt performs 9 reps in 30 sec today, progressing Gait Training Gait Activity 6MWT Comments Pt gait trains 1279 feet in 6 minutes today with tendency to slow down and requiring cues to stay on course (remembering where to turn) and to keep speed up. Chorea is greatest in right arm Multiple gait trials throughout treatment with similar gait pattern Neuro Re-Education Treatment Balance Activities Corner balance Comments Romberg EO at least 30 sec Romberg EC at least 30 sec and chorea increases LOB x3 with Tandem with right foot behind and pt finally steps out of position after 10 sec Partial tandem left behind: 1' and pt does not fall, is challenging Partial tandem right behind: at least 1' and pt does not lose balance PT-OP-T Assessment and Plan Start: 08/27/20 13:41 Freq: Status: Active Protocol: Document 10/15/20 13:30 MB (Rec: 10/15/20 14:12 MB [id number]) Physical Therapy Assessment Rehab Potential Rehabilitation Potential Fair Evaluation Complexity Number of Personal Factors/Comorbidities 1-2 Number of Body Systems Impaired 3 Clinical Presentation at Evaluation Evolving Impairments Impairments Activity Tolerance,Balance, Coordination,Functional Activities,Functional Mobility ,Gait,Pain,Posture,ROM, Strength Other Impairments Personal factors include pt lives at home alone, is not a morning person and has cognitive changes d/t HD. Body systems affected include neurological, cognitive, musculoskeletal and genitourinary. Her clinical presentation is evolving in setting HD. Other Concerns Fall Risk Yes Goals 5 Branch Store Manager Goal (LTG) Pt will perform progressive HEP with I to improve balance and strength by 10/22/20. 10/15/20: Pt is performing progressive HEP with I. LTG Duration 1 week 4 Branch Store Manager Goal (LTG) Pt will gait train at least 1200 feet in 6 minutes to decrease fall risk by 10/31/20. 10/15/20: Pt gait trains 1279 feet in 6 minutes. She tends to slow down and requires verbal encouragement to keep her speed up. Chorea is greatest in right UE 10/09/20: Pt gait trains 979 feet in 6 minutes with cues to speed up and pt slowing down with PT talking with her LTG Duration Met 3 Senior Living Goal (LTG) Pt will perform 10 reps of controlled sit to stands without UE support in 30 sec to improve safety with transfers by 10/22/20. 10/15/20: Pt performs 9 reps sit to advertising layout worker 30 sec LTG Duration 1 week 2 Branch Store Manager Goal (LTG) Pt will perform WNLs on a standardized balance test to decrease fall risk by 10/22/20. LTG Duration 1 week 1 Senior Living Goal (LTG) Pt will deny falls for 2 months to decrease risk of injury by 10/31/20. 10/15/20: Pt denies falls since starting PT LTG Duration Met Assessment Summary Assessment Pt has progressed towards all goals since starting PT. She has not had any falls. She is performing progressive HEP and her gait in and outdoors is much better. Anticipate 2 more treatments and then prepare for d/c. Pt's sister is going to walk with her outside for her first outdoor walk to ensure confidence. PT does not feel that pt currently needs rollator and pt states that she might still like to get one in case she needs it in the future. Added balance exercise for home today. Physical Therapy Plan Frequency and Duration Frequency of Treatment 2x/Week Duration of Treatment 1 weeks Plan of Care Start Date 10/15/20 Plan of Care End Date 10/22/20 Therapeutic Interventions Therapeutic Interventions Balance Training,Canalithic Repositioning,Coordination Training,Gait Training,Home Exercise Program,Manual Therapy,Neuromuscular Re- education,Patient/Caregiver Education,Self-Care/Home Management,Soft Tissue Mobilization,Therapeutic Activities,Therapeutic Exercises Modalities Cold Pack/Ice Massage,Hot Packs Next Visit Focus/Plan Next Note Type Treatment Note Next Visit Plan Bridge with band and knees out , gait outside, prepare for d/ c
--- NOTE | 2020-10-15 14:14 | PT.OPPOC ---
Physical, Occupational & Speech Therapy At [facility] Current Diagnoses Unspecified abnormalities of gait and mobility (10/15/20) Visit Care Team Role Provider Type Katiana Elaine MD Attending Provider Physician Family Provider Primary Care Provider Referring Provider Specialty: Family Practice Address: [address] [place] [address], [id number] Email: [email or web address] Plan Of Care PT-OP-T Assessment and Plan Start: 08/27/20 13:41 Freq: Status: Active Protocol: Document 10/15/20 13:30 MB (Rec: 10/15/20 14:12 MB [id number]) Physical Therapy Assessment Rehab Potential Rehabilitation Potential Fair Evaluation Complexity Number of Personal Factors/Comorbidities 1-2 Number of Body Systems Impaired 3 Clinical Presentation at Evaluation Evolving Impairments Impairments Activity Tolerance,Balance, Coordination,Functional Activities,Functional Mobility ,Gait,Pain,Posture,ROM, Strength Other Impairments Personal factors include pt lives at home alone, is not a morning person and has cognitive changes d/t HD. Body systems affected include neurological, cognitive, musculoskeletal and genitourinary. Her clinical presentation is evolving in setting HD. Other Concerns Fall Risk Yes Goals 5 Alf Goal (LTG) Pt will perform progressive HEP with I to improve balance and strength by 10/22/20. 10/15/20: Pt is performing progressive HEP with I. LTG Duration 1 week 4 Alf Goal (LTG) Pt will gait train at least 1200 feet in 6 minutes to decrease fall risk by 10/31/20. 10/15/20: Pt gait trains 1279 feet in 6 minutes. She tends to slow down and requires verbal encouragement to keep her speed up. Chorea is greatest in right UE 10/09/20: Pt gait trains 979 feet in 6 minutes with cues to speed up and pt slowing down with PT talking with her LTG Duration Met 3 Alf Goal (LTG) Pt will perform 10 reps of controlled sit to stands without UE support in 30 sec to improve safety with transfers by 10/22/20. 10/15/20: Pt performs 9 reps sit to supervisor core drilling 30 sec LTG Duration 1 week 2 Ocean Freight Manager Goal (LTG) Pt will perform WNLs on a standardized balance test to decrease fall risk by 10/22/20. LTG Duration 1 week 1 Ocean Freight Manager Goal (LTG) Pt will deny falls for 2 months to decrease risk of injury by 10/31/20. 10/15/20: Pt denies falls since starting PT LTG Duration Met Assessment Summary Assessment Pt has progressed towards all goals since starting PT. She has not had any falls. She is performing progressive HEP and her gait in and outdoors is much better. Anticipate 2 more treatments and then prepare for d/c. Pt's sister is going to walk with her outside for her first outdoor walk to ensure confidence. PT does not feel that pt currently needs rollator and pt states that she might still like to get one in case she needs it in the future. Added balance exercise for home today. Physical Therapy Plan Frequency and Duration Frequency of Treatment 2x/Week Duration of Treatment 1 weeks Plan of Care Start Date 10/15/20 Plan of Care End Date 10/22/20 Therapeutic Interventions Therapeutic Interventions Balance Training,Canalithic Repositioning,Coordination Training,Gait Training,Home Exercise Program,Manual Therapy,Neuromuscular Re- education,Patient/Caregiver Education,Self-Care/Home Management,Soft Tissue Mobilization,Therapeutic Activities,Therapeutic Exercises Modalities Cold Pack/Ice Massage,Hot Packs Next Visit Focus/Plan Next Note Type Treatment Note Next Visit Plan Bridge with band and knees out , gait outside, prepare for d/ c Plan of Care Dates Plan of Care Start Date 10/15/20 Plan of Care End Date 10/22/20 Electronically Signed by: Larissa Villalba, PT 10/15/20 0259 Please Sign and Return: I have reviewed this Plan of Care and certify that the skilled therapy services above are required to meet the patient?s needs. Physician Signature Date Printed Name and Credentials Clinical Instructor Signature Printed Name and Credentials
--- NOTE | 2020-10-19 13:51 | PT.OTN ---
Current Diagnoses Unspecified abnormalities of gait and mobility (10/19/20) Physical Therapy Treatment Note PT-OP-A Visit Information Start: 08/27/20 13:41 Freq: Status: Active Protocol: Document 10/19/20 13:00 MB (Rec: 10/19/20 13:51 MB [id number]) Out-Patient Physical Therapy Visit Information Visit Information Visit Type Treatment Note Visit Note [employer] [place], $[place] copay, KX Visit Start Time 13:00 Visit Stop Time 13:42 Total Visit Minutes 42 Visit Number 11 Precautions Precautions Fall risk, HD, some cognitive challenges PT-OP-B Current Condition Start: 08/27/20 13:41 Freq: Status: Active Protocol: Document 08/31/20 13:06 MB (Rec: 08/31/20 13:39 MB [id number]) Current Condition History of Current Condition Onset Date fall Current Complaints Falls and knee buckling History of Current Condition Pt recently finished PT for pelvic floor. She completed PT for left shoulder adhesive capsulitis last year, 04/2019, before [facility]. Since [facility], she was in the house more and less active. She stopped going to the grocery store, [employer] study and for walks. She had a fall in the 2019 when she trying to trim a shrub. She went to stand up and her knees buckled . She went to catch herself and the safety strips on the steps slid off. She landed on her right side and hit her right leg and mouth. She michael her jaw. She called her sister and TERI. The bumps and bruises stayed for 3 months. 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 She lives at home alone and her sister and TERI check on her, provide support and take her to appointments. She has had some medication changes that have been helpful for depression. She needed extra sleep when she was healing d/t pain. Her sleeping schedule got way off and she was sleeping during the day. Her sister now calls her at 0930 and she is up during the day. She is sleeping from 11- midnight and sleeps until 0930 . Pt did have some more falls in the house over the carpet. She did not hit her head. She slugged her elbow into the furniture. She is wearing socks in the house or shoes sometimes. She reports a stride issue. She reports three falls. She has two of her father's old walkers. She reports that her back and core feel weak. Prior Treatments and Tests PT in the past Treatment Goals Patient/Caregiver Goals To strengthen LEs and to go walking again and core exercises PT-OP-C Subjective Start: 08/27/20 13:41 Freq: Status: Active Protocol: Document 10/19/20 13:00 MB (Rec: 10/19/20 13:51 MB [id number]) OP-PT Subjective Patient Comments Patient Comments Pt states that she thinks she is ready to discharge. PT-OP-D Balance Start: 08/27/20 13:41 Freq: Status: Active Protocol: Document 08/31/20 13:06 MB (Rec: 08/31/20 14:38 MB [id number]) OP-PT Balance Assessment Sitting Balance Static Sitting Balance Ability Good Standing Balance Static Standing Balance Ability Good Dynamic Standing Balance Ability Fair Balance Tests Romberg Romberg EO and EC at least 30 sec and no LOB Tandem Tandem Standing Unable to get into position without LOB Teague Fall Scale Copyright Permission PT-OP-H Neuro Start: 08/27/20 13:41 Freq: Status: Active Protocol: Document 08/31/20 13:06 MB (Rec: 08/31/20 14:38 MB [id number]) Coordination Evaluation Comments Coordination Comments Pt with HD and with constant chorea in trunk and UEs PT-OP-J Posture/Palpation/Skin Start: 08/27/20 13:41 Freq: Status: Active Protocol: Document 08/31/20 13:06 MB (Rec: 08/31/20 14:38 MB [id number]) Posture Evaluation Comments Posture Comments Forward head, rounded shoulders PT-OP-K Range of Motion Start: 08/27/20 13:41 Freq: Status: Active Protocol: Document 08/31/20 13:06 MB (Rec: 08/31/20 14:38 MB [id number]) Shoulder Goniometric Range of Motion Shoulder ROM Limitations Comments AROM left shoulder flexion and abduction 5 deg less than the right PT-OP-M Strength Start: 08/27/20 13:41 Freq: Status: Active Protocol: Document 08/31/20 13:06 MB (Rec: 08/31/20 14:38 MB [id number]) Hip Strength Hip Manual Muscle Testing Left Flexion (L2) 4 Good Abduction 3 Fair Right Flexion (L2) 4 Good Abduction 3+ Fair+ Knee Strength Knee Manual Muscle Testing Left Flexion (S2) 3 Fair Extension (L3) 4 Good Right Flexion (S2) 3+ Fair+ Extension (L3) 5 Normal Ankle/Foot Strength Ankle and Foot Manual Muscle Testing Bilateral Dorsiflexion (L4) 5 Normal Toe Strength Toe Manual Muscle Testing Left Great Toe Extension 5 Normal Right Great Toe Extension 5 Normal PT-OP-Q Treatments Start: 08/27/20 13:41 Freq: Status: Active Protocol: Document 10/19/20 13:00 MB (Rec: 10/19/20 13:51 MB [id number]) Cardio Equipment Recumbent Stepper (Sci-Fit) Duration (Minutes) 10 Resistance 4 Other UEs and LEs Therapeutic Exercises Supine Exercises Core progression Supine Exercise Name Abdominal drawing in first, reviewed other exercises, added bridge Comments 30 sec hold before cramp, tried with pink band around knees Sitting Exercises Sit to stands without UE support Comments Pt performs 10 reps in 30 sec Gait Training Gait Activity Outdoor walking Comments 17' outdoor walking on side walks, parking lot, with inclines and pt does not have imbalance. Does slow wing with talking and listening and cues to keep up speed. Chorea greatest right UE PT-OP-T Assessment and Plan Start: 08/27/20 13:41 Freq: Status: Active Protocol: Document 10/19/20 13:00 MB (Rec: 10/19/20 13:51 MB [id number]) Physical Therapy Assessment Goals 5 Roofing Applicator Goal (LTG) Pt will perform progressive HEP with I to improve balance and strength by 10/22/20. 10/19/20: Pt is performing progressive HEP with I. Added bridge with band today. LTG Duration Met 3 Roofing Applicator Goal (LTG) Pt will perform 10 reps of controlled sit to stands without UE support in 30 sec to improve safety with transfers by 10/22/20. 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 10/19/20: Added balance exercise to HEP and pt to con't to work on LTG Duration Progressed Assessment Summary Assessment Pt has met most of her PT goals and PT has added a balance exercise for home. Progressed core exercises today. She gait trains well for increased time outside today. She is ready to d/c. Will d/c PT. Physical Therapy Plan Discharge Physical Therapy Discharge Reasons Goals Met
== END 2020-10-20 09:01 | disposition home or self-care (01) ==
LOC: PHYS 13:00
PROVIDERS: Family Provider Student in an Organized Health Care Education/Training Program; PCP Student in an Organized Health Care Education/Training Program; Referring Provider Student in an Organized Health Care Education/Training Program; Visit Provider Student in an Organized Health Care Education/Training Program
DX: R26.9 Unspecified abnormalities of gait and mobility (principal)
CPT/HCPCS: 97110; 97112; 97116; 97162; 97535

== ENCOUNTER → 2020-12-22 10:47 | Outpatient (CLI) | payer OTHER, SELFPAY ==
--- NOTE | 2020-12-22 | DI.MG.S_ITS ---
BILATERAL DIGITAL SCREENING MAMMOGRAM 3D/2D WITH CAD: 12/22/2020 CLINICAL: Routine screening. Comparison is made to exams dated: 12/10/2019 mammogram, 12/03/2018 mammogram, and 12/02/2016 mammogram - [facility]. The tissue of both breasts is predominantly fatty. Current study was also evaluated with a Computer Aided Detection (CAD) system. No significant masses, calcifications, or other findings are seen in either breast. There has been no significant interval change. IMPRESSION: NEGATIVE There is no mammographic evidence of malignancy. A 1 year screening mammogram is recommended. This exam was interpreted at Station ID: [id number]. NOTE: For mammograms, a report in lay terms will be sent to the patient. Approximately 15% of breast malignancies will not be visualized mammographically. In the management of a palpable breast mass, a negative mammogram must not discourage biopsy of a clinically suspicious lesion. Electronically Signed By: Froylan Dang acr/anthony:12/22/2020 11:12:09 letter sent: Normal Exam ACR BI-RADS Category 1: Negative 3341F
== END ==
PROVIDERS: Family Provider Student in an Organized Health Care Education/Training Program; PCP Student in an Organized Health Care Education/Training Program; Referring Provider Student in an Organized Health Care Education/Training Program; Visit Provider Student in an Organized Health Care Education/Training Program
DX: Z12.31 Encounter for screening mammogram for malignant neoplasm of breast (principal)
CPT/HCPCS: 77063; 77067

== ENCOUNTER → 2022-01-12 15:20 | Outpatient (CLI) | payer OTHER, SELFPAY ==
--- NOTE | 2022-01-12 15:22 | DI.RAD.S_ITS ---
PROCEDURE: XR PELVIS 1-2V INDICATIONS: fall and tailbone pain TECHNIQUE: 1 view(s) of the pelvis acquired. COMPARISON: None. FINDINGS: Bones: No acute fracture or dislocation. Mild to moderate bilateral hip arthrosis. Soft tissues: Visualized bowel gas pattern is normal. No suspicious soft tissue calcifications. IMPRESSION: Single-view limited pelvic radiograph without acute abnormality. If there is high concern for occult injury, consider repeat radiography or cross-sectional imaging. Dictated by: Eris Aguilar M.D. on 01/12/2022 at 16:42 Approved by: Eris Aguilar M.D. on 01/12/2022 at 16:43
== END ==
PROVIDERS: Family Provider Student in an Organized Health Care Education/Training Program; PCP Family Medicine; Referring Provider Nurse Practitioner; Visit Provider Nurse Practitioner
DX: M53.3 Sacrococcygeal disorders, not elsewhere classified (principal); M16.0 Bilateral primary osteoarthritis of hip
CPT/HCPCS: 72170

== ENCOUNTER → 2022-01-26 10:05 | Outpatient (CLI) | payer OTHER, SELFPAY ==
[2022-01-26 10:59] LABS: Add Manual Diff / Slide Review NO; Basophils Absolute Auto 100 /uL (0-100); Basophils Percent Auto 1.1 % (0-2); Eosinophils Absolute Auto 100 /uL (0-450); Eosinophils Percent Auto 1.8 % (2-4); Hematocrit 40.2 % (36-46); Hemoglobin 13.3 g/dL (12.0-16.0); Lymphocytes Absolute Auto 2400 /uL (1100-4500); Lymphocytes Percent Auto 30.1 % (25-40); Mean Corpuscular Hemoglobin 28.7 PG (26-34); Mean Corpuscular Volume 86.9 fL (80-100); Monocytes Absolute Auto 600 /uL (0-900); Monocytes Percent Auto 7.3 % (3-14); Neutrophils Absolute Auto 4800 /uL (1500-7000); Neutrophils Percent Auto 59.7 % (50-75); Platelet Count 326 X10^3/uL (150-400); Red Blood Cell Count 4.62 X10^6/uL (4.0-5.2); Red Cell Distribution Width 13.8 % (11.6-14.8); White Blood Cell Count 8.1 X10^3/uL (4.5-11.0)
[2022-01-26 11:16] LABS: Alanine Aminotransferase 17 IU/L (<35); Albumin Globulin Ratio 1.5 (1.0-2.8); Alkaline Phosphatase 87 U/L (38-126); Aspartate Aminotransferase 25 IU/L (14-36); BUN Creatinine Ratio 21.1 (6-22); Bilirubin Total 0.5 mg/dL (0.2-1.3); Blood Urea Nitrogen 16 mg/dL (7-17); Calcium 8.9 mg/dL (8.4-10.2); Carbon Dioxide 27 mmol/L (22-32); Chloride 106 mmol/L (98-107); Estimated Glomerular Filt Rate > 60 mL/min (>60); Globulin 2.7 g/dL (1.7-4.1); Glucose 93 mg/dL (80-110); HEMOLYSIS < 15 (0-50); Potassium 3.9 mmol/L (3.4-5.1); Sodium 141 mmol/L (137-145); Total Protein 6.7 g/dL (6.3-8.2)
== END ==
PROVIDERS: Family Provider Student in an Organized Health Care Education/Training Program; PCP Family Medicine; Referring Provider Family Medicine; Visit Provider Family Medicine
DX: F32.A Depression, unspecified (principal); G10 Huntington's disease; M81.0 Age-related osteoporosis without current pathological fracture
CPT/HCPCS: 36415; 80053; 85025

== ENCOUNTER → 2022-04-11 12:17 | Outpatient (CLI) | payer OTHER, SELFPAY ==
--- NOTE | 2022-04-11 12:21 | DI.MG.S_ITS ---
BILATERAL DIGITAL SCREENING MAMMOGRAM 3D/2D WITH CAD: 04/11/2022 CLINICAL: Routine screening. Comparison is made to exams dated: 12/22/2020 mammogram, 12/10/2019 mammogram, and 12/03/2018 mammogram - [facility]. There are scattered areas of fibroglandular density in both breasts (category b / 25%-50% glandular tissue). Current study was also evaluated with a Computer Aided Detection (CAD) system. No significant masses, calcifications, or other findings are seen in either breast. There has been no significant interval change. IMPRESSION: NEGATIVE There is no mammographic evidence of malignancy. A 1 year screening mammogram is recommended. Based on the Tyrer Cuzick model (a risk assessment model) the patient's lifetime risk is 5.7% and her 10 year risk is 2.5%. According to the ACR, ACS, and NCCN guidelines, an annual breast MRI exam along with mammogram is recommended if the patient's lifetime risk is 20% or greater. This exam was interpreted at Station ID: [id number]. NOTE: For mammograms, a report in lay terms will be sent to the patient. Approximately 15% of breast malignancies will not be visualized mammographically. In the management of a palpable breast mass, a negative mammogram must not discourage biopsy of a clinically suspicious lesion. Electronically Signed By: Eris marte/anthony:04/11/2022 15:55:17 letter sent: Normal Exam ACR BI-RADS Category 1: Negative 3341F
== END ==
PROVIDERS: Family Provider Student in an Organized Health Care Education/Training Program; PCP Family Medicine; Referring Provider Family Medicine; Visit Provider Family Medicine
DX: Z13.820 Encounter for screening for osteoporosis (principal); Z12.31 Encounter for screening mammogram for malignant neoplasm of breast; M81.0 Age-related osteoporosis without current pathological fracture; Z78.0 Asymptomatic menopausal state; F32.A Depression, unspecified; G10 Huntington's disease
CPT/HCPCS: 77063; 77067; 77080

== ENCOUNTER → 2022-12-21 14:33 | Outpatient (CLI) | payer OTHER, SELFPAY ==
[2022-12-22 21:27] LABS: Fecal Immunochemical Test Negative (Negative)
== END ==
PROVIDERS: Family Provider Student in an Organized Health Care Education/Training Program; PCP Family Medicine; Referring Provider Family Medicine; Visit Provider Family Medicine
DX: Z12.11 Encounter for screening for malignant neoplasm of colon (principal)
CPT/HCPCS: 82274

== ENCOUNTER → 2023-02-14 09:28 | Outpatient (CLI) | payer OTHER, SELFPAY ==
[2023-02-14 10:45] LABS: Add Manual Diff / Slide Review NO; Basophils Absolute Auto 100 /uL (0-100); Basophils Percent Auto 0.9 % (0-2); Eosinophils Absolute Auto 100 /uL (0-450); Eosinophils Percent Auto 2.1 % (2-4); Hematocrit 39.3 % (36-46); Hemoglobin 13.2 g/dL (12.0-16.0); Lymphocytes Absolute Auto 2000 /uL (1100-4500); Lymphocytes Percent Auto 31.4 % (25-40); Mean Corpuscular HGB Conc 33.6 % (30-36); Mean Corpuscular Hemoglobin 29.3 PG (26-34); Mean Corpuscular Volume 87.1 fL (80-100); Monocytes Absolute Auto 600 /uL (0-900); Monocytes Percent Auto 9.2 % (3-14); Neutrophils Absolute Auto 3600 /uL (1500-7000); Neutrophils Percent Auto 56.4 % (50-75); Platelet Count 268 X10^3/uL (150-400); Red Blood Cell Count 4.52 X10^6/uL (4.0-5.2); White Blood Cell Count 6.3 X10^3/uL (4.5-11.0)
[2023-02-14 11:10] LABS: Alanine Aminotransferase 25 IU/L (<35); Albumin 3.8 g/dL (3.5-5.0); Albumin Globulin Ratio 1.7 (1.0-2.8); Alkaline Phosphatase 54 U/L (38-126); Aspartate Aminotransferase 29 IU/L (14-36); BUN Creatinine Ratio 17.3 (6-22); Bilirubin Total 0.7 mg/dL (0.2-1.3); Blood Urea Nitrogen 13 mg/dL (7-17); Calcium 9.2 mg/dL (8.4-10.2); Carbon Dioxide 30 mmol/L (22-32); Chloride 104 mmol/L (98-107); Cholesterol 161 mg/dL (140-199); Estimated Glomerular Filt Rate > 60 mL/min (>60); Globulin 2.3 g/dL (1.7-4.1); Glucose 81 mg/dL (80-110); HDL Cholesterol 68 mg/dL (40-60); HEMOLYSIS < 15 (0-50); LDL Cholesterol Calculated 79 mg/dL (<100); Potassium 3.9 mmol/L (3.4-5.1); Sodium 139 mmol/L (137-145); Total Protein 6.1 g/dL (6.3-8.2); Triglycerides 71 mg/dL (35-150)
== END ==
PROVIDERS: Family Provider Student in an Organized Health Care Education/Training Program; PCP Family Medicine; Referring Provider Family Medicine; Visit Provider Family Medicine
DX: Z00.00 Encounter for general adult medical examination without abnormal findings (principal); F32.9 Major depressive disorder, single episode, unspecified; M81.0 Age-related osteoporosis without current pathological fracture; F41.9 Anxiety disorder, unspecified; G10 Huntington's disease
CPT/HCPCS: 36415; 80053; 80061; 85025

== ENCOUNTER → 2023-04-18 15:33 | Outpatient (CLI) | payer OTHER, SELFPAY ==
--- NOTE | 2023-04-18 | DI.MG.S_ITS ---
BILATERAL DIGITAL SCREENING MAMMOGRAM 3D/2D WITH CAD: 04/18/2023 CLINICAL: Routine screening. Comparison is made to exams dated: 04/11/2022 mammogram, 12/22/2020 mammogram, and 12/10/2019 mammogram - [facility]. There are scattered areas of fibroglandular density in both breasts (category b / 25%-50% glandular tissue). Current study was also evaluated with a Computer Aided Detection (CAD) system. No significant masses, calcifications, or other findings are seen in either breast. There has been no significant interval change. IMPRESSION: NEGATIVE There is no mammographic evidence of malignancy. A 1 year screening mammogram is recommended. Based on the Tyrer Cuzick model (a risk assessment model) the patient's lifetime risk is 5.5% and her 10 year risk is 2.5%. According to the ACR, ACS, and NCCN guidelines, an annual breast MRI exam along with mammogram is recommended if the patient's lifetime risk is 20% or greater. This exam was interpreted at Station ID: [id number]. NOTE: For mammograms, a report in lay terms will be sent to the patient. Approximately 15% of breast malignancies will not be visualized mammographically. In the management of a palpable breast mass, a negative mammogram must not discourage biopsy of a clinically suspicious lesion. Electronically Signed By: Miranda love/anthony:04/19/2023 10:21:42 letter sent: Normal Exam ACR BI-RADS Category 1: Negative [id number]
== END ==
LOC: MAMMO 15:34
PROVIDERS: Family Provider Student in an Organized Health Care Education/Training Program; PCP Family Medicine; Referring Provider Family Medicine; Visit Provider Family Medicine
DX: Z12.31 Encounter for screening mammogram for malignant neoplasm of breast (principal); R92.323 Mammographic fibroglandular density, bilateral breasts
CPT/HCPCS: 77063; 77067

== ENCOUNTER → 2024-02-20 07:53 | Outpatient (CLI) | payer OTHER, SELFPAY ==
[2024-02-20 08:36] LABS: Add Manual Diff / Slide Review NO; Basophils Absolute Auto 100 /uL (0-100); Basophils Percent Auto 0.7 % (0-2); Eosinophils Absolute Auto 200 /uL (0-450); Eosinophils Percent Auto 2.4 % (2-4); Hematocrit 41.5 % (36-46); Hemoglobin 13.6 g/dL (12.0-16.0); Lymphocytes Absolute Auto 2800 /uL (1100-4500); Lymphocytes Percent Auto 32.1 % (25-40); Mean Corpuscular HGB Conc 32.9 % (30-36); Mean Corpuscular Hemoglobin 29.1 PG (26-34); Mean Corpuscular Volume 88.6 fL (80-100); Monocytes Absolute Auto 800 /uL (0-900); Monocytes Percent Auto 9.3 % (3-14); Neutrophils Absolute Auto 4900 /uL (1500-7000); Neutrophils Percent Auto 55.5 % (50-75); Platelet Count 294 X10^3/uL (150-400); Red Blood Cell Count 4.68 X10^6/uL (4.0-5.2); Red Cell Distribution Width 14.4 % (11.6-14.8); White Blood Cell Count 8.9 X10^3/uL (4.5-11.0)
[2024-02-20 08:55] LABS: Alanine Aminotransferase 27 IU/L (<35); Albumin 4.1 g/dL (3.5-5.0); Albumin Globulin Ratio 1.9 (1.0-2.8); Alkaline Phosphatase 69 U/L (38-126); Aspartate Aminotransferase 30 IU/L (14-36); BUN Creatinine Ratio 24.4 (6-22); Bilirubin Total 0.6 mg/dL (0.2-1.3); Blood Urea Nitrogen 22 mg/dL (7-17); Calcium 9.6 mg/dL (8.4-10.2); Carbon Dioxide 30 mmol/L (22-32); Chloride 106 mmol/L (98-107); Estimated Glomerular Filt Rate > 60 mL/min (>60); Globulin 2.2 g/dL (1.7-4.1); Glucose 85 mg/dL (80-110); HEMOLYSIS < 15 (0-50); Potassium 3.7 mmol/L (3.4-5.1); Sodium 141 mmol/L (137-145); Total Protein 6.3 g/dL (6.3-8.2)
== END ==
LOC: LAB 07:54
PROVIDERS: PCP Family Medicine; Referring Provider Family Medicine; Visit Provider Family Medicine
DX: Z00.00 Encounter for general adult medical examination without abnormal findings; F32.9 Major depressive disorder, single episode, unspecified; G10 Huntington's disease; M81.0 Age-related osteoporosis without current pathological fracture
CPT/HCPCS: 36415; 80053; 84443; 85025

== ENCOUNTER → 2024-02-21 13:48 | Outpatient (CLI) | payer OTHER, SELFPAY ==
[2024-02-21 15:37] LABS: Creatinine Urine Random 104.17 mg/dL
[2024-02-21 15:41] LABS: Microalbumin Urine Random 1.8 mg/dL (0-1.6)
[2024-02-23 13:36] LABS: Fecal Immunochemical Test Negative (Negative)
== END ==
PROVIDERS: PCP Family Medicine; Referring Provider Family Medicine; Visit Provider Family Medicine
DX: Z00.00 Encounter for general adult medical examination without abnormal findings (principal); G10 Huntington's disease; F32.9 Major depressive disorder, single episode, unspecified; M81.0 Age-related osteoporosis without current pathological fracture; Z12.11 Encounter for screening for malignant neoplasm of colon
CPT/HCPCS: 82043; 82274; 82570

== ENCOUNTER → 2024-05-02 14:57 | Outpatient (CLI) | payer MEDICARE, SELFPAY ==
--- NOTE | 2024-05-02 14:59 | DI.MG.S_ITS ---
BILATERAL DIGITAL SCREENING MAMMOGRAM 3D/2D WITH CAD: 05/02/2024 CLINICAL: Routine screening. Comparison is made to exams dated: 04/18/2023 mammogram, 04/11/2022 mammogram, and 12/22/2020 mammogram - [facility]. The breasts are almost entirely fatty (category a/<25% glandular tissue). Current study was also evaluated with a Computer Aided Detection (CAD) system. There is a benign lymph node in the left breast. No significant masses, calcifications, or other findings are seen in either breast. There has been no significant interval change. IMPRESSION: BENIGN There is no mammographic evidence of malignancy. A 1 year screening mammogram is recommended. Based on the Tyrer Cuzick model (a risk assessment model) the patient's lifetime risk is 3.5% and her 10 year risk is 1.7%. According to the ACR, ACS, and NCCN guidelines, an annual breast MRI exam along with mammogram is recommended if the patient's lifetime risk is 20% or greater. This exam was interpreted at Station ID: [id number]. NOTE: For mammograms, a report in lay terms will be sent to the patient. Approximately 15% of breast malignancies will not be visualized mammographically. In the management of a palpable breast mass, a negative mammogram must not discourage biopsy of a clinically suspicious lesion. Electronically Signed By: Bailey cano/anthony:05/03/2024 12:16:18 letter sent: Normal Exam ACR BI-RADS Category 2: Benign
== END ==
LOC: MAMMO 14:58
PROVIDERS: PCP Family Medicine; Referring Provider Family Medicine; Visit Provider Family Medicine
DX: Z12.31 Encounter for screening mammogram for malignant neoplasm of breast (principal); R92.313 Mammographic fatty tissue density, bilateral breasts
CPT/HCPCS: 77063; 77067

== ENCOUNTER → 2025-01-16 09:54 | Outpatient (CLI) | payer MEDICARE, SELFPAY ==
[2025-01-16 10:28] LABS: Add Manual Diff / Slide Review NO; Hematocrit 40.2 % (36-46); Hemoglobin 13.5 g/dL (12.0-16.0); Lymphocytes Absolute Auto 2200 /uL (1100-4500); Mean Corpuscular HGB Conc 33.6 % (30-36); Mean Corpuscular Hemoglobin 28.7 PG (26-34); Mean Corpuscular Volume 85.4 fL (80-100); Platelet Count 285 X10^3/uL (150-400)
[2025-01-16 10:48] LABS: Alanine Aminotransferase 19 IU/L (<35); Albumin 4.0 g/dL (3.5-5.0); Albumin Globulin Ratio 1.7 (1.0-2.8); Alkaline Phosphatase 63 U/L (38-126); Blood Urea Nitrogen 19 mg/dL (7-17); Calcium 9.3 mg/dL (8.4-10.2); Carbon Dioxide 29 mmol/L (22-32); Chloride 105 mmol/L (98-107); Estimated Glomerular Filt Rate > 60 mL/min (>60); Globulin 2.4 g/dL (1.7-4.1); Glucose 92 mg/dL (70-99); HEMOLYSIS < 15 (0-50); Potassium 4.0 mmol/L (3.4-5.1); Sodium 139 mmol/L (137-145); Total Protein 6.4 g/dL (6.3-8.2)
[2025-01-16 11:16] LABS: TSH w/ Reflex to FT4 1.51 uIU/mL (0.47-4.68)
== END ==
PROVIDERS: PCP Family Medicine; Referring Provider Family Medicine; Visit Provider Family Medicine
DX: G10 Huntington's disease (principal); F41.9 Anxiety disorder, unspecified; F32.A Depression, unspecified; M81.0 Age-related osteoporosis without current pathological fracture
CPT/HCPCS: 36415; 80053; 84443; 85025